=== PATIENT | female | born 1950 | race Caucasian/White ===

== ENCOUNTER → 2018-10-01 | Outpatient (CLI) | payer MEDICARE, OTHER ==
[2018-10-01 15:57] VITALS: BP 158/75; PULSE 79; RESP 18; TEMP 98.3; BMI 17.9
--- NOTE | 2018-10-01 17:00 | P.GSHP ---
History of Present Illness H&P Date: 10/01/18 Chief Complaint: abnormal mammogram of the right breast The patient is a 68-year-old white female who noted a lump in her right breast approximately 1 month ago. She underwent a bilateral mammogram on . This revealed an irregular somewhat spiculated intermediate density 15 mm mass in the region of the palpable area. She did not have anything of concern documented in the left breast. She underwent an ultrasound which revealed an irregular microlobulated 10 x 11 mm right breast mass in the 11:00 axis posteriorly. This corresponded to the size and location of the mammographic finding. The recommendation is ultrasound-guided core biopsy. The patient fell when walking her dog about 1 month ago. She states after this tube breast did not turn black and blue. The patient denies any nipple discharge or skin changes. Family history: sister: breast father: esophogeal cancer Hormonal History: menarche: 13 , first at 19, breast fed: none menopause: 49 BCP: 10 years hormones: none Past surgical history: 1. Appendectomy 2. Fusion in her back 3. Cardiac bypass 5 4. Tonsils Medical history: 1. kidney disease 2. daibetic 3. HTN 4. high cholesterol Impression history: Smoke: One pack per day/50 years alcohol: none drugs: none - Constitutional Constitutional: Denies chills, Denies fever - EENT Eyes: denies blurred vision, denies pain Ears: bilateral: decreased hearing, deny: tinnitus Ears, nose, mouth and throat: Denies headache, Denies sore throat - Breasts Breasts: bilateral: as per HPI - Cardiovascular Comment: Cardiac bypass 5, high cholesterol Cardiovascular: Reports high blood pressure - Respiratory Comment: smoker, chronic bronchitis - Gastrointestinal Gastrointestinal: Reports constipation - Genitourinary (Female) Comment: UTI - Menstruation Menstruation: Reports postmenopausal - Musculoskeletal Comment: arthritis - Integumentary Integumentary: Denies pruritus, Denies rash - Neurological Neurological: Reports weakness - Psychiatric Psychiatric: Reports anxiety - Endocrine Endocrine: Reports weight change - Hematologic/Lymphatic Comment: aspirin - Allergic/Immunologic Allergic/Immunologic: Reports seasonal allergies Past Medical History Past Medical History: Coronary Artery Disease (CAD), COPD, Diabetes Mellitus, Fibromyalgia, GERD/Reflux, Hearing Disorder / Deafness, Hyperlipidemia, Hyperte nsion Additional Past Medical History / Comment(s): bilat hearing aid History of Any Multi-Drug Resistant Organisms: None Reported Past Surgical History: Appendectomy, Back Surgery, Coronary Bypass/CABG, Tonsillectomy Past Anesthesia/Blood Transfusion Reactions: No Reported Reaction Past Psychological History: No Psychological Hx Reported Smoking Status: Current every day smoker Past Alcohol Use History: None Reported Past Drug Use History: None Reported - Past Family History Father Additional Family Medical History / Comment(s): hX.Mom-tia and dad and mom- cardiac, and sister - cardiac Medications and Allergies Home Medications Medication Instructions Recorded Confirmed Type Aspirin [Adult Low Dose Aspirin EC] 81 mg PO DAILY 03/13/15 10/01/18 History Fluticasone Nasal [place] [Flonase 1 spray EA NOSTRIL DAILY PRN 03/13/15 10/01/18 History Nasal [place]] HYDROcodone/APAP 7.5-325MG [[place] 1 each PO Q4H PRN 03/13/15 10/01/18 History 7.5-325] Insulin Glargine [Lantus] 8 unit SQ DAILY 03/13/15 10/01/18 History Omeprazole [PriLOSEC] 20 mg PO AC-BRKFST 03/13/15 10/01/18 History Simvastatin [Zocor] 20 mg PO HS 03/13/15 10/01/18 History Carvedilol [Coreg] 6.25 mg PO DAILY 09/29/18 10/01/18 History Cinacalcet [Sensipar] 30 mg PO DAILY 09/29/18 10/01/18 History Linaclotide [Linzess] 145 mcg PO DAILY 09/29/18 10/01/18 History Multivitamin/Iron/Folic Acid 1 each PO DAILY 09/29/18 10/01/18 History [Centrum Adults Tablet] amLODIPine [Norvasc] 5 mg PO DAILY 09/29/18 10/01/18 History Allergies Allergy/AdvReac Type Severity Reaction Status Date / Time codeine Allergy Unknown Verified 10/01/18 15:57 Surgical - Exam Vital Signs Temp Pulse Resp BP Pulse Ox 98.3 F 79 18 158/75 97 10/01/18 15:53 10/01/18 15:53 10/01/18 15:53 10/01/18 15:53 10/01/18 15:53 - General well developed, no distress - Eyes normal ocular movement - ENT normal pinna, no hearing loss - Neck no masses, trachea midline - Respiratory bilateral ronchi normal respiratory effort, clear to auscultation - Cardiovascular Rhythm: regular Heart Sounds: normal: S1, S2 - Abdomen Abdomen: soft, non tender, no guarding, no rigid, no rebound - Integumentary no abnormal pigmentation - Neurologic no disoriented, no combative - Musculoskeletal a vascular shunt in her left upper arm normal gait, normal posture - Psychiatric oriented to time, oriented to person, oriented to place, speech is normal, memory intact Breast examination: Right breast: Multi-positional exam fibrocystic changes, dominant mass in the 9 o'clock position, approximately 1-1/2 cm in size Right axilla: Shoddy adenopathy Left breast: Multi-positional exam fibrocystic changes, no nominate masses or nodules of concern left axilla: shoddy adenopathy Results Mammogram and ultrasound report reviewed Assessment and Plan Assessment: Impression: 1. Abnormal mammogram right breast 2. Abnormal ultrasound right breast 2. Palpable mass right breast 4. COPD 5. Hypertension 6. Prior cardiac bypass, coronary artery disease 7. Anxiety 8. Fibromyalgia 9. Diabetes 10. Decreased hearing The patient has a clearly palpable lesion in her right breast. I discussed with her doing a core biopsy of palpable lesion in the risks and benefits of this. She understands and wishes to proceed. We will forego the ultrasound-guided core at this time depending on results of our for biopsy of palpable lesion. Plan: 1. Ultrasound-guided core biopsy of palpable lesion right breast 2. Medical management of medical conditions CC: Padma Steve, [facility]
== END | disposition home or self-care (01) ==
LOC: WWCWWP 15:27
PROVIDERS: ATTEND Surgery
DX: Z53.9 Procedure and treatment not carried out, unspecified reason (principal)

== ENCOUNTER → 2018-10-09 | Outpatient (CLI) | payer MEDICARE, OTHER ==
[2018-10-09 12:53] VITALS: BP 175/78; PULSE 82; RESP 18; TEMP 97.9; BMI 17.9
--- NOTE | 2018-10-09 13:26 | P.PCN ---
Date of Procedure: 10/09/18 Preoperative Diagnosis: Mass right breast Postoperative Diagnosis: same Procedure(s) Performed: core biopsy right breast Anesthesia: local Surgeon: Karishma Crandall Pathology: other Condition: stable Disposition: same day Indications for Procedure: Palpable nodule right breast at the 9 o'clock position Operative Findings: Dense breast tissue Description of Procedure: The patient was brought to the procedure room and the area of concern in the [facility] breast was prepped in a sterile fashion. One percent lidocaine was used to anesthetize the area of concern. An 18 gauge core biopsy needle was introduced to the area of the lesion. 3 samples were obtained. The patient tolerated the procedure in stable condition. She will follow next week for results. I discussed with her that should this be nondiagnostic. Most likely recommend ultrasound-guided core biopsy. Cc: Padma Steve [facility]
== END ==
LOC: WWCWWP 11:36
PROVIDERS: ATTEND Surgery
DX: N64.89 Other specified disorders of breast (principal)
CPT/HCPCS: 88305; 88341; 88342

== ENCOUNTER → 2018-10-15 | Outpatient (CLI) | payer MEDICARE, OTHER ==
[2018-10-15 10:36] VITALS: BP 147/73; PULSE 79; RESP 18; TEMP 97.9; BMI 17.9
--- NOTE | 2018-10-15 11:08 | P.PN ---
Subjective Progress Note Date: 10/15/18 Principal diagnosis: Right breast grade 3 invasive ductal breast cancer The patient is a 68-year-old white female status post core biopsy of a palpable mass in the right breast. Pathology revealed invasive ductal breast cancer. The patient has no complaints related to the biopsy. The tumor is grade 3. We are awaiting receptor status and HER-2/dia status. I discussed the risks and benefits of surgical treatment including lumpectomy plus radiation therapy and sentinel node biopsy possible axillary node dissection, mastectomy plus or minus reconstruction. The patient at this time wishes to have a lumpectomy. Objective - Vital Signs Vital signs: Vital Signs Temp 97.9 F 10/15/18 10:32 Pulse 79 10/15/18 10:32 Resp 18 10/15/18 10:32 BP 147/73 10/15/18 10:32 Pulse Ox 98 10/15/18 10:32 Intake & Output 10/14/18 10/15/18 10/15/18 18:59 06:59 18:59 Weight 53.524 kg - Constitutional General appearance: Present: thin - EENT Eyes: Present: EOMI ENT: Present: hearing grossly normal - Neck Neck: Present: normal ROM - Respiratory Details: Bilateral rhonchi - Cardiovascular Rhythm: regular Heart sounds: normal: S1, S2 - Integumentary Integumentary: Present: normal turgor - Musculoskeletal Musculoskeletal: Present: gait normal - Psychiatric Psychiatric: Present: A&O x's 3, appropriate affect, intact judgment & insight - Additional findings Additional findings: Right breast: Mild ecchymosis at biopsy site, probable nodule approximately one to one and half centimeters in size Assessment and Plan Assessment: Impression: 1. Newly diagnosed right breast infiltrating ductal carcinoma grade 3. Plan: 1. Appointment with radiation oncology 2. Await ER/MT and HER-2/dia studies 3. Patient wishes lumpectomy with sentinel node biopsy possible axillary node dissection CC: Giuliano Gonzales
== END | disposition home or self-care (01) ==
LOC: WWCWWP 10:23
PROVIDERS: ATTEND Surgery
DX: Z53.9 Procedure and treatment not carried out, unspecified reason (principal)

== ENCOUNTER → 2018-11-19 | Outpatient (CLI) | payer MEDICARE, OTHER ==
[2018-11-19 16:20] VITALS: BP 167/67; PULSE 66; RESP 18; TEMP 97.8; BMI 18.2
--- NOTE | 2018-11-19 16:58 | P.GSHP ---
History of Present Illness H&P Date: 11/19/18 Chief Complaint: Right breast cancer The patient is a 68-year-old white female who noted a lump in her right breast approximately 2 months ago. She underwent a bilateral mammogram on . This revealed an irregular somewhat spiculated and terminated density 15 mm mass in the region of the palpable abnormality. She did not have anything of concern documented in the left breast. She underwent an ultrasound which revealed an irregular microlobulated 10 x 11 mm right breast mass 11 o'clock position. This corresponded to the location of the mammographic abnormality. The patient underwent a core biopsy of the area which revealed an invasive ductal carcinoma, grade 3. This was ER/[place] negative and HER-2/dia positive. The patient had her case presented at tumor board and the option of neoadjuvant chemotherapy was addressed. The patient however has refused neoadjuvant and wishes to proceed with surgical intervention. Family history: Sr.: Breast cancer Father: Esophageal cancer History: Menarche: 12 fistula 19, press-fit: Negative Menopause: 49 Postoperative control pills: 10 years Hormones: Negative Past surgical history: 1. Appendectomy 2. Fusion in her back 2. Cardiac bypass 5 4. Tonsillectomy Medical history: 1. Kidney disease requiring dialysis in the past 2. Diabetic 3. Hypertension 4. High cholesterol Social history: Smoke: 1. Per day for 50 years Alcohol: Negative Drugs: Negative - Constitutional Constitutional: Denies chills, Denies fever - EENT Eyes: denies blurred vision, denies pain Ears: bilateral: decreased hearing, deny: tinnitus - Breasts Breasts: bilateral: as per HPI - Cardiovascular Comment: Cardiac bypass 5, high cholesterol Cardiovascular: Reports high blood pressure - Respiratory Comment: Smoker, chronic bronchitis - Gastrointestinal Gastrointestinal: Reports constipation - Genitourinary (Female) Comment: History of kidney failure requiring dialysis in the past - Menstruation Menstruation: Reports postmenopausal - Musculoskeletal Comment: Arthritis - Integumentary Integumentary: Denies pruritus, Denies rash - Neurological Neurological: Reports weakness - Psychiatric Psychiatric: Reports anxiety - Endocrine Endocrine: Reports weight change - Hematologic/Lymphatic Comment: Aspirin - Allergic/Immunologic Allergic/Immunologic: Reports seasonal allergies Past Medical History Past Medical History: Coronary Artery Disease (CAD), COPD, Diabetes Mellitus, Fibromyalgia, GERD/Reflux, Hearing Disorder / Deafness, Hyperlipidemia, Hypertension Additional Past Medical History / Comment(s): bilat hearing aid History of Any Multi-Drug Resistant Organisms: None Reported Past Surgical History: Appendectomy, Back Surgery, Coronary Bypass/CABG, Tonsillectomy Past Anesthesia/Blood Transfusion Reactions: No Reported Reaction Past Psychological History: No Psychological Hx Reported Smoking Status: Current every day smoker Past Alcohol Use History: None Reported Past Drug Use History: None Reported - Past Family History Father Additional Family Medical History / Comment(s): hX.Mom-tia and dad and mom- cardiac, and sister - cardiac Medications and Allergies Home Medications Medication Instructions Recorded Confirmed Type Aspirin [Adult Low Dose Aspirin EC] 81 mg PO DAILY 03/13/15 11/19/18 History Fluticasone Nasal [place] [Flonase 1 spray EA NOSTRIL DAILY PRN 03/13/15 11/19/18 History Nasal [place]] HYDROcodone/APAP 7.5-325MG [[place] 1 each PO Q4H PRN 03/13/15 11/19/18 History 7.5-325] Insulin Glargine [Lantus] 8 unit SQ DAILY 03/13/15 11/19/18 History Omeprazole [PriLOSEC] 20 mg PO AC-BRKFST 03/13/15 11/19/18 History Simvastatin [Zocor] 20 mg PO HS 03/13/15 11/19/18 History Carvedilol [Coreg] 6.25 mg PO DAILY 09/29/18 11/19/18 History Cinacalcet [Sensipar] 30 mg PO DAILY 09/29/18 11/19/18 History Linaclotide [Linzess] 145 mcg PO DAILY 09/29/18 11/19/18 History Multivitamin/Iron/Folic Acid 1 each PO DAILY 09/29/18 11/19/18 History [Centrum Adults Tablet] amLODIPine [Norvasc] 5 mg PO DAILY 09/29/18 11/19/18 History Allergies Allergy/AdvReac Type Severity Reaction Status Date / Time codeine Allergy Unknown Verified 11/19/18 16:20 Surgical - Exam Vital Signs Temp Pulse Resp BP Pulse Ox 97.8 F 66 18 167/67 97 11/19/18 16:16 11/19/18 16:16 11/19/18 16:16 11/19/18 16:16 11/19/18 16:16 BMI 18.2 - General cachectic - Eyes normal ocular movement - ENT no hearing loss, no congestion - Neck trachea midline - Respiratory normal respiratory effort, clear to auscultation - Cardiovascular Systolic ejection murmur Heart Sounds: normal: S1, S2 - Abdomen Abdomen: soft - Integumentary Vascular shunt in her left upper arm - Neurologic no disoriented, no combative - Musculoskeletal normal gait, normal posture - Psychiatric oriented to time, oriented to person, oriented to place, speech is normal, memory intact Right breast examination: Multiple positional exam fibrocystic changes, dominant mass in the 9 o'clock position approximately one to one and half centimeters in size Right axilla: No adenopathy of concern Results Mammogram and ultrasound reports reviewed Case reviewed at tumor board Assessment and Plan Assessment: Impression: 1. Stage IA right breast cancer 2. Systolic ejection murmur 2. Diabetes 4. History of renal failure 5. Status post back surgery 6. Hypertension 7. Deafness 8. Coronary artery disease 9. Nicotine dependence Plan: 1. Lumpectomy sentinel node biopsy 2. Patient seen by radiation oncology post operative radiation therapy 3. Patient does not wish to have neoadjuvant chemotherapy she was given this option as a possible recommendation from tumor Board and chooses to forego it at this time 4. Medical clearance, cardiac clearance, nephrology clearance ( at [facility]) Patient and family understand the risks and benefits and wished to proceed with surgical lumpectomy and sentinel node biopsy possible axillary node dissection. They understand that if the margins to be positive or the sentinel nodes were to be found positive that they may require further surgical intervention. CC: Padma Steve
--- NOTE | 2018-12-10 09:52 | P.PN ---
Progress Note - Text Progress Note Date: 12/10/18 The patient has a history of chronic renal failure. Her head golf professional is in [place]. I spoke to Dr. Lucero, her head golf professional who states the patient is at high risk for any surgical intervention secondary to her renal disease. He has given clearance but would like the patient to spend the night postoperative and be followed by our local hospitalist. The patient is aware of this. And her procedure has been scheduled pending clearance from cardiology. She additionally has been seen by cardiology and had an ECHO performed the results of which are not yet available. We are continuing to await clearance from her primary care doctor. Upon clearance the patient will undergo a right breast needle localization with lumpectomy and sentinel node injection sentinel node biopsy possible axillary node dissection. CC: Padma Steve
== END | disposition home or self-care (01) ==
LOC: WWCWWP 16:05
PROVIDERS: ATTEND Surgery
DX: Z53.9 Procedure and treatment not carried out, unspecified reason (principal)

== ENCOUNTER → 2018-12-28 | Outpatient (CLI) | payer MEDICARE ==
[2018-12-28 13:31] LABS: HGB 7.8 gm/dL (11.4-16.0); Hypochromasia Slight; MCH 31.7 pg (25.0-35.0); MCHC 31.1 g/dL (31.0-37.0); MCV 101.8 fL (80.0-100.0); Macrocytosis Slight; Mean Platelet Volume 7.2; Platelet Count 263 k/uL (150-450); RBC 2.46 m/uL (3.80-5.40); RDW 14.2 % (11.5-15.5)
[2018-12-28 18:45] LABS: Anion Gap 9.1 mmol/L (4.00-12.00); Carbon Dioxide 19.9 mmol/L (21.6-31.8); Magnesium 1.4 mg/dL (1.5-2.4); Potassium 3.9 mmol/L (3.5-5.5)
== END | disposition home or self-care (01) ==
LOC: LABWHC1 12:37
PROVIDERS: ATTEND Surgery
DX: N18.9 Chronic kidney disease, unspecified (principal)
CPT/HCPCS: 36415; 80051; 83735; 85027

== ENCOUNTER → 2018-12-28 | Outpatient (CLI) | payer MEDICARE ==
[2018-12-28 12:08] VITALS: BP 161/72; PULSE 75; RESP 18; TEMP 97.5; BMI 19.1
--- NOTE | 2018-12-28 12:29 | P.PN ---
Subjective Progress Note Date: 12/28/18 The patient is a 68-year-old white female who noted a lump in her right breast several months ago. She underwent a bilateral mammogram on . This revealed an irregular somewhat spiculated and terminated density 15 mm mass in the region of the palpable abnormality. She did not have anything of concern documented in the left breast. She underwent an ultrasound which revealed an irregular microlobulated 10 x 11 mm right breast mass 11 o'clock position. This corresponded to the location of the mammographic abnormality. The patient underwent a core biopsy of the area which revealed an invasive ductal carcinoma, grade 3. This was ER/[place] negative and HER-2/dia positive. The patient had her case presented at tumor board and the option of neoadjuvant chemotherapy was addressed. The patient however has refused neoadjuvant and wishes to proceed with surgical intervention. She has acomplex medical history including renal disease. She was seen by her car stower in [place] and cleared for surgery, but with the recommendation of close follow up here by our hospitalist. Family history: Sr.: Breast cancer Father: Esophageal cancer History: Menarche: 12 fistula 19, press-fit: Negative Menopause: 49 Postoperative control pills: 10 years Hormones: Negative Past surgical history: 1. Appendectomy 2. Fusion in her back 2. Cardiac bypass 5 4. Tonsillectomy Medical history: 1. Kidney disease requiring dialysis in the past 2. Diabetic 3. Hypertension 4. High cholesterol Social history: Smoke: 1. Per day for 50 years Alcohol: Negative Drugs: Negative - Constitutional Constitutional: Denies chills, Denies fever - EENT Eyes: denies blurred vision, denies pain Ears: bilateral: decreased hearing, deny: tinnitus - Breasts Breasts: bilateral: as per HPI - Cardiovascular Comment: Cardiac bypass 5, high cholesterol Cardiovascular: Reports high blood pressure - Respiratory Comment: Smoker, chronic bronchitis - Gastrointestinal Gastrointestinal: Reports constipation - Genitourinary (Female) Comment: History of kidney failure requiring dialysis in the past - Menstruation Menstruation: Reports postmenopausal - Musculoskeletal Comment: Arthritis - Integumentary Integumentary: Denies pruritus, Denies rash - Neurological Neurological: Reports weakness - Psychiatric Psychiatric: Reports anxiety - Endocrine Endocrine: Reports weight change - Hematologic/Lymphatic Comment: Aspirin - Allergic/Immunologic Allergic/Immunologic: Reports seasonal allergies Past Medical History Past Medical History: Coronary Artery Disease (CAD), COPD, Diabetes Mellitus, Fibromyalgia, GERD/Reflux, Hearing Disorder / Deafness, Hyperlipidemia, Hypertension Additional Past Medical History / Comment(s): bilat hearing aid History of Any Multi-Drug Resistant Organisms: None Reported Past Surgical History: Appendectomy, Back Surgery, Coronary Bypass/CABG, Tonsillectomy Past Anesthesia/Blood Transfusion Reactions: No Reported Reaction Past Psychological History: No Psychological Hx Reported Smoking Status: Current every day smoker Past Alcohol Use History: None Reported Past Drug Use History: None Reported - Past Family History Father Additional Family Medical History / Comment(s): hX.Mother: TIA Objective - Vital Signs Vital signs: Vital Signs Temp 97.5 F L 12/28/18 11:58 Pulse 75 12/28/18 11:58 Resp 18 12/28/18 11:58 BP 161/72 12/28/18 11:58 Pulse Ox Intake & Output 12/27/18 12/28/18 12/28/18 18:59 06:59 18:59 Weight 57.153 kg - Exam BMI 19.2 - Constitutional General appearance: Present: thin - EENT Eyes: Present: EOMI ENT: Present: hearing grossly normal - Neck Neck: Present: normal ROM - Respiratory Respiratory: bilateral: diminished (at bases) - Cardiovascular Rhythm: regular Heart sounds: normal: S1, S2 Abnormal Heart Sounds: Present: systolic murmur - Gastrointestinal General gastrointestinal: Present: soft - Integumentary Integumentary: Present: normal turgor - Musculoskeletal Musculoskeletal: Present: gait normal - Psychiatric Psychiatric: Present: A&O x's 3, appropriate affect, intact judgment & insight - Additional findings Additional findings: Examination: Right breast: 11 o'clock position probable approximately 1.5 cm firm mass biopsy proven malignancy Right axilla: Few shotty lymph nodes Left breast: Multi-positional exam no dominant masses or nodules of concern, fibrocystic changes Left axilla: Negative Assessment and Plan Assessment: Impression: 1. Kidney disease requiring dialysis in the past 2. Diabetic 3. Hypertension 4. High cholesterol 5. biopsy proven right breast cancer 6. COPD Plan: 1. Medical clearance from cardiology, pulmonary, and nephrology, and brought and repair to release 2. Right breast lumpectomy sentinel node biopsy 3. Medical management of medical conditions 4. Electrolytes, magnesium, and CBC CC: Giuliano Gonzales nurse practitioner
== END | disposition home or self-care (01) ==
LOC: WWCWWP 11:53
PROVIDERS: ATTEND Surgery
DX: Z53.9 Procedure and treatment not carried out, unspecified reason (principal)

== ENCOUNTER 2019-01-05 11:16 | Inpatient (IN) | payer MEDICARE ==
[2019-01-05] MEDS ORDERED: ONDANSETRON 4 MG/2 ML VIAL IVP PRN (15:58)
[2019-01-05] MEDS ORDERED: MELATONIN 3 MG TABLET PO PRN (15:58)
[2019-01-05] MEDS ORDERED: ACETAMINOPHEN TAB 325 MG TAB PO PRN (15:58)
[2019-01-05] MEDS ORDERED: CALCIUM CARBONATE 500 MG CHEWABLE PO PRN (15:58)
[2019-01-05] MEDS ORDERED: NALOXONE 0.4 MG/ML 1 ML VIAL IV PRN (15:58)
--- NOTE | 2019-01-05 16:20 | P.HPIM ---
History of Present Illness H&P Date: 01/05/19 Chief Complaint: Cough shortness of breath Presenting complaint: Short of breath cough History of presenting complaint: This is a pleasant 68-year-old patient who came in to have right breast surgery by Dr. Rachele duncan. Patient found the right breast mass about 2 months ago. Saw her family doctor had a mammogram done. Subsequently was referred to Dr. Rachele David. Patient was scheduled for surgery this morning. Patient for last to 3 days has been increasing short of breath. Wheezing cough. Bringing up phlegm. Not feeling well tired rundown. Denied any obvious fever and chills. Please appetite though. Chronic stable medical conditions include coronary artery disease, diabetes, fibromyalgia, GERD, hyperlipidemia, hypertension and decreased hearing and wears hearing aids. Patient had a coronary bypass in 2007 and does follow with Dr. Borges from cardiology. Patient was seen 2 weeks ago and cleared for the surgery. Review of systems: GEN.: Tired EYES: None HEENT: None NECK: None RESPIRATORY: As above CARDIOVASCULAR: None GASTROINTESTINAL: None GENITOURINARY: None MUSCULOSKELETAL: Some pain in the joints LYMPHATICS: None HEMATOLOGICAL: None PSYCHIATRY: None NEUROLOGICAL: None Social history: Smokes anywhere from half to pack a day for over 50 years. Alcohol rarely. . Family history: Esophageal cancer Physical examination: VITAL SIGNS: 98.2, 72, 18, 108/68, 94% room air GENERAL: Laying in bed, tired appearing. EYES: Pupils equal. Conjunctiva normal. HEENT: External appearance of nose and ears normal, oral cavity grossly normal. NECK: JVD not raised; masses not palpable. HEART: First and second heart sounds are normal; no edema. LUNGS: Respiratory rate increased, diminished breath sounds on expiration some expiratory crackles, wheezing. ABDOMEN: Soft, nontender, liver spleen not palpable, no masses palpable. PSYCH: Alert and oriented x3; mood and affect normal. NEUROLOGICAL: Cranial nerves grossly intact; no facial asymmetry, power and sensation grossly intact. LYMPHATICS: No lymph nodes palpable in the axilla and neck Investigations: Lab work ordered and pending Checks x-ray pending Assessment: -Acute COPD exacerbation in a current smoker -Acute tracheobronchitis versus pneumonia, awaiting chest x-ray -Coronary artery disease with a prior history of bypass -Diabetes mellitus type 2 -Chronic fibromyalgia -GERD -Hyperlipidemia -Essential hypertension -Bilateral hard of hearing with hearing aids -Right breast cancer being followed by Dr. Rachele David Plan: Patient be started on nebulized bronchodilators every 4 hours, IV Solu-Medrol, nebulized Pulmicort,. Accu-Cheks will be followed with slight scale insulin. Home medications resumed. Lovenox for DVT prophylaxis. Care was discussed with the patient. Expect the patient to be here for at least 2 nights and the hospital. Smoke cessation counseling: This was done with the patient. Nicotine patch is being given. More than 3 minutes was spent on this. Past Medical History Past Medical History: Coronary Artery Disease (CAD), COPD, Diabetes Mellitus, Fibromyalgia, GERD/Reflux, Hearing Disorder / Deafness, Hyperlipidemia, Hypertension Additional Past Medical History / Comment(s): bilat hearing aid History of Any Multi-Drug Resistant Organisms: None Reported Past Surgical History: Appendectomy, Back Surgery, Coronary Bypass/CABG, Tonsillectomy Past Anesthesia/Blood Transfusion Reactions: No Reported Reaction Smoking Status: Current every day smoker - Past Family History Father Additional Family Medical History / Comment(s): esophageal cancer Sister(s) Additional Family Medical History / Comment(s): breast cancer Medications and Allergies Home Medications Medication Instructions Recorded Confirmed Type Aspirin [Adult Low Dose Aspirin EC] 81 mg PO DAILY 03/13/15 01/05/19 History Fluticasone Nasal [place] [Flonase 1 spray EA NOSTRIL DAILY PRN 03/13/15 01/05/19 History Nasal [place]] Insulin Glargine [Lantus] 8 unit SQ HS 03/13/15 01/05/19 History Omeprazole [PriLOSEC] 20 mg PO AC-BRKFST 03/13/15 01/05/19 History Simvastatin [Zocor] 20 mg PO HS 03/13/15 01/05/19 History Carvedilol [Coreg] 6.25 mg PO DAILY 09/29/18 01/05/19 History Linaclotide [Linzess] 145 mcg PO DAILY 09/29/18 01/05/19 History Multivitamin/Iron/Folic Acid 1 tab PO DAILY 09/29/18 01/05/19 History [Centrum Adults Tablet] amLODIPine [Norvasc] 5 mg PO DAILY 09/29/18 01/05/19 History HYDROcodone/APAP 10-325MG [Evans 1 tab PO TID PRN 01/04/19 01/05/19 History 10-325] Furosemide [Lasix] 80 mg PO DAILY 01/05/19 01/05/19 History Allergies Allergy/AdvReac Type Severity Reaction Status Date / Time codeine Allergy Unknown Verified 01/05/19 13:38 Physical Exam Vitals: Vital Signs Temp Pulse Resp BP Pulse Ox 01/05/19 14:07 72 01/05/19 14:05 98.2 F 72 18 108/68 94 L Intake and Output 01/05/19 01/05/19 01/05/19 06:59 14:59 22:59 Other: # Voids 1 Weight 53.977 kg
--- NOTE | 2019-01-05 16:31 | XR ---
EXAMINATION TYPE: XR chest 2V DATE OF EXAM: 01/05/2019 COMPARISON: NONE HISTORY: Productive cough with sputum, shortness of breath TECHNIQUE: Frontal and lateral views of the chest are obtained. FINDINGS: Post-CABG changes with mediastinal clips and sternal wires is present. Reticular interstiti al changes throughout the lungs bilaterally are present. There is no suspicious focal air space opaci ty, pleural effusion, or pneumothorax seen. The cardiac silhouette size is upper limits of normal. The osseous structures are intact. IMPRESSION: Reticular interstitial changes bilaterally favor product of diffuse chronic interstitial fibrosis. No suspicious focal acute infiltrate. Correlation with old outside chest x-ray would be be neficial.
[2019-01-05] MEDS: HYDROcodone/APAP 10-325MG 1 EACH TAB PO PRN (16:50)
[2019-01-05] MEDS: NICOTINE 21MG/24HR PATCH TRANSDERM SCH (16:51)
[2019-01-05] MEDS: ENOXAPARIN 40 MG/0.4 ML SYRINGE SQ SCH (16:52)
[2019-01-05] MEDS: methylPREDNISolone SOD SUCCI 40 MG/ML 1 ML VIAL IV SCH (16:53)
[2019-01-05 17:24] LABS: Basophils % (A) 0 %; Eosinophils % (A) 0 %; HCT 27.1 % (34.0-46.0); HGB 8.6 gm/dL (11.4-16.0); Hypochromasia Slight; Lymphocytes # (A) 0.9 k/uL (1.0-4.8); Lymphocytes % (A) 5 %; MCHC 31.6 g/dL (31.0-37.0); MCV 101.2 fL (80.0-100.0); Macrocytosis Slight; Mean Platelet Volume 7.2; Monocytes # (A) 0.4 k/uL (0-1.0); Monocytes % (A) 2 %; Neutrophils # (A) 15.8 k/uL (1.3-7.7); Neutrophils % (A) 92 %; Platelet Count 324 k/uL (150-450); RBC 2.68 m/uL (3.80-5.40); RDW 14.8 % (11.5-15.5); WBC 17.2 k/uL (3.8-10.6)
[2019-01-05] MEDS ORDERED: INSULIN ASPART (NovoLOG) 100 UNIT/ML VIAL SQ SCH (17:30)
[2019-01-05 17:33] LABS: Albumin 3.2 g/dL (3.5-5.0); Calcium 7.7 mg/dL (8.4-10.2); Potassium 3.7 mmol/L (3.5-5.1); Total Bilirubin 0.3 mg/dL (0.2-1.3); Total Protein 5.7 g/dL (6.3-8.2)
[2019-01-05 17:45] LABS: Glucose,Whole Blood 191 mg/dL (75-99)
[2019-01-05] MEDS: CARVEDILOL 3.125 MG TAB PO SCH (17:55)
[2019-01-05 18:58] VITALS: BMI 18.1
[2019-01-05] MEDS: IPRATROPIUM-ALBUTEROL 3 ML NEB INHALATION SCH (20:17)
[2019-01-05] MEDS: BUDESONIDE 1 MG/2 ML NEBU INHALATION SCH (20:17)
[2019-01-05 20:40] LABS: Glucose,Whole Blood 194 mg/dL (75-99)
[2019-01-05] MEDS ORDERED: INSULIN DETEMIR (LEVEMIR) 100 UNIT/ML SYR SQ SCH (21:00)
[2019-01-05] MEDS: INSULIN ASPART (NovoLOG) 100 UNIT/ML VIAL SQ SCH (21:07)
[2019-01-05] MEDS: ATORVASTATIN 10 MG TAB PO SCH (21:08)
[2019-01-06] MEDS: IPRATROPIUM-ALBUTEROL 3 ML NEB INHALATION SCH ×8 (00:15→23:54)
[2019-01-06] MEDS: methylPREDNISolone SOD SUCCI 40 MG/ML 1 ML VIAL IV SCH ×3 (00:25→17:03)
[2019-01-06] MEDS: HYDROcodone/APAP 10-325MG 1 EACH TAB PO PRN ×3 (00:42→17:42)
[2019-01-06] MEDS ORDERED: IPRATROPIUM-ALBUTEROL 3 ML NEB ONE (04:00)
[2019-01-06 06:52] LABS: Glucose,Whole Blood 128 mg/dL (75-99)
[2019-01-06] MEDS: INSULIN ASPART (NovoLOG) 100 UNIT/ML VIAL SQ SCH ×3 (06:53→18:27)
[2019-01-06] MEDS: PANTOPRAZOLE 40 MG TABLET PO SCH (07:43)
[2019-01-06] MEDS: CARVEDILOL 3.125 MG TAB PO SCH ×2 (07:43→18:17)
[2019-01-06] MEDS ORDERED: NON-FORMULARY DRUG (Linaclotide [Linzess] 145 MCG) PO SCH (09:00)
[2019-01-06] MEDS: MULTIVITAMINS, THERA 1 EACH TAB PO SCH (09:31)
[2019-01-06] MEDS: FUROSEMIDE 80 MG TAB PO SCH (09:31)
[2019-01-06] MEDS: amLODIPine 5 MG TAB PO SCH (09:32)
[2019-01-06] MEDS: ASPIRIN 81 MG PO SCH (09:34)
[2019-01-06] MEDS: ENOXAPARIN 40 MG/0.4 ML SYRINGE SQ SCH (09:34)
[2019-01-06] MEDS: NICOTINE 21MG/24HR PATCH TRANSDERM SCH (09:34)
[2019-01-06] MEDS: BUDESONIDE 1 MG/2 ML NEBU INHALATION SCH ×3 (09:53→23:53)
[2019-01-06 11:54] LABS: Glucose,Whole Blood 327 mg/dL (75-99)
[2019-01-06 13:06] LABS: Hemoglobin A1C 6.3 % (4.0-6.0)
[2019-01-06] MEDS: LORATADINE 10 MG TAB PO SCH (16:13)
[2019-01-06 17:44] LABS: Glucose,Whole Blood 519 mg/dL (75-99)
[2019-01-06 17:44] LABS: Glucose,Whole Blood 533 mg/dL (75-99)
[2019-01-06 18:40] LABS: Glucose,Whole Blood 481 mg/dL (75-99)
[2019-01-06] MEDS ORDERED: INSULIN REGULAR 100 UNIT in SODIUM CHLORIDE 0.9% 100 ML IV SCH (19:45)
[2019-01-06 21:30] LABS: Glucose,Whole Blood 472 mg/dL (75-99)
[2019-01-06] MEDS: ATORVASTATIN 10 MG TAB PO SCH (21:49)
[2019-01-06 22:23] LABS: Glucose,Whole Blood 432 mg/dL (75-99)
[2019-01-06 23:04] LABS: Glucose,Whole Blood 350 mg/dL (75-99)
[2019-01-06 23:17] LABS: Glucose,Whole Blood 265 mg/dL (75-99)
[2019-01-07 00:06] LABS: Glucose,Whole Blood 221 mg/dL (75-99)
--- NOTE | 2019-01-07 00:18 | P.PN ---
Progress Note - Text Progress Note Date: 01/06/19 Chief Complaint: Cough shortness of breath Interval history: This is a pleasant 68-year-old patient who came in to have right breast surgery by Dr. Rachele duncan. Patient found the right breast mass about 2 months ago. Saw her family doctor had a mammogram done. Subsequently was referred to Dr. Rachele David. Patient was scheduled for surgery this morning. Patient for last to 3 days has been increasing short of breath. Wheezing cough. Bringing up phlegm. Not feeling well tired rundown. Denied any obvious fever and chills. Please appetite though. Chronic stable medical conditions include coronary artery disease, diabetes, fibromyalgia, GERD, hyperlipidemia, hypertension and decreased hearing and wears hearing aids. Patient had a coronary bypass in 2007 and does follow with Dr. Borges from cardiology. Patient was seen 2 weeks ago and cleared for the surgery. Patient admitted for COPD exacerbation and acute tracheobronchitis Today-saw this patient earlier today. Was feeling better. Breathing was improving. Late in the afternoon nurse called me that patient eaten some sweets that she was at gone up to 500s. I ordered the insulin drip in telemetry for the patient to be moved to telemetry floor. X-ray did not show any pneumonia. Review of systems: Was done for constitutional, cardiovascular, GI, pulmonary. relevant finding as above Active Medications Acetaminophen (Tylenol Tab) 650 mg PO Q6HR PRN PRN Reason: Mild Pain or Fever > 100.5 Hydrocodone Bitart/Acetaminophen (Roberts 10) 1 each PO TID PRN PRN Reason: Pain Last Admin: 01/06/19 17:42 Dose: 1 each Documented by: Albuterol/Ipratropium (Duoneb 0.5 Mg-3 Mg/3 Ml Soln) 3 ml INHALATION RT-Q4H [facility] Last Admin: 01/06/19 23:54 Dose: Not Given Documented by: Amlodipine Besylate (Norvasc) 5 mg PO DAILY [facility] Last Admin: 01/06/19 09:32 Dose: 5 mg Documented by: Aspirin (Aspirin) 81 mg PO DAILY [facility] Last Admin: 01/06/19 09:34 Dose: Not Given Documented by: Atorvastatin Calcium (Lipitor) 10 mg PO HS [facility] Last Admin: 01/06/19 21:49 Dose: 10 mg Documented by: Budesonide (Pulmicort) 1 mg INHALATION RT-BID [facility] Last Admin: 01/06/19 23:53 Dose: Not Given Documented by: Calcium Carbonate/Glycine (Tums) 1,000 mg PO Q4HR PRN PRN Reason: Dyspepsia Carvedilol (Coreg) 3.125 mg PO BID-W/MEALS [facility] Last Admin: 01/06/19 18:17 Dose: 3.125 mg Documented by: Enoxaparin Sodium (Lovenox) 30 mg SQ DAILY [facility] Furosemide (Lasix) 80 mg PO DAILY [facility] Last Admin: 01/06/19 09:31 Dose: 80 mg Documented by: Ceftriaxone Sodium 1 gm/ (Sodium Chloride) 50 mls @ 100 mls/hr IVPB Q24HR [facility] Last Admin: 01/06/19 09:25 Dose: 100 mls/hr Documented by: Insulin Human Regular 100 unit (/ Sodium Chloride) 101 mls @ 0 mls/hr IV .Q0M [facility]; Protocol Last Titration: 01/06/19 23:27 Dose: 11 mls/hr, 11 mls/hr Documented by: Insulin Aspart (Novolog) 7 unit 0.13 unit/kg (7 unit) SQ AC-TID [facility] Loratadine (Claritin) 5 mg PO Q12HR [facility] Last Admin: 01/06/19 16:13 Dose: 5 mg Documented by: Melatonin (Melatonin) 3 mg PO HS PRN PRN Reason: Insomnia Methylprednisolone Sodium Succinate (Solu-Medrol) 40 mg IV Q8HR [facility] Last Admin: 01/06/19 17:03 Dose: 40 mg Documented by: Multivitamins (Theragran) 1 each PO DAILY [facility] Last Admin: 01/06/19 09:31 Dose: 1 each Documented by: Naloxone HCl (Narcan) 0.2 mg IV Q2M PRN PRN Reason: Opioid Reversal Nicotine (Habitrol 21mg/24hr Patch) 1 patch TRANSDERM DAILY [facility] Last Admin: 01/06/19 09:34 Dose: 1 patch Documented by: Non-Formulary Medication (Linaclotide [Linzess]) 145 mcg PO DAILY [facility] Ondansetron HCl (Zofran) 4 mg IVP Q8HR PRN PRN Reason: Nausea And Vomiting Pantoprazole Sodium (Protonix) 40 mg PO AC-BRKFST [facility] Last Admin: 01/06/19 07:43 Dose: 40 mg Documented by: Physical examination: VITAL SIGNS: 98.2, 69, 20, 137/87, 99% room air GENERAL: Laying in bed, appears better EYES: Pupils equal. Conjunctiva normal. HEENT: External appearance of nose and ears normal, oral cavity grossly normal. NECK: JVD not raised; masses not palpable. HEART: First and second heart sounds are normal; no edema. LUNGS: Respiratory rate increased, diminished breath sounds on expiration improved wheezing. ABDOMEN: Soft, nontender, liver spleen not palpable, no masses palpable. PSYCH: Alert and oriented x3; mood and affect normal. Investigations: Accu-Cheks and up to 533 Checks x-ray film personally reviewed by me suggestive of fibrotic changes Assessment: -Acute COPD exacerbation in a current smoker, improving -Acute tracheobronchitis . No pneumonia -We will check for pulmonary fibrosis basilar checks x-ray -Coronary artery disease with a prior history of bypass -Diabetes mellitus type 2 uncontrolled with hyperglycemia secondary steroids and taking desserts -Chronic fibromyalgia -GERD -Hyperlipidemia -Essential hypertension -Bilateral hard of hearing with hearing aids -Right breast cancer being followed by Dr. Rachele David Plan: Patient be moved to telemetry for with insulin drip. Switched the patient oral prednisone. Also order a high-resolution computed tomography scan of the chest to rule out pulmonary fibrosis
[2019-01-07] MEDS: methylPREDNISolone SOD SUCCI 40 MG/ML 1 ML VIAL IV SCH (00:31)
[2019-01-07] MEDS: LORATADINE 10 MG TAB PO SCH ×4 (00:32→21:17)
[2019-01-07 00:39] LABS: Glucose,Whole Blood 157 mg/dL (75-99)
[2019-01-07 01:37] LABS: Glucose,Whole Blood 88 mg/dL (75-99)
[2019-01-07 02:26] LABS: Glucose,Whole Blood 114 mg/dL (75-99)
[2019-01-07 03:41] LABS: Glucose,Whole Blood 143 mg/dL (75-99)
[2019-01-07] MEDS: IPRATROPIUM-ALBUTEROL 3 ML NEB INHALATION SCH ×6 (04:05→22:45)
[2019-01-07 04:50] LABS: Glucose,Whole Blood 150 mg/dL (75-99)
[2019-01-07] MEDS: HYDROcodone/APAP 10-325MG 1 EACH TAB PO PRN ×2 (06:27→15:19)
[2019-01-07 06:42] LABS: Glucose,Whole Blood 132 mg/dL (75-99)
[2019-01-07 07:22] LABS: Glucose,Whole Blood 153 mg/dL (75-99)
[2019-01-07] MEDS: BUDESONIDE 1 MG/2 ML NEBU INHALATION SCH ×2 (08:09→19:16)
[2019-01-07] MEDS: CARVEDILOL 3.125 MG TAB PO SCH ×2 (08:13→17:42)
[2019-01-07] MEDS: amLODIPine 5 MG TAB PO SCH (08:13)
[2019-01-07] MEDS: PANTOPRAZOLE 40 MG TABLET PO SCH (08:13)
[2019-01-07] MEDS: ASPIRIN 81 MG PO SCH ×2 (08:13→08:25)
[2019-01-07] MEDS: predniSONE 20 MG TAB PO SCH (08:13)
[2019-01-07] MEDS: NICOTINE 21MG/24HR PATCH TRANSDERM SCH (08:13)
[2019-01-07] MEDS: MULTIVITAMINS, THERA 1 EACH TAB PO SCH ×2 (08:13→08:26)
[2019-01-07] MEDS: ENOXAPARIN 30 MG/0.3 ML SYRINGE SQ SCH (08:14)
[2019-01-07] MEDS: FUROSEMIDE 80 MG TAB PO SCH (08:14)
[2019-01-07] MEDS: NON-FORMULARY DRUG (Linaclotide [Linzess] 145 MCG) PO SCH (08:14)
[2019-01-07] MEDS: CEFDINIR 300 MG CAP PO SCH (08:16)
[2019-01-07 08:46] LABS: Calcium 6.8 mg/dL (8.4-10.2); Potassium 3.8 mmol/L (3.5-5.1)
--- NOTE | 2019-01-07 09:00 | CT ---
EXAMINATION TYPE: CT chest wo con DATE OF EXAM: 01/07/2019 COMPARISON: Chest x-ray from 2 days ago. HISTORY: Shortness of breath CT DLP: 314 mGycm. Automated Exposure Control for Dose Reduction was Utilized. TECHNIQUE: CT scan of the thorax is performed without IV contrast. High-resolution protocol with 1 m m sequences obtained in 10 mm intervals in supine and prone technique FINDINGS: LUNGS: Background moderate diffuse emphysematous changes present. There are suspected moderate biapic al pleural/parenchymal scarring. Some mild areas of reticulation and fibrosis in the bilateral lower lungs. Additional mild to moderate linear scarring and/or atelectasis in both bases. Subcentimeter no dule or nodular consolidation right middle lobe axial image 22 series 6. Exam is not tailored to eval uation for nodules. No bronchiectasis. No pleural effusion or pneumothorax. MEDIASTINUM: Lack of IV contrast is noted to limit evaluation for mediastinal and especially hilar ad enopathy. There are no definitive greater than 1 cm hilar or mediastinal lymph nodes. No pericardia l effusion is seen. Post-CABG changes with mediastinal clips and sternal wires is present. Prominent right and left pulmonary artery suggests underlying pulmonary artery hypertension. OTHER: Suspicious right lateral breast mass on axial image 11 measuring 1.3 cm corresponds to outside ultrasound September 21, 2018. Neoplasm suspected. Correlate clinically. IMPRESSION: 1. Moderate to borderline advanced emphysematous changes with [id number] scattered parenchymal fibrosis. Mild peripheral fibrosis in the lung bases not as prominent as chronic changes related to C OPD. No acute pulmonary process is evident. 2. Possible subcentimeter right middle lobe nodule. Patient is likely candidate for low-dose lung scr eening CT or given abnormal CT nonemergent contrast-enhanced chest CT. 3. Suspicious right breast lesion, nonemergent sampling advised via ultrasound guidance if this has n ot been performed.
[2019-01-07 09:07] LABS: Basophils % (A) 0 %; Eosinophils # (A) 0.1 k/uL (0-0.7); Eosinophils % (A) 0 %; HCT 24.6 % (34.0-46.0); Lymphocytes # (A) 0.8 k/uL (1.0-4.8); Lymphocytes % (A) 6 %; MCH 32.6 pg (25.0-35.0); MCHC 32.4 g/dL (31.0-37.0); MCV 100.6 fL (80.0-100.0); Macrocytosis Slight; Mean Platelet Volume 7.5; Monocytes # (A) 0.3 k/uL (0-1.0); Monocytes % (A) 2 %; Neutrophils # (A) 12.3 k/uL (1.3-7.7); Neutrophils % (A) 91 %; Platelet Count 285 k/uL (150-450); RBC 2.44 m/uL (3.80-5.40); RDW 14.2 % (11.5-15.5); WBC 13.6 k/uL (3.8-10.6)
[2019-01-07] MEDS: INSULIN ASPART (NovoLOG) 100 UNIT/ML VIAL SQ SCH ×4 (09:29→21:21)
[2019-01-07 09:39] LABS: Glucose,Whole Blood 201 mg/dL (75-99)
[2019-01-07 11:39] LABS: Glucose,Whole Blood 118 mg/dL (75-99)
[2019-01-07 12:24] LABS: Glucose,Whole Blood 76 mg/dL (75-99)
[2019-01-07 13:24] LABS: Glucose,Whole Blood 132 mg/dL (75-99)
--- NOTE | 2019-01-07 14:15 | CDI ---
Documentation Clarification Form Date: 01/07/2019 2:07:17 PM From: Nguyen Victoria RN Admit Date: 01/05/2019 1:30:00 PM Patient Name: Latesha Colin Visit Number: [id number] ATTENTION: The Clinical Documentation Specialists (CDI) and [facility] Coding Staff appreciate your assistance in clarifying documentation. Please respond to the clarification below the line at the bottom and electronically sign. The CDI & [facility] Coding staff will review the response and follow-up if needed. Please note: Queries are made part of the Legal Health Record. If you have any questions, please contact the author of this message via ITS. Dr. Derian Doyle A low BMI has been noted, please provide clinical significance. History/Risk Factors: A COPD Exacerbation, DM2 uncontrolled, GERD, Right Breast CA Clinical Indicators: Patients weight is 53.9 kg Patients height is 68 in Calculated BMI is 18.1 kh/m2 Per Dietary consult: not enough intake to meet metabolism needs in a current cancer patient Treatments: Nutritional Education: provided by Dietary Dietary Consult: Completed 01/06/19 Supplements: [place] Instant Breakfast TID In order to capture the severity of condition associated with patient BMI of 18.1, a clinical diagnosis needs to be documented by the physician. Please clarify: Cachexia Underweight Protein Calorie Malnutrition Mild Moderate Severe Other Unable to determine (Last Revision: August 2017) Mild protein calorie medication from decreased oral intake MTDD
[2019-01-07 14:28] LABS: Glucose,Whole Blood 204 mg/dL (75-99)
[2019-01-07] MEDS ORDERED: Magnesium Replacement Protocol 1 EACH MISC MISCELLANE PRN (15:39)
[2019-01-07 16:06] LABS: Glucose,Whole Blood 204 mg/dL (75-99)
--- NOTE | 2019-01-07 16:20 | P.CRDCN ---
History of Present Illness History of present illness: This is a pleasant 68-year-old female past medical history significant for coronary artery disease status post bypass grafting in 2007, hypertension, dyslipidemia, fibromyalgia, diabetes mellitus, COPD and chronic nicotine dependence. She follows in the office with Dr. Bradley. We have been asked to see her palpitations secondary to ventricular tachycardia noted on telemetry. The patient states she was using the bathroom and was bending over to pick something up when she felt her heart racing. This episode was very brief and subsided when she stood up. This was not associated with chest pain, shortness of breath or dizziness. She is seen and examined sitting up in bed in no acute distress. She denies any further symptoms of palpitations. She is currently admitted into the hospital secondary to an exacerbation of COPD. She is also currently maintained on an insulin infusion secondary to uncontrolled hyperglycemia. Creatinines are elevated. Patient does have a fistula in place and states she has had dialysis before however has not required any as of recently. She came in initially for an elective outpatient lumpectomy secondary to breast cancer with Dr. Mason David. The procedure was not done secondary to her breathing status. Laboratory data reviewed, WBC 13.6, hemoglobin 8, platelets 285, sodium 129, potassium 3.8, creatinine 4.15 with a GFR 10, ma gnesium 1.4. Chest x-ray reveals reticular interstitial changes bilaterally fever product of diffuse chronic interstitial fibrosis with no suspicious focal acute infiltrate. CT of the chest reveals moderate to borderline advanced emphysema with metastases a moderate scattered parenchymal fibrosis, possible right middle lobe nodule and suspicious right breast lesion. Current cardiac medications include aspirin 81 mg daily, carvedilol 6.25 mg daily, Lasix 80 mg daily, simvastatin 20 mg daily and amlodipine 5 mg daily. At the time of my exam: CONSTITUTIONAL: Denies fever. Denies chills. EYES: Denies blurred vision. Denies vision changes. Denies eye pain. EARS, NOSE, MOUTH & THROAT: Denies headache. Denies sore throat. Denies ear pain. CARDIOVASCULAR: Denies chest pain. Denies shortness of breath. Denies orthopnea. Denies PND. Denies palpitations. RESPIRATORY: Denies cough. GASTROINTESTINAL: Denies abdominal pain. Denies diarrhea. Denies constipation. Denies nausea. Denies vomiting. MUSCULOSKELETAL: Denies myalgias. INTEGUMENTARY: Denies pruitis. Denies rash. NEUROLOGIC: Denies numbness. Denies tingling. Denies weakness. PSYCHIATRIC: Denies anxiety. Denies depression. ENDOCRINE: Denies fatigue. Denies weight change. Denies polydipsia. Denies polyurina. GENITOURINARY: Denies burning, hematuria or urgency with micturation. HEMATOLOGIC: Denies history of anemia. Denies bleeding. GENERAL: This is a 68-year-old female in no apparent distress at the time of my examination. HEENT: Head is atraumatic, normocephalic. Pupils are equal, round. Sclerae anicteric. Conjunctivae are clear. Mucous membranes of the mouth are moist. Neck is supple. There is no jugular venous distention. No carotid bruit is heard. LUNGS: Clear to auscultation no wheezes, rales or rhonchi. No chest wall tenderness is noted on palpation or with deep breathing. HEART: Regular rate and rhythm with systolic ejection murmur at the left sternal border, no rubs or gallops. S1 and S2 heard. ABDOMEN: Soft, nontender. Bowel sounds are heard. No organomegaly noted. EXTREMITIES: No evidence of peripheral edema and no calf tenderness noted. VASCULAR: Radial and dorsalis pedis pulses palpated, no evidence of clubbing. NEUROLOGIC: Patient is awake, alert and oriented x3. ASSESSMENT Nonsustained ventricular tachycardia Hypomagnesemia Acute exacerbation of chronic COPD Leukocytosis Chronic kidney disease, has required dialysis in the past. Follow at [facility]. History of coronary artery disease status post bypass grafting Hypertension Dyslipidemia Diabetes mellitus Chronic nicotine dependence PLAN Obtain EKG. Replace magnesium per protocol. Patient had a recent stress test and echocardiogram in the office she states this month as part of her pre-operative evaluation. We will obtain those records. Ongoing telemetry monitoring. VT likely secondary to hypomagnesemia, renal failure and COPD. Will also check troponins to rule out an acute event. Further recommendations to follow. Thank you kindly for this consultation. Nurse Practitioner note has been reviewed, I agree with a documented findings and plan of care. Patient was seen and examined. Past Medical History Past Medical History: Coronary Artery Disease (CAD), COPD, Diabetes Mellitus, Fibromyalgia, GERD/Reflux, Hearing Disorder / Deafness, Hyperlipidemia, Hypertension Additional Past Medical History / Comment(s): bilat hearing aid History of Any Multi-Drug Resistant Organisms: None Reported Past Surgical History: Appendectomy, Back Surgery, Coronary Bypass/CABG, Tonsillectomy Past Anesthesia/Blood Transfusion Reactions: No Reported Reaction Past Psychological History: No Psychological Hx Reported Smoking Status: Current every day smoker Past Alcohol Use History: None Reported Past Drug Use History: None Reported - Past Family History Father Additional Family Medical History / Comment(s): esophageal cancer Sister(s) Additional Family Medical History / Comment(s): breast cancer Medications and Allergies Home Medications Medication Instructions Recorded Confirmed Type Aspirin [Adult Low Dose Aspirin EC] 81 mg PO DAILY 03/13/15 01/05/19 History Fluticasone Nasal [place] [Flonase 1 spray EA NOSTRIL DAILY PRN 03/13/15 01/05/19 History Nasal [place]] Insulin Glargine [Lantus] 8 unit SQ HS 03/13/15 01/05/19 History Omeprazole [PriLOSEC] 20 mg PO AC-BRKFST 03/13/15 01/05/19 History Simvastatin [Zocor] 20 mg PO HS 03/13/15 01/05/19 History Carvedilol [Coreg] 6.25 mg PO DAILY 09/29/18 01/05/19 History Linaclotide [Linzess] 145 mcg PO DAILY 09/29/18 01/05/19 History Multivitamin/Iron/Folic Acid 1 tab PO DAILY 09/29/18 01/05/19 History [Centrum Adults Tablet] amLODIPine [Norvasc] 5 mg PO DAILY 09/29/18 01/05/19 History HYDROcodone/APAP 10-325MG [[place] 1 tab PO TID PRN 01/04/19 01/05/19 History 10-325] Furosemide [Lasix] 80 mg PO DAILY 01/05/19 01/05/19 History Allergies Allergy/AdvReac Type Severity Reaction Status Date / Time codeine Allergy Unknown Verified 01/05/19 13:38 Physical Exam Vitals: Vital Signs Temp Pulse Pulse Resp BP Pulse Ox 01/07/19 11:25 97.9 F 75 16 108/61 95 01/07/19 05:26 98.0 F 71 16 131/65 98 01/06/19 23:00 97.2 F L 67 16 125/55 96 01/06/19 17:05 68 01/06/19 16:48 72 18 01/06/19 16:10 97.5 F L 73 18 133/69 98 Intake and Output 01/07/19 01/07/19 01/07/19 06:59 14:59 22:59 Intake Total 28.533 7.416 0 Balance 28.533 7.416 0 Intake: Intake, IV Titration 28.533 7.416 0 Amount Insulin Regular 100 unit 28.533 7.416 0 In Sodium Chloride 0.9% 100 ml @ Titrate IV .Q0M [facility] Rx#:[id number] Other: Voiding Method Toilet # Voids 2 4 Results 01/07/19 07:48 01/07/19 07:48 CBC 01/07/19 Range/Units 07:48 WBC 13.6 H (3.8-10.6) k/uL RBC 2.44 L (3.80-5.40) m/uL Hgb 8.0 L (11.4-16.0) gm/dL Hct 24.6 L (34.0-46.0) % Plt Count 285 (150-450) k/uL Comprehensive Metabolic Panel 01/07/19 Range/Units 07:48 Sodium 129 L (137-145) mmol/L Potassium 3.8 (3.5-5.1) mmol/L Chloride 103 (98-107) mmol/L Carbon Dioxide 11 L (22-30) mmol/L BUN 61 H (7-17) mg/dL Creatinine 4.15 H (0.52-1.04) mg/dL Glucose 126 H (74-99) mg/dL Calcium 6.8 L (8.4-10.2) mg/dL Current Medications Generic Name Dose Route Start Last Admin Trade Name Freq PRN Reason Stop Dose Admin Acetaminophen 650 mg 01/05/19 15:58 Tylenol Tab PO Q6HR PRN Mild Pain or Fever > 100.5 Hydrocodone Bitart/Acetaminophen 1 each 01/05/19 16:02 01/07/19 15:19 [place] 10 PO 1 each TID PRN Administration Pain Albuterol/Ipratropium 3 ml 01/05/19 20:00 01/07/19 15:34 Duoneb 0.5 Mg-3 Mg/3 Ml Soln INHALATION Not Given RT-Q4H [facility] Amlodipine Besylate 5 mg 01/06/19 09:00 01/07/19 08:13 Norvasc PO 5 mg DAILY [facility] Administration Aspirin 81 mg 01/06/19 09:00 01/07/19 08:25 Aspirin PO Not Given DAILY [facility] Atorvastatin Calcium 10 mg 01/05/19 21:00 01/06/19 21:49 Lipitor PO 10 mg HS [facility] Administration Budesonide 1 mg 01/05/19 20:00 01/07/19 08:09 Pulmicort INHALATION Not Given RT-BID [facility] Calcium Carbonate/Glycine 1,000 mg 01/05/19 15:58 Tums PO Q4HR PRN Dyspepsia Carvedilol 3.125 mg 01/05/19 17:30 01/07/19 08:13 Coreg PO 3.125 mg BID-W/MEALS [facility] Administration Cefdinir 300 mg 01/07/19 09:00 01/07/19 08:16 Omnicef PO 300 mg DAILY [facility] Administration Enoxaparin Sodium 30 mg 01/07/19 09:00 01/07/19 08:14 Lovenox SQ 30 mg DAILY [facility] Administration Furosemide 80 mg 01/06/19 09:00 01/07/19 08:14 Lasix PO 80 mg DAILY [facility] Administration Insulin Human Regular 100 unit 101 mls @ 0 mls/hr 01/06/19 19:45 01/07/19 15:11 / Sodium Chloride IV 2 mls/hr .Q0M [facility] 2 mls/hr Titration Protocol Titrate Magnesium Sulfate/Dextrose 1 100 mls @ 100 mls/hr 01/07/19 16:00 gm/ IV Solution IVPB 01/07/19 18:59 Q1H [facility] Insulin Aspart 7 unit 01/07/19 07:30 01/07/19 13:03 Novolog 0.13 unit/kg (7 unit) Not Given SQ AC-TID [facility] Loratadine 5 mg 01/06/19 15:40 01/07/19 08:26 Claritin PO Not Given Q12HR [facility] Melatonin 3 mg 01/05/19 15:58 Melatonin PO HS PRN Insomnia Miscellaneous Information 1 each 01/07/19 15:39 Magnesium Per Protocol MISCELLANE DAILY PRN Per Protocol Protocol Multivitamins 1 each 01/06/19 09:00 01/07/19 08:26 Theragran PO Not Given DAILY [facility] Naloxone HCl 0.2 mg 01/05/19 15:58 Narcan IV Q2M PRN Opioid Reversal Nicotine 1 patch 01/05/19 16:00 01/07/19 08:13 Habitrol 21mg/24hr Patch TRANSDERM 1 patch DAILY [facility] Administration Non-Formulary Medication 145 mcg 01/07/19 09:00 01/07/19 08:14 Linaclotide [Linzess] PO 145 mcg DAILY [facility] Administration Ondansetron HCl 4 mg 01/05/19 15:58 Zofran IVP Q8HR PRN Nausea And Vomiting Pantoprazole Sodium 40 mg 01/06/19 07:30 01/07/19 08:13 Protonix PO 40 mg AC-BRKFST [facility] Administration Prednisone 40 mg 01/07/19 09:00 01/07/19 08:13 PO 40 mg DAILY [facility] Administration Intake and Output 01/07/19 01/07/19 01/07/19 06:59 14:59 22:59 Intake Total 28.533 7.416 0 Balance 28.533 7.416 0 Intake: Intake, IV Titration 28.533 7.416 0 Amount Insulin Regular 100 unit 28.533 7.416 0 In Sodium Chloride 0.9% 100 ml @ Titrate IV .Q0M [facility] Rx#:[id number] Other: Voiding Method Toilet # Voids 2 4 01/07/19 07:48 01/07/19 07:48
[2019-01-07 18:09] LABS: Glucose,Whole Blood 136 mg/dL (75-99)
[2019-01-07] MEDS: MAGNESIUM SULFATE-D5W PMX 1 GM in DEXTROSE/WATER 1 100ML.BAG IVPB SCH ×3 (18:34→21:16)
[2019-01-07 20:02] LABS: Glucose,Whole Blood 113 mg/dL (75-99)
--- NOTE | 2019-01-07 20:26 | P.PN ---
Progress Note - Text Progress Note Date: 01/07/19 Chief Complaint: Cough shortness of breath Interval history: This is a pleasant 68-year-old patient who came in to have right breast surgery by Dr. Rachele duncan. Patient found the right breast mass about 2 months ago. Saw her family doctor had a mammogram done. Subsequently was referred to Dr. Rachele David. Patient was scheduled for surgery this morning. Patient for last to 3 days has been increasing short of breath. Wheezing cough. Bringing up phlegm. Not feeling well tired rundown. Denied any obvious fever and chills. Please appetite though. Chronic stable medical conditions include coronary artery disease, diabetes, fibromyalgia, GERD, hyperlipidemia, hypertension and decreased hearing and wears hearing aids. Patient had a coronary bypass in 2007 and does follow with Dr. Borges from cardiology. Patient was seen 2 weeks ago and cleared for the surgery. Patient admitted for COPD exacerbation and acute tracheobronchitis. Sugars went into 500 and patient is put on insulin drip Today-. Doing better today. Breathing better. Had been on insulin drip. Tolerated diet. His pre-symptoms are improved Review of systems: Was done for constitutional, cardiovascular, GI, pulmonary. relevant finding as above Active Medications Acetaminophen (Tylenol Tab) 650 mg PO Q6HR PRN PRN Reason: Mild Pain or Fever > 100.5 Hydrocodone Bitart/Acetaminophen ([place] 10) 1 each PO TID PRN PRN Reason: Pain Last Admin: 01/07/19 15:19 Dose: 1 each Documented by: Albuterol/Ipratropium (Duoneb 0.5 Mg-3 Mg/3 Ml Soln) 3 ml INHALATION RT-Q4H [facility] Last Admin: 01/07/19 19:16 Dose: Not Given Documented by: Amlodipine Besylate (Norvasc) 5 mg PO DAILY [facility] Last Admin: 01/07/19 08:13 Dose: 5 mg Documented by: Aspirin (Aspirin) 81 mg PO DAILY [facility] Last Admin: 01/07/19 08:25 Dose: Not Given Documented by: Atorvastatin Calcium (Lipitor) 10 mg PO HS [facility] Last Admin: 01/06/19 21:49 Dose: 10 mg Documented by: Budesonide (Pulmicort) 1 mg INHALATION RT-BID [facility] Last Admin: 01/07/19 19:16 Dose: Not Given Documented by: Calcium Carbonate/Glycine (Tums) 1,000 mg PO Q4HR PRN PRN Reason: Dyspepsia Carvedilol (Coreg) 3.125 mg PO BID-W/MEALS [facility] Last Admin: 01/07/19 17:42 Dose: 3.125 mg Documented by: Cefdinir (Omnicef) 300 mg PO DAILY [facility] Last Admin: 01/07/19 08:16 Dose: 300 mg Documented by: Enoxaparin Sodium (Lovenox) 30 mg SQ DAILY [facility] Last Admin: 01/07/19 08:14 Dose: 30 mg Documented by: Furosemide (Lasix) 80 mg PO DAILY [facility] Last Admin: 01/07/19 08:14 Dose: 80 mg Documented by: Insulin Human Regular 100 unit (/ Sodium Chloride) 101 mls @ 0 mls/hr IV .Q0M [facility]; Protocol Last Titration: 01/07/19 20:01 Dose: 0 mls/hr, 0 mls/hr Documented by: Insulin Aspart (Novolog) 7 unit 0.13 unit/kg (7 unit) SQ AC-TID [facility] Last Admin: 01/07/19 17:42 Dose: 7 unit Documented by: Loratadine (Claritin) 5 mg PO Q12HR [facility] Last Admin: 01/07/19 08:26 Dose: Not Given Documented by: Melatonin (Melatonin) 3 mg PO HS PRN PRN Reason: Insomnia Miscellaneous Information (Magnesium Per Protocol) 1 each MISCELLANE DAILY PRN; Protocol PRN Reason: Per Protocol Multivitamins (Theragran) 1 each PO DAILY [facility] Last Admin: 01/07/19 08:26 Dose: Not Given Documented by: Naloxone HCl (Narcan) 0.2 mg IV Q2M PRN PRN Reason: Opioid Reversal Nicotine (Habitrol 21mg/24hr Patch) 1 patch TRANSDERM DAILY [facility] Last Admin: 01/07/19 08:13 Dose: 1 patch Documented by: Non-Formulary Medication (Linaclotide [Linzess]) 145 mcg PO DAILY [facility] Last Admin: 01/07/19 08:14 Dose: 145 mcg Documented by: Ondansetron HCl (Zofran) 4 mg IVP Q8HR PRN PRN Reason: Nausea And Vomiting Pantoprazole Sodium (Protonix) 40 mg PO AC-BRKFST [facility] Last Admin: 01/07/19 08:13 Dose: 40 mg Documented by: Prednisone () 40 mg PO DAILY [facility] Last Admin: 01/07/19 08:13 Dose: 40 mg Documented by: Physical examination: VITAL SIGNS: 98, 71, 16, 131/65, 98% room air GENERAL: Laying in bed, bit tired EYES: Pupils equal. Conjunctiva normal. HEENT: External appearance of nose and ears normal, oral cavity grossly normal. NECK: JVD not raised; masses not palpable. HEART: First and second heart sounds are normal; no edema. LUNGS: Respiratory rate increased, diminished breath sounds on expiration improv ed wheezing. ABDOMEN: Soft, nontender, liver spleen not palpable, no masses palpable. PSYCH: Alert and oriented x3; mood and affect normal. Investigations: Accu-Cheks 132, 204 Chest computed tomography scan-L5 senilis changes and scattered parenchymal fibrosis Checks x-ray film personally reviewed by me suggestive of fibrotic changes Assessment: -Acute COPD exacerbation in a current smoker, improving -Bilateral pulmonary fibrosis -Acute tracheobronchitis . No pneumonia -Coronary artery disease with a prior history of bypass -Diabetes mellitus type 2 uncontrolled with hyperglycemia secondary steroids and taking desserts -Chronic fibromyalgia -GERD -Hyperlipidemia -Essential hypertension -Bilateral hard of hearing with hearing aids -Right breast cancer being followed by Dr. Rachele David Plan: Should oral looking better. We'll taper off the insulin drip later today. Encouraged to be out of bed. Hopefully she will to go home tomorrow. We'll have patient follow-up with pulmonary as an outpatient.
[2019-01-07 20:33] VITALS: RESP 20
[2019-01-07 21:14] LABS: Glucose,Whole Blood 122 mg/dL (75-99)
[2019-01-07] MEDS: MAGNESIUM OXIDE 400 MG TAB PO SCH (21:17)
[2019-01-07] MEDS: ATORVASTATIN 10 MG TAB PO SCH (21:17)
[2019-01-08 02:29] LABS: Glucose,Whole Blood 228 mg/dL (75-99)
[2019-01-08] MEDS: IPRATROPIUM-ALBUTEROL 3 ML NEB INHALATION SCH ×3 (03:15→12:08)
[2019-01-08] MEDS: HYDROcodone/APAP 10-325MG 1 EACH TAB PO PRN (03:57)
[2019-01-08 05:52] VITALS: BP 116/88; PULSE 70; TEMP 99.4
[2019-01-08 07:10] LABS: Glucose,Whole Blood 179 mg/dL (75-99)
[2019-01-08] MEDS: NICOTINE 21MG/24HR PATCH TRANSDERM SCH (08:00)
[2019-01-08] MEDS: CEFDINIR 300 MG CAP PO SCH (08:00)
[2019-01-08] MEDS: LORATADINE 10 MG TAB PO SCH (08:01)
[2019-01-08] MEDS: CARVEDILOL 3.125 MG TAB PO SCH (08:01)
[2019-01-08] MEDS: ASPIRIN 81 MG PO SCH (08:01)
[2019-01-08] MEDS: MULTIVITAMINS, THERA 1 EACH TAB PO SCH (08:01)
[2019-01-08] MEDS: amLODIPine 5 MG TAB PO SCH (08:01)
[2019-01-08] MEDS: predniSONE 20 MG TAB PO SCH (08:01)
[2019-01-08] MEDS: PANTOPRAZOLE 40 MG TABLET PO SCH (08:01)
[2019-01-08] MEDS: FUROSEMIDE 80 MG TAB PO SCH (08:01)
[2019-01-08] MEDS: MAGNESIUM OXIDE 400 MG TAB PO SCH (08:02)
[2019-01-08] MEDS: ENOXAPARIN 30 MG/0.3 ML SYRINGE SQ SCH (08:02)
[2019-01-08] MEDS: NON-FORMULARY DRUG (Linaclotide [Linzess] 145 MCG) PO SCH (08:02)
[2019-01-08] MEDS: INSULIN ASPART (NovoLOG) 100 UNIT/ML VIAL SQ SCH ×4 (08:08→12:29)
[2019-01-08] MEDS: BUDESONIDE 1 MG/2 ML NEBU INHALATION SCH (09:42)
[2019-01-08 11:38] LABS: Glucose,Whole Blood 130 mg/dL (75-99)
--- NOTE | 2019-01-08 12:32 | PN ---
PROGRESS NOTE This is a 68-year-old lady with history of known coronary artery disease, who initially presented to the hospital for a breast biopsy and was admitted because she had COPD exacerbation. We were consulted yesterday because of a run of nonsustained VT. The patient had palpitations and had nonsustained VT. Since that time, she has been doing well and she has not had any further episodes of nonsustained VT and denies chest pain or difficulty in breathing. This morning she is sleeping soundly. Surgery is still pending at this time. Awaiting clearance from Pulmonary. On exam, vital signs are stable. Chest exam reveals diminished air entry with occasional rhonchi. Heart exam reveals first and second heart sounds. No gallop. Abdomen is soft. Examination of extremities did not reveal any edema. Has an ejection systolic murmur at the left upper sternal border. The patient had a stress test recently in my office. I reviewed the results. She has normal myocardial perfusion function. ASSESSMENT: 1. Nonsustained ventricular tachycardia. 2. Chronic renal insufficiency. 3. Coronary artery disease, status post CABG. 4. Chronic obstructive pulmonary disease. 5. Breast mass. PLAN: Patient will undergo biopsy when stable from respiratory standpoint. No further episodes of nonsustained VT. The patient is currently on beta blockers, which I am going to continue. No cardiac contraindications for surgery at this time. MMODL / IJN: [id number] /
--- NOTE | 2019-01-08 22:07 | P.DS ---
Providers Date of admission: 01/05/19 13:30 Expected date of discharge: 01/08/19 Attending physician: Derian Doyle Consults: 01/07/19 14:59 Consult Physician Stat Consulting Provider: Omid Bradley Consult Reason/Comments: run of [facility] Do you want consulting provider notified?: Already Contacted Primary care physician: Stated None Hospital Course: Hospital course: This is a pleasant 68-year-old patient who came in to have right breast surgery by Dr. Rachele duncan. Patient found the right breast mass about 2 months ago. Saw her family doctor had a mammogram done. Subsequently was referred to Dr. Rachele David. Patient was scheduled for surgery this morning. Patient for last to 3 days has been increasing short of breath. Wheezing cough. Bringing up phlegm. Not feeling well tired rundown. Denied any obvious fever and chills. Please appetite though. Chronic stable medical conditions include coronary artery disease, diabetes, fibromyalgia, GERD, hyperlipidemia, hypertension and decreased hearing and wears hearing aids. Patient had a coronary bypass in 2007 and does follow with Dr. Borges from cardiology. Patient was seen 2 weeks ago and cleared for the surgery. Patient admitted for COPD exacerbation and acute tracheobronchitis. Sugars went into 500 and patient is put on insulin drip. Chest x-ray was suspicious for pulmonary fibrosis. High resolution CT chest that confirmed the same including of isomeric changes. I discuss results in detail with the patient today. Again reinforced's cessation of smoking. Patient will follow with pulmonary is an outpatient. Questions were answered. Discussion and discharge planning more than 35 minutes Physical examination: VITAL SIGNS:afebrile, 70, 20, 116/88, 85% room air GENERAL: sitting up comfortable EYES: Pupils equal. Conjunctiva normal. HEENT: External appearance of nose and ears normal, oral cavity grossly normal. NECK: JVD not raised; masses not palpable. HEART: First and second heart sounds are normal; no edema. LUNGS: Respiratory rate increased, diminished breath sounds wheezing improved. ABDOMEN: Soft, nontender, liver spleen not palpable, no masses palpable. PSYCH: Alert and oriented x3; mood and affect normal. Investigations: Accu-Cheks 132, 204 Chest computed tomography scan-L5 senilis changes and scattered parenchymal fibrosis Checks x-ray film personally reviewed by me suggestive of fibrotic changes discharge diagnosis: -Acute COPD exacerbation in a current smoker, -Bilateral pulmonary fibrosis -Acute tracheobronchitis . No pneumonia -Coronary artery disease with a prior history of bypass -Diabetes mellitus type 2 uncontrolled with hyperglycemia secondary steroids and taking desserts -Chronic fibromyalgia -GERD -Hyperlipidemia -Essential hypertension -Bilateral hard of hearing with hearing aids -Right breast cancer being followed by Dr. Rachele David disposition: Home Patient Condition at Discharge: Stable Plan - Discharge Summary Discharge Rx Participant: Yes New Discharge Prescriptions: New Albuterol Sulfate [Albuterol Sulfate Hfa] 1 puff PO Q4-6H PRN #1 inhaler PRN Reason: Wheezing Loratadine-Pseudoeph 5-120 mg [Claritin-D 12 HR] 1 each PO Q12HR #6 tab Nicotine 21Mg/24Hr Patch [Habitrol] 1 patch TRANSDERM DAILY #1 patch Magnesium Oxide [Mag-Ox] 200 mg PO TID #10 tab Melatonin 3 mg PO HS PRN tablet PRN Reason: Insomnia Cefdinir [Omnicef] 300 mg PO Q12HR #6 cap Budesonide-Formot 160-4.5 Mcg [Symbicort 160-4.5 Mcg Inhaler] 1 puff INHALATION BID #1 inhaler Continue Aspirin [Adult Low Dose Aspirin EC] 81 mg PO DAILY Insulin Glargine [Lantus] 8 unit SQ HS Omeprazole [PriLOSEC] 20 mg PO AC-BRKFST Simvastatin [Zocor] 20 mg PO HS Linaclotide [Linzess] 145 mcg PO DAILY amLODIPine [Norvasc] 5 mg PO DAILY Multivitamin/Iron/Folic Acid [Centrum Adults Tablet] 1 tab PO DAILY HYDROcodone/APAP 10-325MG [[place] 10-325] 1 tab PO TID PRN PRN Reason: Pain Furosemide [Lasix] 80 mg PO DAILY Changed Carvedilol [Coreg] 3.125 mg PO BID #0 Discontinued Fluticasone Nasal [place] [Flonase Nasal [place]] 1 spray EA NOSTRIL DAILY PRN PRN Reason: Allergy Symptoms Discharge Medication List Aspirin [Adult Low Dose Aspirin EC] 81 mg PO DAILY 03/13/15 [History] Insulin Glargine [Lantus] 8 unit SQ HS 03/13/15 [History] Omeprazole [PriLOSEC] 20 mg PO AC-BRKFST 03/13/15 [History] Simvastatin [Zocor] 20 mg PO HS 03/13/15 [History] Linaclotide [Linzess] 145 mcg PO DAILY 09/29/18 [History] Multivitamin/Iron/Folic Acid [Centrum Adults Tablet] 1 tab PO DAILY 09/29/18 [History] amLODIPine [Norvasc] 5 mg PO DAILY 09/29/18 [History] HYDROcodone/APAP 10-325MG [[place] 10-325] 1 tab PO TID PRN 01/04/19 [History] Furosemide [Lasix] 80 mg PO DAILY 01/05/19 [History] Albuterol Sulfate [Albuterol Sulfate Hfa] 1 puff PO Q4-6H PRN #1 inhaler 01/08/19 [Rx] Budesonide-Formot 160-4.5 Mcg [Symbicort 160-4.5 Mcg Inhaler] 1 puff INHALATION BID #1 inhaler 01/08/19 [Rx] Carvedilol [Coreg] 3.125 mg PO BID #0 01/08/19 [Rx] Cefdinir [Omnicef] 300 mg PO Q12HR #6 cap 01/08/19 [Rx] Loratadine-Pseudoeph 5-120 mg [Claritin-D 12 HR] 1 each PO Q12HR #6 tab 01/08/19 [Rx] Magnesium Oxide [Mag-Ox] 200 mg PO TID #10 tab 01/08/19 [Rx] Melatonin 3 mg PO HS PRN tablet 01/08/19 [Rx] Nicotine 21Mg/24Hr Patch [Habitrol] 1 patch TRANSDERM DAILY #1 patch 01/08/19 [Rx] Follow up Appointment(s)/Referral(s): PCPDr. [Other] - 3 Days Aaron Ward MD [STAFF PHYSICIAN] - 01/21/19 12:30 pm Patient Instructions/Handouts: Albuterol (By breathing), Loratadine (By mouth), Nicotine (Absorbed through the skin), Cefdinir (By mouth), Magnesium Oxide (By mouth), Budesonide/Formoterol (By breathing), Leukocytosis (DC) Activity/Diet/Wound Care/Special Instructions: Inform Dr. Rachele david of patient's discharge 1. Activity as tolerated. 2. Cont heart healthy consistent carb diet. Discharge Disposition: HOME SELF-CARE
--- NOTE | 2019-01-14 07:30 | CDI ---
Documentation Clarification Form Date: 01/14/2019 From: Debbie Garland Phone: If questions call Moira Arnold @ [phone], Hours-8:30 am & 5 pm M- Gerardo Admit Date: 01/05/2019 1:30:00 PM Patient Name: Latesha Colin Visit Number: [id number] Discharge Date: 01/08/2019 2:10:00 PM ATTENTION: The Clinical Documentation Specialists (CDI) and [facility] Coding Staff appreciate your assistance in clarifying documentation. Please respond to the clarification below the line at the bottom and electronically sign. The CDI & [facility] Coding staff will review the response and follow-up if needed. Please note: Queries are made part of the Legal Health Record. If you have any questions, please contact the author of this message via ITS. Dr. Omid Bradley Patient with chronic kidney disease per your consult. History/Risk Factors: hx of dialysis Clinical Indicators: breast ca, AECOPD w acute bronchitis Current BUN: 41/61 Current CR: 3.76/4.15 Current GFR: 12/10 Patients Baseline BUN/CR/GFR: not stated Treatment: IVF In order to capture the severity of condition, please clarify if the condition signifies: CKD Stage 1 (GFR > 90) CKD Stage 2 (GFR 60-89) CKD Stage 3 (GFR 30-59) CKD Stage 4 (GFR 15-29) CKD Stage 5 (GFR <15) ESRD Other, please specify Unable to determine MTDD
== END 2019-01-08 14:10 | disposition home or self-care (01) | DRG 191 ==
LOC: 6PED 13:30 → 3NMEDONC 01-06 19:06
PROVIDERS: ADMIT Hospitalist; ATTEND Hospitalist
DX: J44.0 Chronic obstructive pulmonary disease with (acute) lower respiratory infection (principal); I47.2 Ventricular tachycardia; E44.1 Mild protein-calorie malnutrition; Z68.1 Body mass index [BMI] 19.9 or less, adult; C50.911 Malignant neoplasm of unspecified site of right female breast; J44.1 Chronic obstructive pulmonary disease with (acute) exacerbation; E11.22 Type 2 diabetes mellitus with diabetic chronic kidney disease; E11.65 Type 2 diabetes mellitus with hyperglycemia; J84.10 Pulmonary fibrosis, unspecified; E83.42 Hypomagnesemia; J20.9 Acute bronchitis, unspecified; E78.5 Hyperlipidemia, unspecified; K21.9 Gastro-esophageal reflux disease without esophagitis; M79.7 Fibromyalgia; I25.10 Atherosclerotic heart disease of native coronary artery without angina pectoris; T38.0X5A Adverse effect of glucocorticoids and synthetic analogues, initial encounter; H91.90 Unspecified hearing loss, unspecified ear; Z53.8 Procedure and treatment not carried out for other reasons; Z88.5 Allergy status to narcotic agent; F17.210 Nicotine dependence, cigarettes, uncomplicated; Z71.6 Tobacco abuse counseling; Z79.4 Long term (current) use of insulin; Z79.82 Long term (current) use of aspirin; N18.9 Chronic kidney disease, unspecified; Z79.899 Other long term (current) drug therapy; Z95.1 Presence of aortocoronary bypass graft; Z97.4 Presence of external hearing-aid; Z80.0 Family history of malignant neoplasm of digestive organs; Z80.3 Family history of malignant neoplasm of breast
CPT/HCPCS: 71046; 71250; 80048; 80053; 83036; 83735; 85025; 86850; 86900; 86901; 93005; 94640

== ENCOUNTER → 2019-01-05 | Day surgery (SDC) | payer MEDICARE, OTHER ==
[2019-01-04 08:51] VITALS: BMI 19.1
[~2019-01-05] MED LIST: ALPRAZolam 0.25 MG TAB PO ONE; DEXAMETHASONE SOD PHOSPHATE 10 MG/ML 1 ML VIAL IV ONE; HEPARIN SODIUM,PORCINE 5,000 UNIT/ML 1 ML VIAL SQ ONE; LACTATED RINGERS 1,000 ML IV SCH; LIDOCAINE 1% 20 ML VIAL (10MG/ML) FOR IV START INTRADERMA ONE; MIDAZOLAM 2 MG/2 ML VIAL IV PRN; ONDANSETRON 4 MG/2 ML VIAL IVP ONE; Pre Op ABX Message 1 EACH MISC MISCELLANE ONE; fentaNYL (PF) 50 MCG/ML 2 ML AMP IV PRN
[2019-01-05 08:40] VITALS: BP 130/62; PULSE 70; RESP 16; TEMP 97.6
[2019-01-05 08:45] LABS: Glucose,Whole Blood 180 mg/dL (75-99)
[2019-01-05 08:52] LABS: Basophils % (A) 0 %; Eosinophils % (A) 0 %; Lymphocytes # (A) 0.9 k/uL (1.0-4.8); Lymphocytes % (A) 4 %; MCH 31.9 pg (25.0-35.0); MCHC 32.2 g/dL (31.0-37.0); MCV 99.1 fL (80.0-100.0); Mean Platelet Volume 7.3; Monocytes # (A) 0.6 k/uL (0-1.0); Monocytes % (A) 3 %; Neutrophils # (A) 18.8 k/uL (1.3-7.7); Neutrophils % (A) 92 %; Platelet Count 333 k/uL (150-450); RBC 2.83 m/uL (3.80-5.40); RDW 15.1 % (11.5-15.5); WBC 20.4 k/uL (3.8-10.6)
[2019-01-05 09:04] LABS: Calcium 8.3 mg/dL (8.4-10.2); Potassium 3.5 mmol/L (3.5-5.1)
--- NOTE | 2019-01-05 09:10 | P.PN ---
Progress Note - Text Progress Note Date: 01/05/19 The patient's case was reviewed with Dr. He radiation oncology, and Dr. Christiansen from radiology. The patient does not have any radiographic or clinical adenopathy in the axilla. Secondary to her multiple medical risk factors after discussion with Dr. He is was felt that it would be reasonable to forego sentinel node biopsy. This was discussed with the patient, at this time she does not want to have a sentinel node biopsy. We will therefore proceed with a lumpectomy. The patient understands risks and benefits and wishes to proceed. A CBC has been obtained this morning. We are awaiting the results.
== END ==
LOC: OR 07:30
PROVIDERS: ATTEND Surgery
DX: C50.911 Malignant neoplasm of unspecified site of right female breast (principal); Z53.09 Procedure and treatment not carried out because of other contraindication; Z98.1 Arthrodesis status; Z95.1 Presence of aortocoronary bypass graft; E78.5 Hyperlipidemia, unspecified; E11.9 Type 2 diabetes mellitus without complications; I10 Essential (primary) hypertension; I25.10 Atherosclerotic heart disease of native coronary artery without angina pectoris; J44.9 Chronic obstructive pulmonary disease, unspecified; M79.7 Fibromyalgia; K21.9 Gastro-esophageal reflux disease without esophagitis; Z97.4 Presence of external hearing-aid; Z80.3 Family history of malignant neoplasm of breast; Z80.0 Family history of malignant neoplasm of digestive organs
CPT/HCPCS: 80048; 85025; J1644; J1100; J2405

== ENCOUNTER 2019-01-22 15:28 | Inpatient (IN) | payer MEDICARE ==
[2019-01-22] MEDS ORDERED: SODIUM CHLORIDE 0.9% 1,000 ML IV STA (15:37)
[2019-01-22] MEDS ORDERED: NITROGLYCERIN OINT 1 INCH/GM PACKET TOPICAL STA (15:37)
[2019-01-22] MEDS ORDERED: HEPARIN SODIUM,PORCINE 5,000 UNIT/ML 1 ML VIAL IV PRN (15:37)
[2019-01-22] MEDS ORDERED: ASPIRIN 81 MG PO STA (15:37)
--- NOTE | 2019-01-22 15:45 | ED ---
General Adult HPI - General Chief complaint: Chest Pain Stated complaint: STEMI Time Seen by Provider: 01/22/19 15:28 Source: patient, EMS, RN notes reviewed Mode of arrival: EMS Limitations: no limitations - History of Present Illness Initial comments: Patient is a pleasant 68-year-old female presenting to the emergency Department as a transfer from [facility]. Patient was seen by EMS this morning for fever and confusion. Patient was reportedly alert and oriented 1. At the hospital patient was found to have elevation and aVR with reciprocal changes. Patient was seen by supervisor dairy sanitation Dr. Borges with concern for STEMI and recommended transfer to our facility. He did notify cardiology here who is present and evaluating patient. Patient was also diagnosed with pneumonia. Patient also had recent pneumonia. Patient does have a recent diagnosis of breast cancer however has not had a chance to undergo therapy yet. Patient was given Zosyn. Patient was given heparin. Patient reportedly had a elevated troponin. Patient does have history of renal disease and has a history of dialysis however has been off this for 3 years. Patient states she is symptom- free at this time. Patient only states that she's thirsty. Patient denies chest discomfort. Patient denies dyspnea. Patient is very hard of hearing. - Related Data Home Medications Medication Instructions Recorded Confirmed Aspirin [Adult Low Dose Aspirin EC] 81 mg PO DAILY 03/13/15 01/05/19 Insulin Glargine [Lantus] 8 unit SQ HS 03/13/15 01/05/19 Omeprazole [PriLOSEC] 20 mg PO AC-BRKFST 03/13/15 01/05/19 Simvastatin [Zocor] 20 mg PO HS 03/13/15 01/05/19 Linaclotide [Linzess] 145 mcg PO DAILY 09/29/18 01/05/19 Multivitamin/Iron/Folic Acid 1 tab PO DAILY 09/29/18 01/05/19 [Centrum Adults Tablet] amLODIPine [Norvasc] 5 mg PO DAILY 09/29/18 01/05/19 HYDROcodone/APAP 10-325MG [[place] 1 tab PO TID PRN 01/04/19 01/05/19 10-325] Furosemide [Lasix] 80 mg PO DAILY 01/05/19 01/05/19 Previous Rx's Medication Instructions Recorded Albuterol Sulfate [Albuterol 1 puff PO Q4-6H PRN #1 inhaler 01/08/19 Sulfate Hfa] Budesonide-Formot 160-4.5 Mcg 1 puff INHALATION BID #1 inhaler 01/08/19 [Symbicort 160-4.5 Mcg Inhaler] Carvedilol [Coreg] 3.125 mg PO BID #0 01/08/19 Cefdinir [Omnicef] 300 mg PO Q12HR #6 cap 01/08/19 Loratadine-Pseudoeph 5-120 mg 1 each PO Q12HR #6 tab 01/08/19 [Claritin-D 12 HR] Magnesium Oxide [Mag-Ox] 200 mg PO TID #10 tab 01/08/19 Melatonin 3 mg PO HS PRN tablet 01/08/19 Nicotine 21Mg/24Hr Patch [Habitrol] 1 patch TRANSDERM DAILY #1 patch 01/08/19 Allergies Allergy/AdvReac Type Severity Reaction Status Date / Time codeine Allergy Unknown Verified 01/22/19 16:04 Review of Systems ROS Statement: Those systems with pertinent positive or pertinent negative responses have been documented in the HPI. ROS Other: All systems not noted in ROS Statement are negative. Constitutional: Reports: fever Eyes: Denies: eye pain ENT: Denies: ear pain Respiratory: Denies: cough, dyspnea Cardiovascular: Denies: chest pain Endocrine: Denies: fatigue Gastrointestinal: Denies: abdominal pain Genitourinary: Denies: dysuria Musculoskeletal: Denies: back pain Skin: Denies: rash Neurological: Denies: weakness Past Medical History Past Medical History: Coronary Artery Disease (CAD), Cancer, COPD, Diabetes Mellitus, Fibromyalgia, GERD/Reflux, Hearing Disorder / Deafness, Hyperlipidemia, Hypertension Additional Past Medical History / Comment(s): bilat hearing aid, Breast CA History of Any Multi-Drug Resistant Organisms: None Reported Past Surgical History: Appendectomy, Back Surgery, Coronary Bypass/CABG, Tonsillectomy Past Anesthesia/Blood Transfusion Reactions: No Reported Reaction Past Psychological History: No Psychological Hx Reported Smoking Status: Current every day smoker Past Alcohol Use History: None Reported Past Drug Use History: None Reported - Past Family History Father Additional Family Medical History / Comment(s): esophageal cancer Sister(s) Additional Family Medical History / Comment(s): breast cancer General Exam Limitations: no limitations General appearance: alert, in no apparent distress Head exam: Present: atraumatic Eye exam: Present: normal appearance, PERRL ENT exam: Present: normal oropharynx Neck exam: Present: normal inspection. Absent: meningismus Respiratory exam: Present: normal lung sounds bilaterally Cardiovascular Exam: Present: regular rate, normal rhythm Expanded Peripheral pulses: 2+: Radial (R), Radial (L), Dorsalis Pedis (R), Dorsalis Pedis (L) GI/Abdominal exam: Present: soft. Absent: tenderness Extremities exam: Present: normal inspection. Absent: pedal edema, calf tenderness Neurological exam: Present: alert Psychiatric exam: Present: normal affect, normal mood Skin exam: Present: normal color Course Vital Signs 01/22/19 15:35 Temperature 98.8 F Pulse Rate 71 Respiratory 18 Rate Blood Pressure 96/55 O2 Sat by Pulse 93 L Oximetry - Reevaluation(s) Reevaluation #1: 01/22/19 15:42 Dr. Gallagher is present upon patient arrival and is evaluating the patient as well. sterile technician is present 01/22/19 16:01 Dr. Gallagher is not convinced of myocardial infarction and requests adding d-dimer and VQ scan. He agrees with continuing heparin at this time and also recommends continuing Zosyn. Case was also discussed with Dr. Ronquillo who will come evaluate and admit patient. EKG Findings - EKG Comments: EKG Findings:: Normal sinus rhythm 73. SD 146. QRS 82. QT 404. QTC 445. Normal axis. Normal QRS. ST depression leads V3 through V5. Repolarization changes versus mild elevation in aVR. Medical Decision Making - Radiology Data Radiology results: image reviewed (Chest x-ray shows chronic changes without acute process) Disposition Clinical Impression: Fever, Renal insufficiency, Elevated troponin, Breast cancer Disposition: ADMITTED IP TO THIS [facility] Condition: Serious Is patient prescribed a controlled substance at d/c from ED?: No Referrals: Lito Evans MD [Primary Care Provider] - 1-2 days Decision Time: 16:10
--- NOTE | 2019-01-22 15:59 | XR ---
EXAMINATION TYPE: XR chest 1V portable DATE OF EXAM: 01/22/2019 COMPARISON: Chest x-ray January 05, 2019. CT chest January 07, 2019. HISTORY: Chest pain. TECHNIQUE: Single frontal view of the chest is obtained. FINDINGS: Background fairly advanced underlying emphysematous change with scattered parenchymal fibro sis. Background post-CABG changes with mediastinal clips and sternal wires. There is no focal air spa ce opacity, pleural effusion, or pneumothorax seen. The cardiac silhouette size is enlarged without chronic change in the aortic knob. The osseous structures are intact. Overlying blanket or clothing material is felt present. IMPRESSION: Cardiomegaly with fairly advanced chronic emphysematous changes without suspicious new ac [place] pulmonary process.
[2019-01-22 16:07] LABS: Basophils % (A) 0 %; Eosinophils # (A) 0.1 k/uL (0-0.7); Eosinophils % (A) 1 %; HCT 22.3 % (34.0-46.0); HGB 7.1 gm/dL (11.4-16.0); Lymphocytes # (A) 1.5 k/uL (1.0-4.8); Lymphocytes % (A) 10 %; MCH 31.1 pg (25.0-35.0); MCHC 32.1 g/dL (31.0-37.0); Mean Platelet Volume 7.2; Monocytes # (A) 0.5 k/uL (0-1.0); Monocytes % (A) 4 %; Neutrophils # (A) 11.9 k/uL (1.3-7.7); Neutrophils % (A) 85 %; Platelet Count 286 k/uL (150-450); RDW 14.9 % (11.5-15.5); WBC 14.1 k/uL (3.8-10.6)
[2019-01-22] MEDS: HEPARIN SOD,PORK IN 0.45% NACL 25,000 UNIT in 0.45% NACL 1 250ML.BAG IV SCH (16:09)
[2019-01-22 16:14] LABS: INR 1.6 (<1.2); Prothrombin Time 15.6 sec (9.0-12.0)
[2019-01-22] MEDS ORDERED: PIPERACILLIN-TAZOBACTAM 3.375 GM in SODIUM CHLORIDE 0.9% 100 ML IVPB ONE (16:15)
[2019-01-22] MEDS ORDERED: ACETAMINOPHEN TAB 325 MG TAB PO PRN (16:19)
[2019-01-22] MEDS ORDERED: NALOXONE 0.4 MG/ML 1 ML VIAL IV PRN (16:19)
[2019-01-22] MEDS ORDERED: IPRATROPIUM-ALBUTEROL 3 ML NEB INHALATION PRN (16:19)
[2019-01-22 16:25] LABS: Albumin 2.5 g/dL (3.5-5.0); Potassium 3.8 mmol/L (3.5-5.1)
[2019-01-22] MEDS ORDERED: SODIUM CHLORIDE 0.9% 1,000 ML IV SCH (16:30)
[2019-01-22 16:34] LABS: Partial Thromboplastin Time 82.2 sec (22.0-30.0)
[2019-01-22 16:35] LABS: Calcium 7.6 mg/dL (8.4-10.2); Magnesium 1.1 mg/dL (1.6-2.3); Total Bilirubin 0.5 mg/dL (0.2-1.3)
[2019-01-22] MEDS ORDERED: MAGNESIUM OXIDE 400 MG TAB PO STA (16:37)
[2019-01-22 16:42] LABS: Creatine Kinase MB 1.6 ng/mL (0.0-2.4)
[2019-01-22 16:55] LABS: Troponin I 1.39 ng/mL (0.000-0.034)
[2019-01-22 17:15] LABS: Amorphous Sediment,Urine Rare /hpf; Appearance,Urine Clear (Clear); Bilirubin,Urine Negative (Negative); Blood,Urine Trace (Negative); Color,Urine Yellow; Glucose,Urine (UA) 2+ (Negative); Ketones,Urine Negative (Negative); Leukocyte Esterase,Urine Negative (Negative); Nitrite,Urine Negative (Negative); PH, Urine 6.5 (5.0-8.0); Protein,Urine 2+ (Negative); RBC,Urine 1 /hpf (0-5); Specific Gravity,Urine 1.011 (1.001-1.035); Urobilinogen,Urine <2.0 mg/dL (<2.0)
--- NOTE | 2019-01-22 17:57 | NM ---
EXAMINATION TYPE: NM pul vent and perfuse DATE OF EXAM: 01/22/2019 COMPARISON: Same day chest x-ray. HISTORY: Right ventricular enlargement per order. Chest pain. TECHNIQUE: Utilizing inhalation of 64.8 mCi Tc 99m DTPA aerosol and intravenous injection of 5.1 mCi of Tc 99m MAA, ventilation and perfusion images are acquired post injection in multiple projections. FINDINGS: Mild to moderate matching defects in the bilateral upper lungs. There is no evidence of mismatched de fects. IMPRESSION: Low scintigraphic evidence for pulmonary embolism
[2019-01-22 18:28] LABS: Glucose,Whole Blood 140 mg/dL (75-99)
--- NOTE | 2019-01-22 18:32 | P.HPIM ---
History of Present Illness H&P Date: 01/22/19 Chief Complaint: Transferred from outside hospital [facility] Patient is a 68-year-old female with a history of type 2 diabetes hyperlipidemia essential hypertension coronary artery disease with history of 5 vessel CABG, chronic kidney disease previously on hemodialysis last dialyzed 12 months ago he was transferred here from [facility]. Apparently the patient had presented there earlier today with chief complaint of confusion and weakness difficulty breathing and nonproductive cough and subjective fevers and chills, the patient also complained of lower backache but denied any chest pain, she denied abdominal pain nausea vomiting or diarrhea. The patient was apparently diagnosed with breast cancer 2 months ago and is scheduled to undergo lumpectomy by Dr. Mason David. While at [facility] the patient was thought to have a STEMI as there was some J-point elevation in V1 and V2 and aVR been subject T segment depression in lateral leads, repeat EKG here indicated some mild ST depression in leads V2-V4 with mildly elevated troponin at 1.052, serum sodium was 131 creatinine 4.2 white count 12.34, chest x-ray showed prominent pulmonary interstitium. CT of the head showed bilateral frontal hygromas and age-related atrophy without any acute intracranial pathology. Apparently the patient was seen by Dr. Bradley with concern for STEMI and recommended transfer to our facility. Review of Systems Pertinent positives per HPI all other review of system was negative Past Medical History Past Medical History: Coronary Artery Disease (CAD), Cancer, COPD, Diabetes Mellitus, Fibromyalgia, GERD/Reflux, Hearing Disorder / Deafness, Hyperlipidemia, Hypertension Additional Past Medical History / Comment(s): bilat hearing aid, Breast CA History of Any Multi-Drug Resistant Organisms: None Reported Past Surgical History: Appendectomy, Back Surgery, Coronary Bypass/CABG, Tonsillectomy Past Anesthesia/Blood Transfusion Reactions: No Reported Reaction Past Psychological History: No Psychological Hx Reported Smoking Status: Current every day smoker Past Alcohol Use History: None Reported Past Drug Use History: None Reported - Past Family History Father Additional Family Medical History / Comment(s): esophageal cancer Sister(s) Additional Family Medical History / Comment(s): breast cancer Medications and Allergies Home Medications Medication Instructions Recorded Confirmed Type Insulin Glargine [Lantus] 80 unit SQ HS 03/13/15 01/22/19 History Omeprazole [PriLOSEC] 20 mg PO BID 03/13/15 01/22/19 History Simvastatin [Zocor] 20 mg PO HS 03/13/15 01/22/19 History Linaclotide [Linzess] 145 mcg PO DAILY 09/29/18 01/22/19 History Multivitamin/Iron/Folic Acid 1 tab PO DAILY 09/29/18 01/22/19 History [Centrum Adults Tablet] amLODIPine [Norvasc] 5 mg PO DAILY 09/29/18 01/22/19 History HYDROcodone/APAP 10-325MG [[place] 1 tab PO TID PRN 01/04/19 01/22/19 History 10-325] Furosemide [Lasix] 80 mg PO DAILY 01/05/19 01/22/19 History Magnesium Oxide [Mag-Ox] 200 mg PO TID #10 tab 01/08/19 01/22/19 Rx Melatonin 3 mg PO HS PRN tablet 01/08/19 01/22/19 Rx Albuterol Sulfate [Albuterol 1 puff INHALATION RT-Q6H PRN 01/22/19 01/22/19 History Sulfate Hfa] Budesonide-Formot 160-4.5 Mcg 1 puff INHALATION RT-BID 01/22/19 01/22/19 History [Symbicort 160-4.5 Mcg Inhaler] Carvedilol [Coreg] 6.25 mg PO BID 01/22/19 01/22/19 History Doxycycline Monohydrate [Monodox] 100 mg PO DAILY 01/22/19 01/22/19 History Fluticasone Nasal [place] [Flonase 1 spray EA NOSTRIL DAILY 01/22/19 01/22/19 History Nasal [place]] Loratadine-Pseudoeph 5-120 mg 1 tab PO Q12HR PRN 01/22/19 01/22/19 History [Claritin-D 12 HR] Allergies Allergy/AdvReac Type Severity Reaction Status Date / Time codeine Allergy Unknown Verified 01/22/19 16:35 Physical Exam Vitals: Vital Signs Temp Pulse Resp BP Pulse Ox 01/22/19 16:51 72 18 107/56 01/22/19 16:13 71 17 102/53 96 01/22/19 15:35 98.8 F 71 18 96/55 93 L Intake and Output 01/22/19 01/22/19 01/22/19 06:59 14:59 22:59 Intake Total 3.484 Balance 3.484 Intake: Intake, IV Titration 3.484 Amount Heparin Sod,Pork in 0.45% 3.484 NaCl 25,000 unit In 0.45 % NaCl 1 250ml.bag @ 12 UNITS/KG/HR 6.532 mls/hr IV .Q24H NOLVIA Rx#: [id number] Other: Weight 54.431 kg Constitutional: No acute distress, conversant, pleasant Eyes: Anicteric sclerae, moist conjunctiva, no lid-lag, PERRLA ENMT: NC/AT,Oropharynx clear, no erythema, exudates Neck:Supple, FROM, no masses, or JVD, No carotid bruits; No thyromegaly Lungs: Diminished in the bases, faint wheezes, unlabored on 2 L nasal cannula Cardiovascular: Heart regular in rate and rhythm, No murmurs, gallops, or rubs no peripheral edema Abdominal: Soft Nontender, nom distended, no guarding, no rebound or rigidity, Normoactive bowel sounds No hepatomegaly, No splenomegaly, No palpable mass No abdominal wall hernia noted Skin: Normal temperature, tone, texture, turgor, No induration No subcutaneous nodules, No rash, lesions, No ulcers Extremities:No digital cyanosis No clubbing, Pedal pulses intact and symmetrical Radial pulses intact and symmetrical Normal gait and station, No calf tenderness Psychiatric: Alert and oriented to person, place and time, Appropriate affect Intact judgement Neuro: Muscles Strength 5/5 in all 4 extremities, Sensation to light touch grossly present throughout, Cranial nerves II-XII grossly intact. No focal sensory deficits Results CBC & Chem 7: 01/23/19 04:30 01/23/19 04:30 Labs: Abnormal Lab Results - Last 24 Hours (Table) 01/22/19 01/22/19 01/22/19 Range/Units 14:40 14:40 15:50 WBC 14.1 H (3.8-10.6) k/uL RBC 2.30 L (3.80-5.40) m/uL Hgb 7.1 L (11.4-16.0) gm/dL Hct 22.3 L (34.0-46.0) % Neutrophils # 11.9 H (1.3-7.7) k/uL PT (9.0-12.0) sec INR (<1.2) APTT (22.0-30.0) sec Sodium (137-145) mmol/L Carbon Dioxide (22-30) mmol/L BUN (7-17) mg/dL Creatinine (0.52-1.04) mg/dL Calcium (8.4-10.2) mg/dL Magnesium (1.6-2.3) mg/dL AST (14-36) U/L ALT (9-52) U/L Alkaline Phosphatase (38-126) U/L Troponin I (0.000-0.034) ng/mL Total Protein (6.3-8.2) g/dL Albumin (3.5-5.0) g/dL Urine Protein 2+ H (Negative) Urine Glucose (UA) 2+ H (Negative) Urine Blood Trace H (Negative) Amorphous Sediment Rare H (None) /hpf Crossmatch See Detail 01/22/19 01/22/19 01/22/19 Range/Units 15:50 15:50 15:50 WBC (3.8-10.6) k/uL RBC (3.80-5.40) m/uL Hgb (11.4-16.0) gm/dL Hct (34.0-46.0) % Neutrophils # (1.3-7.7) k/uL PT 15.6 H (9.0-12.0) sec INR 1.6 H (<1.2) APTT 82.2 H (22.0-30.0) sec Sodium 130 L (137-145) mmol/L Carbon Dioxide 15 L (22-30) mmol/L BUN 52 H (7-17) mg/dL Creatinine 3.94 H (0.52-1.04) mg/dL Calcium 7.6 L (8.4-10.2) mg/dL Magnesium 1.1 L (1.6-2.3) mg/dL AST 103 H (14-36) U/L ALT 88 H (9-52) U/L Alkaline Phosphatase 365 H (38-126) U/L Troponin I 1.390 H* (0.000-0.034) ng/mL Total Protein 5.0 L (6.3-8.2) g/dL Albumin 2.5 L (3.5-5.0) g/dL Urine Protein (Negative) Urine Glucose (UA) (Negative) Urine Blood (Negative) Amorphous Sediment (None) /hpf Crossmatch Assessment and Plan (1) Leukocytosis Current Visit: Yes Status: Acute Code(s): D72.829 - ELEVATED WHITE BLOOD CELL COUNT, UNSPECIFIED SNOMED Code(s): 904587852 (2) Chronic renal disease, stage V Current Visit: Yes Status: Acute Code(s): N18.5 - CHRONIC KIDNEY DISEASE, STAGE 5 SNOMED Code(s): 963333128 (3) Elevated troponin Current Visit: Yes Status: Acute Code(s): R74.8 - ABNORMAL LEVELS OF OTHER SERUM ENZYMES SNOMED Code(s): 064136980 (4) Dyspnea Current Visit: Yes Status: Acute Code(s): R06.00 - DYSPNEA, UNSPECIFIED SNOMED Code(s): 121349193 (5) Normocytic anemia Current Visit: Yes Status: Acute Code(s): D64.9 - ANEMIA, UNSPECIFIED SNOMED Code(s): 629780392 (6) Hyponatremia Current Visit: Yes Status: Acute Code(s): E87.1 - HYPO-OSMOLALITY AND HYPONATREMIA SNOMED Code(s): 04403480 (7) Breast cancer Current Visit: Yes Status: Acute Code(s): C50.919 - MALIGNANT NEOPLASM OF UNSP SITE OF UNSPECIFIED FEMALE BREAST SNOMED Code(s): 445896232 (8) Coronary artery disease Current Visit: Yes Status: Acute Code(s): I25.10 - ATHSCL HEART DISEASE OF [place] CORONARY ARTERY W/O ANG PCTRS SNOMED Code(s): 63629362 (9) Hx of CABG Current Visit: Yes Status: Acute Code(s): Z95.1 - PRESENCE OF AORTOCORONARY BYPASS GRAFT SNOMED Code(s): 642297963 Plan: After being transferred here from [facility] with concern for STEMI after ST elevation is noted in leads V1 and 2 and aVR with elevated troponin. Apparently echocardiogram was done in the ER showed no significant wall motion abnormality and moderate to severe TR there was concern for PE and the patient was continued on heparin drip per protocol and VQ scan was ordered and results are pending. Chest x-ray done here indicated cardiomegaly with fairly advanced chronic emphysematous change without suspicious acute process, cardiology was consulted from the ER Recommendations are pending, Agree with continuing empiric IV antibiotics with Zosyn along with bronchodilator DuoNeb breathing treatments scheduled and DC. Patient is noted to be slightly hypomagnesemic and this will be replaced Per protocol. Her hemoglobin was noted to be 7.1, iron studies will be ordered And Hemoccult checked. We'll plan to place nephrology consult and continue to monitor the patient's clinical course CODE STATUS: Full code surrogate decision maker: Johan Anticipated discharge: 2-[address] : Home
[2019-01-22] MEDS: MAGNESIUM SULFATE-D5W PMX 1 GM in DEXTROSE/WATER 1 100ML.BAG IVPB SCH ×2 (18:44→19:55)
[2019-01-22] MEDS: PANTOPRAZOLE 40 MG/10 ML VIAL IV SCH (18:44)
[2019-01-22] MEDS: IPRATROPIUM-ALBUTEROL 3 ML NEB INHALATION SCH (19:23)
--- NOTE | 2019-01-22 20:48 | CONS ---
CONSULTATION Mrs. Colin is a 68-year-old female who was transferred from [facility]. The records from [facility] lab tests are reviewed. The patient's old medical records are also reviewed. This patient is a rather poor historian. She has some evidence of mental confusion. The patient's at present is not available to give any detailed history. According to EMS notes and the [facility] notes, patient was brought by EMS to the emergency room. Patient had some shortness of breath and fever. Patient was admitted for pneumonia about 2 weeks ago at the [facility]. EMS found her hypoxic with a fever of 103. Initial EKG done by EMS and done in [place] showed some J-point elevation in V1 and V2 as well as in aVR and there was some ST-segment depression in the lateral leads. Patient did not complain of chest discomfort. Patient has been having some nonproductive cough but denies any fever or chills. Denies any urinary frequency. This patient recently has been diagnosed to have breast cancer and patient was supposed to have surgery. Subsequently the surgery was canceled because of the symptoms of cough and shortness of breath. The patient had one episode of nonsustained ventricular tachycardia at that time. Patient was treated with the medications. The patient has a known history of coronary artery disease with a prior history of coronary artery bypass surgery in 2007 at [facility]. Patient had a SUTHERLAND graft to the LAD, saphenous vein graft to the diagonal, OM and the PDA as well as her right coronary artery. The patient was evaluated by Dr. Bradley in November with an echocardiogram which revealed overall normal left ventricular systolic function. There was some mild enlargement of the right ventricle and the right atrium. Patient was seen in the emergency room at [facility]. At present patient is comfortable. She is free of chest pain. EKG was repeated which showed resolution of the ST-segment changes in V1. Some mild ST depression in V2 to V4 is noted. At present patient's temperature is normal. STAT echocardiogram was performed which does not show any significant wall motion abnormality. There is a flattening of the interventricular septum. Right ventricle and right atrium are enlarged. There is evidence of moderate to severe tricuspid regurgitation. IVC is dilated, suggestive of elevated right atrial pressure. PAST MEDICAL HISTORY: Past medical history includes: 1. Chronic kidney disease. Her creatinine runs in the range of 4. Patient was in previous dialysis, but the dialysis stopped. Patient used is being [facility] at the [facility]. 2. Recently diagnosed to have breast cancer. 3. History of chronic obstructive pulmonary disease as well as pulmonary fibrosis. 4. History of hypertension. HOME MEDICATIONS: Patient's home medications include: 1. Amlodipine 5 mg daily. 2. . 3. Coreg 6.25 mg b.i.d. 4. Lantus insulin. 5. Linzess 145 mcg capsule once a day. 6. Nitroglycerin. PHYSICAL EXAMINATION: Physical examination at present reveals a 68-year-old female who currently is not in any acute distress. Patient is unable to give any detailed history at present. VITAL SIGNS: Patient's heart rate is 80 per minute, blood pressure 100/80 mmHg. Head/ENT examination is negative. Neck is supple. Jugular venous pressure is elevated. Both the carotid pulses are felt. There is no bruit. Chest is symmetrical. HEART: The PMI is not felt. First and second heart sounds are normal. Lung examination reveals bilateral few scattered wheezes. Abdomen is negative. Liver is palpable 2 fingerbreadths below the right costal margin. EXTREMITIES: Peripheral pulsations are not felt. There is no evidence of any leg edema. FINAL IMPRESSION: This patient was transferred from [facility] with a history of high-grade fever. Patient was hypoxemic when the EMS arrived and she had mental confusion. The patient did not complain of any chest pain. There was some elevation in lead V1 and aVR on the EKG which has now resolved. The echocardiogram does not show any wall motion abnormality to suggest acute myocardial infarction. In view of the patient's multiple medical problems with fever and chronic kidney disease with a creatinine 4.0, patient is not considered a candidate for acute coronary intervention at present. Patient will be admitted to the intensive care unit. Blood cultures will be done. A V/Q lung scan will be done. We will continue the patient on heparin. Serial troponin and EKG will be done. Patient's overall prognosis is guarded. MMODL / IJN: [id number] /
[2019-01-22 22:43] LABS: Albumin 2.6 g/dL (3.5-5.0); Calcium 7.5 mg/dL (8.4-10.2); Magnesium 1.9 mg/dL (1.6-2.3); Potassium 4.5 mmol/L (3.5-5.1); Total Bilirubin 0.9 mg/dL (0.2-1.3); Total Protein 5.1 g/dL (6.3-8.2)
[2019-01-22 23:17] LABS: HCT 28.1 % (34.0-46.0); Hypochromasia Slight; MCH 31.2 pg (25.0-35.0); MCHC 31.7 g/dL (31.0-37.0); MCV 98.4 fL (80.0-100.0); Mean Platelet Volume 7.3; Platelet Count 244 k/uL (150-450); RBC 2.85 m/uL (3.80-5.40); RDW 14.9 % (11.5-15.5); WBC 14.6 k/uL (3.8-10.6)
[2019-01-22 23:27] LABS: HGB 8.9 gm/dL (11.4-16.0)
[2019-01-23] MEDS ORDERED: diphenhydrAMINE 25 MG CAP PO STA (00:03)
[2019-01-23] MEDS: INSULIN DETEMIR (LEVEMIR) 100 UNIT/ML SYR SQ SCH ×2 (00:08→21:50)
[2019-01-23] MEDS: PIPERACILLIN-TAZOBACTAM 3.375 GM in SODIUM CHLORIDE 0.9% 100 ML IVPB SCH ×2 (00:09→07:57)
[2019-01-23 04:43] LABS: Basophils % (A) 0 %; Eosinophils % (A) 0 %; HCT 26.5 % (34.0-46.0); HGB 8.2 gm/dL (11.4-16.0); Hypochromasia Slight; Lymphocytes # (A) 0.9 k/uL (1.0-4.8); Lymphocytes % (A) 9 %; MCH 30.3 pg (25.0-35.0); MCHC 31.1 g/dL (31.0-37.0); MCV 97.4 fL (80.0-100.0); Mean Platelet Volume 7.6; Monocytes # (A) 0.3 k/uL (0-1.0); Monocytes % (A) 3 %; Neutrophils # (A) 8.3 k/uL (1.3-7.7); Neutrophils % (A) 86 %; Platelet Count 234 k/uL (150-450); RBC 2.72 m/uL (3.80-5.40); RDW 14.1 % (11.5-15.5); WBC 9.6 k/uL (3.8-10.6)
[2019-01-23 04:53] LABS: INR 1.5 (<1.2); Partial Thromboplastin Time 57.8 sec (22.0-30.0); Prothrombin Time 15.2 sec (9.0-12.0)
[2019-01-23 05:28] LABS: Albumin 2.5 g/dL (3.5-5.0); Calcium 7.7 mg/dL (8.4-10.2); Magnesium 1.9 mg/dL (1.6-2.3); Potassium 4.4 mmol/L (3.5-5.1); Total Bilirubin 0.4 mg/dL (0.2-1.3); Total Protein 4.9 g/dL (6.3-8.2)
[2019-01-23] MEDS ORDERED: VANCOMYCIN IV PER PHARMACY 1 EACH MISC MISCELLANE SCH (06:45)
[2019-01-23 06:52] LABS: Glucose,Whole Blood 174 mg/dL (75-99)
[2019-01-23] MEDS: INSULIN ASPART (NovoLOG) 100 UNIT/ML VIAL SQ SCH ×4 (06:56→21:50)
--- NOTE | 2019-01-23 07:18 | XR ---
EXAMINATION TYPE: XR chest 1V portable DATE OF EXAM: 01/23/2019 HISTORY: PNM . REFERENCE: Previous study dated 01/22/2019. FINDINGS: There is been a midline sternotomy. Heart size upper limits of normal. There are mild senescent changes throughout the lungs. There is no focal pneumonia or edema. Pleural spaces are clear. IMPRESSION: BORDERLINE CARDIOMEGALY.
[2019-01-23] MEDS: IPRATROPIUM-ALBUTEROL 3 ML NEB INHALATION SCH ×4 (07:33→20:14)
[2019-01-23] MEDS: PANTOPRAZOLE 40 MG/10 ML VIAL IV SCH (07:58)
[2019-01-23] MEDS ORDERED: VANCOMYCIN 1,250 MG in SODIUM CHLORIDE 0.9% 250 ML IVPB ONE (08:00)
[2019-01-23] MEDS: HYDROcodone/APAP 10-325MG 1 EACH TAB PO PRN ×3 (08:11→23:18)
--- NOTE | 2019-01-23 08:58 | P.NPCON ---
History of Present Illness - Reason for Consult Consult date: 01/23/19 acute renal failure - Chief Complaint Changes in mental status with sepsis - History of Present Illness This is a 68-year-old female is seen in consultation because of acute kidney injury and chronic kidney disease. Presumably she was on dialysis for 3 years and came off dialysis in March of last year 2017. 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 We have a previous creatinine of 2.6 dated 09/09/2015 in or outpatient records She initially presented to [facility] with fever and confusion. The blood culture is already growing gram-positive . She did admit to having mild cough. No shortness of breath no nausea vomiting diarrhea no abdominal pain no frequency or dysuria Recently she had a diagnosis of C of the breasts about 2 months ago. No therapy has been started Her history includes coronary artery disease coronary artery bypass graft COPD diabetes mellitus hearing deficit. History of hypertension. Past Medical History Past Medical History: Coronary Artery Disease (CAD), Cancer, COPD, Diabetes Mellitus, Fibromyalgia, GERD/Reflux, Hearing Disorder / Deafness, Hyperlipidemia, Hypertension Additional Past Medical History / Comment(s): bilat hearing aid, Breast CA History of Any Multi-Drug Resistant Organisms: None Reported Past Surgical History: Appendectomy, Back Surgery, Coronary Bypass/CABG, Tonsil lectomy Past Anesthesia/Blood Transfusion Reactions: No Reported Reaction Past Psychological History: No Psychological Hx Reported Smoking Status: Current every day smoker Past Alcohol Use History: None Reported Past Drug Use History: None Reported - Past Family History Father Additional Family Medical History / Comment(s): esophageal cancer Sister(s) Additional Family Medical History / Comment(s): breast cancer Medications and Allergies Home Medications Medication Instructions Recorded Confirmed Type Insulin Glargine [Lantus] 80 unit SQ HS 03/13/15 01/22/19 History Omeprazole [PriLOSEC] 20 mg PO BID 03/13/15 01/22/19 History Simvastatin [Zocor] 20 mg PO HS 03/13/15 01/22/19 History Linaclotide [Linzess] 145 mcg PO DAILY 09/29/18 01/22/19 History Multivitamin/Iron/Folic Acid 1 tab PO DAILY 09/29/18 01/22/19 History [Centrum Adults Tablet] amLODIPine [Norvasc] 5 mg PO DAILY 09/29/18 01/22/19 History HYDROcodone/APAP 10-325MG [[place] 1 tab PO TID PRN 01/04/19 01/22/19 History 10-325] Furosemide [Lasix] 80 mg PO DAILY 01/05/19 01/22/19 History Magnesium Oxide [Mag-Ox] 200 mg PO TID #10 tab 01/08/19 01/22/19 Rx Melatonin 3 mg PO HS PRN tablet 01/08/19 01/22/19 Rx Albuterol Sulfate [Albuterol 1 puff INHALATION RT-Q6H PRN 01/22/19 01/22/19 History Sulfate Hfa] Budesonide-Formot 160-4.5 Mcg 1 puff INHALATION RT-BID 01/22/19 01/22/19 History [Symbicort 160-4.5 Mcg Inhaler] Carvedilol [Coreg] 6.25 mg PO BID 01/22/19 01/22/19 History Doxycycline Monohydrate [Monodox] 100 mg PO DAILY 01/22/19 01/22/19 History Fluticasone Nasal [place] [Flonase 1 spray EA NOSTRIL DAILY 01/22/19 01/22/19 History Nasal [place]] Loratadine-Pseudoeph 5-120 mg 1 tab PO Q12HR PRN 01/22/19 01/22/19 History [Claritin-D 12 HR] Allergies Allergy/AdvReac Type Severity Reaction Status Date / Time codeine Allergy Unknown Verified 01/22/19 16:35 Physical Exam Vitals: Vital Signs Temp Pulse Pulse Resp BP BP Pulse Ox 01/23/19 07:59 54 L 01/23/19 07:35 52 L 01/23/19 07:00 62 19 101/62 94 L 01/23/19 06:00 48 L 11 L 95/53 93 L 01/23/19 05:00 46 L 11 L 95/52 94 L 01/23/19 04:00 96.7 F L 45 L 13 100/53 94 L 01/23/19 03:00 48 L 13 98/53 93 L 01/23/19 02:00 50 L 12 101/52 93 L 01/23/19 01:00 57 L 15 104/57 94 L 01/23/19 00:14 55 L 13 126/55 93 L 01/23/19 00:00 98.5 F 63 18 117/60 94 L 01/22/19 23:00 60 19 129/97 94 L 01/22/19 22:00 53 L 12 98/52 94 L 01/22/19 21:30 97.5 F L 57 L 0 L 93/51 93 L 01/22/19 21:20 97.5 F L 52 L 0 L 88/51 95 01/22/19 21:10 51 L 14 94/50 94 L 01/22/19 21:00 54 L 12 98/50 95 01/22/19 20:50 53 L 12 98/50 95 01/22/19 20:00 98.2 F 54 L 17 94/48 93 L 01/22/19 19:50 56 L 16 92 L 01/22/19 19:40 98.2 F 58 L 12 93/44 95 01/22/19 19:37 57 L 14 01/22/19 19:30 61 12 100 01/22/19 19:23 59 L 16 01/22/19 19:20 62 13 100/48 92 L 01/22/19 19:10 64 14 105/49 94 L 01/22/19 19:08 97.6 F 64 18 100/48 95 01/22/19 19:00 68 26 H 105/49 94 L 01/22/19 18:58 98.4 F 71 20 124/63 94 L 01/22/19 18:30 98.4 F 62 22 124/63 94 L 01/22/19 18:27 81 20 01/22/19 17:44 98.2 F 53 L 15 99/52 01/22/19 16:51 72 18 107/56 01/22/19 16:13 71 17 102/53 96 01/22/19 15:38 70 01/22/19 15:35 98.8 F 71 18 96/55 93 L Intake and Output 01/22/19 01/23/19 01/23/19 22:59 06:59 14:59 Intake Total 1039.471 700 100 Output Total 200 0 Balance 839.471 700 100 Intake: IV 420 700 100 Magnesium Sulfate-D5w Pmx 200 1 gm In Dextrose/Water 1 100ml.bag @ 100 mls/hr IVPB Q1H [facility] Rx#: [id number] Piperacillin-Tazobactam 3 100 .375 gm In Sodium Chloride 0.9% 100 ml @ 25 mls/hr IVPB Q8HR [facility] Rx# :[id number] Sodium Chloride 0.9% 1, 200 600 100 000 ml @ 100 mls/hr IV . Q10H [facility] Rx#:[id number] Sodium Chloride 0.9% 1, 20 000 ml @ 20 mls/hr IV . Q24H [facility] Rx#:[id number] Intake, IV Titration 9.471 Amount Heparin Sod,Pork in 0.45% 9.471 NaCl 25,000 unit In 0.45 % NaCl 1 250ml.bag @ 12 UNITS/KG/HR 6.532 mls/hr IV .Q24H [facility] Rx#: [id number] Oral 300 Blood Product 310 Rc Pheresis 2 As3 Unit 310 [id number] Output: Urine 200 0 Other: Voiding Method Bedside Commode Bedside Commode # Voids 1 # Bowel Movements 1 Weight 54.431 kg 60.2 kg On examination is awake alert oriented currently. She is cc back to baseline HEENT exam no JVP neck is supple no facial asymmetry Lungs are clear to auscultation good air entry bilaterally Heart sounds are remarkable for a grade 2 holosystolic murmur No rub. Abdomen soft nontender no organomegaly ascites masses Extremity exam was no edema warm to touch Neurologically awake alert oriented but hard of hearing asterixis Results - Lab Results Most recent lab results Calcium 7.7 mg/dL (8.4-10.2) L 01/23/19 04:30 Magnesium 1.9 mg/dL (1.6-2.3) 01/23/19 04:30 01/23/19 04:30 01/23/19 04:30 Assessment and Plan Assessment: Impression 1. Acute kidney injury likely from sepsis. 5. Close follow-up of intake and output, keep blood pressure in the 120 range. 2. Chronic kidney disease, previous creatinine available to me from our own medical records from the office is 2.6 on 09/09/2015. History of coming off of dialysis in March 2018 after being on dialysis for 3 years. 3. Hyponatremia secondary to acute kidney injury and volume depletion 4. Severe metabolic acidosis with a gap of 14 and a bicarb of 12 likely from chronic kidney disease and RTA. 5. Admitted with mental status changes and Gram-positive bacteremia. Source unclear. Currently fairly asymptomatic. 6.. History of CA breast recently diagnosed 2 months ago 7. History of coronary artery bypass graft. Recommendation 1. Treat sepsis with vancomycin and keep levels down below 15 and if possible discontinue it as there is high risk of her going on dialysis if vancomycin is continued. 2. Continue IV fluids normal saline at 60 an hour 3. Start sodium bicarb 650 4 times a day. 4. No urgent need for dialysis at this time. 5. Try to maintain blood pressure around 120 to 1:30 systolic 6. Monitor labs daily
[2019-01-23 11:53] LABS: Glucose,Whole Blood 115 mg/dL (75-99)
--- NOTE | 2019-01-23 12:15 | P.PN ---
Subjective Progress Note Date: 01/23/19 Patient seen and examined and follow-up, reporting her breathing is okay denies any shortness of breath. Apparently nursing receiving the news from [place] of positive blood cultures, preliminary is showing gram-positive in pairs and chains. Patient has had elevated blood sugars we'll initiate Accu-Cheks with's correctional scale insulin coverage, serum sodium 127 serum bicarb 13 creatinine 3.86 troponin 0.755, pro-calcitonin 20.14. Hemoglobin 8.2 status post 1 unit packed RBCs. Objective - Vital Signs Vital signs: Vital Signs Temp 96.7 F L 01/23/19 04:00 Pulse 53 L 01/23/19 11:38 Resp 18 01/23/19 09:00 BP 116/52 01/23/19 09:00 Pulse Ox 95 01/23/19 09:00 Intake & Output 01/22/19 01/23/19 01/23/19 18:59 06:59 18:59 Intake Total 3.484 1735.987 650 Output Total 200 Balance 3.484 1535.987 650 Weight 54.431 kg 60.2 kg Intake: IV 1120 450 Magnesium Sulfate-D5w Pmx 200 1 gm In Dextrose/Water 1 100ml.bag @ 100 mls/hr IVPB Q1H [facility] Rx#: [id number] Piperacillin-Tazobactam 3 100 100 .375 gm In Sodium Chloride 0.9% 100 ml @ 25 mls/hr IVPB Q8HR [facility] Rx# :[id number] Sodium Chloride 0.9% 1, 800 100 000 ml @ 100 mls/hr IV . Q10H [facility] Rx#:[id number] Sodium Chloride 0.9% 1, 20 000 ml @ 20 mls/hr IV . Q24H [facility] Rx#:[id number] Vancomycin 1,250 mg In 250 Sodium Chloride 0.9% 250 ml @ 125 mls/hr IVPB ONCE ONE Rx#:[id number] Intake, IV Titration 3.484 5.987 Amount Heparin Sod,Pork in 0.45% 3.484 5.987 NaCl 25,000 unit In 0.45 % NaCl 1 250ml.bag @ 12 UNITS/KG/HR 6.532 mls/hr IV .Q24H [facility] Rx#: [id number] Oral 300 200 Blood Product 0 310 Rc Pheresis 2 As3 Unit 0 310 [id number] Output: Urine 200 Other: Voiding Method Bedside Commode Bedside Commode # Voids 1 # Bowel Movements 1 - Exam Constitutional: No acute distress, conversant, pleasant Eyes: Anicteric sclerae, moist conjunctiva, no lid-lag, PERRLA ENMT: NC/AT,Oropharynx clear, no erythema, exudates Neck:Supple, FROM, no masses, or JVD, No carotid bruits; No thyromegaly Lungs: Clear to auscultation, Clear to percussion, Normal respiratory effort, no accessory muscle use Cardiovascular: Heart regular in rate and rhythm, No murmurs, gallops, or rubs no peripheral edema Abdominal: Soft Nontender, nom distended, no guarding, no rebound or rigidity, Normoactive bowel sounds No hepatomegaly, No splenomegaly, No palpable mass No abdominal wall hernia noted Skin: Normal temperature, tone, texture, turgor, No induration No subcutaneous nodules, No rash, lesions, No ulcers Extremities:No digital cyanosis No clubbing, Pedal pulses intact and symmetrical Radial pulses intact and symmetrical Normal gait and station, No calf tenderness Psychiatric: Alert and oriented to person, place and time, Appropriate affect Intact judgement Neuro: Muscles Strength 5/5 in all 4 extremities, Sensation to light touch grossly present throughout, Cranial nerves II-XII grossly intact. No focal sensory deficits - Labs CBC & Chem 7: 01/23/19 04:30 01/23/19 04:30 Labs: Abnormal Lab Results - Last 24 Hours (Table) 01/22/19 01/22/19 01/22/19 Range/Units 14:40 14:40 15:50 WBC 14.1 H (3.8-10.6) k/uL RBC 2.30 L (3.80-5.40) m/uL Hgb 7.1 L (11.4-16.0) gm/dL Hct 22.3 L (34.0-46.0) % Neutrophils # 11.9 H (1.3-7.7) k/uL Lymphocytes # (1.0-4.8) k/uL PT (9.0-12.0) sec INR (<1.2) APTT (22.0-30.0) sec Sodium (137-145) mmol/L Carbon Dioxide (22-30) mmol/L BUN (7-17) mg/dL Creatinine (0.52-1.04) mg/dL Glucose (74-99) mg/dL POC Glucose (mg/dL) (75-99) mg/dL Calcium (8.4-10.2) mg/dL Magnesium (1.6-2.3) mg/dL AST (14-36) U/L ALT (9-52) U/L Alkaline Phosphatase (38-126) U/L Troponin I (0.000-0.034) ng/mL Total Protein (6.3-8.2) g/dL Albumin (3.5-5.0) g/dL Procalcitonin (0.02-0.09) ng/mL Urine Protein 2+ H (Negative) Urine Glucose (UA) 2+ H (Negative) Urine Blood Trace H (Negative) Amorphous Sediment Rare H (None) /hpf Crossmatch See Detail 01/22/19 01/22/19 01/22/19 Range/Units 15:50 15:50 15:50 WBC (3.8-10.6) k/uL RBC (3.80-5.40) m/uL Hgb (11.4-16.0) gm/dL Hct (34.0-46.0) % Neutrophils # (1.3-7.7) k/uL Lymphocytes # (1.0-4.8) k/uL PT 15.6 H (9.0-12.0) sec INR 1.6 H (<1.2) APTT 82.2 H (22.0-30.0) sec Sodium 130 L (137-145) mmol/L Carbon Dioxide 15 L (22-30) mmol/L BUN 52 H (7-17) mg/dL Creatinine 3.94 H (0.52-1.04) mg/dL Glucose (74-99) mg/dL POC Glucose (mg/dL) (75-99) mg/dL Calcium 7.6 L (8.4-10.2) mg/dL Magnesium 1.1 L (1.6-2.3) mg/dL AST 103 H (14-36) U/L ALT 88 H (9-52) U/L Alkaline Phosphatase 365 H (38-126) U/L Troponin I 1.390 H* (0.000-0.034) ng/mL Total Protein 5.0 L (6.3-8.2) g/dL Albumin 2.5 L (3.5-5.0) g/dL Procalcitonin (0.02-0.09) ng/mL Urine Protein (Negative) Urine Glucose (UA) (Negative) Urine Blood (Negative) Amorphous Sediment (None) /hpf Crossmatch 01/22/19 01/22/19 01/22/19 Range/Units 18:26 22:12 22:12 WBC (3.8-10.6) k/uL RBC (3.80-5.40) m/uL Hgb (11.4-16.0) gm/dL Hct (34.0-46.0) % Neutrophils # (1.3-7.7) k/uL Lymphocytes # (1.0-4.8) k/uL PT (9.0-12.0) sec INR (<1.2) APTT 40.5 H (22.0-30.0) sec Sodium (137-145) mmol/L Carbon Dioxide (22-30) mmol/L BUN (7-17) mg/dL Creatinine (0.52-1.04) mg/dL Glucose (74-99) mg/dL POC Glucose (mg/dL) 140 H (75-99) mg/dL Calcium (8.4-10.2) mg/dL Magnesium (1.6-2.3) mg/dL AST (14-36) U/L ALT (9-52) U/L Alkaline Phosphatase (38-126) U/L Troponin I 1.020 H* (0.000-0.034) ng/mL Total Protein (6.3-8.2) g/dL Albumin (3.5-5.0) g/dL Procalcitonin (0.02-0.09) ng/mL Urine Protein (Negative) Urine Glucose (UA) (Negative) Urine Blood (Negative) Amorphous Sediment (None) /hpf Crossmatch 01/22/19 01/22/19 01/23/19 Range/Units 22:12 23:05 04:30 WBC 14.6 H (3.8-10.6) k/uL RBC 2.85 L 2.72 L (3.80-5.40) m/uL Hgb 8.9 L D 8.2 L (11.4-16.0) gm/dL Hct 28.1 L 26.5 L (34.0-46.0) % Neutrophils # 8.3 H (1.3-7.7) k/uL Lymphocytes # 0.9 L (1.0-4.8) k/uL PT (9.0-12.0) sec INR (<1.2) APTT (22.0-30.0) sec Sodium 128 L (137-145) mmol/L Carbon Dioxide 12 L (22-30) mmol/L BUN 52 H (7-17) mg/dL Creatinine 3.91 H (0.52-1.04) mg/dL Glucose 258 H (74-99) mg/dL POC Glucose (mg/dL) (75-99) mg/dL Calcium 7.5 L (8.4-10.2) mg/dL Magnesium (1.6-2.3) mg/dL AST 163 H (14-36) U/L ALT 133 H (9-52) U/L Alkaline Phosphatase 379 H (38-126) U/L Troponin I (0.000-0.034) ng/mL Total Protein 5.1 L (6.3-8.2) g/dL Albumin 2.6 L (3.5-5.0) g/dL Procalcitonin (0.02-0.09) ng/mL Urine Protein (Negative) Urine Glucose (UA) (Negative) Urine Blood (Negative) Amorphous Sediment (None) /hpf Crossmatch 01/23/19 01/23/19 01/23/19 Range/Units 04:30 04:30 04:30 WBC (3.8-10.6) k/uL RBC (3.80-5.40) m/uL Hgb (11.4-16.0) gm/dL Hct (34.0-46.0) % Neutrophils # (1.3-7.7) k/uL Lymphocytes # (1.0-4.8) k/uL PT 15.2 H (9.0-12.0) sec INR 1.5 H (<1.2) APTT 57.8 H (22.0-30.0) sec Sodium 127 L (137-145) mmol/L Carbon Dioxide 13 L (22-30) mmol/L BUN 54 H (7-17) mg/dL Creatinine 3.86 H (0.52-1.04) mg/dL Glucose 213 H (74-99) mg/dL POC Glucose (mg/dL) (75-99) mg/dL Calcium 7.7 L (8.4-10.2) mg/dL Magnesium (1.6-2.3) mg/dL AST 97 H (14-36) U/L ALT 116 H (9-52) U/L Alkaline Phosphatase 331 H (38-126) U/L Troponin I 0.755 H* (0.000-0.034) ng/mL Total Protein 4.9 L (6.3-8.2) g/dL Albumin 2.5 L (3.5-5.0) g/dL Procalcitonin (0.02-0.09) ng/mL Urine Protein (Negative) Urine Glucose (UA) (Negative) Urine Blood (Negative) Amorphous Sediment (None) /hpf Crossmatch 01/23/19 01/23/19 Range/Units 04:30 06:51 WBC (3.8-10.6) k/uL RBC (3.80-5.40) m/uL Hgb (11.4-16.0) gm/dL Hct (34.0-46.0) % Neutrophils # (1.3-7.7) k/uL Lymphocytes # (1.0-4.8) k/uL PT (9.0-12.0) sec INR (<1.2) APTT (22.0-30.0) sec Sodium (137-145) mmol/L Carbon Dioxide (22-30) mmol/L BUN (7-17) mg/dL Creatinine (0.52-1.04) mg/dL Glucose (74-99) mg/dL POC Glucose (mg/dL) 174 H (75-99) mg/dL Calcium (8.4-10.2) mg/dL Magnesium (1.6-2.3) mg/dL AST (14-36) U/L ALT (9-52) U/L Alkaline Phosphatase (38-126) U/L Troponin I (0.000-0.034) ng/mL Total Protein (6.3-8.2) g/dL Albumin (3.5-5.0) g/dL Procalcitonin 20.14 H (0.02-0.09) ng/mL Urine Protein (Negative) Urine Glucose (UA) (Negative) Urine Blood (Negative) Amorphous Sediment (None) /hpf Crossmatch Microbiology - Last 24 Hours (Table) 01/22/19 16:05 Blood Culture Gram Stain - Preliminary Blood 01/22/19 16:05 Blood Culture - Final Blood Assessment and Plan (1) Sepsis Narrative/Plan: * Secondary to gram-positive bacteremia * Patient continues to be afebrile, leukocytosis has resolved * We'll discontinue IV vancomycin in favor for Zyvox due to borderline kidney function and continue Zosyn * Patient hemodynamically stable Current Visit: Yes Status: Acute Code(s): A41.9 - SEPSIS, UNSPECIFIED ORGANISM SNOMED Code(s): 40652675 (2) Gram-positive bacteremia Narrative/Plan: * Antibiotic regimen as above * Follow up final cultures when available Current Visit: Yes Status: Acute Code(s): R78.81 - BACTEREMIA SNOMED Code(s): 519671866515 (3) Type 2 diabetes mellitus with hyperglycemia Narrative/Plan: * Continue with Accu-Cheks qa * Continue correctional scale insulin coverage and her A1c is pending Current Visit: Yes Status: Acute Code(s): E11.65 - TYPE 2 DIABETES MELLITUS WITH HYPERGLYCEMIA SNOMED Code(s): 019684771670403 (4) Chronic renal disease, stage V Narrative/Plan: * Possibly acute on chronic secondary to sepsis * Patient continues to have ongoing metabolic acidosis and is initiated on oral bicarb replacement * Appreciate nephrology recommendations * The patient currently on vancomycin for Gram-positive bacteremia we'll discontinue that and switch to Zyvox In the setting of the patient's borderline kidney function Current Visit: Yes Status: Chronic Code(s): N18.5 - CHRONIC KIDNEY DISEASE, STAGE 5 SNOMED Code(s): 557820276 (5) Elevated troponin Narrative/Plan: * Likely triggered by sepsis * Troponins trending down patient continues on heparin drip, * Echocardiogram showing preserved LVEF, moderate TR * cardiology following Current Visit: Yes Status: Acute Code(s): R74.8 - ABNORMAL LEVELS OF OTHER SERUM ENZYMES SNOMED Code(s): 381288163 (6) Normocytic anemia Narrative/Plan: * Hemoglobin 8.2 g today after 1 unit packed RBC transfusion * We will continue to monitor Current Visit: Yes Status: Acute Code(s): D64.9 - ANEMIA, UNSPECIFIED SNOMED Code(s): 253071265 (7) Dyspnea Narrative/Plan: * Prior concern for possible PE VQ scan was negative with low probability * Likely multifactorial due to sepsis and severe anemia * Patient improving Current Visit: Yes Status: Acute Code(s): R06.00 - DYSPNEA, UNSPECIFIED SNOMED Code(s): 332772344 (8) Hyponatremia Current Visit: Yes Status: Acute Code(s): E87.1 - HYPO-OSMOLALITY AND HYPONATREMIA SNOMED Code(s): 63025113 (9) Breast cancer Current Visit: Yes Status: Acute Code(s): C50.919 - MALIGNANT NEOPLASM OF UNSP SITE OF UNSPECIFIED FEMALE BREAST SNOMED Code(s): 541303148 (10) Coronary artery disease Current Visit: Yes Status: Acute Code(s): I25.10 - ATHSCL HEART DISEASE OF [place] CORONARY ARTERY W/O ANG PCTRS SNOMED Code(s): 33499636 (11) Hx of CABG Current Visit: Yes Status: Acute Code(s): Z95.1 - PRESENCE OF AORTOCORONARY BYPASS GRAFT SNOMED Code(s): 230822709 (12) Transaminitis Narrative/Plan: * We'll check an acute hepatitis panel and right upper quadrant ultrasound * Continue to monitor Current Visit: Yes Status: Acute Code(s): R74.0 - NONSPEC ELEV OF LEVELS OF TRANSAMNS & LACTIC ACID DEHYDRGNSE SNOMED Code(s): 600290142 Plan: * Disposition * Awaiting consultants recommendations continue current management for now * Patient medically stable for transfer to the medical floor
--- NOTE | 2019-01-23 12:17 | P.CNPUL ---
History of Present Illness Consult date: 01/23/19 Requesting physician: Josh Ronquillo Reason for consult: other (Sepsis and positive blood cultures with fever and confusion.) Chief complaint: Altered mental status. History of present illness: This is a 68-year-old female with history of multiple medical problems including coronary artery disease, previous CABG, history of breast cancer which was diagnosed in September, history of COPD, interstitial lung disease/pulmonary fibrosis, however it was not biopsy-proven this was noted and a CT of the chest noted on her last admission. History of diabetes, fibromyalgia, hearing disorder, patient lives in [place]. Patient was in the hospital 2 weeks ago, and she was diagnosed as having COPD exacerbation and pulmonary fibrosis, questionable pneumonia. Patient was noted by her to be confused, and she had a fever. She was taken by EMS to [place] [facility], and she was found to have abnorm al EKG, reviewed by the dry room operator/Dr. Borges while he was in his cardiac clinic in [place]. hence arrangements were made for the patient be transferred to [facility] for further cardiac evaluation. She was seen by cardiology and her EKG was concerning for possible acute LA, hence the patient was admitted to the intensive care unit. Patient had no symptoms of shortness of breath cough or wheezing, she had no symptoms of chest pain, no nausea no vomiting no abdominal pain. She was told by her that she was confused and she had a fever and that is why she was taken by EMS to [place] [facility]. At any rate patient was evaluated in the ER at [facility], CBC showed leukocytosis. Her sodium was a bit low at 128. Troponin was elevated at 1.020, EKG showed nonspecific ST and T wave changes, patient was admitted to the ICU, placed on heparin, and I was asked to see her on consultation. Patient was placed empirically on antibiotics, and her blood cultures came back positive from [place] [facility], and blood cultures from our ER were also positive for gram- positive cocci. In the meantime patient is receiving now Zosyn and vancomycin. Again the patient has no active pulmonary symptoms whatsoever, there is no evidence of pneumonia on the chest x-ray, but there is evidence of interstitial lung disease. Patient had no symptoms to suggest any abscess, she did have chronic back pain related to previous surgery and cervical fusion done over 5 y ears ago by neurosurgery. Patient is also known to have history of chronic kidney disease, was previously on hemodialysis, she was dialyzed last about 12 months ago. Looking at the EKG, patient had J-point elevation in V1 and V2 and nonspecific ST segment depression in lateral leads. CT of the head on admission showed bilateral frontal hygromas and age-related atrophy, no specific intracranial pathology otherwise. Review of Systems Constitutional: Fevers, chronic back pain, no weight loss. Eyes: Denies any blurred vision diplopia or lid lag. ENT: Denies sore throat. Ear ache denies any symptoms of sinusitis. Respiratory: Denies cough wheezing shortness of breath or chest pain. Cardiovascular: Denied chest pain palpitations diaphoresis Endocrine: Denies heat or cold intolerance. Denies symptoms of active diabetes. Gastrointestinal: Denies nausea vomiting abdominal pain melena or hematemesis. Genitourinary: Denies dysuria or urgency hematuria. Or frequent urination. Musculoskeletal: Denies weakness, but she does have chronic back pain related to previous surgery on her back/fusion. Skin: Denies any rashes or pruritus. Neurological: Denies any headache or vision or dizziness. Past Medical History Past Medical History: Coronary Artery Disease (CAD), Cancer, COPD, Diabetes Mellitus, Fibromyalgia, GERD/Reflux, Hearing Disorder / Deafness, Hyperlipidemia, Hypertension Additional Past Medical History / Comment(s): bilat hearing aid, Breast CA History of Any Multi-Drug Resistant Organisms: None Reported Past Surgical History: Appendectomy, Back Surgery, Coronary Bypass/CABG, Tonsill ectomy Past Anesthesia/Blood Transfusion Reactions: No Reported Reaction Past Psychological History: No Psychological Hx Reported Smoking Status: Current every day smoker Past Alcohol Use History: None Reported Past Drug Use History: None Reported - Past Family History Father Additional Family Medical History / Comment(s): esophageal cancer Sister(s) Additional Family Medical History / Comment(s): breast cancer Medications and Allergies Home Medications Medication Instructions Recorded Confirmed Type Insulin Glargine [Lantus] 80 unit SQ HS 03/13/15 01/22/19 History Omeprazole [PriLOSEC] 20 mg PO BID 03/13/15 01/22/19 History Simvastatin [Zocor] 20 mg PO HS 03/13/15 01/22/19 History Linaclotide [Linzess] 145 mcg PO DAILY 09/29/18 01/22/19 History Multivitamin/Iron/Folic Acid 1 tab PO DAILY 09/29/18 01/22/19 History [Centrum Adults Tablet] amLODIPine [Norvasc] 5 mg PO DAILY 09/29/18 01/22/19 History HYDROcodone/APAP 10-325MG [[place] 1 tab PO TID PRN 01/04/19 01/22/19 History 10-325] Furosemide [Lasix] 80 mg PO DAILY 01/05/19 01/22/19 History Magnesium Oxide [Mag-Ox] 200 mg PO TID #10 tab 01/08/19 01/22/19 Rx Melatonin 3 mg PO HS PRN tablet 01/08/19 01/22/19 Rx Albuterol Sulfate [Albuterol 1 puff INHALATION RT-Q6H PRN 01/22/19 01/22/19 History Sulfate Hfa] Budesonide-Formot 160-4.5 Mcg 1 puff INHALATION RT-BID 01/22/19 01/22/19 History [Symbicort 160-4.5 Mcg Inhaler] Carvedilol [Coreg] 6.25 mg PO BID 01/22/19 01/22/19 History Doxycycline Monohydrate [Monodox] 100 mg PO DAILY 01/22/19 01/22/19 History Fluticasone Nasal [place] [Flonase 1 spray EA NOSTRIL DAILY 01/22/19 01/22/19 History Nasal [place]] Loratadine-Pseudoeph 5-120 mg 1 tab PO Q12HR PRN 01/22/19 01/22/19 History [Claritin-D 12 HR] Allergies Allergy/AdvReac Type Severity Reaction Status Date / Time codeine Allergy Unknown Verified 01/22/19 16:35 Physical Exam Vitals: Vital Signs Temp Pulse Pulse Resp BP BP Pulse Ox 01/23/19 11:38 53 L 01/23/19 09:00 52 L 18 116/52 95 01/23/19 08:00 54 L 20 104/54 94 L 01/23/19 07:59 54 L 01/23/19 07:35 52 L 01/23/19 07:00 62 19 101/62 94 L 01/23/19 06:00 48 L 11 L 95/53 93 L 01/23/19 05:00 46 L 11 L 95/52 94 L 01/23/19 04:00 96.7 F L 45 L 13 100/53 94 L 01/23/19 03:00 48 L 13 98/53 93 L 01/23/19 02:00 50 L 12 101/52 93 L 01/23/19 01:00 57 L 15 104/57 94 L 01/23/19 00:14 55 L 13 126/55 93 L 01/23/19 00:00 98.5 F 63 18 117/60 94 L 01/22/19 23:00 60 19 129/97 94 L 01/22/19 22:00 53 L 12 98/52 94 L 01/22/19 21:30 97.5 F L 57 L 0 L 93/51 93 L 01/22/19 21:20 97.5 F L 52 L 0 L 88/51 95 01/22/19 21:10 51 L 14 94/50 94 L 01/22/19 21:00 54 L 12 98/50 95 01/22/19 20:50 53 L 12 98/50 95 01/22/19 20:00 98.2 F 54 L 17 94/48 93 L 01/22/19 19:50 56 L 16 92 L 01/22/19 19:40 98.2 F 58 L 12 93/44 95 01/22/19 19:37 57 L 14 01/22/19 19:30 61 12 100 01/22/19 19:23 59 L 16 01/22/19 19:20 62 13 100/48 92 L 01/22/19 19:10 64 14 105/49 94 L 01/22/19 19:08 97.6 F 64 18 100/48 95 01/22/19 19:00 68 26 H 105/49 94 L 01/22/19 18:58 98.4 F 71 20 124/63 94 L 01/22/19 18:30 98.4 F 62 22 124/63 94 L 01/22/19 18:27 81 20 01/22/19 17:44 98.2 F 53 L 15 99/52 01/22/19 16:51 72 18 107/56 01/22/19 16:13 71 17 102/53 96 01/22/19 15:38 70 01/22/19 15:35 98.8 F 71 18 96/55 93 L Intake and Output 01/22/19 01/23/19 01/23/19 22:59 06:59 14:59 Intake Total 1039.471 700 650 Output Total 200 0 Balance 839.471 700 650 Intake: IV 420 700 450 Magnesium Sulfate-D5w Pmx 200 1 gm In Dextrose/Water 1 100ml.bag @ 100 mls/hr IVPB Q1H [facility] Rx#: [id number] Piperacillin-Tazobactam 3 100 100 .375 gm In Sodium Chloride 0.9% 100 ml @ 25 mls/hr IVPB Q8HR [facility] Rx# :[id number] Sodium Chloride 0.9% 1, 200 600 100 000 ml @ 100 mls/hr IV . Q10H [facility] Rx#:[id number] Sodium Chloride 0.9% 1, 20 000 ml @ 20 mls/hr IV . Q24H [facility] Rx#:[id number] Vancomycin 1,250 mg In 250 Sodium Chloride 0.9% 250 ml @ 125 mls/hr IVPB ONCE ONE Rx#:[id number] Intake, IV Titration 9.471 Amount Heparin Sod,Pork in 0.45% 9.471 NaCl 25,000 unit In 0.45 % NaCl 1 250ml.bag @ 12 UNITS/KG/HR 6.532 mls/hr IV .Q24H [facility] Rx#: [id number] Oral 300 200 Blood Product 310 Rc Pheresis 2 As3 Unit 310 [id number] Output: Urine 200 0 Other: Voiding Method Bedside Commode Bedside Commode Bedside Commode # Voids 1 # Bowel Movements 1 Weight 54.431 kg 60.2 kg Physical Exam: Revealed a 68-year-old white female in no form of distress. On room air. Head: Atraumatic, normocephalic. HEENT:[Neck is supple.] [No neck masses.] [No thyromegaly.] [No JVD.] PERRLA, EOMI, no icterus. No lid lag Chest: [Diminished breath sounds at the bases no crackles or rhonchi or wheezes symmetrical chest expansion, no chest wall tenderness..] Cardiac Exam: [Normal S1 and S2, no S3 gallop, no murmur.] Abdomen: [Soft, nontender, no megaly, no rebound, no guarding, normal bowel sounds.] Extremities: [No clubbing, no edema, no cyanosis.] Neurological Exam: [No focal neurologic deficit.] Alert and oriented 3. Examination of the back showed no evidence of tenderness or any fluctuant masses over the thoracic and cervical spine. Skin: No rashes. Psychiatric: Normal mood affect and normal mental status examination. Lymphatics: No lymphadenopathy. Results - Laboratory Findings CBC and BMP: 01/23/19 04:30 01/23/19 04:30 PT/INR, D-dimer PT 15.2 sec (9.0-12.0) H 01/23/19 04:30 INR 1.5 (<1.2) H 01/23/19 04:30 Abnormal lab findings: Abnormal Labs 01/22/19 01/22/19 01/22/19 14:40 14:40 15:50 WBC 14.1 H RBC 2.30 L Hgb 7.1 L Hct 22.3 L Neutrophils # 11.9 H Lymphocytes # PT INR APTT Sodium Carbon Dioxide BUN Creatinine Glucose POC Glucose (mg/dL) Calcium Magnesium AST ALT Alkaline Phosphatase Troponin I Total Protein Albumin Procalcitonin Urine Protein 2+ H Urine Glucose (UA) 2+ H Urine Blood Trace H Amorphous Sediment Rare H Crossmatch See Detail 01/22/19 01/22/19 01/22/19 15:50 15:50 15:50 WBC RBC Hgb Hct Neutrophils # Lymphocytes # PT 15.6 H INR 1.6 H APTT 82.2 H Sodium 130 L Carbon Dioxide 15 L BUN 52 H Creatinine 3.94 H Glucose POC Glucose (mg/dL) Calcium 7.6 L Magnesium 1.1 L AST 103 H ALT 88 H Alkaline Phosphatase 365 H Troponin I 1.390 H* Total Protein 5.0 L Albumin 2.5 L Procalcitonin Urine Protein Urine Glucose (UA) Urine Blood Amorphous Sediment Crossmatch 01/22/19 01/22/19 01/22/19 18:26 22:12 22:12 WBC RBC Hgb Hct Neutrophils # Lymphocytes # PT INR APTT 40.5 H Sodium Carbon Dioxide BUN Creatinine Glucose POC Glucose (mg/dL) 140 H Calcium Magnesium AST ALT Alkaline Phosphatase Troponin I 1.020 H* Total Protein Albumin Procalcitonin Urine Protein Urine Glucose (UA) Urine Blood Amorphous Sediment Crossmatch 01/22/19 01/22/19 01/23/19 22:12 23:05 04:30 WBC 14.6 H RBC 2.85 L 2.72 L Hgb 8.9 L D 8.2 L Hct 28.1 L 26.5 L Neutrophils # 8.3 H Lymphocytes # 0.9 L PT INR APTT Sodium 128 L Carbon Dioxide 12 L BUN 52 H Creatinine 3.91 H Glucose 258 H POC Glucose (mg/dL) Calcium 7.5 L Magnesium AST 163 H ALT 133 H Alkaline Phosphatase 379 H Troponin I Total Protein 5.1 L Albumin 2.6 L Procalcitonin Urine Protein Urine Glucose (UA) Urine Blood Amorphous Sediment Crossmatch 01/23/19 01/23/19 01/23/19 04:30 04:30 04:30 WBC RBC Hgb Hct Neutrophils # Lymphocytes # PT 15.2 H INR 1.5 H APTT 57.8 H Sodium 127 L Carbon Dioxide 13 L BUN 54 H Creatinine 3.86 H Glucose 213 H POC Glucose (mg/dL) Calcium 7.7 L Magnesium AST 97 H ALT 116 H Alkaline Phosphatase 331 H Troponin I 0.755 H* Total Protein 4.9 L Albumin 2.5 L Procalcitonin Urine Protein Urine Glucose (UA) Urine Blood Amorphous Sediment Crossmatch 01/23/19 01/23/19 01/23/19 04:30 06:51 11:51 WBC RBC Hgb Hct Neutrophils # Lymphocytes # PT INR APTT Sodium Carbon Dioxide BUN Creatinine Glucose POC Glucose (mg/dL) 174 H 115 H Calcium Magnesium AST ALT Alkaline Phosphatase Troponin I Total Protein Albumin Procalcitonin 20.14 H Urine Protein Urine Glucose (UA) Urine Blood Amorphous Sediment Crossmatch - Diagnostic Findings Chest x-ray: image reviewed (Patient does have evidence of COPD and interstitial lung disease based on her present chest x-ray and previous CT of the chest done on her last admission.) Assessment and Plan Assessment: Impression: 1 acute sepsis and gram-positive bacteremia, exact source is not clear at this point, hence will continue investigations for the primary source of her bacte remia, and in the meantime patient will be given vancomycin and Zosyn. Chest x- ray showed no evidence of pneumonia, on physical examination she had no evidence to suggest any abscess or skin lesions. Patient was recently admitted to the hospital with presumptive pneumonia. 2 elevated troponin, possible non-ST elevation myocardial infarction 3 chronic kidney disease stage IV 4 COPD and interstitial lung disease presently and active. 5 hyponatremia, could very well be related to SIADH considering her pulmonary findings on the CT of the chest. 6 history of breast cancer, recently diagnosed, patient is following up with oncology and general surgery 7 coronary artery disease and previous CABG 8 moderate to severe tricuspid regurgitation Recommendation: Continue present treatment plan including antibiotics, bronchodilators, close monitoring of sodium and electrolytes, this is being a ddressed by nephrology on the case. Consulted infectious disease for her gram- positive bacteremia, again the primary source of infection is not clear at this point. In the meantime continue heparin as ordered by cardiology, continue GI and DVT prophylaxis, her antibiotics will be adjusted accordingly once we have the final report on the blood cultures. Her pulmonary findings on her most recent CT of the chest will eat to be addressed on an outpatient basis by pulmonary. Time with Patient: Greater than 30
[2019-01-23] MEDS: HEPARIN SOD,PORK IN 0.45% NACL 25,000 UNIT in 0.45% NACL 1 250ML.BAG IV SCH (12:25)
[2019-01-23] MEDS: SODIUM BICARBONATE TAB 650 MG TAB PO SCH ×4 (12:37→21:51)
[2019-01-23] MEDS: SODIUM CHLORIDE 0.9% 1,000 ML IV SCH (12:38)
[2019-01-23] MEDS ORDERED: LINEZOLID 600 MG in DEXTROSE/WATER 1 300ML.BAG IVPB SCH (13:00)
--- NOTE | 2019-01-23 15:54 | ECHOF ---
Referral Reason:stemi MEASUREMENTS -------- HEIGHT: 170.2 cm WEIGHT: 54.4 kg BP: RVIDd: 4.3 cm (< 3.3) IVSd: 1.2 cm (0.6 - 1.1) LVIDd: 2.9 cm (3.9 - 5.3) LVPWd: 1.0 cm (0.6 - 1.1) IVSs: 1.7 cm LVIDs: 2.4 cm LVPWs: 1.9 cm LA Diam: 3.6 cm (2.7 - 3.8) LAESV Index (A-L): 24.49 ml/m Ao Diam: 3.0 cm (2.0 - 3.7) AV Cusp: 2.1 cm (1.5 - 2.6) EPSS: 0.3 cm MV E Rolo: 1.15 m/s MV DecT: 279 ms MV A Rolo: 1.04 m/s MV E/A Ratio: 1.11 RAP: 15.00 mmHg RVSP: 41.22 mmHg MV EF SLOPE: 65.85 mm/s (70 - 150) MV EXCURSION: 1.41 cm (> 18.000) FINDINGS -------- Sinus rhythm. This was a technically good study. Previous cabg The left ventricular size is normal. There is borderline concentric left ventricular hypertrophy. Overall left ventricular systolic function is normal with, an EF between 60 - 65 %. There is septa l flattening in diastole and systole which is consistent with right ventricular pressure and volume o verload. The right ventricle is severely enlarged. Left atrium is normal size by volume. The right atrium is normal in size and function. Possible PFO Aortic valve is trileaflet and is mildly thickened. Trace amount of aortic regurgitation. The mitral valve leaflets are mildly thickened. Mild mitral annular calcification present. Mild m itral regurgitation is present. Severe tricuspid regurgitation present. There is mild pulmonary hypertension. The right ventricul ar systolic pressure, as measured by Doppler, is 41.22mmHg. Trace/mild (physiologic) pulmonic regurgitation. The aortic root size is normal. The inferior vena cava is dilated with no significant inspiratory collapse which is consistent estima pablo right atrial pressure of >15 mmHg. There is no pericardial effusion. CONCLUSIONS -------- 1. Sinus rhythm. 2. This was a technically good study. 3. Previous cabg 4. The left ventricular size is normal. 5. There is borderline concentric left ventricular hypertrophy. 6. Overall left ventricular systolic function is normal with, an EF between 60 - 65 %. 7. There is septal flattening in diastole and systole which is consistent with right ventricular pres sure and volume overload. 8. The right ventricle is severely enlarged. 9. Left atrium is normal size by volume. 10. The right atrium is normal in size and function. 11. Possible PFO 12. Aortic valve is trileaflet and is mildly thickened. 13. Trace amount of aortic regurgitation. 14. The mitral valve leaflets are mildly thickened. 15. Mild mitral annular calcification present. 16. Mild mitral regurgitation is present. 17. Severe tricuspid regurgitation present. 18. There is mild pulmonary hypertension. 19. The right ventricular systolic pressure, as measured by Doppler, is 41.22mmHg. 20. Trace/mild (physiologic) pulmonic regurgitation. 21. The aortic root size is normal. 22. The inferior vena cava is dilated with no significant inspiratory collapse which is consistent es timated right atrial pressure of >15 mmHg. 23. There is no pericardial effusion. ROTARY FILTER OPERATOR: BRANDON Osorio
[2019-01-23 17:02] LABS: Glucose,Whole Blood 152 mg/dL (75-99)
[2019-01-23] MEDS: IOPAMIDOL-300 CONTRAST 30 ML VIAL (ORAL USE) PO PRN ×2 (17:05→18:05)
[2019-01-23] MEDS ORDERED: DAPTOmycin 350 MG in SODIUM CHLORIDE 0.9% 50 ML IVPB SCH (18:00)
[2019-01-23 18:10] LABS: Hepatitis A Antibody IgM Non-Reactive (Non-Reactive); Hepatitis B Core IgM Non-Reactive (Non-Reactive); Hepatitis B Surface Antigen Non-Reactive (Non-Reactive); Hepatitis C IgG Antibody Non-Reactive (Non-Reactive)
--- NOTE | 2019-01-23 18:16 | PN ---
PROGRESS NOTE Latesha Colin is a 68-year-old lady who was transferred from [facility] with acute febrile illness, new onset EKG changes and elevated troponin and also renal failure. The initial plan was to do a cardiac cath but she was thought to be septic and that was held. The patient's blood cultures came back positive and she is on appropriate antibiotics this morning and looks much more alert, awake and stable. She is on simvastatin, Norvasc, Coreg, heparin which is being stopped, Lasix, Claritin, and insulin. On exam, comfortable at rest. Heart rate is 50 beats per minute. Blood pressure is 116/52, respiratory rate is 18. Chest exam reveals diminished air entry at the bases. Heart exam reveals first and second heart sounds. Systolic murmur at the apex. Exam of extremities did not reveal any edema. LAB: Show that the hemoglobin is 8.2, platelet count is 233, potassium is 4.4, BUN is 54, creatinine is 3.8. ASSESSMENT: 1. Septicemia secondary to gram-positive coccal infection. 2. Acute on chronic renal failure. 3. Coronary artery disease status post coronary artery bypass grafting. 4. Elevated troponin secondary to systemic illness and renal failure. Continue current measures. Stable for transferred to [facility]. MMODL / IJN: [id number] /
[2019-01-23 19:39] LABS: Hemoglobin A1C 7.1 % (4.0-6.0)
[2019-01-23 20:35] LABS: Glucose,Whole Blood 137 mg/dL (75-99)
[2019-01-23] MEDS ORDERED: PIPERACILLIN-TAZOBACTAM 3.375 GM in SODIUM CHLORIDE 0.9% 100 ML IVPB SCH (21:00)
--- NOTE | 2019-01-23 21:20 | CT ---
EXAMINATION TYPE: CT abdomen pelvis wo con DATE OF EXAM: 01/23/2019 COMPARISON: None HISTORY: 68-year-old female Abdominal pain CT DLP: 433 mGycm. Automated exposure control for dose reduction was used. TECHNIQUE: Contiguous axial scanning of the abdomen and pelvis without IV contrast. Coronal and sagit domenica reconstructions performed. FINDINGS: Heart upper limits of normal in size without pericardial effusion. There is a small left and trace ri ght pleural effusion. Emphysematous change in the visualized lower lungs. Motion artifacts are present. Generalized anasarca changes. Either periportal edema or intrahepatic biliary ductal dilatation. Otherwise, noncontrast appearance of the liver, gallbladder, adrenal glands, kidneys, spleen show no gross abnormal mobility. Pancreas appears markedly atrophic. Moderate atherosclerotic calcifications abdominal aorta and iliac arteries. Lack of IV contrast, patient motion, and anasarca change limits the evaluation. No dilated small bowel or free air. Moderate stool is present. Bladder distended. Uterus is visualized. Suspect moderate pelvic free fluid along with presacral michelle a. Bones: Status post L4-S1 posterior and interbody fusion. There is osteopenia. No osseous destructive process. IMPRESSION: 1. Correlate for fluid overload state given diffuse anasarca change, small left and trace right effu sions, and moderate pelvic free fluid. 2. Either periportal edema relating to fluid overload or intrahepatic ductal dilatation. Consider di ssecting bile duct caliber by ultrasound. 3. COPD. 4. Atrophic pancreas. 5. Overall limited assessment due to lack of IV contrast, patient motion, and diffuse anasarca linette carrizales
[2019-01-23 21:48] LABS: Glucose,Whole Blood 156 mg/dL (75-99)
[2019-01-24] MEDS: SODIUM CHLORIDE 0.9% 1,000 ML IV SCH (01:24)
[2019-01-24 02:20] LABS: Glucose,Whole Blood 45 mg/dL (75-99)
[2019-01-24] MEDS ORDERED: DEXTROSE 50% SYRINGE 50 ML IVP STA ×2 (02:21→11:47)
[2019-01-24 02:56] LABS: Glucose,Whole Blood 175 mg/dL (75-99)
[2019-01-24 05:01] LABS: Glucose,Whole Blood 35 mg/dL (75-99)
[2019-01-24 05:14] LABS: Glucose,Whole Blood 226 mg/dL (75-99)
[2019-01-24] MEDS ORDERED: DEXTROSE 10 % IN WATER 250 ML IV ONE ×2 (05:19→06:48)
[2019-01-24] MEDS ORDERED: VANCOMYCIN 1,250 MG in SODIUM CHLORIDE 0.9% 250 ML IVPB ONE (06:00)
[2019-01-24] MEDS: INSULIN ASPART (NovoLOG) 100 UNIT/ML VIAL SQ SCH (06:20)
[2019-01-24 06:36] LABS: Glucose,Whole Blood 42 mg/dL (75-99)
[2019-01-24 06:40] LABS: Glucose,Whole Blood 42 mg/dL (75-99)
[2019-01-24 06:55] LABS: Glucose,Whole Blood 166 mg/dL (75-99)
[2019-01-24 07:12] LABS: INR 1.3 (<1.2); Prothrombin Time 13.3 sec (9.0-12.0)
[2019-01-24 07:23] LABS: Basophils % (A) 0 %; Eosinophils % (A) 0 %; HCT 26.6 % (34.0-46.0); HGB 8.1 gm/dL (11.4-16.0); Hypochromasia Slight; Lymphocytes % (A) 11 %; MCHC 30.3 g/dL (31.0-37.0); MCV 95.8 fL (80.0-100.0); Mean Platelet Volume 7.3; Monocytes # (A) 0.4 k/uL (0-1.0); Monocytes % (A) 5 %; Neutrophils # (A) 7.2 k/uL (1.3-7.7); Neutrophils % (A) 82 %; Platelet Count 246 k/uL (150-450); RBC 2.78 m/uL (3.80-5.40); RDW 14.2 % (11.5-15.5); WBC 8.8 k/uL (3.8-10.6)
[2019-01-24] MEDS: IPRATROPIUM-ALBUTEROL 3 ML NEB INHALATION SCH ×4 (07:37→19:15)
--- NOTE | 2019-01-24 08:21 | P.CONS ---
History of Present Illness - Reason for Consult Consult date: 01/23/19 Gram-positive bacteremia Requesting physician: Ed Mott - Chief Complaint Fever and confusion 1 day - History of Present Illness Patient is 68-year-old female with a past medical history significant for end-stage kidney disease for the patient was on dialysis to the left arm AV fistula however is currently off dialysis for 3 years and doing well, recent clara gnosis of breast cancer however the patient has not: Lumpectomy that she was scheduled a few weeks ago apparently she was noticed to have elevated white count and is concerning for an infection on her last admission however no infection was found and the patient was discharged on no antibiotics as per pt daughter. Yesterday the patient was noticed to be confused and did have a fever for the patient was taken to the [facility] by the EMS, over there the patient was noticed to be in A. fib with RVR and concern for CA as the patient has been transferred to [facility] ER apparently the x-ray there was suspicious for pneumonia she was given Zosyn blood culture were drawn which were coming of the positive for enterococcus species the blood culture drawn here also showing gram-positive cocci patient was started on vancomycin and Zosyn vancomycin was subsequent switched over to Zyvox and infectious disease was consulted for further recommendation regarding antibiotic Patient is currently afebrile patient denies having any headache or URI symptoms patient denies having chest pain did have some shortness of breath denies significant cough or sputum production no nausea no vomiting no abdominal pain and no diarrhea, chest x-ray done this facility choice features of cardiomegaly but no pneumonia patient UA is negative she did have echocardiogram we did shows some thickening of the aortic wall but no definite vegetation and the patient denies having any pain swelling or redness in her left arm AV fistula site Review of Systems CONSTITUTIONAL: Positive for weakness. Fever EYES: No complaint. ENT:No complaint. RESPIRATORY: As per history of present illness. CARDIOVASCULAR: No complaint. GENITOURINARY: No complaint. GASTROINTESTINAL: No complaint. MUSCULOSKELETAL: No complaint. INTEGUMENTARY: No complaint. PSYCHOLOGICAL: No complaint. ENDOCRINE: No complaint. NEUROLOGIC: As per history of present illness Past Medical History Past Medical History: Coronary Artery Disease (CAD), Cancer, COPD, Diabetes Mellitus, Fibromyalgia, GERD/Reflux, Hearing Disorder / Deafness, Hyperlipidemi a, Hypertension Additional Past Medical History / Comment(s): bilat hearing aid, Breast CA History of Any Multi-Drug Resistant Organisms: None Reported Past Surgical History: Appendectomy, Back Surgery, Coronary Bypass/CABG, Tonsillectomy Past Anesthesia/Blood Transfusion Reactions: No Reported Reaction Past Psychological History: No Psychological Hx Reported Smoking Status: Current every day smoker Past Alcohol Use History: None Reported Past Drug Use History: None Reported - Past Family History Father Additional Family Medical History / Comment(s): esophageal cancer Sister(s) Additional Family Medical History / Comment(s): breast cancer Medications and Allergies Home Medications Medication Instructions Recorded Confirmed Type Insulin Glargine [Lantus] 8 unit SQ HS 03/13/15 01/24/19 History Omeprazole [PriLOSEC] 20 mg PO BID 03/13/15 01/22/19 History Simvastatin [Zocor] 20 mg PO HS 03/13/15 01/22/19 History Linaclotide [Linzess] 145 mcg PO DAILY 09/29/18 01/22/19 History Multivitamin/Iron/Folic Acid 1 tab PO DAILY 09/29/18 01/22/19 History [Centrum Adults Tablet] amLODIPine [Norvasc] 5 mg PO DAILY 09/29/18 01/22/19 History HYDROcodone/APAP 10-325MG [Hurricane 1 tab PO TID PRN 01/04/19 01/22/19 History 10-325] Furosemide [Lasix] 80 mg PO DAILY 01/05/19 01/22/19 History Magnesium Oxide [Mag-Ox] 200 mg PO TID #10 tab 01/08/19 01/22/19 Rx Melatonin 3 mg PO HS PRN tablet 01/08/19 01/22/19 Rx Albuterol Sulfate [Albuterol 1 puff INHALATION RT-Q6H PRN 01/22/19 01/22/19 History Sulfate Hfa] Budesonide-Formot 160-4.5 Mcg 1 puff INHALATION RT-BID 01/22/19 01/22/19 History [Symbicort 160-4.5 Mcg Inhaler] Carvedilol [Coreg] 6.25 mg PO BID 01/22/19 01/22/19 History Doxycycline Monohydrate [Monodox] 100 mg PO DAILY 01/22/19 01/22/19 History Fluticasone Nasal [place] [Flonase 1 spray EA NOSTRIL DAILY 01/22/19 01/22/19 History Nasal [place]] Loratadine-Pseudoeph 5-120 mg 1 tab PO Q12HR PRN 01/22/19 01/22/19 History [Claritin-D 12 HR] Allergies Allergy/AdvReac Type Severity Reaction Status Date / Time codeine Allergy Unknown Verified 01/22/19 16:35 Physical Exam Vitals: Vital Signs Temp Pulse Pulse Resp BP BP Pulse Ox 01/23/19 16:00 55 L 117/63 01/23/19 15:38 56 L 01/23/19 15:25 54 L 01/23/19 15:00 54 L 92/43 01/23/19 14:00 54 L 108/48 01/23/19 13:00 53 L 95/71 01/23/19 12:00 97.8 F 61 104/52 90 L 01/23/19 11:50 55 L 01/23/19 11:38 53 L 01/23/19 11:00 52 L 115/60 92 L 01/23/19 10:00 53 L 133/53 93 L 01/23/19 09:00 52 L 18 116/52 95 01/23/19 08:00 54 L 20 104/54 94 L 01/23/19 07:59 54 L 01/23/19 07:35 52 L 01/23/19 07:00 62 19 101/62 94 L 01/23/19 06:00 48 L 11 L 95/53 93 L 01/23/19 05:00 46 L 11 L 95/52 94 L 01/23/19 04:00 96.7 F L 45 L 13 100/53 94 L 01/23/19 03:00 48 L 13 98/53 93 L 01/23/19 02:00 50 L 12 101/52 93 L 01/23/19 01:00 57 L 15 104/57 94 L 01/23/19 00:14 55 L 13 126/55 93 L 01/23/19 00:00 98.5 F 63 18 117/60 94 L 01/22/19 23:00 60 19 129/97 94 L 01/22/19 22:00 53 L 12 98/52 94 L 01/22/19 21:30 97.5 F L 57 L 0 L 93/51 93 L 01/22/19 21:20 97.5 F L 52 L 0 L 88/51 95 01/22/19 21:10 51 L 14 94/50 94 L 01/22/19 21:00 54 L 12 98/50 95 01/22/19 20:50 53 L 12 98/50 95 01/22/19 20:00 98.2 F 54 L 17 94/48 93 L 01/22/19 19:50 56 L 16 92 L 01/22/19 19:40 98.2 F 58 L 12 93/44 95 01/22/19 19:37 57 L 14 01/22/19 19:30 61 12 100 01/22/19 19:23 59 L 16 01/22/19 19:20 62 13 100/48 92 L 01/22/19 19:10 64 14 105/49 94 L 01/22/19 19:08 97.6 F 64 18 100/48 95 01/22/19 19:00 68 26 H 105/49 94 L 01/22/19 18:58 98.4 F 71 20 124/63 94 L 01/22/19 18:30 98.4 F 62 22 124/63 94 L 01/22/19 18:27 81 20 01/22/19 17:44 98.2 F 53 L 15 99/52 Intake and Output 01/23/19 01/23/19 01/23/19 06:59 14:59 22:59 Intake Total 700 1150 Output Total 0 300 Balance 700 850 Intake: IV 700 950 Linezolid 600 mg In 300 Dextrose/Water 1 300ml. bag @ 150 mls/hr IVPB Q12HR@0000,1200 [facility] Rx#: [id number] Piperacillin-Tazobactam 3 100 100 .375 gm In Sodium Chloride 0.9% 100 ml @ 25 mls/hr IVPB Q8HR [facility] Rx# :[id number] Sodium Chloride 0.9% 1, 600 300 000 ml @ 100 mls/hr IV . Q10H [facility] Rx#:[id number] Vancomycin 1,250 mg In 250 Sodium Chloride 0.9% 250 ml @ 125 mls/hr IVPB ONCE ONE Rx#:[id number] Oral 200 Output: Urine 0 300 Other: Voiding Method Bedside Commode Bedside Commode # Voids 1 # Bowel Movements 1 Weight 60.2 kg GENERAL DESCRIPTION: Elderly female lying in bed, no distress. No tachypnea or accessory muscle of respiration use. HEENT: Shows Pallor , no scleral icterus. Oral mucous membrane is dry. No pharyngeal erythema or thrush NECK: Trachea central, no thyromegaly. LUNGS: Unlabored breathing. Clear to auscultation anteriorly. No wheeze or crackle. HEART: S1, S2, regular rate and rhythm. No loud murmur ABDOMEN: Soft, no tenderness , guarding or rigidity, no organomegaly EXTREMITIES: No edema of feet. SKIN: No rash, no masses palpable. Left arm AV fistula site looks clean with no redness no induration NEUROLOGICAL: The patient is awake, alert, oriented x3, mood and affect normal. Results CBC & Chem 7: 01/24/19 06:29 01/23/19 04:30 Labs: Abnormal Lab Results - Last 24 Hours (Table) 01/22/19 01/22/19 01/22/19 Range/Units 14:40 14:40 15:50 WBC (3.8-10.6) k/uL RBC (3.80-5.40) m/uL Hgb (11.4-16.0) gm/dL Hct (34.0-46.0) % Neutrophils # (1.3-7.7) k/uL Lymphocytes # (1.0-4.8) k/uL PT (9.0-12.0) sec INR (<1.2) APTT (22.0-30.0) sec Sodium (137-145) mmol/L Carbon Dioxide (22-30) mmol/L BUN (7-17) mg/dL Creatinine (0.52-1.04) mg/dL Glucose (74-99) mg/dL POC Glucose (mg/dL) (75-99) mg/dL Calcium (8.4-10.2) mg/dL Iron (50-170) ug/dL TIBC (228-460) ug/dL Iron Saturation (12.00-45.00) AST (14-36) U/L ALT (9-52) U/L Alkaline Phosphatase (38-126) U/L Troponin I 1.390 H* (0.000-0.034) ng/mL Total Protein (6.3-8.2) g/dL Albumin (3.5-5.0) g/dL Procalcitonin (0.02-0.09) ng/mL Urine Protein 2+ H (Negative) Urine Glucose (UA) 2+ H (Negative) Urine Blood Trace H (Negative) Amorphous Sediment Rare H (None) /hpf Crossmatch See Detail 01/22/19 01/22/19 01/22/19 Range/Units 18:26 22:12 22:12 WBC (3.8-10.6) k/uL RBC (3.80-5.40) m/uL Hgb (11.4-16.0) gm/dL Hct (34.0-46.0) % Neutrophils # (1.3-7.7) k/uL Lymphocytes # (1.0-4.8) k/uL PT (9.0-12.0) sec INR (<1.2) APTT 40.5 H (22.0-30.0) sec Sodium (137-145) mmol/L Carbon Dioxide (22-30) mmol/L BUN (7-17) mg/dL Creatinine (0.52-1.04) mg/dL Glucose (74-99) mg/dL POC Glucose (mg/dL) 140 H (75-99) mg/dL Calcium (8.4-10.2) mg/dL Iron (50-170) ug/dL TIBC (228-460) ug/dL Iron Saturation (12.00-45.00) AST (14-36) U/L ALT (9-52) U/L Alkaline Phosphatase (38-126) U/L Troponin I 1.020 H* (0.000-0.034) ng/mL Total Protein (6.3-8.2) g/dL Albumin (3.5-5.0) g/dL Procalcitonin (0.02-0.09) ng/mL Urine Protein (Negative) Urine Glucose (UA) (Negative) Urine Blood (Negative) Amorphous Sediment (None) /hpf Crossmatch 01/22/19 01/22/19 01/23/19 Range/Units 22:12 23:05 04:30 WBC 14.6 H (3.8-10.6) k/uL RBC 2.85 L (3.80-5.40) m/uL Hgb 8.9 L D (11.4-16.0) gm/dL Hct 28.1 L (34.0-46.0) % Neutrophils # (1.3-7.7) k/uL Lymphocytes # (1.0-4.8) k/uL PT (9.0-12.0) sec INR (<1.2) APTT (22.0-30.0) sec Sodium 128 L (137-145) mmol/L Carbon Dioxide 12 L (22-30) mmol/L BUN 52 H (7-17) mg/dL Creatinine 3.91 H (0.52-1.04) mg/dL Glucose 258 H (74-99) mg/dL POC Glucose (mg/dL) (75-99) mg/dL Calcium 7.5 L (8.4-10.2) mg/dL Iron 19 L (50-170) ug/dL TIBC 200 L (228-460) ug/dL Iron Saturation 9.50 L (12.00-45.00) AST 163 H (14-36) U/L ALT 133 H (9-52) U/L Alkaline Phosphatase 379 H (38-126) U/L Troponin I (0.000-0.034) ng/mL Total Protein 5.1 L (6.3-8.2) g/dL Albumin 2.6 L (3.5-5.0) g/dL Procalcitonin (0.02-0.09) ng/mL Urine Protein (Negative) Urine Glucose (UA) (Negative) Urine Blood (Negative) Amorphous Sediment (None) /hpf Crossmatch 01/23/19 01/23/19 01/23/19 Range/Units 04:30 04:30 04:30 WBC (3.8-10.6) k/uL RBC 2.72 L (3.80-5.40) m/uL Hgb 8.2 L (11.4-16.0) gm/dL Hct 26.5 L (34.0-46.0) % Neutrophils # 8.3 H (1.3-7.7) k/uL Lymphocytes # 0.9 L (1.0-4.8) k/uL PT 15.2 H (9.0-12.0) sec INR 1.5 H (<1.2) APTT 57.8 H (22.0-30.0) sec Sodium (137-145) mmol/L Carbon Dioxide (22-30) mmol/L BUN (7-17) mg/dL Creatinine (0.52-1.04) mg/dL Glucose (74-99) mg/dL POC Glucose (mg/dL) (75-99) mg/dL Calcium (8.4-10.2) mg/dL Iron (50-170) ug/dL TIBC (228-460) ug/dL Iron Saturation (12.00-45.00) AST (14-36) U/L ALT (9-52) U/L Alkaline Phosphatase (38-126) U/L Troponin I 0.755 H* (0.000-0.034) ng/mL Total Protein (6.3-8.2) g/dL Albumin (3.5-5.0) g/dL Procalcitonin (0.02-0.09) ng/mL Urine Protein (Negative) Urine Glucose (UA) (Negative) Urine Blood (Negative) Amorphous Sediment (None) /hpf Crossmatch 01/23/19 01/23/19 01/23/19 Range/Units 04:30 04:30 06:51 WBC (3.8-10.6) k/uL RBC (3.80-5.40) m/uL Hgb (11.4-16.0) gm/dL Hct (34.0-46.0) % Neutrophils # (1.3-7.7) k/uL Lymphocytes # (1.0-4.8) k/uL PT (9.0-12.0) sec INR (<1.2) APTT (22.0-30.0) sec Sodium 127 L (137-145) mmol/L Carbon Dioxide 13 L (22-30) mmol/L BUN 54 H (7-17) mg/dL Creatinine 3.86 H (0.52-1.04) mg/dL Glucose 213 H (74-99) mg/dL POC Glucose (mg/dL) 174 H (75-99) mg/dL Calcium 7.7 L (8.4-10.2) mg/dL Iron (50-170) ug/dL TIBC (228-460) ug/dL Iron Saturation (12.00-45.00) AST 97 H (14-36) U/L ALT 116 H (9-52) U/L Alkaline Phosphatase 331 H (38-126) U/L Troponin I (0.000-0.034) ng/mL Total Protein 4.9 L (6.3-8.2) g/dL Albumin 2.5 L (3.5-5.0) g/dL Procalcitonin 20.14 H (0.02-0.09) ng/mL Urine Protein (Negative) Urine Glucose (UA) (Negative) Urine Blood (Negative) Amorphous Sediment (None) /hpf Crossmatch 01/23/19 Range/Units 11:51 WBC (3.8-10.6) k/uL RBC (3.80-5.40) m/uL Hgb (11.4-16.0) gm/dL Hct (34.0-46.0) % Neutrophils # (1.3-7.7) k/uL Lymphocytes # (1.0-4.8) k/uL PT (9.0-12.0) sec INR (<1.2) APTT (22.0-30.0) sec Sodium (137-145) mmol/L Carbon Dioxide (22-30) mmol/L BUN (7-17) mg/dL Creatinine (0.52-1.04) mg/dL Glucose (74-99) mg/dL POC Glucose (mg/dL) 115 H (75-99) mg/dL Calcium (8.4-10.2) mg/dL Iron (50-170) ug/dL TIBC (228-460) ug/dL Iron Saturation (12.00-45.00) AST (14-36) U/L ALT (9-52) U/L Alkaline Phosphatase (38-126) U/L Troponin I (0.000-0.034) ng/mL Total Protein (6.3-8.2) g/dL Albumin (3.5-5.0) g/dL Procalcitonin (0.02-0.09) ng/mL Urine Protein (Negative) Urine Glucose (UA) (Negative) Urine Blood (Negative) Amorphous Sediment (None) /hpf Crossmatch Microbiology - Last 24 Hours (Table) 01/22/19 16:05 Blood Culture Gram Stain - Preliminary Blood 01/22/19 16:05 Blood Culture - Final Blood Assessment and Plan Assessment: 1-patient presented to hospital with sepsis in this patient who did have a fever she did have elevated white count now with evidence of enterococcus bacteremia which could be either of a cut on urinary origin, this patient currently with no urinary symptoms and had UA is negative though do not have significant abdominal pain or any tenderness however will need to rule out abdominal source which is negative patient will need a BORIS to rule out endovascular source as the 2-D echocardiogram did show some mildly thickened aortic valve but no definite vegetation 2- patient with renal insufficiency and high risk of further nephrotoxicity with vancomycin use, especially in combination with Zosyn (1) Bacteremia due to Enterococcus Current Visit: Yes Status: Acute Code(s): R78.81 - BACTEREMIA; B95.2 - ENTEROCOCCUS THE CAUSE OF DISEASES CLASSIFIED ELSEWHERE SNOMED Code(s): 695641551074 (2) Sepsis Current Visit: Yes Status: Acute Code(s): A41.9 - SEPSIS, UNSPECIFIED ORGANISM SNOMED Code(s): 91188160 Plan: 1-discontinue the Zosyn and Zyvox 2-start the patient on daptomycin 6 mg per KG every 48 hour 3-CT of abdominal pelvis with oral contrast only Family at the bedside their questions and concerns were answered we will follow on clinical condition and culture to further adjust medication if needed Thank you for this consultation will follow this patient along with you Time with Patient: Greater than 30
[2019-01-24 09:07] LABS: Erythrocyte Sedimentation Rate 22 mm/hr (0-20)
[2019-01-24] MEDS: DEXTROSE 10% IN WATER 1,000 ML with SODIUM CHLORIDE 2.5MEQ/ML VIAL 153.8 MEQ IV SCH ×2 (09:16→16:30)
[2019-01-24] MEDS: PANTOPRAZOLE 40 MG TABLET PO SCH (09:16)
[2019-01-24] MEDS: SODIUM BICARBONATE TAB 650 MG TAB PO SCH ×4 (09:16→23:06)
[2019-01-24 11:03] LABS: Glucose,Whole Blood 51 mg/dL (75-99)
--- NOTE | 2019-01-24 11:15 | P.PN ---
Subjective This is a pleasant 68-year-old female transferred from [facility] secondary to acute febrile illness, EKG changes and elevated troponin. Initially the plan was to pursue cardiac catheterization however this has been placed on hold secondary to sepsis. Blood cultures came back positive. Currently being followed by infectious disease. She is seen and examined resting comfortably in bed. She had 2 episodes of hypoglycemia this morning. The patient complains of feeling cold, tired and weak. She denies chest pain, shortness of breath, dizziness or palpitations. Blood pressure 166/69 heart rate 59 afebrile maintaining oxygen saturation on room air GENERAL: Well-appearing, well-nourished and in no acute distress. NECK: Supple without JVD or thyromegaly. LUNGS: Breath sounds clear to auscultation bilaterally. Respiration equal and unlabored. No wheezes, rales or rhonchi. HEART: Regular rate and rhythm with systolic ejection murmur, no rubs or gallops. S1 and S2 heard. EXTREMITIES: Normal range of motion, no edema. No clubbing or cyanosis. Peripheral pulses intact. ASSESSMENT Septicemia secondary to gram-positive cocci Acute on chronic renal failure History of coronary artery disease status post bypass grafting Elevated troponin secondary to sepsis and renal failure Diabetes mellitus Hypertension Dyslipidemia COPD Pulmonary hypertension with severe tricuspid regurgitation Chronic nicotine dependence PLAN Resume Coreg and amlodipine. Further recommendations to follow. Ongoing medical management of sepsis per primary care team. Nurse Practitioner note has been reviewed, I agree with a documented findings and plan of care. Patient was seen and examined. Objective - Vital Signs Vital signs: Vital Signs Temp 97.5 F L 01/24/19 09:20 Pulse 59 L 01/24/19 09:20 Resp 16 01/24/19 09:20 BP 166/69 01/24/19 09:20 Pulse Ox 96 01/24/19 09:20 Intake & Output 01/23/19 01/24/19 01/24/19 18:59 06:59 18:59 Intake Total 1150 150 240 Output Total 300 Balance 850 150 240 Intake: IV 950 150 Linezolid 600 mg In 300 Dextrose/Water 1 300ml. bag @ 150 mls/hr IVPB Q12HR@0000,1200 COUNTS INCLUDE 234 BEDS AT THE [facility] Rx#: [id number] Piperacillin-Tazobactam 3 100 .375 gm In Sodium Chloride 0.9% 100 ml @ 25 mls/hr IVPB Q8HR [facility] Rx# :[id number] Sodium Chloride 0.9% 1, 300 75 000 ml @ 100 mls/hr IV . Q10H [facility] Rx#:[id number] Sodium Chloride 0.9% 1, 75 000 ml @ 75 mls/hr IV . [id number] [facility] Rx#:[id number] Vancomycin 1,250 mg In 250 Sodium Chloride 0.9% 250 ml @ 125 mls/hr IVPB ONCE ONE Rx#:[id number] Oral 200 240 Output: Urine 300 Other: Voiding Method Bedside Commode Bedside Commode Bedside Commode # Voids 1 - Labs CBC & Chem 7: 01/24/19 06:29 01/23/19 04:30 Labs: Abnormal Lab Results - Last 24 Hours (Table) 01/23/19 01/23/19 01/23/19 Range/Units 04:30 04:30 04:30 RBC (3.80-5.40) m/uL Hgb (11.4-16.0) gm/dL Hct (34.0-46.0) % MCHC (31.0-37.0) g/dL ESR (0-20) mm/hr PT (9.0-12.0) sec INR (<1.2) POC Glucose (mg/dL) (75-99) mg/dL Hemoglobin A1c 7.1 H (4.0-6.0) % Iron 19 L (50-170) ug/dL TIBC 200 L (228-460) ug/dL Iron Saturation 9.50 L (12.00-45.00) C-Reactive Protein (<10.0) mg/L Procalcitonin 20.14 H (0.02-0.09) ng/mL 01/23/19 01/23/19 01/23/19 Range/Units 11:51 16:59 20:34 RBC (3.80-5.40) m/uL Hgb (11.4-16.0) gm/dL Hct (34.0-46.0) % MCHC (31.0-37.0) g/dL ESR (0-20) mm/hr PT (9.0-12.0) sec INR (<1.2) POC Glucose (mg/dL) 115 H 152 H 137 H (75-99) mg/dL Hemoglobin A1c (4.0-6.0) % Iron (50-170) ug/dL TIBC (228-460) ug/dL Iron Saturation (12.00-45.00) C-Reactive Protein (<10.0) mg/L Procalcitonin (0.02-0.09) ng/mL 01/23/19 01/24/19 01/24/19 Range/Units 21:46 02:17 02:45 RBC (3.80-5.40) m/uL Hgb (11.4-16.0) gm/dL Hct (34.0-46.0) % MCHC (31.0-37.0) g/dL ESR (0-20) mm/hr PT (9.0-12.0) sec INR (<1.2) POC Glucose (mg/dL) 156 H 45 L 175 H (75-99) mg/dL Hemoglobin A1c (4.0-6.0) % Iron (50-170) ug/dL TIBC (228-460) ug/dL Iron Saturation (12.00-45.00) C-Reactive Protein (<10.0) mg/L Procalcitonin (0.02-0.09) ng/mL 01/24/19 01/24/19 01/24/19 Range/Units 04:51 05:12 06:29 RBC 2.78 L (3.80-5.40) m/uL Hgb 8.1 L (11.4-16.0) gm/dL Hct 26.6 L (34.0-46.0) % MCHC 30.3 L (31.0-37.0) g/dL ESR 22 H (0-20) mm/hr PT (9.0-12.0) sec INR (<1.2) POC Glucose (mg/dL) 35 L 226 H (75-99) mg/dL Hemoglobin A1c (4.0-6.0) % Iron (50-170) ug/dL TIBC (228-460) ug/dL Iron Saturation (12.00-45.00) C-Reactive Protein (<10.0) mg/L Procalcitonin (0.02-0.09) ng/mL 01/24/19 01/24/19 01/24/19 Range/Units 06:29 06:29 06:35 RBC (3.80-5.40) m/uL Hgb (11.4-16.0) gm/dL Hct (34.0-46.0) % MCHC (31.0-37.0) g/dL ESR (0-20) mm/hr PT 13.3 H (9.0-12.0) sec INR 1.3 H (<1.2) POC Glucose (mg/dL) 42 L (75-99) mg/dL Hemoglobin A1c (4.0-6.0) % Iron (50-170) ug/dL TIBC (228-460) ug/dL Iron Saturation (12.00-45.00) C-Reactive Protein 64.7 H (<10.0) mg/L Procalcitonin (0.02-0.09) ng/mL 01/24/19 01/24/19 01/24/19 Range/Units 06:38 06:54 10:48 RBC (3.80-5.40) m/uL Hgb (11.4-16.0) gm/dL Hct (34.0-46.0) % MCHC (31.0-37.0) g/dL ESR (0-20) mm/hr PT (9.0-12.0) sec INR (<1.2) POC Glucose (mg/dL) 42 L 166 H 51 L (75-99) mg/dL Hemoglobin A1c (4.0-6.0) % Iron (50-170) ug/dL TIBC (228-460) ug/dL Iron Saturation (12.00-45.00) C-Reactive Protein (<10.0) mg/L Procalcitonin (0.02-0.09) ng/mL Microbiology - Last 24 Hours (Table) 01/23/19 18:02 Blood Culture Gram Stain - Preliminary Blood 01/23/19 18:02 Blood Culture - Final Blood 01/22/19 16:05 Blood Culture Gram Stain - Preliminary Blood Blood Culture - Preliminary Group D Enterococcus
--- NOTE | 2019-01-24 11:26 | P.PN ---
Subjective Progress Note Date: 01/24/19 Patient seen and examined and follow-up, reporting her breathing is okay denies any shortness of breath. Does mention severe fatigue. . Apparently nursing receiving the news from [place] of positive blood cultures, preliminary is showing group D enterococcus. Patient has had hypoglycemic episodes secondary to receiving 50 units of insulin when she takes only 8 units of long-acting at night. we'll initiate hypoglycemic protocol Accu-Cheks with's correctional scale insulin coverage, today's BMP still pending. Hemoglobin 8.1 status post 1 unit packed RBCs. Objective - Vital Signs Vital signs: Vital Signs Temp 97.5 F L 01/24/19 09:20 Pulse 59 L 01/24/19 09:20 Resp 16 01/24/19 09:20 BP 166/69 01/24/19 09:20 Pulse Ox 96 01/24/19 09:20 Intake & Output 01/23/19 01/24/19 01/24/19 18:59 06:59 18:59 Intake Total 1150 150 240 Output Total 300 Balance 850 150 240 Intake: IV 950 150 Linezolid 600 mg In 300 Dextrose/Water 1 300ml. bag @ 150 mls/hr IVPB Q12HR@0000,1200 [facility] Rx#: [id number] Piperacillin-Tazobactam 3 100 .375 gm In Sodium Chloride 0.9% 100 ml @ 25 mls/hr IVPB Q8HR [facility] Rx# :[id number] Sodium Chloride 0.9% 1, 300 75 000 ml @ 100 mls/hr IV . Q10H [facility] Rx#:[id number] Sodium Chloride 0.9% 1, 75 000 ml @ 75 mls/hr IV . [id number] [facility] Rx#:[id number] Vancomycin 1,250 mg In 250 Sodium Chloride 0.9% 250 ml @ 125 mls/hr IVPB ONCE ONE Rx#:[id number] Oral 200 240 Output: Urine 300 Other: Voiding Method Bedside Commode Bedside Commode Bedside Commode # Voids 1 - Exam Constitutional: No acute distress, conversant, pleasant Eyes: Anicteric sclerae, moist conjunctiva, no lid-lag, PERRLA ENMT: NC/AT,Oropharynx clear, no erythema, exudates Neck:Supple, FROM, no masses, or JVD, No carotid bruits; No thyromegaly Lungs: Clear to auscultation, Clear to percussion, Normal respiratory effort, no accessory muscle use Cardiovascular: Heart regular in rate and rhythm, No murmurs, gallops, or rubs no peripheral edema Abdominal: Soft Nontender, nom distended, no guarding, no rebound or rigidity, Normoactive bowel sounds No hepatomegaly, No splenomegaly, No palpable mass No abdominal wall hernia noted Skin: Normal temperature, tone, texture, turgor, No induration No subcutaneous nodules, No rash, lesions, No ulcers Extremities:No digital cyanosis No clubbing, Pedal pulses intact and symmetrical Radial pulses intact and symmetrical Normal gait and station, No calf tenderness Psychiatric: Alert and oriented to person, place and time, Appropriate affect Intact judgement Neuro: Muscles Strength 5/5 in all 4 extremities, Sensation to light touch grossly present throughout, Cranial nerves II-XII grossly intact. No focal sensory deficits - Labs CBC & Chem 7: 01/24/19 06:29 01/23/19 04:30 Labs: Abnormal Lab Results - Last 24 Hours (Table) 01/23/19 01/23/19 01/23/19 Range/Units 04:30 04:30 04:30 RBC (3.80-5.40) m/uL Hgb (11.4-16.0) gm/dL Hct (34.0-46.0) % MCHC (31.0-37.0) g/dL ESR (0-20) mm/hr PT (9.0-12.0) sec INR (<1.2) POC Glucose (mg/dL) (75-99) mg/dL Hemoglobin A1c 7.1 H (4.0-6.0) % Iron 19 L (50-170) ug/dL TIBC 200 L (228-460) ug/dL Iron Saturation 9.50 L (12.00-45.00) C-Reactive Protein (<10.0) mg/L Procalcitonin 20.14 H (0.02-0.09) ng/mL 01/23/19 01/23/19 01/23/19 Range/Units 11:51 16:59 20:34 RBC (3.80-5.40) m/uL Hgb (11.4-16.0) gm/dL Hct (34.0-46.0) % MCHC (31.0-37.0) g/dL ESR (0-20) mm/hr PT (9.0-12.0) sec INR (<1.2) POC Glucose (mg/dL) 115 H 152 H 137 H (75-99) mg/dL Hemoglobin A1c (4.0-6.0) % Iron (50-170) ug/dL TIBC (228-460) ug/dL Iron Saturation (12.00-45.00) C-Reactive Protein (<10.0) mg/L Procalcitonin (0.02-0.09) ng/mL 01/23/19 01/24/19 01/24/19 Range/Units 21:46 02:17 02:45 RBC (3.80-5.40) m/uL Hgb (11.4-16.0) gm/dL Hct (34.0-46.0) % MCHC (31.0-37.0) g/dL ESR (0-20) mm/hr PT (9.0-12.0) sec INR (<1.2) POC Glucose (mg/dL) 156 H 45 L 175 H (75-99) mg/dL Hemoglobin A1c (4.0-6.0) % Iron (50-170) ug/dL TIBC (228-460) ug/dL Iron Saturation (12.00-45.00) C-Reactive Protein (<10.0) mg/L Procalcitonin (0.02-0.09) ng/mL 01/24/19 01/24/19 01/24/19 Range/Units 04:51 05:12 06:29 RBC 2.78 L (3.80-5.40) m/uL Hgb 8.1 L (11.4-16.0) gm/dL Hct 26.6 L (34.0-46.0) % MCHC 30.3 L (31.0-37.0) g/dL ESR 22 H (0-20) mm/hr PT (9.0-12.0) sec INR (<1.2) POC Glucose (mg/dL) 35 L 226 H (75-99) mg/dL Hemoglobin A1c (4.0-6.0) % Iron (50-170) ug/dL TIBC (228-460) ug/dL Iron Saturation (12.00-45.00) C-Reactive Protein (<10.0) mg/L Procalcitonin (0.02-0.09) ng/mL 01/24/19 01/24/19 01/24/19 Range/Units 06:29 06:29 06:35 RBC (3.80-5.40) m/uL Hgb (11.4-16.0) gm/dL Hct (34.0-46.0) % MCHC (31.0-37.0) g/dL ESR (0-20) mm/hr PT 13.3 H (9.0-12.0) sec INR 1.3 H (<1.2) POC Glucose (mg/dL) 42 L (75-99) mg/dL Hemoglobin A1c (4.0-6.0) % Iron (50-170) ug/dL TIBC (228-460) ug/dL Iron Saturation (12.00-45.00) C-Reactive Protein 64.7 H (<10.0) mg/L Procalcitonin (0.02-0.09) ng/mL 01/24/19 01/24/19 01/24/19 Range/Units 06:38 06:54 10:48 RBC (3.80-5.40) m/uL Hgb (11.4-16.0) gm/dL Hct (34.0-46.0) % MCHC (31.0-37.0) g/dL ESR (0-20) mm/hr PT (9.0-12.0) sec INR (<1.2) POC Glucose (mg/dL) 42 L 166 H 51 L (75-99) mg/dL Hemoglobin A1c (4.0-6.0) % Iron (50-170) ug/dL TIBC (228-460) ug/dL Iron Saturation (12.00-45.00) C-Reactive Protein (<10.0) mg/L Procalcitonin (0.02-0.09) ng/mL Microbiology - Last 24 Hours (Table) 01/23/19 18:02 Blood Culture Gram Stain - Preliminary Blood 01/23/19 18:02 Blood Culture - Final Blood 01/22/19 16:05 Blood Culture Gram Stain - Preliminary Blood Blood Culture - Preliminary Group D Enterococcus Assessment and Plan (1) Sepsis Narrative/Plan: * Secondary to gram-positive bacteremia * Patient continues to be afebrile, leukocytosis has resolved * Appreciate ID recommendations regarding switching to daptomycin and discontinuing Zyvox and Zosyn * Patient hemodynamically stable Current Visit: Yes Status: Acute Code(s): A41.9 - SEPSIS, UNSPECIFIED ORGANISM SNOMED Code(s): 31711746 (2) Bacteremia due to Enterococcus Narrative/Plan: Antibiotic regimen as above * Group D enterococcus bacteremia Current Visit: Yes Status: Acute Code(s): R78.81 - BACTEREMIA; B95.2 - ENTEROCOCCUS THE CAUSE OF DISEASES CLASSIFIED ELSEWHERE SNOMED Code(s): 986936595040 (3) Hypoglycemia Narrative/Plan: * Patient hypoglycemic with blood sugar down to 42 * Initiated on D10 overnight but we'll have to increase rate to 150 cc/hr in the setting of severe chronic kidney disease * We'll increase monitoring of blood sugars to every hour * continue to monitor Current Visit: Yes Status: Acute Code(s): E16.2 - HYPOGLYCEMIA, UNSPECIFIED SNOMED Code(s): 738281109 (4) Type 2 diabetes mellitus with hyperglycemia Narrative/Plan: * Continue with Accu-Cheks qahs * Continue correctional scale insulin coverage and her A1c is pending Current Visit: Yes Status: Acute Code(s): E11.65 - TYPE 2 DIABETES MELLITUS WITH HYPERGLYCEMIA SNOMED Code(s): 145778342526315 (5) Hyponatremia Current Visit: Yes Status: Acute Code(s): E87.1 - HYPO-OSMOLALITY AND HYPONATREMIA SNOMED Code(s): 54455124 (6) Chronic renal disease, stage V Narrative/Plan: * Possibly acute on chronic secondary to sepsis * Patient continues to have ongoing metabolic acidosis and is initiated on oral bicarb replacement * Appreciate nephrology recommendations * The patient currently on vancomycin for Gram-positive bacteremia we'll discontinue that and switch to Zyvox In the setting of the patient's bord juan kidney function Current Visit: Yes Status: Chronic Code(s): N18.5 - CHRONIC KIDNEY DISEASE, STAGE 5 SNOMED Code(s): 700092542 (7) Elevated troponin Narrative/Plan: * Likely triggered by sepsis * Troponins trending down patient continues on heparin drip, * Echocardiogram showing preserved LVEF, moderate TR * cardiology following Current Visit: Yes Status: Acute Code(s): R74.8 - ABNORMAL LEVELS OF OTHER SERUM ENZYMES SNOMED Code(s): 205462629 (8) Normocytic anemia Narrative/Plan: * Hemoglobin 8.1 g today and stable after 1 unit packed RBC transfusion * We will continue to monitor Current Visit: Yes Status: Acute Code(s): D64.9 - ANEMIA, UNSPECIFIED SNOMED Code(s): 347035749 (9) Dyspnea Narrative/Plan: * Prior concern for possible PE VQ scan was negative with low probability * Likely multifactorial due to sepsis and severe anemia * Patient improving Current Visit: Yes Status: Acute Code(s): R06.00 - DYSPNEA, UNSPECIFIED SNOMED Code(s): 326500259 (10) Breast cancer Current Visit: Yes Status: Acute Code(s): C50.919 - MALIGNANT NEOPLASM OF UNSP SITE OF UNSPECIFIED FEMALE BREAST SNOMED Code(s): 026727415 (11) Coronary artery disease Current Visit: Yes Status: Acute Code(s): I25.10 - ATHSCL HEART DISEASE OF [place] CORONARY ARTERY W/O ANG PCTRS SNOMED Code(s): 20264121 (12) Hx of CABG Current Visit: Yes Status: Acute Code(s): Z95.1 - PRESENCE OF AORTOCORONARY BYPASS GRAFT SNOMED Code(s): 175216235 (13) Transaminitis Narrative/Plan: * We'll check an acute hepatitis panel and right upper quadrant ultrasound * Continue to monitor Current Visit: Yes Status: Acute Code(s): R74.0 - NONSPEC ELEV OF LEVELS OF TRANSAMNS & LACTIC ACID DEHYDRGNSE SNOMED Code(s): 153767674 Plan: * Disposition * Awaiting consultants recommendations continue current management for now * Continue monitor for episodes of hypoglycemia
[2019-01-24 11:39] LABS: Glucose,Whole Blood 66 mg/dL (75-99)
[2019-01-24 11:39] LABS: Glucose,Whole Blood 67 mg/dL (75-99)
[2019-01-24] MEDS ORDERED: DEXTROSE 50% SYRINGE 50 ML IVP PRN (11:47)
--- NOTE | 2019-01-24 11:48 | P.PN ---
Subjective Progress Note Date: 01/24/19 Principal diagnosis: This is 68-year-old female with acute kidney injury and chronic kidney disease. She was on dialysis for 3 years came off dialysis approximately March 2018. 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 She initially presented to [facility] with fever and confusion. She has positive blood cultures growing enterococcus. The source of this is unclear if computed tomography scan of the abdomen was rather unremarkable. Her creatinine has improved slightly. Urine output is not documented well but she states she is making large amounts of urine She is known with history of carcinoma of the breast recently diagnosed. No therapy has been started she is also known with coronary artery disease bypass graft COPD diabetes. Last night supposedly she was given large doses of insulin therefore is running somewhat hypoglycemic, blood sugars low as his 35. She is started on D5W at 150 an hour because of this. She is awake alert she says she has a good appetite no nausea vomiting. Complains of shortness of breath and mild cough Objective - Vital Signs Vital signs: Vital Signs Temp 97.5 F L 01/24/19 09:20 Pulse 59 L 01/24/19 09:20 Resp 16 01/24/19 09:20 BP 166/69 01/24/19 09:20 Pulse Ox 96 01/24/19 09:20 Intake & Output 01/23/19 01/24/19 01/24/19 18:59 06:59 18:59 Intake Total 1150 150 240 Output Total 300 Balance 850 150 240 Intake: IV 950 150 Linezolid 600 mg In 300 Dextrose/Water 1 300ml. bag @ 150 mls/hr IVPB Q12HR@0000,1200 [facility] Rx#: [id number] Piperacillin-Tazobactam 3 100 .375 gm In Sodium Chloride 0.9% 100 ml @ 25 mls/hr IVPB Q8HR [facility] Rx# :[id number] Sodium Chloride 0.9% 1, 300 75 000 ml @ 100 mls/hr IV . Q10H [facility] Rx#:[id number] Sodium Chloride 0.9% 1, 75 000 ml @ 75 mls/hr IV . [id number] [facility] Rx#:[id number] Vancomycin 1,250 mg In 250 Sodium Chloride 0.9% 250 ml @ 125 mls/hr IVPB ONCE ONE Rx#:[id number] Oral 200 240 Output: Urine 300 Other: Voiding Method Bedside Commode Bedside Commode Bedside Commode # Voids 1 1 # Bowel Movements 1 On examination she is awake alert oriented comfortable HEENT exam no JVP neck is supple no facial asymmetry Heart sounds are unremarkable for any murmur rub gallop Lungs are significant for bilateral occasional wheezes. Good air entry bilaterally Abdomen soft nontender no organomegaly status masses Extremity exam reveals a left upper arm graft which is free of any infection and cellulitis tenderness or erythema No edema noted Neurologically awake alert oriented comfortable - Labs CBC & Chem 7: 01/24/19 06:29 01/23/19 04:30 Labs: Abnormal Lab Results - Last 24 Hours (Table) 01/23/19 01/23/19 01/23/19 Range/Units 04:30 04:30 11:51 RBC (3.80-5.40) m/uL Hgb (11.4-16.0) gm/dL Hct (34.0-46.0) % MCHC (31.0-37.0) g/dL ESR (0-20) mm/hr PT (9.0-12.0) sec INR (<1.2) POC Glucose (mg/dL) 115 H (75-99) mg/dL Hemoglobin A1c 7.1 H (4.0-6.0) % Iron 19 L (50-170) ug/dL TIBC 200 L (228-460) ug/dL Iron Saturation 9.50 L (12.00-45.00) C-Reactive Protein (<10.0) mg/L 01/23/19 01/23/19 01/23/19 Range/Units 16:59 20:34 21:46 RBC (3.80-5.40) m/uL Hgb (11.4-16.0) gm/dL Hct (34.0-46.0) % MCHC (31.0-37.0) g/dL ESR (0-20) mm/hr PT (9.0-12.0) sec INR (<1.2) POC Glucose (mg/dL) 152 H 137 H 156 H (75-99) mg/dL Hemoglobin A1c (4.0-6.0) % Iron (50-170) ug/dL TIBC (228-460) ug/dL Iron Saturation (12.00-45.00) C-Reactive Protein (<10.0) mg/L 01/24/19 01/24/19 01/24/19 Range/Units 02:17 02:45 04:51 RBC (3.80-5.40) m/uL Hgb (11.4-16.0) gm/dL Hct (34.0-46.0) % MCHC (31.0-37.0) g/dL ESR (0-20) mm/hr PT (9.0-12.0) sec INR (<1.2) POC Glucose (mg/dL) 45 L 175 H 35 L (75-99) mg/dL Hemoglobin A1c (4.0-6.0) % Iron (50-170) ug/dL TIBC (228-460) ug/dL Iron Saturation (12.00-45.00) C-Reactive Protein (<10.0) mg/L 01/24/19 01/24/19 01/24/19 Range/Units 05:12 06:29 06:29 RBC 2.78 L (3.80-5.40) m/uL Hgb 8.1 L (11.4-16.0) gm/dL Hct 26.6 L (34.0-46.0) % MCHC 30.3 L (31.0-37.0) g/dL ESR 22 H (0-20) mm/hr PT 13.3 H (9.0-12.0) sec INR 1.3 H (<1.2) POC Glucose (mg/dL) 226 H (75-99) mg/dL Hemoglobin A1c (4.0-6.0) % Iron (50-170) ug/dL TIBC (228-460) ug/dL Iron Saturation (12.00-45.00) C-Reactive Protein (<10.0) mg/L 01/24/19 01/24/19 01/24/19 Range/Units 06:29 06:35 06:38 RBC (3.80-5.40) m/uL Hgb (11.4-16.0) gm/dL Hct (34.0-46.0) % MCHC (31.0-37.0) g/dL ESR (0-20) mm/hr PT (9.0-12.0) sec INR (<1.2) POC Glucose (mg/dL) 42 L 42 L (75-99) mg/dL Hemoglobin A1c (4.0-6.0) % Iron (50-170) ug/dL TIBC (228-460) ug/dL Iron Saturation (12.00-45.00) C-Reactive Protein 64.7 H (<10.0) mg/L 01/24/19 01/24/19 01/24/19 Range/Units 06:54 10:48 11:10 RBC (3.80-5.40) m/uL Hgb (11.4-16.0) gm/dL Hct (34.0-46.0) % MCHC (31.0-37.0) g/dL ESR (0-20) mm/hr PT (9.0-12.0) sec INR (<1.2) POC Glucose (mg/dL) 166 H 51 L 67 L (75-99) mg/dL Hemoglobin A1c (4.0-6.0) % Iron (50-170) ug/dL TIBC (228-460) ug/dL Iron Saturation (12.00-45.00) C-Reactive Protein (<10.0) mg/L 01/24/19 Range/Units 11:24 RBC (3.80-5.40) m/uL Hgb (11.4-16.0) gm/dL Hct (34.0-46.0) % MCHC (31.0-37.0) g/dL ESR (0-20) mm/hr PT (9.0-12.0) sec INR (<1.2) POC Glucose (mg/dL) 66 L (75-99) mg/dL Hemoglobin A1c (4.0-6.0) % Iron (50-170) ug/dL TIBC (228-460) ug/dL Iron Saturation (12.00-45.00) C-Reactive Protein (<10.0) mg/L Microbiology - Last 24 Hours (Table) 01/23/19 18:02 Blood Culture Gram Stain - Preliminary Blood 01/23/19 18:02 Blood Culture - Final Blood 01/22/19 16:05 Blood Culture Gram Stain - Preliminary Blood Blood Culture - Preliminary Group D Enterococcus Assessment and Plan Assessment: Impression 1. Acute kidney injury likely from sepsis. 2. Enterococcal bacteremia 1 positive blood culture.Dialysis access graft In the left upper arm is clear but needs to be considered as possible source 2. Chronic kidney disease, stage V, previous creatinine available to me from our own medical records from the office is 2.6 on 09/09/2015. History of coming off of dialysis in March 2018 after being on dialysis for 3 years. Etiology likely nephrosclerosis 3. Hyponatremia secondary to acute kidney injury and volume depletion 4. Severe metabolic acidosis with a gap of 14 and a bicarb of 12 likely from chronic kidney disease and RTA. 5. Admitted with mental status changes and Gram-positive bacteremia. Source unclear. Currently fairly asymptomatic. 6.. History of CA breast recently diagnosed 2 months ago 7. History of coronary artery bypass graft. Recommendation 1. Continue D5W for treatment of the hypoglycemia induced by insulin. 2. Watch labs need to be done today and on daily basis. 3. No need for urgent dialysis 4. Watch bicarb. 5. Patient is feeling and this is being addressed
[2019-01-24] MEDS ORDERED: DEXTROSE 10 % IN WATER 250 ML IV PRN (11:55)
[2019-01-24 11:59] LABS: Glucose,Whole Blood 71 mg/dL (75-99)
--- NOTE | 2019-01-24 12:00 | P.PN ---
Subjective Progress Note Date: 01/24/19 Principal diagnosis: Altered mental status, sepsis, positive blood cultures This is a 68-year-old female with history of multiple medical problems including coronary artery disease, previous CABG, history of breast cancer which was diagnosed in September, history of COPD, interstitial lung disease/pulmonary fibrosis, however it was not biopsy-proven this was noted and a CT of the chest noted on her last admission. History of diabetes, fibromyalgia, hearing disorder, patient lives in [place]. Patient was in the hospital 2 weeks ago, and she was diagnosed as having COPD exacerbation and pulmonary fibrosis, questionable pneumonia. Patient was noted by her to be confused, and she had a fever. She was taken by EMS to [place] [facility], and she was found to have abnor mal EKG, reviewed by the shift superintendent caustic cresylate/Dr. Borges while he was in his cardiac clinic in [place]. hence arrangements were made for the patient be transferred to [facility] for further cardiac evaluation. She was seen by cardiology and her EKG was concerning for possible acute NC, hence the patient was admitted to the intensive care unit. Patient had no symptoms of shortness of breath cough or wheezing, she had no symptoms of chest pain, no nausea no vomiting no abdominal pain. She was told by her that she was confused and she had a fever and that is why she was taken by EMS to [place] [facility]. At any rate patient was evaluated in the ER at [facility], CBC showed leukocytosis. Her sodium was a bit low at 128. Troponin was elevated at 1.020, EKG showed nonspecific ST and T wave changes, patient was admitted to the ICU, placed on heparin, and I was asked to see her on consultation. Patient was placed empirically on antibiotics, and her blood cultures came back positive from [place] [facility], and blood cultures from our ER were also positive for gram-positive cocci. In the meantime patient is receiving now Zosyn and vancomycin. Again the patient has no active pulmonary symptoms whatsoever, there is no evidence of pneumonia on the chest x-ray, but there is evidence of interstitial lung disease. Patient had no symptoms to suggest any abscess, she did have chronic back pain related to previous surgery and cervical fusion done over 5 years ago by neurosurgery. Patient is also known to have history of chronic kidney disease, was previously on hemodialysis, she was dialyzed last about 12 months ago. Looking at the EKG, patient had J- point elevation in V1 and V2 and nonspecific ST segment depression in lateral leads. CT of the head on admission showed bilateral frontal hygromas and age- related atrophy, no specific intracranial pathology otherwise. On 01/24/2019 patient seen in follow-up on selective care unit, she is resting in bed, in no acute distress, denies any dyspnea, denies any cough or congestion, lung sounds do reveal some end expiratory wheezes, and coarse crackles over posterior bases. Patient states she has had the chills, but no fevers, her blood cultures were positive for group D enterococcus, final culture is pending, and antibiotic coverage is with daptomycin. ID service is following, this morning patient experienced hypoglycemic episodes with the blood sugar in the 30s apparently she was given 50 units of Lantus last night, and she has had decreased oral intake over last couple days. She was given an amp of D50, she was placed on 10% dextrose, her sugars did improve, and her last 3 blood sugars were 51, 67 and 66. She did eat breakfast this morning, she is awake and alert, no confusion. No specific complaints. We'll continue monitoring her on selective care unit, check sugars every half an hour. We'll continue with the 50% dextrose IV push for blood sugars less than 70. Objective - Vital Signs Vital signs: Vital Signs Temp 97.5 F L 01/24/19 09:20 Pulse 59 L 01/24/19 09:20 Resp 16 01/24/19 09:20 BP 166/69 01/24/19 09:20 Pulse Ox 96 01/24/19 09:20 Intake & Output 01/23/19 01/24/19 01/24/19 18:59 06:59 18:59 Intake Total 1150 150 240 Output Total 300 Balance 850 150 240 Intake: IV 950 150 Linezolid 600 mg In 300 Dextrose/Water 1 300ml. bag @ 150 mls/hr IVPB Q12HR@0000,1200 [facility] Rx#: [id number] Piperacillin-Tazobactam 3 100 .375 gm In Sodium Chloride 0.9% 100 ml @ 25 mls/hr IVPB Q8HR [facility] Rx# :[id number] Sodium Chloride 0.9% 1, 300 75 000 ml @ 100 mls/hr IV . Q10H STA Rx#:[id number] Sodium Chloride 0.9% 1, 75 000 ml @ 75 mls/hr IV . [id number] [facility] Rx#:[id number] Vancomycin 1,250 mg In 250 Sodium Chloride 0.9% 250 ml @ 125 mls/hr IVPB ONCE ONE Rx#:[id number] Oral 200 240 Output: Urine 300 Other: Voiding Method Bedside Commode Bedside Commode Bedside Commode # Voids 1 1 # Bowel Movements 1 - Exam GENERAL EXAM: Alert, pleasant, 68-year-old white female, slightly hard of hearing, but very pleasant, and cooperative comfortable in no apparent distress. HEAD: Normocephalic/atraumatic. EYES: Normal reaction of pupils, equal size. Conjunctiva pink, sclera white. NOSE: Clear with pink turbinates. THROAT: No erythema or exudates. NECK: No masses, no JVD, no thyroid enlargement, no adenopathy. CHEST: No chest wall deformity. Symmetrical expansion. LUNGS: Equal air entry with a few end expiratory wheezes, and bibasilar rales, rhonchi or dullness. CVS: Regular rate and rhythm, normal S1 and S2, no gallops, no murmurs, no rubs ABDOMEN: Soft, nontender. No hepatosplenomegaly, normal bowel sounds, no guarding or rigidity. EXTREMITIES: No clubbing, no edema, no cyanosis, 2+ pulses and upper and lower extremities. MUSCULOSKELETAL: Muscle strength and tone normal. SPINE: No scoliosis or deformity SKIN: No rashes CENTRAL NERVOUS SYSTEM: Alert and oriented -3. No focal deficits, tone is normal in all 4 extremities. PSYCHIATRIC: Alert and oriented -3. Appropriate affect. Intact judgment and insight. - Labs CBC & Chem 7: 01/24/19 06:29 01/23/19 04:30 Labs: Abnormal Lab Results - Last 24 Hours (Table) 01/23/19 01/23/19 01/23/19 Range/Units 04:30 04:30 11:51 RBC (3.80-5.40) m/uL Hgb (11.4-16.0) gm/dL Hct (34.0-46.0) % MCHC (31.0-37.0) g/dL ESR (0-20) mm/hr PT (9.0-12.0) sec INR (<1.2) POC Glucose (mg/dL) 115 H (75-99) mg/dL Hemoglobin A1c 7.1 H (4.0-6.0) % Iron 19 L (50-170) ug/dL TIBC 200 L (228-460) ug/dL Iron Saturation 9.50 L (12.00-45.00) C-Reactive Protein (<10.0) mg/L 01/23/19 01/23/19 01/23/19 Range/Units 16:59 20:34 21:46 RBC (3.80-5.40) m/uL Hgb (11.4-16.0) gm/dL Hct (34.0-46.0) % MCHC (31.0-37.0) g/dL ESR (0-20) mm/hr PT (9.0-12.0) sec INR (<1.2) POC Glucose (mg/dL) 152 H 137 H 156 H (75-99) mg/dL Hemoglobin A1c (4.0-6.0) % Iron (50-170) ug/dL TIBC (228-460) ug/dL Iron Saturation (12.00-45.00) C-Reactive Protein (<10.0) mg/L 01/24/19 01/24/19 01/24/19 Range/Units 02:17 02:45 04:51 RBC (3.80-5.40) m/uL Hgb (11.4-16.0) gm/dL Hct (34.0-46.0) % MCHC (31.0-37.0) g/dL ESR (0-20) mm/hr PT (9.0-12.0) sec INR (<1.2) POC Glucose (mg/dL) 45 L 175 H 35 L (75-99) mg/dL Hemoglobin A1c (4.0-6.0) % Iron (50-170) ug/dL TIBC (228-460) ug/dL Iron Saturation (12.00-45.00) C-Reactive Protein (<10.0) mg/L 01/24/19 01/24/19 01/24/19 Range/Units 05:12 06:29 06:29 RBC 2.78 L (3.80-5.40) m/uL Hgb 8.1 L (11.4-16.0) gm/dL Hct 26.6 L (34.0-46.0) % MCHC 30.3 L (31.0-37.0) g/dL ESR 22 H (0-20) mm/hr PT 13.3 H (9.0-12.0) sec INR 1.3 H (<1.2) POC Glucose (mg/dL) 226 H (75-99) mg/dL Hemoglobin A1c (4.0-6.0) % Iron (50-170) ug/dL TIBC (228-460) ug/dL Iron Saturation (12.00-45.00) C-Reactive Protein (<10.0) mg/L 01/24/19 01/24/19 01/24/19 Range/Units 06:29 06:35 06:38 RBC (3.80-5.40) m/uL Hgb (11.4-16.0) gm/dL Hct (34.0-46.0) % MCHC (31.0-37.0) g/dL ESR (0-20) mm/hr PT (9.0-12.0) sec INR (<1.2) POC Glucose (mg/dL) 42 L 42 L (75-99) mg/dL Hemoglobin A1c (4.0-6.0) % Iron (50-170) ug/dL TIBC (228-460) ug/dL Iron Saturation (12.00-45.00) C-Reactive Protein 64.7 H (<10.0) mg/L 01/24/19 01/24/19 01/24/19 Range/Units 06:54 10:48 11:10 RBC (3.80-5.40) m/uL Hgb (11.4-16.0) gm/dL Hct (34.0-46.0) % MCHC (31.0-37.0) g/dL ESR (0-20) mm/hr PT (9.0-12.0) sec INR (<1.2) POC Glucose (mg/dL) 166 H 51 L 67 L (75-99) mg/dL Hemoglobin A1c (4.0-6.0) % Iron (50-170) ug/dL TIBC (228-460) ug/dL Iron Saturation (12.00-45.00) C-Reactive Protein (<10.0) mg/L 01/24/19 Range/Units 11:24 RBC (3.80-5.40) m/uL Hgb (11.4-16.0) gm/dL Hct (34.0-46.0) % MCHC (31.0-37.0) g/dL ESR (0-20) mm/hr PT (9.0-12.0) sec INR (<1.2) POC Glucose (mg/dL) 66 L (75-99) mg/dL Hemoglobin A1c (4.0-6.0) % Iron (50-170) ug/dL TIBC (228-460) ug/dL Iron Saturation (12.00-45.00) C-Reactive Protein (<10.0) mg/L Microbiology - Last 24 Hours (Table) 01/23/19 18:02 Blood Culture Gram Stain - Preliminary Blood 01/23/19 18:02 Blood Culture - Final Blood 01/22/19 16:05 Blood Culture Gram Stain - Preliminary Blood Blood Culture - Preliminary Group D Enterococcus Assessment and Plan Plan: Assessment: 1 acute sepsis and gram-positive bacteremia, exact source is not clear at this point, hence will continue investigations for the primary source of her bacteremia, and in the meantime patient will be given vancomycin and Zosyn. Chest x-ray showed no evidence of pneumonia, on physical examination she had no evidence to suggest any abscess or skin lesions. Patient was recently admitted to the hospital with presumptive pneumonia. 2 elevated troponin, possible non-ST elevation myocardial infarction 3 chronic kidney disease stage IV 4 COPD and interstitial lung disease presently and active. 5 hyponatremia, could very well be related to SIADH considering her pulmonary findings on the CT of the chest. 6 history of breast cancer, recently diagnosed, patient is following up with oncology and general surgery 7 coronary artery disease and previous CABG 8 moderate to severe tricuspid regurgitation 9 acute exacerbation of COPD 10 hypoglycemia Plan: Continue monitoring the patient on selective care unit, continue with D10 infusion at 150, will add steroids Solu-Medrol 40 mg every 8 hours, for wheezing on physical exam, continue nebulized bronchodilators. May give 50% dextrose IV push every 1 hour for CBG less than 70, otherwise continue monitoring blood sugars every half an hour until stable. Antibiotics per ID service recommendations. We'll continue to closely follow I performed a history & physical examination of the patient and discussed their management with my nurse practitioner, Mechelle Dotson. I reviewed the nurse practitioner's note and agree with the documented findings and plan of care. Lung sounds are positive for diffuse wheezes throughout the lung lema. The findings and the impression was discussed with the patient. I attest to the documentation by the nurse practitioner. Time with Patient: Less than 30
[2019-01-24] MEDS: amLODIPine 5 MG TAB PO SCH (12:05)
[2019-01-24 12:28] LABS: Glucose,Whole Blood 159 mg/dL (75-99)
[2019-01-24] MEDS: methylPREDNISolone SOD SUCCI 40 MG/ML 1 ML VIAL IV SCH ×2 (12:39→20:41)
[2019-01-24] MEDS: HYDROcodone/APAP 10-325MG 1 EACH TAB PO PRN (12:39)
[2019-01-24 12:41] LABS: Calcium 7.7 mg/dL (8.4-10.2); Potassium 3.9 mmol/L (3.5-5.1)
[2019-01-24 12:56] LABS: Glucose,Whole Blood 161 mg/dL (75-99)
[2019-01-24 13:40] LABS: Glucose,Whole Blood 155 mg/dL (75-99)
[2019-01-24 14:20] LABS: Glucose,Whole Blood 178 mg/dL (75-99)
[2019-01-24 14:58] LABS: Glucose,Whole Blood 166 mg/dL (75-99)
[2019-01-24 15:15] LABS: Glucose,Whole Blood 135 mg/dL (75-99)
[2019-01-24 15:58] LABS: Glucose,Whole Blood 156 mg/dL (75-99)
[2019-01-24 16:16] LABS: Glucose,Whole Blood 152 mg/dL (75-99)
[2019-01-24] MEDS: CARVEDILOL 6.25 MG TAB PO SCH (16:30)
[2019-01-24 16:47] LABS: Glucose,Whole Blood 154 mg/dL (75-99)
[2019-01-24 17:14] LABS: Glucose,Whole Blood 206 mg/dL (75-99)
[2019-01-24 17:45] LABS: Glucose,Whole Blood 154 mg/dL (75-99)
[2019-01-24 18:18] LABS: Glucose,Whole Blood 219 mg/dL (75-99)
[2019-01-24 18:43] LABS: Glucose,Whole Blood 327 mg/dL (75-99)
[2019-01-24 19:44] LABS: Glucose,Whole Blood 281 mg/dL (75-99)
[2019-01-24 20:07] LABS: Appearance,Urine Clear (Clear); Bilirubin,Urine Negative (Negative); Blood,Urine Small (Negative); Color,Urine Light Yellow; Glucose,Urine (UA) 3+ (Negative); Ketones,Urine Negative (Negative); Leukocyte Esterase,Urine Negative (Negative); Nitrite,Urine Negative (Negative); Protein,Urine 2+ (Negative); RBC,Urine 1 /hpf (0-5); Squamous Epithelial Cell,Urine <1 /hpf (0-4); Urobilinogen,Urine <2.0 mg/dL (<2.0)
[2019-01-24 20:09] LABS: Glucose,Whole Blood 291 mg/dL (75-99)
[2019-01-24 20:46] LABS: Glucose,Whole Blood 276 mg/dL (75-99)
[2019-01-24] MEDS ORDERED: INSULIN DETEMIR (LEVEMIR) 100 UNIT/ML SYR SQ SCH (21:00)
[2019-01-24 21:06] LABS: Glucose,Whole Blood 279 mg/dL (75-99)
--- NOTE | 2019-01-24 23:34 | PN ---
PROGRESS NOTE DATE OF SERVICE: 01/24/2019. REASON FOR FOLLOWUP: Enterococcus bacteremia. INTERVAL HISTORY: The patient is currently afebrile. Patient has been breathing comfortably. The patient denies having any chest pain. No cough. No nausea, no vomiting. No abdominal pain. No diarrhea. PHYSICAL EXAMINATION: Blood pressure 150/65 with a pulse of 70, temp 97.3. She is 95% on room air. General description is an elderly female lying in bed in no distress. Respiratory system: Unlabored breathing. Clear to auscultation anteriorly. Heart S1, S2. Regular rate and rhythm. ABDOMEN: Soft, no tenderness. EXTREMITIES: No edema of the feet. LABS: Hemoglobin 8.1, white count 8.8. BUN is 154, creatinine 3.73. CRP 64.7. Blood cultures positive for Enterococcus group D. DIAGNOSTIC IMPRESSION AND PLAN: Patient with Enterococcus bacteremia in this patient UA is negative. CT abdominal and pelvis with no evidence of any colitis. Echo was negative as well. In view of the persistent bacteremia, the patient will need a BORIS to make sure no evidence of any endovascular source. Continue with daptomycin. Continue supportive care. MMODL / IJN: [id number] /
[2019-01-25 02:01] LABS: Glucose,Whole Blood 329 mg/dL (75-99)
[2019-01-25] MEDS: methylPREDNISolone SOD SUCCI 40 MG/ML 1 ML VIAL IV SCH ×2 (03:55→13:10)
[2019-01-25] MEDS: HYDROcodone/APAP 10-325MG 1 EACH TAB PO PRN ×3 (03:55→23:28)
[2019-01-25 06:04] LABS: Glucose,Whole Blood 284 mg/dL (75-99)
[2019-01-25 06:23] LABS: Basophils % (A) 0 %; Eosinophils % (A) 0 %; HCT 27.2 % (34.0-46.0); HGB 8.5 gm/dL (11.4-16.0); Hypochromasia Moderate; Lymphocytes % (A) 10 %; MCH 30.8 pg (25.0-35.0); MCHC 31.2 g/dL (31.0-37.0); MCV 98.6 fL (80.0-100.0); Mean Platelet Volume 7.3; Monocytes # (A) 0.4 k/uL (0-1.0); Monocytes % (A) 3 %; Neutrophils # (A) 8.8 k/uL (1.3-7.7); Neutrophils % (A) 85 %; Platelet Count 294 k/uL (150-450); RBC 2.76 m/uL (3.80-5.40); WBC 10.3 k/uL (3.8-10.6)
[2019-01-25 06:31] LABS: Calcium 7.7 mg/dL (8.4-10.2); Potassium 4.7 mmol/L (3.5-5.1)
[2019-01-25 06:33] LABS: INR 1.2 (<1.2); Prothrombin Time 12.3 sec (9.0-12.0)
[2019-01-25] MEDS: CARVEDILOL 6.25 MG TAB PO SCH ×2 (06:44→18:00)
[2019-01-25] MEDS: IPRATROPIUM-ALBUTEROL 3 ML NEB INHALATION SCH ×4 (09:26→20:00)
[2019-01-25] MEDS: PANTOPRAZOLE 40 MG TABLET PO SCH (09:35)
[2019-01-25] MEDS: SODIUM BICARBONATE TAB 650 MG TAB PO SCH ×2 (09:35→20:37)
[2019-01-25 12:05] LABS: Glucose,Whole Blood 240 mg/dL (75-99)
--- NOTE | 2019-01-25 12:45 | P.PN ---
Subjective Patient is seen in follow-up for acute kidney injury on chronic kidney disease. Patient has chronic kidney disease stage IV/5 secondary to diabetic kidney disease. She is currently off IV fluids. She has been voiding. No vomiting or diarrhea. No chest pain or shortness of breath. Vital signs are stable. General: The patient appeared well nourished and normally developed. HEENT: Head exam is unremarkable. Neck is without jugular venous distension. LUNGS: Lungs are clear to auscultation and percussion. Breath sounds decreased. HEART: Rate and Rhythm are regular. First and second heart sounds normal. No murmurs, rubs or gallops. ABDOMEN: Abdominal exam reveals normal bowel sounds. Non-tender and non- distended. No evidence of peritonitis. EXTREMITITES: Trace edema. Objective - Vital Signs Vital signs: Vital Signs Temp 97.6 F 01/25/19 12:00 Pulse 68 01/25/19 12:00 Resp 16 01/25/19 12:00 BP 130/70 01/25/19 12:00 Pulse Ox 90 L 01/25/19 12:00 Intake & Output 01/24/19 01/25/19 01/25/19 18:59 06:59 18:59 Intake Total 720 0 Balance 720 0 Intake: Oral 720 0 Other: Voiding Method Bedside Commode Bedside Commode # Voids 1 3 # Bowel Movements 1 - Labs CBC & Chem 7: 01/25/19 06:04 01/25/19 06:04 Labs: Abnormal Lab Results - Last 24 Hours (Table) 01/24/19 01/24/19 01/24/19 Range/Units 06:29 12:46 13:28 RBC (3.80-5.40) m/uL Hgb (11.4-16.0) gm/dL Hct (34.0-46.0) % Neutrophils # (1.3-7.7) k/uL PT (9.0-12.0) sec INR (<1.2) Sodium 130 L (137-145) mmol/L Carbon Dioxide 13 L (22-30) mmol/L BUN 54 H (7-17) mg/dL Creatinine 3.73 H (0.52-1.04) mg/dL Glucose 36 L* (74-99) mg/dL POC Glucose (mg/dL) 161 H 155 H (75-99) mg/dL Calcium 7.7 L (8.4-10.2) mg/dL Urine Protein (Negative) Urine Glucose (UA) (Negative) Urine Blood (Negative) 01/24/19 01/24/19 01/24/19 Range/Units 14:07 14:40 15:03 RBC (3.80-5.40) m/uL Hgb (11.4-16.0) gm/dL Hct (34.0-46.0) % Neutrophils # (1.3-7.7) k/uL PT (9.0-12.0) sec INR (<1.2) Sodium (137-145) mmol/L Carbon Dioxide (22-30) mmol/L BUN (7-17) mg/dL Creatinine (0.52-1.04) mg/dL Glucose (74-99) mg/dL POC Glucose (mg/dL) 178 H 166 H 135 H (75-99) mg/dL Calcium (8.4-10.2) mg/dL Urine Protein (Negative) Urine Glucose (UA) (Negative) Urine Blood (Negative) 01/24/19 01/24/19 01/24/19 Range/Units 15:36 16:04 16:38 RBC (3.80-5.40) m/uL Hgb (11.4-16.0) gm/dL Hct (34.0-46.0) % Neutrophils # (1.3-7.7) k/uL PT (9.0-12.0) sec INR (<1.2) Sodium (137-145) mmol/L Carbon Dioxide (22-30) mmol/L BUN (7-17) mg/dL Creatinine (0.52-1.04) mg/dL Glucose (74-99) mg/dL POC Glucose (mg/dL) 156 H 152 H 154 H (75-99) mg/dL Calcium (8.4-10.2) mg/dL Urine Protein (Negative) Urine Glucose (UA) (Negative) Urine Blood (Negative) 01/24/19 01/24/19 01/24/19 Range/Units 17:02 17:34 18:06 RBC (3.80-5.40) m/uL Hgb (11.4-16.0) gm/dL Hct (34.0-46.0) % Neutrophils # (1.3-7.7) k/uL PT (9.0-12.0) sec INR (<1.2) Sodium (137-145) mmol/L Carbon Dioxide (22-30) mmol/L BUN (7-17) mg/dL Creatinine (0.52-1.04) mg/dL Glucose (74-99) mg/dL POC Glucose (mg/dL) 206 H 154 H 219 H (75-99) mg/dL Calcium (8.4-10.2) mg/dL Urine Protein (Negative) Urine Glucose (UA) (Negative) Urine Blood (Negative) 01/24/19 01/24/19 01/24/19 Range/Units 18:31 19:42 19:47 RBC (3.80-5.40) m/uL Hgb (11.4-16.0) gm/dL Hct (34.0-46.0) % Neutrophils # (1.3-7.7) k/uL PT (9.0-12.0) sec INR (<1.2) Sodium (137-145) mmol/L Carbon Dioxide (22-30) mmol/L BUN (7-17) mg/dL Creatinine (0.52-1.04) mg/dL Glucose (74-99) mg/dL POC Glucose (mg/dL) 327 H 281 H (75-99) mg/dL Calcium (8.4-10.2) mg/dL Urine Protein 2+ H (Negative) Urine Glucose (UA) 3+ H (Negative) Urine Blood Small H (Negative) 01/24/19 01/24/19 01/24/19 Range/Units 20:08 20:45 21:05 RBC (3.80-5.40) m/uL Hgb (11.4-16.0) gm/dL Hct (34.0-46.0) % Neutrophils # (1.3-7.7) k/uL PT (9.0-12.0) sec INR (<1.2) Sodium (137-145) mmol/L Carbon Dioxide (22-30) mmol/L BUN (7-17) mg/dL Creatinine (0.52-1.04) mg/dL Glucose (74-99) mg/dL POC Glucose (mg/dL) 291 H 276 H 279 H (75-99) mg/dL Calcium (8.4-10.2) mg/dL Urine Protein (Negative) Urine Glucose (UA) (Negative) Urine Blood (Negative) 01/25/19 01/25/19 01/25/19 Range/Units 01:58 06:03 06:04 RBC 2.76 L (3.80-5.40) m/uL Hgb 8.5 L (11.4-16.0) gm/dL Hct 27.2 L (34.0-46.0) % Neutrophils # 8.8 H (1.3-7.7) k/uL PT (9.0-12.0) sec INR (<1.2) Sodium (137-145) mmol/L Carbon Dioxide (22-30) mmol/L BUN (7-17) mg/dL Creatinine (0.52-1.04) mg/dL Glucose (74-99) mg/dL POC Glucose (mg/dL) 329 H 284 H (75-99) mg/dL Calcium (8.4-10.2) mg/dL Urine Protein (Negative) Urine Glucose (UA) (Negative) Urine Blood (Negative) 01/25/19 01/25/19 01/25/19 Range/Units 06:04 06:04 11:59 RBC (3.80-5.40) m/uL Hgb (11.4-16.0) gm/dL Hct (34.0-46.0) % Neutrophils # (1.3-7.7) k/uL PT 12.3 H (9.0-12.0) sec INR 1.2 H (<1.2) Sodium 129 L (137-145) mmol/L Carbon Dioxide 11 L (22-30) mmol/L BUN 51 H (7-17) mg/dL Creatinine 3.44 H (0.52-1.04) mg/dL Glucose 255 H (74-99) mg/dL POC Glucose (mg/dL) 240 H (75-99) mg/dL Calcium 7.7 L (8.4-10.2) mg/dL Urine Protein (Negative) Urine Glucose (UA) (Negative) Urine Blood (Negative) Microbiology - Last 24 Hours (Table) 01/24/19 06:29 Blood Culture Gram Stain - Preliminary Blood Blood Culture - Preliminary Group D Enterococcus 01/24/19 06:29 Blood Culture - Final Blood 01/22/19 16:05 Blood Culture Gram Stain - Final Blood Blood Culture - Final Enterococcus faecalis 01/23/19 18:02 Blood Culture Gram Stain - Preliminary Blood Blood Culture - Preliminary Group D Enterococcus 01/23/19 18:02 Blood Culture - Final Blood Assessment and Plan Plan: Assessment: 1. Acute kidney injury secondary to ATN secondary to sepsis. Renal function improving. Creatinine 3.44 today. Patient's creatinine in August 2015 was 2.6. Patient was hemodialysis dependent in the past but came off dialysis in March 2018. She does have a left upper extremity AV graft. 2. Enterococcus bacteremia maintained on IV antibiotics. 3. Severe metabolic acidosis secondary to chronic kidney disease. 4. Hyponatremia secondary to chronic kidney disease. 5. Hypertension with chronic kidney disease. Controlled. 6. Chronic kidney disease stage IV/5 secondary to most likely diabetic kidney disease. Creatinine in August 2015 was 2.6; however recently it's been in the range of 3.5-4. Plan: Start isotonic sodium bicarbonate drip to be run at 50 mL an hour. Maintain oral sodium bicarbonate. Avoid nephrotoxins. Repeat electrolytes in the morning. No urgent need for renal replacement therapy at this time.
[2019-01-25] MEDS: amLODIPine 5 MG TAB PO SCH (12:58)
[2019-01-25] MEDS: AMPICILLIN-SULBACTAM 3 GM in SODIUM CHLORIDE 0.9% 100 ML IVPB SCH ×2 (13:40→23:28)
--- NOTE | 2019-01-25 14:04 | P.PN ---
Subjective Progress Note Date: 01/25/19 Principal diagnosis: confusion and weakness Patient is a 68-year-old female with a past medical history of type 2 diabetes mellitus, hypertension, dyslipidemia, coronary artery disease with history of 5 vessel CABG, and chronic kidney disease disease stage IV previously on hemodialysis through a left upper extremity AV graft was transferred here from [facility] due to confusion and weakness. The ER there she was found to have possible J-point elevation in V1 and V2 associated with a mildly elevated troponin. She was transferred here for cardiac evaluation. Initial troponin was elevated at 1.052, sodium was 131, white blood cell count 12.34, creatinine 4.2, chest x-ray showed prominent pulmonary interstitium. CT of the head showed bilateral frontal hygromas with age-related atrophy. On arrival here and there was concern for possible pulmonary embolism and the patient was started on a heparin drip and a VQ scan was ordered, which ultimately came back negative. Due to her leukocytosis she was started on empiric antibiotics with IV Zosyn along with DuoNeb. Nephrology was consulted. Her vancomycin was discontinued and she was started on Zyvox due to her worsening renal function. Cardiology felt her elevated troponin was secondary to sepsis. She was also found to have elevated liver enzymes and acute hepatitis panel was negative. She was also seen by critical care. She was seen by ID and subsequently started on daptomycin. Blood cultures came back positive for enterococcus. TTE EEG showed a thickened aortic valve but no signs of vegetation. She underwent CT abdomen and pelvis which was essentially normal. CT abdomen and pelvis demonstrated fluid overload state with periportal edema as well as COPD and an atrophic pancreas. Her blood cultures remained positive infectious disease requested a BORIS. She did develop some hypoglycemia requiring a D10 drip. She had received Levemir but had decreased oral intake. Patient seen and examined at bedside. She complains of a cough and is having difficulty producing sputum but feels as though she needs to cough stuff up. She denies any nausea, vomiting, constipation, or diarrhea. She denies any recent changes in her skin. She is not having any dysuria or urinary frequency. Objective - Vital Signs Vital signs: Vital Signs Temp 97.6 F 01/25/19 12:00 Pulse 68 01/25/19 12:00 Resp 16 01/25/19 12:00 BP 130/70 01/25/19 12:00 Pulse Ox 90 L 01/25/19 12:00 Intake & Output 01/24/19 01/25/19 01/25/19 18:59 06:59 18:59 Intake Total 720 0 Balance 720 0 Intake: Oral 720 0 Other: Voiding Method Bedside Commode Bedside Commode # Voids 1 3 # Bowel Movements 1 - Exam General: Ill appearing, no acute distress, appears at stated age Derm: Multiple areas of ecchymoses, warm, dry Head: atraumatic, normocephalic, symmetric Eyes: EOMI, no lid lag, anicteric sclera Mouth: no lip lesion, mucus membranes moist Cardiovascular: S1S2 reg, no murmur, positive posterior tibial pulse bilateral, Lungs: Decreased breath sounds bilateral, no rhonchi, no rales , no accessory muscle use Abdominal: soft, nontender to palpation, no guarding, no appreciable organomegaly Ext: no gross muscle atrophy, Trace extremity edema, no contractures Neuro: CN II-XI grossly intact, no focal neuro deficits Psych: Alert, oriented, appropriate affect - Labs CBC & Chem 7: 01/25/19 06:04 01/25/19 06:04 Labs: Abnormal Lab Results - Last 24 Hours (Table) 01/24/19 01/24/19 01/24/19 Range/Units 13:28 14:07 14:40 RBC (3.80-5.40) m/uL Hgb (11.4-16.0) gm/dL Hct (34.0-46.0) % Neutrophils # (1.3-7.7) k/uL PT (9.0-12.0) sec INR (<1.2) Sodium (137-145) mmol/L Carbon Dioxide (22-30) mmol/L BUN (7-17) mg/dL Creatinine (0.52-1.04) mg/dL Glucose (74-99) mg/dL POC Glucose (mg/dL) 155 H 178 H 166 H (75-99) mg/dL Calcium (8.4-10.2) mg/dL Urine Protein (Negative) Urine Glucose (UA) (Negative) Urine Blood (Negative) 01/24/19 01/24/19 01/24/19 Range/Units 15:03 15:36 16:04 RBC (3.80-5.40) m/uL Hgb (11.4-16.0) gm/dL Hct (34.0-46.0) % Neutrophils # (1.3-7.7) k/uL PT (9.0-12.0) sec INR (<1.2) Sodium (137-145) mmol/L Carbon Dioxide (22-30) mmol/L BUN (7-17) mg/dL Creatinine (0.52-1.04) mg/dL Glucose (74-99) mg/dL POC Glucose (mg/dL) 135 H 156 H 152 H (75-99) mg/dL Calcium (8.4-10.2) mg/dL Urine Protein (Negative) Urine Glucose (UA) (Negative) Urine Blood (Negative) 01/24/19 01/24/19 01/24/19 Range/Units 16:38 17:02 17:34 RBC (3.80-5.40) m/uL Hgb (11.4-16.0) gm/dL Hct (34.0-46.0) % Neutrophils # (1.3-7.7) k/uL PT (9.0-12.0) sec INR (<1.2) Sodium (137-145) mmol/L Carbon Dioxide (22-30) mmol/L BUN (7-17) mg/dL Creatinine (0.52-1.04) mg/dL Glucose (74-99) mg/dL POC Glucose (mg/dL) 154 H 206 H 154 H (75-99) mg/dL Calcium (8.4-10.2) mg/dL Urine Protein (Negative) Urine Glucose (UA) (Negative) Urine Blood (Negative) 01/24/19 01/24/19 01/24/19 Range/Units 18:06 18:31 19:42 RBC (3.80-5.40) m/uL Hgb (11.4-16.0) gm/dL Hct (34.0-46.0) % Neutrophils # (1.3-7.7) k/uL PT (9.0-12.0) sec INR (<1.2) Sodium (137-145) mmol/L Carbon Dioxide (22-30) mmol/L BUN (7-17) mg/dL Creatinine (0.52-1.04) mg/dL Glucose (74-99) mg/dL POC Glucose (mg/dL) 219 H 327 H 281 H (75-99) mg/dL Calcium (8.4-10.2) mg/dL Urine Protein (Negative) Urine Glucose (UA) (Negative) Urine Blood (Negative) 01/24/19 01/24/19 01/24/19 Range/Units 19:47 20:08 20:45 RBC (3.80-5.40) m/uL Hgb (11.4-16.0) gm/dL Hct (34.0-46.0) % Neutrophils # (1.3-7.7) k/uL PT (9.0-12.0) sec INR (<1.2) Sodium (137-145) mmol/L Carbon Dioxide (22-30) mmol/L BUN (7-17) mg/dL Creatinine (0.52-1.04) mg/dL Glucose (74-99) mg/dL POC Glucose (mg/dL) 291 H 276 H (75-99) mg/dL Calcium (8.4-10.2) mg/dL Urine Protein 2+ H (Negative) Urine Glucose (UA) 3+ H (Negative) Urine Blood Small H (Negative) 01/24/19 01/25/19 01/25/19 Range/Units 21:05 01:58 06:03 RBC (3.80-5.40) m/uL Hgb (11.4-16.0) gm/dL Hct (34.0-46.0) % Neutrophils # (1.3-7.7) k/uL PT (9.0-12.0) sec INR (<1.2) Sodium (137-145) mmol/L Carbon Dioxide (22-30) mmol/L BUN (7-17) mg/dL Creatinine (0.52-1.04) mg/dL Glucose (74-99) mg/dL POC Glucose (mg/dL) 279 H 329 H 284 H (75-99) mg/dL Calcium (8.4-10.2) mg/dL Urine Protein (Negative) Urine Glucose (UA) (Negative) Urine Blood (Negative) 01/25/19 01/25/19 01/25/19 Range/Units 06:04 06:04 06:04 RBC 2.76 L (3.80-5.40) m/uL Hgb 8.5 L (11.4-16.0) gm/dL Hct 27.2 L (34.0-46.0) % Neutrophils # 8.8 H (1.3-7.7) k/uL PT 12.3 H (9.0-12.0) sec INR 1.2 H (<1.2) Sodium 129 L (137-145) mmol/L Carbon Dioxide 11 L (22-30) mmol/L BUN 51 H (7-17) mg/dL Creatinine 3.44 H (0.52-1.04) mg/dL Glucose 255 H (74-99) mg/dL POC Glucose (mg/dL) (75-99) mg/dL Calcium 7.7 L (8.4-10.2) mg/dL Urine Protein (Negative) Urine Glucose (UA) (Negative) Urine Blood (Negative) 01/25/19 Range/Units 11:59 RBC (3.80-5.40) m/uL Hgb (11.4-16.0) gm/dL Hct (34.0-46.0) % Neutrophils # (1.3-7.7) k/uL PT (9.0-12.0) sec INR (<1.2) Sodium (137-145) mmol/L Carbon Dioxide (22-30) mmol/L BUN (7-17) mg/dL Creatinine (0.52-1.04) mg/dL Glucose (74-99) mg/dL POC Glucose (mg/dL) 240 H (75-99) mg/dL Calcium (8.4-10.2) mg/dL Urine Protein (Negative) Urine Glucose (UA) (Negative) Urine Blood (Negative) Microbiology - Last 24 Hours (Table) 01/24/19 06:29 Blood Culture Gram Stain - Preliminary Blood Blood Culture - Preliminary Group D Enterococcus 01/24/19 06:29 Blood Culture - Final Blood 01/22/19 16:05 Blood Culture Gram Stain - Final Blood Blood Culture - Final Enterococcus faecalis 01/23/19 18:02 Blood Culture Gram Stain - Preliminary Blood Blood Culture - Preliminary Group D Enterococcus 01/23/19 18:02 Blood Culture - Final Blood Assessment and Plan Assessment: Enterococcus bacteremia secondary to sepsis -Continue with daptomycin -Infectious disease recommendations appreciated: BORIS -No source of bacteremia noted -Repeat blood cultures today, blood cultures from 01/24 are reporting back positive Diabetes mellitus type 2 with both hyper and hypoglycemia - Levemir on hold - SSI - Off D10 - A1C 7.7 Acute kidney injury on Chronic kidney disease stage V, hyponatremia, and severe metabolic acidosis -Nephrology recommendations appreciated -Limit nephrotoxic agents as able -Follow BMP Elevated troponin secondary to type II non-STEMI - Cardiology recommendations appreciated - Maxwell to be due to sepsis and ALANA not ACS Normocytic anemia - stable - suspect related to CKD - follow CBC Recent diagnosis of breast cancer -Need outpatient follow-up with Dr. Mason David for lumpectomy Transaminitis - improving - Hep Profile negative - check Gallbladder US Chronic conditions: Coronary artery disease DVT prophylaxis: Heparin Discussed with: Patient, nursing, Dr. Gray Anticipated discharge: 3-[address]: home with home health and infusions A total of 45 minutes was spent on the care of this complex patient more than 50% of the time was spent in counseling and care coordination.
--- NOTE | 2019-01-25 14:33 | US ---
EXAMINATION TYPE: US abdomen limited DATE OF EXAM: 01/25/2019 COMPARISON: CT 2 days ago. CLINICAL HISTORY: transaminitis . Abnormal labs EXAM MEASUREMENTS: Liver Length: 17.4 cm Gallbladder Wall: 0.3 cm CBD: 0.7 cm Right Kidney: 7.9 x 3.7 x 3.7 cm Pancreas: Appeared wnl, tail obscured by overlying bowel gas Liver: wnl Gallbladder: Wall thickness upper limits of normal Evidence for sonographic Orta's sign: No CBD: wnl Right Kidney: Appeared small in size Pancreas is not well-seen due to fat replaced atrophy on images today. Visualized liver shows no worr isome mass or ductal dilatation. Common bile duct measures within normal limits for patient's age. Ti ny amount of ascites near liver margin is seen. Gallbladder is identified without intraluminal mobile shadowing gallstones. Small to tiny right pleural effusion is redemonstrated. Right kidney shows cor tical thinning without gross hydronephrosis. IMPRESSION: No suspicious intrahepatic mass or intrahepatic ductal dilatation identified.
[2019-01-25] MEDS: DEXTROSE 5% IN WATER 1,000 ML with SODIUM BICARB (1 MEQ/ML) 150 ML IV SCH (14:37)
--- NOTE | 2019-01-25 14:58 | P.PN ---
Subjective Progress Note Date: 01/25/19 Principal diagnosis: Altered mental status, sepsis, positive blood cultures This is a 68-year-old female with history of multiple medical problems including coronary artery disease, previous CABG, history of breast cancer which was diagnosed in September, history of COPD, interstitial lung disease/pulmonary fibrosis, however it was not biopsy-proven this was noted and a CT of the chest noted on her last admission. History of diabetes, fibromyalgia, hearing disorder, patient lives in [place]. Patient was in the hospital 2 weeks ago, and she was diagnosed as having COPD exacerbation and pulmonary fibrosis, questionable pneumonia. Patient was noted by her to be confused, and she had a fever. She was taken by EMS to [place] ER, and she was found to have abnor mal EKG, reviewed by the kennel helper/Dr. Borges while he was in his cardiac clinic in [place]. hence arrangements were made for the patient be transferred to [facility] for further cardiac evaluation. She was seen by cardiology and her EKG was concerning for possible acute OH, hence the patient was admitted to the intensive care unit. Patient had no symptoms of shortness of breath cough or wheezing, she had no symptoms of chest pain, no nausea no vomiting no abdominal pain. She was told by her that she was confused and she had a fever and that is why she was taken by EMS to [place] ER. At any rate patient was evaluated in the ER at [facility], CBC showed leukocytosis. Her sodium was a bit low at 128. Troponin was elevated at 1.020, EKG showed nonspecific ST and T wave changes, patient was admitted to the ICU, placed on heparin, and I was asked to see her on consultation. Patient was placed empirically on antibiotics, and her blood cultures came back positive from [place] ER, and blood cultures from our ER were also positive for gram-positive cocci. In the meantime patient is receiving now Zosyn and vancomycin. Again the patient has no active pulmonary symptoms whatsoever, there is no evidence of pneumonia on the chest x-ray, but there is evidence of interstitial lung disease. Patient had no symptoms to suggest any abscess, she did have chronic back pain related to previous surgery and cervical fusion done over 5 years ago by neurosurgery. Patient is also known to have history of chronic kidney disease, was previously on hemodialysis, she was dialyzed last about 12 months ago. Looking at the EKG, patient had J- point elevation in V1 and V2 and nonspecific ST segment depression in lateral leads. CT of the head on admission showed bilateral frontal hygromas and age- related atrophy, no specific intracranial pathology otherwise. On 01/24/2019 patient seen in follow-up on selective care unit, she is resting in bed, in no acute distress, denies any dyspnea, denies any cough or congestion, lung sounds do reveal some end expiratory wheezes, and coarse crackles over posterior bases. Patient states she has had the chills, but no fevers, her blood cultures were positive for group D enterococcus, final culture is pending, and antibiotic coverage is with daptomycin. ID service is following, this morning patient experienced hypoglycemic episodes with the blood sugar in the 30s apparently she was given 50 units of Lantus last night, and she has had decreased oral intake over last couple days. She was given an amp of D50, she was placed on 10% dextrose, her sugars did improve, and her last 3 blood sugars were 51, 67 and 66. She did eat breakfast this morning, she is awake and alert, no confusion. No specific complaints. We'll continue monitoring her on selective care unit, check sugars every half an hour. We'll continue with the 50% dextrose IV push for blood sugars less than 70. On 01/25/2019 patient seen in follow-up on selective care unit. Her hypoglycemia has resolved, and 10% dextrose has been discontinued, blood sugars are stable. Yesterday we started the patient on IV steroids related to some wheezing, today's exam reveals clear breath sounds bilaterally, no rhonchi, no wheezing. No cough or congestion, 3 sets of blood cultures on 01/22, on 01/23, and on 01/24 came back positive with group D enterococcus and patient was initially treated with daptomycin, but currently is on Unasyn. The service is following, she's been afebrile, chest x-ray has not shown any definite evidence of pulmonary infiltrates. No abdominal pain, however abdominal CT showed periportal edema related to fluid overload or intrahepatic ductal dilation dictation, and abdominal ultrasound is pending at this time. No urinary complaints. Hepatitis panel was negative. Urinalysis without any signs of infection. Patient is without specific complaints today. Echocardiogram was negative for any evidence of vegetation, we'll probably need a BORIS for enterococcus bacteremia. Objective - Vital Signs Vital signs: Vital Signs Temp 97.6 F 01/25/19 12:00 Pulse 68 01/25/19 12:00 Resp 16 01/25/19 12:00 BP 130/70 01/25/19 12:00 Pulse Ox 90 L 01/25/19 12:00 Intake & Output 01/24/19 01/25/19 01/25/19 18:59 06:59 18:59 Intake Total 720 0 Balance 720 0 Intake: Oral 720 0 Other: Voiding Method Bedside Commode Bedside Commode # Voids 1 3 # Bowel Movements 1 - Exam GENERAL EXAM: Alert, pleasant, 68-year-old white female, slightly hard of hearing, but very pleasant, and cooperative comfortable in no apparent distress. HEAD: Normocephalic/atraumatic. EYES: Normal reaction of pupils, equal size. Conjunctiva pink, sclera white. NOSE: Clear with pink turbinates. THROAT: No erythema or exudates. NECK: No masses, no JVD, no thyroid enlargement, no adenopathy. CHEST: No chest wall deformity. Symmetrical expansion. LUNGS: Equal air entry with no wheezing, rhonchi, or rales CVS: Regular rate and rhythm, normal S1 and S2, no gallops, no murmurs, no rubs ABDOMEN: Soft, nontender. No hepatosplenomegaly, normal bowel sounds, no g uarding or rigidity. EXTREMITIES: No clubbing, no edema, no cyanosis, 2+ pulses and upper and lower extremities. MUSCULOSKELETAL: Muscle strength and tone normal. SPINE: No scoliosis or deformity SKIN: No rashes CENTRAL NERVOUS SYSTEM: Alert and oriented -3. No focal deficits, tone is normal in all 4 extremities. PSYCHIATRIC: Alert and oriented -3. Appropriate affect. Intact judgment and insight. - Labs CBC & Chem 7: 01/25/19 06:04 01/25/19 06:04 Labs: Abnormal Lab Results - Last 24 Hours (Table) 01/24/19 01/24/19 01/24/19 Range/Units 14:40 15:03 15:36 RBC (3.80-5.40) m/uL Hgb (11.4-16.0) gm/dL Hct (34.0-46.0) % Neutrophils # (1.3-7.7) k/uL PT (9.0-12.0) sec INR (<1.2) Sodium (137-145) mmol/L Carbon Dioxide (22-30) mmol/L BUN (7-17) mg/dL Creatinine (0.52-1.04) mg/dL Glucose (74-99) mg/dL POC Glucose (mg/dL) 166 H 135 H 156 H (75-99) mg/dL Calcium (8.4-10.2) mg/dL Urine Protein (Negative) Urine Glucose (UA) (Negative) Urine Blood (Negative) 01/24/19 01/24/19 01/24/19 Range/Units 16:04 16:38 17:02 RBC (3.80-5.40) m/uL Hgb (11.4-16.0) gm/dL Hct (34.0-46.0) % Neutrophils # (1.3-7.7) k/uL PT (9.0-12.0) sec INR (<1.2) Sodium (137-145) mmol/L Carbon Dioxide (22-30) mmol/L BUN (7-17) mg/dL Creatinine (0.52-1.04) mg/dL Glucose (74-99) mg/dL POC Glucose (mg/dL) 152 H 154 H 206 H (75-99) mg/dL Calcium (8.4-10.2) mg/dL Urine Protein (Negative) Urine Glucose (UA) (Negative) Urine Blood (Negative) 01/24/19 01/24/19 01/24/19 Range/Units 17:34 18:06 18:31 RBC (3.80-5.40) m/uL Hgb (11.4-16.0) gm/dL Hct (34.0-46.0) % Neutrophils # (1.3-7.7) k/uL PT (9.0-12.0) sec INR (<1.2) Sodium (137-145) mmol/L Carbon Dioxide (22-30) mmol/L BUN (7-17) mg/dL Creatinine (0.52-1.04) mg/dL Glucose (74-99) mg/dL POC Glucose (mg/dL) 154 H 219 H 327 H (75-99) mg/dL Calcium (8.4-10.2) mg/dL Urine Protein (Negative) Urine Glucose (UA) (Negative) Urine Blood (Negative) 01/24/19 01/24/19 01/24/19 Range/Units 19:42 19:47 20:08 RBC (3.80-5.40) m/uL Hgb (11.4-16.0) gm/dL Hct (34.0-46.0) % Neutrophils # (1.3-7.7) k/uL PT (9.0-12.0) sec INR (<1.2) Sodium (137-145) mmol/L Carbon Dioxide (22-30) mmol/L BUN (7-17) mg/dL Creatinine (0.52-1.04) mg/dL Glucose (74-99) mg/dL POC Glucose (mg/dL) 281 H 291 H (75-99) mg/dL Calcium (8.4-10.2) mg/dL Urine Protein 2+ H (Negative) Urine Glucose (UA) 3+ H (Negative) Urine Blood Small H (Negative) 01/24/19 01/24/19 01/25/19 Range/Units 20:45 21:05 01:58 RBC (3.80-5.40) m/uL Hgb (11.4-16.0) gm/dL Hct (34.0-46.0) % Neutrophils # (1.3-7.7) k/uL PT (9.0-12.0) sec INR (<1.2) Sodium (137-145) mmol/L Carbon Dioxide (22-30) mmol/L BUN (7-17) mg/dL Creatinine (0.52-1.04) mg/dL Glucose (74-99) mg/dL POC Glucose (mg/dL) 276 H 279 H 329 H (75-99) mg/dL Calcium (8.4-10.2) mg/dL Urine Protein (Negative) Urine Glucose (UA) (Negative) Urine Blood (Negative) 01/25/19 01/25/19 01/25/19 Range/Units 06:03 06:04 06:04 RBC 2.76 L (3.80-5.40) m/uL Hgb 8.5 L (11.4-16.0) gm/dL Hct 27.2 L (34.0-46.0) % Neutrophils # 8.8 H (1.3-7.7) k/uL PT 12.3 H (9.0-12.0) sec INR 1.2 H (<1.2) Sodium (137-145) mmol/L Carbon Dioxide (22-30) mmol/L BUN (7-17) mg/dL Creatinine (0.52-1.04) mg/dL Glucose (74-99) mg/dL POC Glucose (mg/dL) 284 H (75-99) mg/dL Calcium (8.4-10.2) mg/dL Urine Protein (Negative) Urine Glucose (UA) (Negative) Urine Blood (Negative) 01/25/19 01/25/19 Range/Units 06:04 11:59 RBC (3.80-5.40) m/uL Hgb (11.4-16.0) gm/dL Hct (34.0-46.0) % Neutrophils # (1.3-7.7) k/uL PT (9.0-12.0) sec INR (<1.2) Sodium 129 L (137-145) mmol/L Carbon Dioxide 11 L (22-30) mmol/L BUN 51 H (7-17) mg/dL Creatinine 3.44 H (0.52-1.04) mg/dL Glucose 255 H (74-99) mg/dL POC Glucose (mg/dL) 240 H (75-99) mg/dL Calcium 7.7 L (8.4-10.2) mg/dL Urine Protein (Negative) Urine Glucose (UA) (Negative) Urine Blood (Negative) Microbiology - Last 24 Hours (Table) 01/24/19 06:29 Blood Culture Gram Stain - Preliminary Blood Blood Culture - Preliminary Group D Enterococcus 01/24/19 06:29 Blood Culture - Final Blood 01/22/19 16:05 Blood Culture Gram Stain - Final Blood Blood Culture - Final Enterococcus faecalis 01/23/19 18:02 Blood Culture Gram Stain - Preliminary Blood Blood Culture - Preliminary Group D Enterococcus Assessment and Plan Plan: Assessment: 1 acute sepsis and enterococcus bacteremia, exact source is not clear at this point, hence will continue investigations for the primary source of her bacteremia, and in the meantime patient will be given vancomycin and Zosyn. Chest x-ray showed no evidence of pneumonia, on physical examination she had no evidence to suggest any abscess or skin lesions. Patient was recently admitted to the hospital with presumptive pneumonia. 2 elevated troponin, possible non-ST elevation myocardial infarction 3 chronic kidney disease stage IV 4 COPD and interstitial lung disease presently and active. 5 hyponatremia, could very well be related to SIADH considering her pulmonary findings on the CT of the chest. 6 history of breast cancer, recently diagnosed, patient is following up with oncology and general surgery 7 coronary artery disease and previous CABG 8 moderate to severe tricuspid regurgitation 9 acute exacerbation of COPD, proving 10 hypoglycemia, improved with steroids, and dextrose infusion Plan: Continue current plan of treatment, and events per ID service recommendation, will addition IV steroids to oral prednisone, less bronchospastic on today's exam, no complaints of dyspnea. Patient will likely need a transesophageal echocardiogram to rule out endocarditis. Ultrasound of the abdomen was obtained to rule out gallbladder as a potential source of sepsis and the ultrasound showed no evidence of gallbladder dilatation. I performed a history & physical examination of the patient and discussed their management with my nurse practitioner, Mechelle Dotson. I reviewed the nurse practitioner's note and agree with the documented findings and plan of care. Lung sounds are positive for diffuse wheezes throughout the lung lema. The findings and the impression was discussed with the patient. I attest to the documentation by the nurse practitioner. Time with Patient: Less than 30
[2019-01-25] MEDS: LORATADINE 10 MG TAB PO SCH (16:41)
[2019-01-25] MEDS: HEPARIN SODIUM,PORCINE 5,000 UNIT/ML 1 ML VIAL SQ SCH (16:42)
[2019-01-25 17:17] LABS: Glucose,Whole Blood 345 mg/dL (75-99)
[2019-01-25] MEDS ORDERED: INSULIN ASPART (NovoLOG) 100 UNIT/ML VIAL SQ SCH (17:30)
--- NOTE | 2019-01-25 18:26 | PN ---
PROGRESS NOTE DATE OF SERVICE: 01/25/2019. REASON FOR FOLLOWUP: Enterococcus bacteremia with a question of intravascular source. INTERVAL HISTORY: The patient is currently afebrile. Patient has been breathing comfortably. Denies having any chest pain. She did have some cough but not bringing up any sputum. No nausea, no vomiting. No abdominal pain. No diarrhea. PHYSICAL EXAMINATION: Blood pressure 130/70 with a pulse of 68. Temperature 97.6. She is 90% on room air. General description is an elderly female lying in bed in no distress. Respiratory system: Unlabored breathing. Clear to auscultation anteriorly. Heart S1, S2. Regular rate and rhythm. Abdomen soft, no tenderness. LABS: Hemoglobin 8.5, white count 10.3, BUN of 51, creatinine 3.44. Blood cultures from January 24 are positive as well. DIAGNOSTIC IMPRESSION AND PLAN: Patient with enterococcus faecalis bacteremia, penicillin sensitive with concern for possible intravascular source so far. Abdominal CT is negative. UA is negative. 2D echocardiogram was negative. The patient will need a BORIS, which has been discussed with the admitting team. Antibiotic was switched over to Unasyn as a penicillin sensitive pathogen and repeat blood cultures today as well as tomorrow. Continue supportive care. MMODL / IJN: [id number] /
[2019-01-25] MEDS: guaiFENesin 600 MG TABLET.ER PO SCH (20:37)
[2019-01-25 21:33] LABS: Glucose,Whole Blood 355 mg/dL (75-99)
[2019-01-25 23:18] LABS: Glucose,Whole Blood 398 mg/dL (75-99)
[2019-01-25] MEDS: INSULIN ASPART (NovoLOG) 100 UNIT/ML VIAL SQ SCH (23:28)
[2019-01-25] MEDS: INSULIN DETEMIR (LEVEMIR) 100 UNIT/ML SYR SQ SCH (23:28)
[2019-01-26] MEDS: HEPARIN SODIUM,PORCINE 5,000 UNIT/ML 1 ML VIAL SQ SCH ×4 (01:20→23:36)
[2019-01-26 02:24] LABS: Glucose,Whole Blood 304 mg/dL (75-99)
[2019-01-26 06:27] LABS: HGB 9.1 gm/dL (11.4-16.0); Hypochromasia Moderate; MCH 30.3 pg (25.0-35.0); MCHC 31.3 g/dL (31.0-37.0); MCV 96.7 fL (80.0-100.0); Platelet Count 306 k/uL (150-450); RDW 14.4 % (11.5-15.5); WBC 12.2 k/uL (3.8-10.6)
[2019-01-26 06:39] LABS: Albumin 3.3 g/dL (3.5-5.0); Calcium 8.2 mg/dL (8.4-10.2); Magnesium 1.5 mg/dL (1.6-2.3); Potassium 4.3 mmol/L (3.5-5.1); Total Bilirubin 0.4 mg/dL (0.2-1.3); Total Protein 6.1 g/dL (6.3-8.2)
[2019-01-26 07:04] LABS: Glucose,Whole Blood 128 mg/dL (75-99)
[2019-01-26] MEDS: INSULIN ASPART (NovoLOG) 100 UNIT/ML VIAL SQ SCH ×4 (07:05→20:42)
[2019-01-26] MEDS: CARVEDILOL 6.25 MG TAB PO SCH ×2 (07:07→17:37)
[2019-01-26] MEDS: HYDROcodone/APAP 10-325MG 1 EACH TAB PO PRN ×3 (07:35→23:33)
[2019-01-26] MEDS: IPRATROPIUM-ALBUTEROL 3 ML NEB INHALATION SCH ×4 (08:18→19:08)
[2019-01-26] MEDS: DEXTROSE 5% IN WATER 1,000 ML with SODIUM BICARB (1 MEQ/ML) 150 ML IV SCH (10:42)
[2019-01-26] MEDS ORDERED: fentaNYL (PF) 50 MCG/ML 2 ML AMP ONE (11:17)
[2019-01-26] MEDS ORDERED: SODIUM CHLORIDE 0.9% 500 ML 500 ML IV ONE (11:35)
[2019-01-26] MEDS: BENZOCAINE SPRAY 1 CAN MUCOUS MEM ONE ×3 (11:40→11:54)
[2019-01-26] MEDS: MIDAZOLAM (PF) 2 MG/2 ML VIAL IVP ONE ×2 (11:42→11:50)
[2019-01-26] MEDS ORDERED: fentaNYL (PF) 50 MCG/ML 2 ML AMP IVP ONE (11:42)
[2019-01-26] MEDS ORDERED: MIDAZOLAM (PF) 2 MG/2 ML VIAL IVP ONE (11:54)
--- NOTE | 2019-01-26 12:30 | ECHOT ---
TRANSESOPHAGEAL ECHOCARDIOGRAM INDICATION: Bacteremia, rule out infective endocarditis. PROCEDURE NOTE: After obtaining informed consent, transesophageal echocardiogram was performed in left lateral position using an Omni plane probe. Patient received 3 mg of Versed and 25 mcg of fentanyl and tolerated the procedure well without any obvious immediate complication. FINDIN. I do not see any vegetation on the aortic valve, mitral valve, tricuspid valve. 2. Mitral valve appears anatomically normal. There is mild mitral regurgitation noted. 3. Tricuspid valve shows moderate to severe tricuspid regurgitation valve. 4. Aortic valve is a 3-leaflet valve shows sclerotic changes without any evidence of stenosis. There is trace aortic regurgitation. 5. Left ventricle has normal size and systolic function. 6. Interventricular septum shows paradoxical septal motion with a dilated right ventricle. 7. Right atrium is also dilated. 8. Interatrial septum: There is no evidence of ozxc-[id number]-[id number] shunt by color-flow Doppler. There is evidence of asech-lu-jtyz shunt with agitated saline contrast study. CONCLUSION: 1. We have not noticed any vegetations. 2. Normal LV function. 3. Enlarged right ventricle. 4. Evidence of jtvqg-bv-kpym shunt across the interatrial septum. MMODL / IJN: [id number] /
[2019-01-26 13:12] LABS: Glucose,Whole Blood 78 mg/dL (75-99)
[2019-01-26] MEDS: guaiFENesin 600 MG TABLET.ER PO SCH ×2 (13:15→20:20)
[2019-01-26] MEDS: LORATADINE 10 MG TAB PO SCH (13:15)
[2019-01-26] MEDS: PANTOPRAZOLE 40 MG TABLET PO SCH (13:15)
[2019-01-26] MEDS: amLODIPine 5 MG TAB PO SCH (13:15)
[2019-01-26] MEDS: predniSONE 10 MG TAB PO SCH (13:15)
[2019-01-26] MEDS: SODIUM BICARBONATE TAB 650 MG TAB PO SCH ×2 (13:16→20:19)
[2019-01-26] MEDS ORDERED: FUROSEMIDE 10 MG/ML 4 ML VIAL IV STA (13:21)
[2019-01-26] MEDS: AMPICILLIN-SULBACTAM 3 GM in SODIUM CHLORIDE 0.9% 100 ML IVPB SCH ×2 (14:03→23:36)
--- NOTE | 2019-01-26 14:07 | P.PN ---
Subjective Patient is seen in follow-up for acute kidney injury on chronic kidney disease. Patient has chronic kidney disease stage IV/V secondary to diabetic kidney disease. She has been voiding. No vomiting or diarrhea. No chest pain or shortness of breath. Went for BORIS this morning. Vital signs are stable. General: The patient appeared well nourished and normally developed. HEENT: Head exam is unremarkable. Neck is without jugular venous distension. LUNGS: Breath sounds decreased. Rhonchi at bases. HEART: Rate and Rhythm are regular. First and second heart sounds normal. No murmurs, rubs or gallops. ABDOMEN: Abdominal exam reveals normal bowel sounds. Non-tender and non- distended. No evidence of peritonitis. EXTREMITITES: 1+ edema. Objective - Vital Signs Vital signs: Vital Signs Temp 97.6 F 01/26/19 11:32 Pulse 65 01/26/19 11:32 Resp 20 01/26/19 11:32 BP 157/67 01/26/19 11:32 Pulse Ox 98 01/26/19 11:32 Intake & Output 01/25/19 01/26/19 01/26/19 18:59 06:59 18:59 Intake Total 780 200 Balance 780 200 Weight 65 kg Intake: IV 200 Intake, IV Titration 300 Amount Dextrose 5% in Water 1, 300 000 ml @ 50 mls/hr IV . Q23H NOLVIA with Sodium Bicarb (1 Meq/ml) 150 ml Rx#:[id number] Oral 480 0 Other: Voiding Method Toilet Toilet Toilet # Voids 2 1 1 # Bowel Movements 1 - Labs CBC & Chem 7: 01/26/19 06:03 01/26/19 06:03 Labs: Abnormal Lab Results - Last 24 Hours (Table) 01/25/19 01/25/19 01/25/19 Range/Units 16:53 21:32 23:17 WBC (3.8-10.6) k/uL RBC (3.80-5.40) m/uL Hgb (11.4-16.0) gm/dL Hct (34.0-46.0) % Sodium (137-145) mmol/L Carbon Dioxide (22-30) mmol/L BUN (7-17) mg/dL Creatinine (0.52-1.04) mg/dL Glucose (74-99) mg/dL POC Glucose (mg/dL) 345 H 355 H 398 H (75-99) mg/dL Calcium (8.4-10.2) mg/dL Magnesium (1.6-2.3) mg/dL ALT (9-52) U/L Alkaline Phosphatase (38-126) U/L Total Protein (6.3-8.2) g/dL Albumin (3.5-5.0) g/dL 01/26/19 01/26/19 01/26/19 Range/Units 02:23 06:03 06:03 WBC 12.2 H (3.8-10.6) k/uL RBC 3.00 L (3.80-5.40) m/uL Hgb 9.1 L (11.4-16.0) gm/dL Hct 29.0 L (34.0-46.0) % Sodium 133 L (137-145) mmol/L Carbon Dioxide 15 L (22-30) mmol/L BUN 53 H (7-17) mg/dL Creatinine 3.47 H (0.52-1.04) mg/dL Glucose 125 H (74-99) mg/dL POC Glucose (mg/dL) 304 H (75-99) mg/dL Calcium 8.2 L (8.4-10.2) mg/dL Magnesium 1.5 L (1.6-2.3) mg/dL ALT 93 H (9-52) U/L Alkaline Phosphatase 368 H (38-126) U/L Total Protein 6.1 L (6.3-8.2) g/dL Albumin 3.3 L (3.5-5.0) g/dL 01/26/19 Range/Units 06:44 WBC (3.8-10.6) k/uL RBC (3.80-5.40) m/uL Hgb (11.4-16.0) gm/dL Hct (34.0-46.0) % Sodium (137-145) mmol/L Carbon Dioxide (22-30) mmol/L BUN (7-17) mg/dL Creatinine (0.52-1.04) mg/dL Glucose (74-99) mg/dL POC Glucose (mg/dL) 128 H (75-99) mg/dL Calcium (8.4-10.2) mg/dL Magnesium (1.6-2.3) mg/dL ALT (9-52) U/L Alkaline Phosphatase (38-126) U/L Total Protein (6.3-8.2) g/dL Albumin (3.5-5.0) g/dL Microbiology - Last 24 Hours (Table) 01/25/19 11:36 Blood Culture Gram Stain - Preliminary Blood Blood Culture - Preliminary Group D Enterococcus 01/25/19 11:26 Blood Culture Gram Stain - Preliminary Blood Blood Culture - Preliminary Group D Enterococcus 01/25/19 11:36 Blood Culture - Final Blood 01/25/19 11:26 Blood Culture - Final Blood 01/23/19 18:02 Blood Culture Gram Stain - Final Blood Blood Culture - Final Enterococcus faecalis 01/24/19 06:29 Blood Culture Gram Stain - Preliminary Blood Blood Culture - Preliminary Group D Enterococcus Assessment and Plan Plan: Assessment: 1. Acute kidney injury secondary to ATN secondary to sepsis. Renal function stable. Creatinine 3.47 today. Patient's creatinine in August 2015 was 2.6. Patient was hemodialysis dependent in the past but came off dialysis in March 2018. She does have a left upper extremity AV graft. 2. Enterococcus bacteremia maintained on IV antibiotics. BORIS revealed no vegetation. 3. Severe metabolic acidosis secondary to chronic kidney disease. Improving. 4. Hyponatremia secondary to chronic kidney disease. Improving. 5. Hypertension with chronic kidney disease. Stable. 6. Chronic kidney disease stage IV/5 secondary to most likely diabetic kidney disease. Creatinine in August 2015 was 2.6; however recently it's been in the range of 3.5-4. 7. Fluid overload. 8. Moderate to severe tricuspid regurgitation. Plan: Hep-Lock IV fluids. Lasix 40 mg IV once today. Maintain oral sodium bicarbonate. Avoid nephrotoxins. Repeat electrolytes in the morning. No urgent need for renal replacement therapy at this time.
--- NOTE | 2019-01-26 14:08 | P.PN ---
Subjective Progress Note Date: 01/26/19 Principal diagnosis: Altered mental status, sepsis, positive blood cultures This is a 68-year-old female with history of multiple medical problems including coronary artery disease, previous CABG, history of breast cancer which was diagnosed in September, history of COPD, interstitial lung disease/pulmonary fibrosis, however it was not biopsy-proven this was noted and a CT of the chest noted on her last admission. History of diabetes, fibromyalgia, hearing disorder, patient lives in [place]. Patient was in the hospital 2 weeks ago, and she was diagnosed as having COPD exacerbation and pulmonary fibrosis, questionable pneumonia. Patient was noted by her to be confused, and she had a fever. She was taken by EMS to [place] [facility], and she was found to have abnor mal EKG, reviewed by the college service officer/Dr. Borges while he was in his cardiac clinic in [place]. hence arrangements were made for the patient be transferred to [facility] for further cardiac evaluation. She was seen by cardiology and her EKG was concerning for possible acute AK, hence the patient was admitted to the intensive care unit. Patient had no symptoms of shortness of breath cough or wheezing, she had no symptoms of chest pain, no nausea no vomiting no abdominal pain. She was told by her that she was confused and she had a fever and that is why she was taken by EMS to [place] ER. At any rate patient was evaluated in the ER at [facility], CBC showed leukocytosis. Her sodium was a bit low at 128. Troponin was elevated at 1.020, EKG showed nonspecific ST and T wave changes, patient was admitted to the ICU, placed on heparin, and I was asked to see her on consultation. Patient was placed empirically on antibiotics, and her blood cultures came back positive from [place] [facility], and blood cultures from our ER were also positive for gram-positive cocci. In the meantime patient is receiving now Zosyn and vancomycin. Again the patient has no active pulmonary symptoms whatsoever, there is no evidence of pneumonia on the chest x-ray, but there is evidence of interstitial lung disease. Patient had no symptoms to suggest any abscess, she did have chronic back pain related to previous surgery and cervical fusion done over 5 years ago by neurosurgery. Patient is also known to have history of chronic kidney disease, was previously on hemodialysis, she was dialyzed last about 12 months ago. Looking at the EKG, patient had J- point elevation in V1 and V2 and nonspecific ST segment depression in lateral leads. CT of the head on admission showed bilateral frontal hygromas and age- related atrophy, no specific intracranial pathology otherwise. On 01/24/2019 patient seen in follow-up on selective care unit, she is resting in bed, in no acute distress, denies any dyspnea, denies any cough or congestion, lung sounds do reveal some end expiratory wheezes, and coarse crackles over posterior bases. Patient states she has had the chills, but no fevers, her blood cultures were positive for group D enterococcus, final culture is pending, and antibiotic coverage is with daptomycin. ID service is following, this morning patient experienced hypoglycemic episodes with the blood sugar in the 30s apparently she was given 50 units of Lantus last night, and she has had decreased oral intake over last couple days. She was given an amp of D50, she was placed on 10% dextrose, her sugars did improve, and her last 3 blood sugars were 51, 67 and 66. She did eat breakfast this morning, she is awake and alert, no confusion. No specific complaints. We'll continue monitoring her on selective care unit, check sugars every half an hour. We'll continue with the 50% dextrose IV push for blood sugars less than 70. On 01/25/2019 patient seen in follow-up on selective care unit. Her hypoglycemia has resolved, and 10% dextrose has been discontinued, blood sugars are stable. Yesterday we started the patient on IV steroids related to some wheezing, today's exam reveals clear breath sounds bilaterally, no rhonchi, no wheezing. No cough or congestion, 3 sets of blood cultures on 01/22, on 01/23, and on 01/24 came back positive with group D enterococcus and patient was initially treated with daptomycin, but currently is on Unasyn. The service is following, she's been afebrile, chest x-ray has not shown any definite evidence of pulmonary infiltrates. No abdominal pain, however abdominal CT showed periportal edema related to fluid overload or intrahepatic ductal dilation dictation, and abdominal ultrasound is pending at this time. No urinary complaints. Hepatitis panel was negative. Urinalysis without any signs of infection. Patient is without specific complaints today. Echocardiogram was negative for any evidence of vegetation, we'll probably need a BORIS for enterococcus bacteremia. On 01/26/2019 patient seen in follow-up on selective care unit, she had just returned from her transesophageal echocardiogram, she is awake and alert, in no acute distress, denies any specific complaints, occasional congested cough, no significant sputum production, on today's exam patient sounds a bit more rhonchorous, and congested, patient's IV steroids have been transitioned to oral prednisone, patient is on nebulized bronchodilators, antibiotic coverage is with Unasyn for evidence of group D enterococcus/Enterococcus faecalis. Today's labs have been reviewed, showing white blood cell count of 12.2, hemoglobin at 9.1, sodium of 133, potassium is 4.3, chloride is 101, CO2 is 15, B1 is 53 and creatinine is 3.47. No fever, no chills. Objective - Vital Signs Vital signs: Vital Signs Temp 97.6 F 01/26/19 11:32 Pulse 65 01/26/19 11:32 Resp 20 01/26/19 11:32 BP 157/67 01/26/19 11:32 Pulse Ox 98 01/26/19 11:32 Intake & Output 01/25/19 01/26/19 01/26/19 18:59 06:59 18:59 Intake Total 780 440 Balance 780 440 Weight 65 kg Intake: IV 200 Intake, IV Titration 300 Amount Dextrose 5% in Water 1, 300 000 ml @ 50 mls/hr IV . Q23H NOLVIA with Sodium Bicarb (1 Meq/ml) 150 ml Rx#:[id number] Oral 480 240 Other: Voiding Method Toilet Toilet Toilet # Voids 2 1 1 # Bowel Movements 1 - Exam GENERAL EXAM: Alert, pleasant, 68-year-old white female, slightly hard of hearing, but very pleasant, and cooperative comfortable in no apparent distress. HEAD: Normocephalic/atraumatic. EYES: Normal reaction of pupils, equal size. Conjunctiva pink, sclera white. NOSE: Clear with pink turbinates. THROAT: No erythema or exudates. NECK: No masses, no JVD, no thyroid enlargement, no adenopathy. CHEST: No chest wall deformity. Symmetrical expansion. LUNGS: Equal air entry with some scattered rhonchi CVS: Regular rate and rhythm, normal S1 and S2, no gallops, no murmurs, no rubs ABDOMEN: Soft, nontender. No hepatosplenomegaly, normal bowel sounds, no guarding or rigidity. EXTREMITIES: No clubbing, no edema, no cyanosis, 2+ pulses and upper and lower extremities. MUSCULOSKELETAL: Muscle strength and tone normal. SPINE: No scoliosis or deformity SKIN: No rashes CENTRAL NERVOUS SYSTEM: Alert and oriented -3. No focal deficits, tone is normal in all 4 extremities. PSYCHIATRIC: Alert and oriented -3. Appropriate affect. Intact judgment and insight. - Labs CBC & Chem 7: 01/26/19 06:03 01/26/19 06:03 Labs: Abnormal Lab Results - Last 24 Hours (Table) 01/25/19 01/25/19 01/25/19 Range/Units 16:53 21:32 23:17 WBC (3.8-10.6) k/uL RBC (3.80-5.40) m/uL Hgb (11.4-16.0) gm/dL Hct (34.0-46.0) % Sodium (137-145) mmol/L Carbon Dioxide (22-30) mmol/L BUN (7-17) mg/dL Creatinine (0.52-1.04) mg/dL Glucose (74-99) mg/dL POC Glucose (mg/dL) 345 H 355 H 398 H (75-99) mg/dL Calcium (8.4-10.2) mg/dL Magnesium (1.6-2.3) mg/dL ALT (9-52) U/L Alkaline Phosphatase (38-126) U/L Total Protein (6.3-8.2) g/dL Albumin (3.5-5.0) g/dL 01/26/19 01/26/19 01/26/19 Range/Units 02:23 06:03 06:03 WBC 12.2 H (3.8-10.6) k/uL RBC 3.00 L (3.80-5.40) m/uL Hgb 9.1 L (11.4-16.0) gm/dL Hct 29.0 L (34.0-46.0) % Sodium 133 L (137-145) mmol/L Carbon Dioxide 15 L (22-30) mmol/L BUN 53 H (7-17) mg/dL Creatinine 3.47 H (0.52-1.04) mg/dL Glucose 125 H (74-99) mg/dL POC Glucose (mg/dL) 304 H (75-99) mg/dL Calcium 8.2 L (8.4-10.2) mg/dL Magnesium 1.5 L (1.6-2.3) mg/dL ALT 93 H (9-52) U/L Alkaline Phosphatase 368 H (38-126) U/L Total Protein 6.1 L (6.3-8.2) g/dL Albumin 3.3 L (3.5-5.0) g/dL 01/26/19 Range/Units 06:44 WBC (3.8-10.6) k/uL RBC (3.80-5.40) m/uL Hgb (11.4-16.0) gm/dL Hct (34.0-46.0) % Sodium (137-145) mmol/L Carbon Dioxide (22-30) mmol/L BUN (7-17) mg/dL Creatinine (0.52-1.04) mg/dL Glucose (74-99) mg/dL POC Glucose (mg/dL) 128 H (75-99) mg/dL Calcium (8.4-10.2) mg/dL Magnesium (1.6-2.3) mg/dL ALT (9-52) U/L Alkaline Phosphatase (38-126) U/L Total Protein (6.3-8.2) g/dL Albumin (3.5-5.0) g/dL Microbiology - Last 24 Hours (Table) 01/25/19 11:36 Blood Culture Gram Stain - Preliminary Blood Blood Culture - Preliminary Group D Enterococcus 01/25/19 11:26 Blood Culture Gram Stain - Preliminary Blood Blood Culture - Preliminary Group D Enterococcus 01/25/19 11:36 Blood Culture - Final Blood 01/25/19 11:26 Blood Culture - Final Blood 01/23/19 18:02 Blood Culture Gram Stain - Final Blood Blood Culture - Final Enterococcus faecalis 01/24/19 06:29 Blood Culture Gram Stain - Preliminary Blood Blood Culture - Preliminary Group D Enterococcus Assessment and Plan Plan: Assessment: 1 acute sepsis and enterococcus bacteremia, exact source is not clear at this point, hence will continue investigations for the primary source of her bacteremia, and in the meantime patient will be given vancomycin and Zosyn. Chest x-ray showed no evidence of pneumonia, on physical examination she had no evidence to suggest any abscess or skin lesions. Patient was recently admitted to the hospital with presumptive pneumonia. 2 elevated troponin, possible non-ST elevation myocardial infarction 3 chronic kidney disease stage IV 4 COPD and interstitial lung disease presently and active. 5 hyponatremia, could very well be related to SIADH considering her pulmonary findings on the CT of the chest. 6 history of breast cancer, recently diagnosed, patient is following up with oncology and general surgery 7 coronary artery disease and previous CABG 8 moderate to severe tricuspid regurgitation 9 acute exacerbation of COPD, proving 10 hypoglycemia, improved with steroids, and dextrose infusion Plan: Antibiotics per ID service recommendations, patient is afebrile, patient had a transesophageal echocardiogram today to rule out endocarditis, which did not show any evidence of vegetation. But it did show evidence of [id number] shunt across the anterior atrial septum, cardiology is following. From pulmonary perspective patient is stable, continue the oral steroids, nebulized bronchodilators and Mucinex. She is covered with antibiotics. We will sign off and follow an as-needed basis. I performed a history & physical examination of the patient and discussed their management with my nurse practitioner, Mechelle Dotson. I reviewed the nurse practitioner's note and agree with the documented findings and plan of care. Lung sounds are positive for diffuse wheezes throughout the lung lema. The findings and the impression was discussed with the patient. I attest to the documentation by the nurse practitioner. Time with Patient: Less than 30
[2019-01-26 17:12] LABS: Glucose,Whole Blood 170 mg/dL (75-99)
[2019-01-26 20:01] LABS: Glucose,Whole Blood 310 mg/dL (75-99)
--- NOTE | 2019-01-26 20:18 | PN ---
PROGRESS NOTE DATE OF SERVICE: 01/26/2019. REASON FOR FOLLOWUP: Enterococcus faecalis bacteremia. INTERVAL HISTORY: The patient is currently afebrile. She has been breathing comfortably. Did have occasional cough. No nausea, no vomiting. No abdominal pain. No diarrhea. PHYSICAL EXAMINATION: Blood pressure 144/67 with a pulse of 82, temperature 97.9. She is 93% on 2 L nasal cannula. General description is an elderly female lying in bed in no distress. Respiratory system: Unlabored breathing, clear to auscultation anteriorly. Heart S1, S2. Regular rate and rhythm. Abdomen soft, no tenderness. Extremities: No edema of the feet. LABS: Hemoglobin 9.1, white count 12.8 with a BUN of 53, creatinine 3.47. Blood cultures on 01/25 has been positive as well. DIAGNOSTIC IMPRESSION AND PLAN: Patient with Enterococcus faecalis bacteremia, persistent, likely indicative of a deep source. The patient's BORIS was negative. CT abdominal and pelvis was negative. Urine is negative. Did have a left arm AV fistula currently being not used, but no evidence of any inflammation at that site. We will obtain a WBC scan to pinpoint possible source of this infection. Continue with Unasyn. Blood culture repeated tomorrow. Continue supportive care. MMODL / IJN: [id number] /
--- NOTE | 2019-01-26 20:29 | P.PN ---
Subjective Progress Note Date: 01/26/19 (delayed charting seen at 0930) Principal diagnosis: confusion and weakness Patient is a 68-year-old female with a past medical history of type 2 diabetes mellitus, hypertension, dyslipidemia, coronary artery disease with history of 5 vessel CABG, and chronic kidney disease disease stage IV previously on hemodialysis through a left upper extremity AV graft was transferred here from [facility] due to confusion and weakness. The ER there she was found to have possible J-point elevation in V1 and V2 associated with a mildly elevated troponin. She was transferred here for cardiac evaluation. Initial troponin was elevated at 1.052, sodium was 131, white blood cell count 12.34, creatinine 4.2, chest x-ray showed prominent pulmonary interstitium. CT of the head showed bilateral frontal hygromas with age-related atrophy. On arrival here and there was concern for possible pulmonary embolism and the patient was started on a heparin drip and a VQ scan was ordered, which ultimately came back negative. Due to her leukocytosis she was started on empiric antibiotics with IV Zosyn along with DuoNeb. Nephrology was consulted. Her vancomycin was discontinued and she was started on Zyvox due to her worsening renal function. Cardiology felt her elevated troponin was secondary to sepsis. She was also found to have elevated liver enzymes and acute hepatitis panel was negative. She was also seen by critical care. She was seen by ID and subsequently started on daptomycin. Blood cultures came back positive for enterococcus. TTE EEG showed a thickened aortic valve but no signs of vegetation. She underwent CT abdomen and pelvis which was essentially normal. CT abdomen and pelvis demonstrated fluid overload state with periportal edema as well as COPD and an atrophic pancreas. Her blood cultures remained positive infectious disease requested a BORIS. She did develop some hypoglycemia requiring a D10 drip. She had received Levemir but had decreased oral intake. levemir restarted. Patient seen and examined at bedside. Anxious about her diagnosis of bacteremia and receiving a BORIS. Denies any chest pain, shortness breath, nausea, vomiting, or diarrhea. No skin changes. Discussed with patient plan for home with IV antibiotics but that she needs to have cleared her blood of bacteria prior to midline and discharge. Objective - Vital Signs Vital signs: Vital Signs Temp 97.9 F 01/26/19 15:57 Pulse 82 01/26/19 16:03 Resp 19 01/26/19 16:03 BP 144/67 01/26/19 15:57 Pulse Ox 93 L 01/26/19 15:57 Intake & Output 01/26/19 01/26/19 01/27/19 06:59 18:59 06:59 Intake Total 920 Balance 920 Weight 65 kg Intake: IV 200 Oral 720 Other: Voiding Method Toilet Toilet # Voids 1 1 # Bowel Movements 1 - Exam General: Ill appearing, no acute distress, appears at stated age Derm: Multiple areas of ecchymoses, warm, dry Head: atraumatic, normocephalic, symmetric Eyes: EOMI, no lid lag, anicteric sclera Mouth: no lip lesion, mucus membranes moist Cardiovascular: S1S2 reg, no murmur, positive posterior tibial pulse bilateral, Lungs: Decreased breath sounds bilateral, no rhonchi, no rales , no accessory muscle use Abdominal: soft, nontender to palpation, no guarding, no appreciable organomegaly Ext: no gross muscle atrophy, Trace extremity edema, no contractures Neuro: CN II-XI grossly intact, no focal neuro deficits Psych: Alert, oriented, appropriate affect - Labs CBC & Chem 7: 01/26/19 06:03 01/26/19 06:03 Labs: Abnormal Lab Results - Last 24 Hours (Table) 01/25/19 01/25/19 01/26/19 Range/Units 21:32 23:17 02:23 WBC (3.8-10.6) k/uL RBC (3.80-5.40) m/uL Hgb (11.4-16.0) gm/dL Hct (34.0-46.0) % Sodium (137-145) mmol/L Carbon Dioxide (22-30) mmol/L BUN (7-17) mg/dL Creatinine (0.52-1.04) mg/dL Glucose (74-99) mg/dL POC Glucose (mg/dL) 355 H 398 H 304 H (75-99) mg/dL Calcium (8.4-10.2) mg/dL Magnesium (1.6-2.3) mg/dL ALT (9-52) U/L Alkaline Phosphatase (38-126) U/L Total Protein (6.3-8.2) g/dL Albumin (3.5-5.0) g/dL 01/26/19 01/26/19 01/26/19 Range/Units 06:03 06:03 06:44 WBC 12.2 H (3.8-10.6) k/uL RBC 3.00 L (3.80-5.40) m/uL Hgb 9.1 L (11.4-16.0) gm/dL Hct 29.0 L (34.0-46.0) % Sodium 133 L (137-145) mmol/L Carbon Dioxide 15 L (22-30) mmol/L BUN 53 H (7-17) mg/dL Creatinine 3.47 H (0.52-1.04) mg/dL Glucose 125 H (74-99) mg/dL POC Glucose (mg/dL) 128 H (75-99) mg/dL Calcium 8.2 L (8.4-10.2) mg/dL Magnesium 1.5 L (1.6-2.3) mg/dL ALT 93 H (9-52) U/L Alkaline Phosphatase 368 H (38-126) U/L Total Protein 6.1 L (6.3-8.2) g/dL Albumin 3.3 L (3.5-5.0) g/dL 01/26/19 01/26/19 Range/Units 16:57 19:59 WBC (3.8-10.6) k/uL RBC (3.80-5.40) m/uL Hgb (11.4-16.0) gm/dL Hct (34.0-46.0) % Sodium (137-145) mmol/L Carbon Dioxide (22-30) mmol/L BUN (7-17) mg/dL Creatinine (0.52-1.04) mg/dL Glucose (74-99) mg/dL POC Glucose (mg/dL) 170 H 310 H (75-99) mg/dL Calcium (8.4-10.2) mg/dL Magnesium (1.6-2.3) mg/dL ALT (9-52) U/L Alkaline Phosphatase (38-126) U/L Total Protein (6.3-8.2) g/dL Albumin (3.5-5.0) g/dL Microbiology - Last 24 Hours (Table) 01/24/19 06:29 Blood Culture Gram Stain - Final Blood Blood Culture - Final Enterococcus faecalis 01/25/19 11:36 Blood Culture Gram Stain - Preliminary Blood Blood Culture - Preliminary Group D Enterococcus 01/25/19 11:26 Blood Culture Gram Stain - Preliminary Blood Blood Culture - Preliminary Group D Enterococcus 01/25/19 11:36 Blood Culture - Final Blood 01/25/19 11:26 Blood Culture - Final Blood 01/23/19 18:02 Blood Culture Gram Stain - Final Blood Blood Culture - Final Enterococcus faecalis Assessment and Plan Assessment: Enterococcus bacteremia secondary to sepsis -Continue with daptomycin -Infectious disease recommendations appreciated: BORIS today, if negative ? need for MRI/CT of spine due to hx of prior surgeries -No source of bacteremia noted -Repeat blood cultures today, blood cultures from 01/24 and 01/25 are reporting back positive Diabetes mellitus type 2 with both hyper and hypoglycemia - Levemir - SSI - A1C 7.7 Acute kidney injury on Chronic kidney disease stage V, hyponatremia, and severe metabolic acidosis -Nephrology recommendations appreciated -Limit nephrotoxic agents as able -Follow BMP - D/W nephrology and okay for midline at discharge. Elevated troponin secondary to type II non-STEMI - Cardiology recommendations appreciated - [place] to be due to sepsis and ALANA not ACS Normocytic anemia - stable - suspect related to CKD - follow CBC Recent diagnosis of breast cancer -Need outpatient follow-up with Dr. Mason David for lumpectomy Transaminitis - improving - Hep Profile negative - Gallbladder US negative Chronic conditions: Coronary artery disease DVT prophylaxis: Heparin Discussed with: Patient, nursing, Dr. Gray, Dr. Metcalf Anticipated discharge: 3-[address]: home with home health and infusions A total of 25 minutes was spent on the care of this complex patient more than 50% of the time was spent in counseling and care coordination.
[2019-01-26] MEDS: INSULIN DETEMIR (LEVEMIR) 100 UNIT/ML SYR SQ SCH (20:43)
[2019-01-27 02:08] LABS: Glucose,Whole Blood 204 mg/dL (75-99)
[2019-01-27 06:06] LABS: Glucose,Whole Blood 139 mg/dL (75-99)
[2019-01-27] MEDS: HYDROcodone/APAP 10-325MG 1 EACH TAB PO PRN ×4 (06:40→23:48)
[2019-01-27] MEDS: CARVEDILOL 6.25 MG TAB PO SCH ×2 (06:42→17:43)
[2019-01-27] MEDS: INSULIN ASPART (NovoLOG) 100 UNIT/ML VIAL SQ SCH ×4 (06:43→21:13)
[2019-01-27] MEDS: IPRATROPIUM-ALBUTEROL 3 ML NEB INHALATION SCH ×4 (08:09→20:23)
[2019-01-27] MEDS: LORATADINE 10 MG TAB PO SCH (09:41)
[2019-01-27] MEDS: SODIUM BICARBONATE TAB 650 MG TAB PO SCH ×2 (09:41→21:13)
[2019-01-27] MEDS: amLODIPine 5 MG TAB PO SCH (09:42)
[2019-01-27] MEDS: guaiFENesin 600 MG TABLET.ER PO SCH ×2 (09:42→21:13)
[2019-01-27] MEDS: PANTOPRAZOLE 40 MG TABLET PO SCH (09:42)
[2019-01-27] MEDS: HEPARIN SODIUM,PORCINE 5,000 UNIT/ML 1 ML VIAL SQ SCH ×3 (09:42→23:43)
[2019-01-27] MEDS: predniSONE 10 MG TAB PO SCH (09:42)
[2019-01-27 11:57] LABS: Glucose,Whole Blood 165 mg/dL (75-99)
--- NOTE | 2019-01-27 12:30 | P.PN ---
Subjective Progress Note Date: 01/27/19 Patient is a 68-year-old female with a past medical history of type 2 diabetes mellitus, hypertension, dyslipidemia, coronary artery disease with history of 5 vessel CABG, and chronic kidney disease disease stage IV previously on hemodialysis through a left upper extremity AV graft was transferred here from [facility] due to confusion and weakness. The ER there she was found to have possible J-point elevation in V1 and V2 associated with a mildly elevated troponin. She was transferred here for cardiac evaluation. Initial troponin was elevated at 1.052, sodium was 131, white blood cell count 12.34, creatinine 4.2, chest x-ray showed prominent pulmonary interstitium. CT of the head showed bilateral frontal hygromas with age-related atrophy. On arrival here and there was concern for possible pulmonary embolism and the patient was started on a heparin drip and a VQ scan was ordered, which ultimately came back negative. Due to her leukocytosis she was started on empiric antibiotics with IV Zosyn along with DuoNeb. Nephrology was consulted. Her vancomycin was discontinued and she was started on Zyvox due to her worsening renal function. Cardiology felt her elevated troponin was secondary to sepsis. She was also found to have elevated liver enzymes and acute hepatitis panel was negative. She was also seen by critical care. She was seen by ID and subsequently started on daptomycin. Blood cultures came back positive for enterococcus. TTE EEG showed a thickened aortic valve but no signs of vegetation. She underwent CT abdomen and pelvis which was essentially normal. CT abdomen and pelvis demonstrated fluid overload state with periportal edema as well as COPD and an atrophic pancreas. Her blood cultures remained positive infectious disease requested a BORIS. She did develop some hypoglycemia requiring a D10 drip. She had received Levemir but had decreased oral intake. levemir restarted. 01/27/2019: Patient feels okay today, no nausea no vomiting no chest pain, remains afebrile. She is eating lunch. Objective - Vital Signs Vital signs: Vital Signs Temp 97.4 F L 01/27/19 08:10 Pulse 65 01/27/19 08:10 Resp 16 01/27/19 08:10 BP 149/67 01/27/19 08:10 Pulse Ox 91 L 01/27/19 08:10 Intake & Output 01/26/19 01/27/19 01/27/19 18:59 06:59 18:59 Intake Total 920 440 580 Balance 920 440 580 Weight 64.8 kg Intake: IV 200 Oral 720 440 580 Other: Voiding Method Toilet Toilet Toilet # Voids 1 1 # Bowel Movements 1 - Exam General: Awake alert oriented 3, not in distress. Derm: Multiple areas of ecchymoses, warm, dry Head: atraumatic, normocephalic Eyes: EOMI Mouth: no lip lesion Cardiovascular: S1S2 reg, no murmur Lungs: Decreased breath sounds bilateral, no rhonchi, no rales Abdominal: soft, nontender to palpation, no guarding Ext: no gross muscle atrophy, Trace extremity bilateral edema, no contractures Neuro: CN II-XI grossly intact, no focal neuro deficits Psych: Alert, oriented, appropriate affect - Labs CBC & Chem 7: 01/26/19 06:03 01/26/19 06:03 Labs: Abnormal Lab Results - Last 24 Hours (Table) 01/26/19 01/26/19 01/27/19 Range/Units 16:57 19:59 01:57 POC Glucose (mg/dL) 170 H 310 H 204 H (75-99) mg/dL 01/27/19 01/27/19 Range/Units 06:05 11:46 POC Glucose (mg/dL) 139 H 165 H (75-99) mg/dL Microbiology - Last 24 Hours (Table) 01/26/19 06:03 Blood Culture Gram Stain - Preliminary Blood Blood Culture - Preliminary Group D Enterococcus 01/25/19 11:36 Blood Culture Gram Stain - Final Blood Blood Culture - Final Enterococcus faecalis 01/25/19 11:26 Blood Culture Gram Stain - Final Blood Blood Culture - Final Enterococcus faecalis 01/24/19 06:29 Blood Culture Gram Stain - Final Blood Blood Culture - Final Enterococcus faecalis 01/23/19 18:02 Blood Culture Gram Stain - Final Blood Blood Culture - Final Enterococcus faecalis 01/26/19 06:03 Blood Culture - Final Blood Assessment and Plan Plan: A/P Enterococcus bacteremia secondary to sepsis -Continue with Unasyn -Infectious disease recommendations appreciated: BORIS no vegetations, , might need MRI/CT of spine due to hx of prior surgeries -No source of bacteremia noted - blood cultures from 01/24 , 01/25 and 01/26 are positive Diabetes mellitus type 2 with both hyper and hypoglycemia - Levemir - SSI - A1C 7.7 Acute kidney injury on Chronic kidney disease stage V, hyponatremia, and severe metabolic acidosis -Nephrology recommendations appreciated -Limit nephrotoxic agents as able -Follow BMP - Serum creatinine plateaued at 3.4 Elevated troponin secondary to type II non-STEMI - Cardiology recommendations appreciated -Secondary to sepsis and ALANA not ACS Normocytic anemia - stable - suspect related to CKD - follow CBC Recent diagnosis of breast cancer -Need outpatient follow-up with Dr. Mason David for lumpectomy Transaminitis, likely secondary to decreased perfusion - improving, monitor. - Hep Profile negative - Gallbladder US negative Chronic conditions: Coronary artery disease DVT prophylaxis: Heparin Discussed with: Patient Anticipated discharge: 3-[address]: home with home health and infusions
[2019-01-27] MEDS: AMPICILLIN-SULBACTAM 3 GM in SODIUM CHLORIDE 0.9% 100 ML IVPB SCH (12:42)
--- NOTE | 2019-01-27 14:08 | P.PN ---
Subjective Patient is seen in follow-up for acute kidney injury on chronic kidney disease. Patient has chronic kidney disease stage IV/V secondary to diabetic kidney disease. She has been voiding. No vomiting or diarrhea. No chest pain or shortness of breath. No active complaints. Vital signs are stable. General: The patient appeared well nourished and normally developed. HEENT: Head exam is unremarkable. Neck is without jugular venous distension. LUNGS: Breath sounds decreased. Rhonchi at bases. HEART: Rate and Rhythm are regular. First and second heart sounds normal. No murmurs, rubs or gallops. ABDOMEN: Abdominal exam reveals normal bowel sounds. Non-tender and non- distended. No evidence of peritonitis. EXTREMITITES: 1+ edema. Objective - Vital Signs Vital signs: Vital Signs Temp 97.4 F L 01/27/19 08:10 Pulse 65 01/27/19 11:40 Resp 18 01/27/19 11:40 BP 150/67 01/27/19 11:40 Pulse Ox 91 L 01/27/19 11:45 Intake & Output 01/26/19 01/27/19 01/27/19 18:59 06:59 18:59 Intake Total 920 440 580 Balance 920 440 580 Weight 64.8 kg Intake: IV 200 Oral 720 440 580 Other: Voiding Method Toilet Toilet Toilet # Voids 1 1 # Bowel Movements 1 - Labs CBC & Chem 7: 01/26/19 06:03 01/26/19 06:03 Labs: Abnormal Lab Results - Last 24 Hours (Table) 01/26/19 01/26/19 01/27/19 Range/Units 16:57 19:59 01:57 POC Glucose (mg/dL) 170 H 310 H 204 H (75-99) mg/dL 01/27/19 01/27/19 Range/Units 06:05 11:46 POC Glucose (mg/dL) 139 H 165 H (75-99) mg/dL Microbiology - Last 24 Hours (Table) 01/26/19 06:03 Blood Culture Gram Stain - Preliminary Blood Blood Culture - Preliminary Group D Enterococcus 01/25/19 11:36 Blood Culture Gram Stain - Final Blood Blood Culture - Final Enterococcus faecalis 01/25/19 11:26 Blood Culture Gram Stain - Final Blood Blood Culture - Final Enterococcus faecalis 01/24/19 06:29 Blood Culture Gram Stain - Final Blood Blood Culture - Final Enterococcus faecalis 01/23/19 18:02 Blood Culture Gram Stain - Final Blood Blood Culture - Final Enterococcus faecalis 01/26/19 06:03 Blood Culture - Final Blood Assessment and Plan Plan: Assessment: 1. Acute kidney injury secondary to ATN secondary to sepsis. Renal function stable. Creatinine 3.47 as of yesterday. Patient's creatinine in August 2015 was 2.6. Patient was hemodialysis dependent in the past but came off dialysis in March 2018. She does have a left upper extremity AV graft. 2. Enterococcus bacteremia maintained on IV antibiotics. BORIS revealed no vegetation. 3. Severe metabolic acidosis secondary to chronic kidney disease. Improving. 4. Hyponatremia secondary to chronic kidney disease. Improving. 5. Hypertension with chronic kidney disease. Stable. 6. Chronic kidney disease stage IV/5 secondary to most likely diabetic kidney disease. Creatinine in August 2015 was 2.6; however recently it's been in the range of 3.5-4. 7. Fluid overload. 8. Moderate to severe tricuspid regurgitation. Plan: Start Lasix 40 mg orally once daily. Maintain oral sodium bicarbonate. Avoid nephrotoxins. Repeat electrolytes in the morning. No urgent need for renal replacement therapy at this time.
[2019-01-27 14:16] VITALS: BMI 21.7
[2019-01-27 17:21] LABS: Glucose,Whole Blood 289 mg/dL (75-99)
[2019-01-27] MEDS: FUROSEMIDE 40 MG TAB PO SCH (17:43)
[2019-01-27] MEDS: AMPICILLIN 2,000 MG in SODIUM CHLORIDE 0.9% 100 ML IVPB SCH ×2 (18:29→23:43)
--- NOTE | 2019-01-27 19:52 | PN ---
PROGRESS NOTE DATE OF SERVICE: 01/27/2019. REASON FOR FOLLOWUP: Enterococcus faecalis bacteremia. INTERVAL HISTORY: The patient is currently afebrile. The patient is breathing comfortably. Occasional cough. No chest pain. No nausea, no vomiting. No abdominal pain or diarrhea. PHYSICAL EXAMINATION: Blood pressure 161/77 with a pulse of 68, temperature of 98. She is 96% on 2 L nasal cannula. General description is an elderly female lying in bed in no distress. RESPIRATORY SYSTEM: Unlabored breathing. Clear to auscultation anteriorly. HEART: S1, S2. Regular rate and rhythm. ABDOMEN: Soft. No tenderness. LABS: No new labs have been obtained today. DIAGNOSTIC IMPRESSION AND PLAN: Patient with Enterococcus faecalis bacteremia in this patient who did have persistent bacteremia but no clinical focus. BORIS was negative. CT of abdomen and pelvis was negative as well. Blood culture will be repeated in the a.m. We will adjust antibiotic therapy to ampicillin and Rocephin combination, thinking it is mostly an endovascular source, as we cannot use gentamicin because of high risk of nephrotoxicity. We will monitor the clinical course closely. Continue with supportive care. MMODL / IJN: [id number] /
[2019-01-27 21:00] LABS: Glucose,Whole Blood 358 mg/dL (75-99)
[2019-01-27] MEDS: INSULIN DETEMIR (LEVEMIR) 100 UNIT/ML SYR SQ SCH (21:13)
[2019-01-28 03:18] LABS: Glucose,Whole Blood 273 mg/dL (75-99)
[2019-01-28] MEDS: AMPICILLIN 2,000 MG in SODIUM CHLORIDE 0.9% 100 ML IVPB SCH ×4 (06:25→23:04)
[2019-01-28] MEDS: CARVEDILOL 6.25 MG TAB PO SCH ×2 (06:32→17:39)
[2019-01-28] MEDS: INSULIN ASPART (NovoLOG) 100 UNIT/ML VIAL SQ SCH ×4 (06:33→20:55)
[2019-01-28 06:45] LABS: Glucose,Whole Blood 175 mg/dL (75-99)
[2019-01-28 07:19] LABS: Basophils % (A) 0 %; Eosinophils # (A) 0.1 k/uL (0-0.7); Eosinophils % (A) 1 %; HCT 26.3 % (34.0-46.0); HGB 8.5 gm/dL (11.4-16.0); Hypochromasia Slight; Lymphocytes # (A) 2.2 k/uL (1.0-4.8); Lymphocytes % (A) 19 %; MCH 30.9 pg (25.0-35.0); MCHC 32.6 g/dL (31.0-37.0); MCV 94.9 fL (80.0-100.0); Monocytes # (A) 0.7 k/uL (0-1.0); Monocytes % (A) 6 %; Neutrophils # (A) 8.3 k/uL (1.3-7.7); Neutrophils % (A) 72 %; Platelet Count 319 k/uL (150-450); RBC 2.77 m/uL (3.80-5.40); RDW 14.7 % (11.5-15.5); WBC 11.4 k/uL (3.8-10.6)
[2019-01-28 07:43] LABS: Albumin 2.6 g/dL (3.5-5.0); Calcium 7.2 mg/dL (8.4-10.2); Potassium 4.6 mmol/L (3.5-5.1); Total Bilirubin 0.6 mg/dL (0.2-1.3); Total Protein 5.1 g/dL (6.3-8.2)
[2019-01-28] MEDS: PANTOPRAZOLE 40 MG TABLET PO SCH (08:53)
[2019-01-28] MEDS: SODIUM BICARBONATE TAB 650 MG TAB PO SCH ×2 (08:53→20:54)
[2019-01-28] MEDS: guaiFENesin 600 MG TABLET.ER PO SCH ×2 (08:53→20:54)
[2019-01-28] MEDS: FUROSEMIDE 40 MG TAB PO SCH (08:53)
[2019-01-28] MEDS: LORATADINE 10 MG TAB PO SCH (08:53)
[2019-01-28] MEDS: HEPARIN SODIUM,PORCINE 5,000 UNIT/ML 1 ML VIAL SQ SCH ×3 (08:53→23:16)
[2019-01-28] MEDS: predniSONE 10 MG TAB PO SCH (08:53)
[2019-01-28] MEDS: amLODIPine 5 MG TAB PO SCH (08:53)
[2019-01-28] MEDS: HYDROcodone/APAP 10-325MG 1 EACH TAB PO PRN ×3 (08:55→21:59)
[2019-01-28] MEDS: IPRATROPIUM-ALBUTEROL 3 ML NEB INHALATION SCH ×4 (09:02→19:26)
--- NOTE | 2019-01-28 12:19 | NM ---
EXAMINATION TYPE: NM WBC whole body DATE OF EXAM: 01/28/2019 COMPARISON: Correlation CT chest 01/07/2019 HISTORY: 68-year-old female with elevated troponins and fever, unknown source of infection. TECHNIQUE: Following administration of 23.4 mCi Tc99m Ceretec. Images obtained 4 hour(s) and 24 clemente r(s) post injection. FINDINGS: There is a focal area of increased uptake anteriorly in the mid to lower chest. Based on the oblique views, this seems to localize to the sternum or adjacent to the sternum. Physiologic marrow, spleen, and liver uptake is demonstrated. Some foci of activity at the right elb ow relating to injection site. IMPRESSION: Focal increased activity localizing to the anterior mid to lower chest at or adjacent to the sternum. This suggests some infection or inflammation at this site.
[2019-01-28 12:37] LABS: Glucose,Whole Blood 127 mg/dL (75-99)
--- NOTE | 2019-01-28 16:59 | CT ---
EXAMINATION TYPE: CT chest wo con DATE OF EXAM: 01/28/2019 COMPARISON: None HISTORY: sternal infection CT DLP: 326.4 mGycm. Automated Exposure Control for Dose Reduction was Utilized. TECHNIQUE: CT scan of the thorax is performed without IV contrast. FINDINGS: Multiple axial sections were obtained from the thoracic inlet to the diaphragm with no contrast. There is moderate diffuse pulmonary emphysema. There are bilateral pleural effusions and larger on th e right side. The thoracic aorta is atheromatous. There is no mediastinal adenopathy. There are no hi lar masses. There is dense coronary artery calcification. Heart size is fairly normal. There is no pe ricardial effusion. There is some linear infiltrate and atelectasis at the posterior lung bases. Ther e are sternal wires. Sternal segments have normal alignment. I see no focal bone destruction. There i s osteopenia. There is 15% wedging of T11. There is T8 and T9 anterior wedging up to 25%. IMPRESSION: Emphysema. Atherosclerotic vascular disease. Pleural effusions with basilar pulmonary mil d infiltrates and atelectasis. No evidence of osteomyelitis of the sternum. Subcutaneous edema around the chest could relate to anas arca.
[2019-01-28 17:19] LABS: Glucose,Whole Blood 345 mg/dL (75-99)
--- NOTE | 2019-01-28 18:56 | PN ---
PROGRESS NOTE Patient is seen for followup for acute kidney injury. She is currently sitting up in bed. Patient denies any significant complaints. She states she has been voiding. On examination this morning, blood pressure was 126/61, heart rate of 68 per minute. Patient is afebrile. EXAMINATION OF THE HEART: S1 and S2. EXAMINATION OF LUNGS: Bilateral breath sounds are heard. ABDOMEN: Soft, non-tender. Examination of lower extremities shows edema 1+ bilaterally, upper and lower extremities. [employer] exam is grossly intact. Labs show hemoglobin 8.5, sodium 131, potassium 4.6, BUN 54, serum creatinine 3.3, albumin 2.6. ASSESSMENT: 1. Chronic kidney disease, stage IV to V, most likely secondary to diabetic kidney disease. Serum creatinine seems to be around 3.5 mg/dL for baseline. 2. Acute kidney injury secondary to acute tubular necrosis. Previous creatinine was 2.6 in August of 2015. Patient has been on hemodialysis previously and then she was able to come off. 3. Enterococcus bacteremia, maintained on IV antibiotics. 4. Metabolic acidosis, currently improved. 5. Fluid overload. PLAN: Continue with the Lasix. Repeat labs in a.m. Continues oral sodium bicarb. Patient is encouraged to increase oral protein intake as well. No indication to start hemodialysis currently. MMODL / IJN: [id number] /
--- NOTE | 2019-01-28 20:02 | P.PN ---
Subjective Progress Note Date: 01/28/19 (delayed charting patient seen at 0945) Principal diagnosis: confusion and weakness Patient is a 68-year-old female with a past medical history of type 2 diabetes mellitus, hypertension, dyslipidemia, coronary artery disease with history of 5 vessel CABG, and chronic kidney disease disease stage IV previously on hemodialysis through a left upper extremity AV graft was transferred here from [facility] due to confusion and weakness. The ER there she was found to have possible J-point elevation in V1 and V2 associated with a mildly elevated troponin. She was transferred here for cardiac evaluation. Initial troponin was elevated at 1.052, sodium was 131, white blood cell count 12.34, creatinine 4.2, chest x-ray showed prominent pulmonary interstitium. CT of the head showed bilateral frontal hygromas with age-related atrophy. On arrival here and there was concern for possible pulmonary embolism and the patient was started on a heparin drip and a VQ scan was ordered, which ultimately came back negative. Due to her leukocytosis she was started on empiric antibiotics with IV Zosyn along with DuoNeb. Nephrology was consulted. Her vancomycin was discontinued and she was started on Zyvox due to her worsening renal function. Cardiology felt her elevated troponin was secondary to sepsis. She was also found to have elevated liver enzymes and acute hepatitis panel was negative. She was also seen by critical care. She was seen by ID and subsequently started on daptomycin. Blood cultures came back positive for enterococcus. TTE EEG showed a thickened aortic valve but no signs of vegetation. She underwent CT abdomen and pelvis which was essentially normal. CT abdomen and pelvis demonstrated fluid overload state with periportal edema as well as COPD and an atrophic pancreas. Her blood cultures remained positive infectious disease requested a BORIS. She did develop some hypoglycemia requiring a D10 drip. She had received Levemir but had decreased oral intake. levemir restarted at lower dose once sugars began to elevate.Latesha remained persistently bacteremic. Underwent nuclear medicine bone scan that showed infection/inflammation near the sternum. Chest CT did not demonstrate any sternal osteomyelitis but did show some emphysema and b/l pleural effusions. Patient seen and examined at bedside. Feeling anxious about being here in the hospital getting frustrated with her continued hospital stay, no chest pain, no shortness of breath, no nausea, no vomiting, having loose stools but not overt diarrhea. Objective - Vital Signs Vital signs: Vital Signs Temp 97.3 F L 01/28/19 16:00 Pulse 75 01/28/19 16:00 Resp 18 01/28/19 16:00 BP 167/70 01/28/19 16:00 Pulse Ox 95 01/28/19 16:00 Intake & Output 01/27/19 01/28/19 01/28/19 18:59 06:59 18:59 Intake Total 940 720 Balance 940 720 Weight 64.8 kg 66.9 kg Intake: Oral 940 720 Other: Voiding Method Toilet Toilet Toilet # Voids 3 1 2 - Exam General: Ill appearing, no acute distress, appears at stated age Derm: Multiple areas of ecchymoses, warm, dry Head: atraumatic, normocephalic, symmetric Eyes: EOMI, no lid lag, anicteric sclera Mouth: no lip lesion, mucus membranes moist Cardiovascular: S1S2 reg, no murmur, positive posterior tibial pulse bilateral, Lungs: Decreased breath sounds bilateral, no rhonchi, no rales , no accessory muscle use Abdominal: soft, nontender to palpation, no guarding, no appreciable organomegaly Ext: no gross muscle atrophy, Trace extremity edema, no contractures Neuro: CN II-XI grossly intact, no focal neuro deficits Psych: Alert, oriented, appropriate affect - Labs CBC & Chem 7: 01/28/19 06:19 01/28/19 06:19 Labs: Abnormal Lab Results - Last 24 Hours (Table) 01/27/19 01/28/19 01/28/19 Range/Units 20:49 02:58 06:19 WBC 11.4 H (3.8-10.6) k/uL RBC 2.77 L (3.80-5.40) m/uL Hgb 8.5 L (11.4-16.0) gm/dL Hct 26.3 L (34.0-46.0) % Neutrophils # 8.3 H (1.3-7.7) k/uL Sodium (137-145) mmol/L Carbon Dioxide (22-30) mmol/L BUN (7-17) mg/dL Creatinine (0.52-1.04) mg/dL Glucose (74-99) mg/dL POC Glucose (mg/dL) 358 H 273 H (75-99) mg/dL Calcium (8.4-10.2) mg/dL ALT (9-52) U/L Alkaline Phosphatase (38-126) U/L Total Protein (6.3-8.2) g/dL Albumin (3.5-5.0) g/dL 01/28/19 01/28/19 01/28/19 Range/Units 06:19 06:25 12:26 WBC (3.8-10.6) k/uL RBC (3.80-5.40) m/uL Hgb (11.4-16.0) gm/dL Hct (34.0-46.0) % Neutrophils # (1.3-7.7) k/uL Sodium 131 L (137-145) mmol/L Carbon Dioxide 18 L (22-30) mmol/L BUN 54 H (7-17) mg/dL Creatinine 3.33 H (0.52-1.04) mg/dL Glucose 145 H (74-99) mg/dL POC Glucose (mg/dL) 175 H 127 H (75-99) mg/dL Calcium 7.2 L (8.4-10.2) mg/dL ALT 75 H (9-52) U/L Alkaline Phosphatase 303 H (38-126) U/L Total Protein 5.1 L (6.3-8.2) g/dL Albumin 2.6 L (3.5-5.0) g/dL 01/28/19 Range/Units 16:58 WBC (3.8-10.6) k/uL RBC (3.80-5.40) m/uL Hgb (11.4-16.0) gm/dL Hct (34.0-46.0) % Neutrophils # (1.3-7.7) k/uL Sodium (137-145) mmol/L Carbon Dioxide (22-30) mmol/L BUN (7-17) mg/dL Creatinine (0.52-1.04) mg/dL Glucose (74-99) mg/dL POC Glucose (mg/dL) 345 H (75-99) mg/dL Calcium (8.4-10.2) mg/dL ALT (9-52) U/L Alkaline Phosphatase (38-126) U/L Total Protein (6.3-8.2) g/dL Albumin (3.5-5.0) g/dL Microbiology - Last 24 Hours (Table) 01/26/19 06:03 Blood Culture Gram Stain - Final Blood Blood Culture - Final Enterococcus faecalis 01/27/19 05:49 Blood Culture Gram Stain - Preliminary Blood Blood Culture - Preliminary Group D Enterococcus 01/27/19 05:49 Blood Culture - Final Blood Assessment and Plan Assessment: Enterococcus bacteremia with sepsis -Continue with daptomycin -Infectious disease recommendations appreciated - consult vascular to asses AV graft -No source of bacteremia noted, bone scan with _ findingins near sternum, CT without definitive changes near sternum consistent with infection -Repeat blood cultures today, blood cultures still reporting back positive Diabetes mellitus type 2 with both hyper and hypoglycemia - Levemir - SSI - A1C 7.7 Acute kidney injury on Chronic kidney disease stage V, hyponatremia, and severe metabolic acidosis -Nephrology recommendations appreciated -Limit nephrotoxic agents as able -Follow BMP - D/W nephrology and okay for midline at discharge. Elevated troponin secondary to type II non-STEMI - Cardiology recommendations appreciated - [place] to be due to sepsis and ALANA not ACS Normocytic anemia - stable - suspect related to CKD - follow CBC Recent diagnosis of breast cancer -Need outpatient follow-up with Dr. Mason David for lumpectomy Transaminitis - improving - Hep Profile negative - Gallbladder US negative Chronic conditions: Coronary artery disease DVT prophylaxis: Heparin Discussed with: Patient, nursing, Dr. Taylor Anticipated discharge: 3-[address]: home with home health and infusions A total of 25 minutes was spent on the care of this complex patient more than 50% of the time was spent in counseling and care coordination.
[2019-01-28 20:24] LABS: Glucose,Whole Blood 371 mg/dL (75-99)
[2019-01-28] MEDS: LACTOBACILLUS ACIDOPH & BULGAR 1 EACH PACKET PO SCH (20:55)
[2019-01-28] MEDS ORDERED: INSULIN DETEMIR (LEVEMIR) 100 UNIT/ML SYR SQ SCH (21:00)
--- NOTE | 2019-01-28 23:44 | PN ---
PROGRESS NOTE DATE OF SERVICE: 01/28/2019. REASON FOR FOLLOWUP: Enterococcus faecalis bacteremia. INTERVAL HISTORY: The patient is currently afebrile. Patient has been breathing comfortably. The patient denies having any chest pain. Occasional cough. No nausea, vomiting. No abdominal pain. No diarrhea. Still has some chronic back pain, but no worsening recently. PHYSICAL EXAMINATION: Blood pressure 144/75 with a pulse of 66, temperature 98.2. She is 94% on room air. General description is an elderly female lying in bed in no distress. Respiratory system: Unlabored breathing. Clear to auscultation anteriorly. Heart S1, S2. Regular rate and rhythm. Abdomen soft. No tenderness. Extremities: No edema of the feet. LABS: Hemoglobin 8.5, white count 11.4, BUN of 54, creatinine 3.3. The blood cultures from yesterday are positive as well. DIAGNOSTIC IMPRESSION AND PLAN: Patient with Enterococcus faecalis bacteremia with concern for possible deep source in this patient. So far extensive workup has been negative. A CT abdominal and pelvis was negative. The UA was negative. The WBC scan did not show any promising source of infection as well. It is likely there are no signs of inflammation. could have been an MRI of the lumbosacral spine with contrast. However, Nephrology recommending against it because of her renal insufficiency. A CT abdominal and pelvis will be reviewed with radiologist to look at the for any suspicious change, which if there are any, MRI will be pursued for now. Blood cultures will be repeated. The patient will continue with ampicillin and Rocephin. Monitor clinical course closely. MMODL / IJN: [id number] /
[2019-01-29 02:02] LABS: Glucose,Whole Blood 162 mg/dL (75-99)
[2019-01-29] MEDS: INSULIN ASPART (NovoLOG) 100 UNIT/ML VIAL SQ SCH ×6 (06:08→20:36)
[2019-01-29 06:20] LABS: Basophils # (A) 0.1 k/uL (0-0.2); Basophils % (A) 1 %; Eosinophils # (A) 0.1 k/uL (0-0.7); Eosinophils % (A) 1 %; HCT 28.1 % (34.0-46.0); Lymphocytes # (A) 3.6 k/uL (1.0-4.8); Lymphocytes % (A) 28 %; MCH 30.5 pg (25.0-35.0); MCHC 32.1 g/dL (31.0-37.0); MCV 95.2 fL (80.0-100.0); Mean Platelet Volume 7.2; Monocytes # (A) 0.7 k/uL (0-1.0); Monocytes % (A) 5 %; Neutrophils # (A) 8.3 k/uL (1.3-7.7); Neutrophils % (A) 64 %; Platelet Count 376 k/uL (150-450); RBC 2.95 m/uL (3.80-5.40)
[2019-01-29 06:20] LABS: Glucose,Whole Blood 55 mg/dL (75-99)
[2019-01-29 06:24] LABS: Glucose,Whole Blood 77 mg/dL (75-99)
[2019-01-29] MEDS: AMPICILLIN 2,000 MG in SODIUM CHLORIDE 0.9% 100 ML IVPB SCH ×4 (06:28→23:07)
[2019-01-29] MEDS: CARVEDILOL 6.25 MG TAB PO SCH ×2 (06:28→18:19)
[2019-01-29] MEDS: IPRATROPIUM-ALBUTEROL 3 ML NEB INHALATION SCH ×4 (06:34→19:39)
[2019-01-29 06:39] LABS: Albumin 2.8 g/dL (3.5-5.0); Calcium 7.5 mg/dL (8.4-10.2); Potassium 4.5 mmol/L (3.5-5.1); Total Bilirubin 0.7 mg/dL (0.2-1.3); Total Protein 5.5 g/dL (6.3-8.2)
[2019-01-29] MEDS: amLODIPine 5 MG TAB PO SCH (09:29)
[2019-01-29] MEDS: PANTOPRAZOLE 40 MG TABLET PO SCH (09:29)
[2019-01-29] MEDS: HYDROcodone/APAP 10-325MG 1 EACH TAB PO PRN ×2 (09:29→18:19)
[2019-01-29] MEDS: predniSONE 10 MG TAB PO SCH (09:29)
[2019-01-29] MEDS: FUROSEMIDE 40 MG TAB PO SCH (09:29)
[2019-01-29] MEDS: guaiFENesin 600 MG TABLET.ER PO SCH ×2 (09:29→20:37)
[2019-01-29] MEDS: LORATADINE 10 MG TAB PO SCH (09:29)
[2019-01-29] MEDS: LACTOBACILLUS ACIDOPH & BULGAR 1 EACH PACKET PO SCH ×3 (09:30→20:37)
[2019-01-29] MEDS: SODIUM BICARBONATE TAB 650 MG TAB PO SCH ×2 (09:30→20:37)
[2019-01-29] MEDS: HEPARIN SODIUM,PORCINE 5,000 UNIT/ML 1 ML VIAL SQ SCH ×3 (09:30→23:07)
[2019-01-29] MEDS ORDERED: FUROSEMIDE 10 MG/ML 4 ML VIAL IV STA (10:42)
[2019-01-29 11:50] LABS: Glucose,Whole Blood 150 mg/dL (75-99)
--- NOTE | 2019-01-29 17:12 | P.PN ---
Subjective Progress Note Date: 01/29/19 (Delayed charting seen at 1015) Principal diagnosis: confusion and weakness Patient is a 68-year-old female with a past medical history of type 2 diabetes mellitus, hypertension, dyslipidemia, coronary artery disease with history of 5 vessel CABG, and chronic kidney disease disease stage IV previously on hemodialysis through a left upper extremity AV graft was transferred here from [facility] due to confusion and weakness. The ER there she was found to have possible J-point elevation in V1 and V2 associated with a mildly elevated troponin. She was transferred here for cardiac evaluation. Initial troponin was elevated at 1.052, sodium was 131, white blood cell count 12.34, creatinine 4.2, chest x-ray showed prominent pulmonary interstitium. CT of the head showed bilateral frontal hygromas with age-related atrophy. On arrival here and there was concern for possible pulmonary embolism and the patient was started on a heparin drip and a VQ scan was ordered, which ultimately came back negative. Due to her leukocytosis she was started on empiric antibiotics with IV Zosyn along with DuoNeb. Nephrology was consulted. Her vancomycin was discontinued and she was started on Zyvox due to her worsening renal function. Cardiology felt her elevated troponin was secondary to sepsis. She was also found to have elevated liver enzymes and acute hepatitis panel was negative. She was also seen by critical care. She was seen by ID and subsequently started on daptomycin. Blood cultures came back positive for enterococcus. TTE EEG showed a thickened aortic valve but no signs of vegetation. She underwent CT abdomen and pelvis which was essentially normal. CT abdomen and pelvis demonstrated fluid overload state with periportal edema as well as COPD and an atrophic pancreas. Her blood cultures remained positive infectious disease requested a BORIS. She did develop some hypoglycemia requiring a D10 drip. She had received Levemir but had decreased oral intake. levemir restarted at lower dose once sugars began to elevate.Latesha remained persistently bacteremic. Underwent nuclear medicine bone scan that showed infection/inflammation near the sternum. Chest CT did not demonstrate any sternal osteomyelitis but did show some emphysema and b/l pleural effusions. Patient seen and examined at bedside. No chest pain, sob, nuasea, or vomiting. Stool is becoming more formed. Frustrated with lac of improvement in bacteremia. AV graft placed by Dr. Verito Wong out of [place] Objective - Vital Signs Vital signs: Vital Signs Temp 97.6 F 01/29/19 08:30 Pulse 65 01/29/19 11:05 Resp 16 01/29/19 11:05 BP 168/69 01/29/19 11:05 Pulse Ox 94 L 01/29/19 11:05 Intake & Output 01/28/19 01/29/19 01/29/19 18:59 06:59 18:59 Intake Total 720 100 770 Balance 720 100 770 Weight 68.1 kg Intake: Intake, IV Titration 50 Amount cefTRIAXone 2 gm In 50 Sodium Chloride 0.9% 50 ml @ 100 mls/hr IVPB Q12HR [facility] Rx#:[id number] Oral 720 100 720 Other: Voiding Method Toilet Toilet Toilet # Voids 2 1 - Exam General: Ill appearing, no acute distress, appears at stated age Derm: Multiple areas of ecchymoses, warm, dry Head: atraumatic, normocephalic, symmetric Eyes: EOMI, no lid lag, anicteric sclera Mouth: no lip lesion, mucus membranes moist Cardiovascular: S1S2 reg, no murmur, positive posterior tibial pulse bilateral, Lungs: Ronchi that clear with cough bilateral , no accessory muscle use Abdominal: soft, nontender to palpation, no guarding, no appreciable organomegaly Ext: no gross muscle atrophy, Trace extremity edema, no contractures Neuro: CN II-XI grossly intact, no focal neuro deficits Psych: Alert, oriented, appropriate affect - Labs CBC & Chem 7: 01/29/19 05:53 01/29/19 05:53 Labs: Abnormal Lab Results - Last 24 Hours (Table) 01/28/19 01/28/19 01/29/19 Range/Units 16:58 20:20 01:59 WBC (3.8-10.6) k/uL RBC (3.80-5.40) m/uL Hgb (11.4-16.0) gm/dL Hct (34.0-46.0) % Neutrophils # (1.3-7.7) k/uL Sodium (137-145) mmol/L Carbon Dioxide (22-30) mmol/L BUN (7-17) mg/dL Creatinine (0.52-1.04) mg/dL Glucose (74-99) mg/dL POC Glucose (mg/dL) 345 H 371 H 162 H (75-99) mg/dL Calcium (8.4-10.2) mg/dL ALT (9-52) U/L Alkaline Phosphatase (38-126) U/L Total Protein (6.3-8.2) g/dL Albumin (3.5-5.0) g/dL 01/29/19 01/29/19 01/29/19 Range/Units 05:53 05:53 06:05 WBC 13.0 H (3.8-10.6) k/uL RBC 2.95 L (3.80-5.40) m/uL Hgb 9.0 L (11.4-16.0) gm/dL Hct 28.1 L (34.0-46.0) % Neutrophils # 8.3 H (1.3-7.7) k/uL Sodium 132 L (137-145) mmol/L Carbon Dioxide 18 L (22-30) mmol/L BUN 58 H (7-17) mg/dL Creatinine 3.27 H (0.52-1.04) mg/dL Glucose 45 L* (74-99) mg/dL POC Glucose (mg/dL) 55 L (75-99) mg/dL Calcium 7.5 L (8.4-10.2) mg/dL ALT 71 H (9-52) U/L Alkaline Phosphatase 258 H (38-126) U/L Total Protein 5.5 L (6.3-8.2) g/dL Albumin 2.8 L (3.5-5.0) g/dL 01/29/19 Range/Units 11:44 WBC (3.8-10.6) k/uL RBC (3.80-5.40) m/uL Hgb (11.4-16.0) gm/dL Hct (34.0-46.0) % Neutrophils # (1.3-7.7) k/uL Sodium (137-145) mmol/L Carbon Dioxide (22-30) mmol/L BUN (7-17) mg/dL Creatinine (0.52-1.04) mg/dL Glucose (74-99) mg/dL POC Glucose (mg/dL) 150 H (75-99) mg/dL Calcium (8.4-10.2) mg/dL ALT (9-52) U/L Alkaline Phosphatase (38-126) U/L Total Protein (6.3-8.2) g/dL Albumin (3.5-5.0) g/dL Microbiology - Last 24 Hours (Table) 01/27/19 05:49 Blood Culture Gram Stain - Final Blood Blood Culture - Final Enterococcus faecalis 01/28/19 15:38 Blood Culture Gram Stain - Preliminary Blood 01/28/19 15:38 Blood Culture - Final Blood 01/26/19 06:03 Blood Culture Gram Stain - Final Blood Blood Culture - Final Enterococcus faecalis Assessment and Plan Assessment: Enterococcus bacteremia with sepsis -Continue on ampicillin and rocephin, -Infectious disease recommendations appreciated. D/W ID and radiology. Not initially report on WBC scan but there is so asymmetric uptake in the LUE. -D/W Vascular surgery Graft not grossly infected, could be seeded placed by Verito Wong out of [place] -No source of bacteremia noted, WBC scan noted increased uptake near sternum, CT without definitive changes near sternum consistent with infection -Repeat blood cultures today, blood cultures still remain positive Diabetes mellitus type 2 with both hyper and hypoglycemia - Levemir decreased, fixed dose 2 units at lunch and dinner - SSI - A1C 7.7 Acute kidney injury on Chronic kidney disease stage V, hyponatremia, and severe metabolic acidosis -Nephrology recommendations appreciated -Limit nephrotoxic agents as able, on lasix -Follow BMP - D/W nephrology and okay for midline at discharge. Elevated troponin secondary to type II non-STEMI - Cardiology recommendations appreciated - [place] to be due to sepsis and ALANA not ACS Normocytic anemia - stable - suspect related to CKD - follow CBC Recent diagnosis of breast cancer -Need outpatient follow-up with Dr. Mason David for lumpectomy Transaminitis - improving - Hep Profile negative - Gallbladder US negative Chronic conditions: Coronary artery disease DVT prophylaxis: Heparin Discussed with: Patient, nursing, Dr. Frank, Dr. Gray, Dr. Chapin Anticipated discharge: 3-[address]: home with home health and infusions A total of 45 minutes was spent on the care of this complex patient more than 50% of the time was spent in counseling and care coordination.
[2019-01-29 17:30] LABS: Glucose,Whole Blood 297 mg/dL (75-99)
--- NOTE | 2019-01-29 19:33 | PN ---
PROGRESS NOTE DATE OF SERVICE: 01/29/2019 REASON FOR FOLLOWUP: Enterococcus faecalis bacteremia. INTERVAL HISTORY: The patient is currently afebrile. The patient has been breathing comfortably. The patient denies having any chest pain or cough. No nausea, no vomiting. No abdominal pain. No pain to the left arm AV fistula site and no worsening back pain. PHYSICAL EXAMINATION: Blood pressure is 158/69 with a pulse of 55, temperature 97.6. She is 94% on room air. General description is an elderly female up in the chair in no distress. RESPIRATORY SYSTEM: Unlabored breathing with decreased breath sounds at the base. No wheeze. HEART: S1, S2. Regular rate and rhythm. ABDOMEN: Soft. No tenderness. EXTREMITIES: No edema of the feet. Left arm AV fistula site looks clean with no swelling, no redness, no tenderness. LABS: Hemoglobin is 9, white count 13, BUN of 58, creatinine 3.27. DIAGNOSTIC IMPRESSION AND PLAN: Patient with Enterococcus faecalis bacteremia, persistent, likely indicating a deep source. The patient did have an extensive workup, including a BORIS that was negative for vegetation. The patient's CT scan of abdomen and pelvis was reviewed with Dr. Chapin. No evidence of any inflammation to account for this bacteremia. The bone windows were reviewed. The patient did have extensive hardware in her L4, L5, S1 spine from the fusion, but there was no significant edema around it to be suspicious for an abscess. The patient did have a WBC scan which lighted up at the sternum and subsequently the patient did have a CT of the chest without contrast; there was no evidence of any diskitis, though the patient did have hardware from her previous bypass surgery. At this point, the patient to continue with ampicillin and Rocephin. A tagged WBC scan has been discussed with the admitting physician, which is different from what we have already ordered and may be of value. Total time spent reviewing her images with the radiologist and overall care today was 35 minutes. MMODL / IJN: [id number] /
[2019-01-29 20:29] LABS: Glucose,Whole Blood 374 mg/dL (75-99)
--- NOTE | 2019-01-29 20:57 | PN ---
PROGRESS NOTE Patient is seen for followup for acute kidney injury on top of chronic kidney disease. Currently patient is lying in bed. She denies any significant complaints. She continues to have edema, upper and lower extremities. She is not short of breath. Blood pressure is 168/69, heart rate 65 per minute. She is afebrile. EXAMINATION OF THE HEART: S1 and S2. EXAMINATION OF LUNGS: Bilateral breath sounds are heard. ABDOMEN: Soft, non-tender. Examination of lower extremities shows edema 1+ bilaterally, upper and lower extremities. Labs show sodium 132, potassium 4.5, chloride 101, CO2 18, BUN 58, serum creatinine 3.27. ASSESSMENT: 1. Acute kidney injury, acute tubular necrosis secondary to underlying sepsis, nonoliguric. Renal function fairly stable. 2. History of dialysis-dependent renal failure in March 2018 with a left upper extremity AV graft. 3. Chronic kidney disease, stage IV to V, most likely diabetic kidney disease. Creatinine was 2.6 in August of 2015, currently staying more at 3.5 to 4 mg/dL. 4. Enterococcus bacteremia, maintained on IV antibiotics. Bacteremia is persistent. BORIS showed no evidence of vegetation. 5. Volume overload. I will add IV Lasix. PLAN: Change Lasix to IV. Repeat labs in a.m. Continue antibiotics. Continue with the sodium bicarb for now. MMODL / IJN: [id number] /
[2019-01-29] MEDS ORDERED: INSULIN DETEMIR (LEVEMIR) 100 UNIT/ML SYR SQ SCH (21:00)
[2019-01-29 21:15] LABS: Glucose,Whole Blood 350 mg/dL (75-99)
--- NOTE | 2019-01-29 22:27 | CONS ---
CONSULTATION This is a 68-year-old female patient who has a history of chronic renal failure. Patient was on dialysis. She stopped doing dialysis since May. Patient was going for dialysis at [facility]. This patient had a fistula placed in the left forearm in [place] which did not work. Then she went to [facility], where she was seen by Dr. Guerra and she had an upper arm [place]-Dar[place] graft placed. Recently patient is not on dialysis. Patient has a blood culture positive for Enterococcus faecalis bacteremia. Patient has had an extensive workup of the body and found to have a CT scan of the abdomen and pelvis that was negative. Urinalysis was negative. I was consulted for evaluation of the fistula, possibly the source of bacteremia. The patient has not used her graft for a long time. On examination, the patient has a [place]-Dar[place] graft, upper arm. There is no sign of infection, inflammation or any tenderness noted. Her brachial and radial pulses are present. Patient is under the care of Infectious Disease. PHYSICAL EXAMINATION: Patient was seen in her room, lying comfortably in bed. NECK: Supple. Trachea central. CHEST: Clear to auscultation. ABDOMEN: Soft. Patient has a fistula in her left upper arm which has no sign of infection. No tenderness noted. No redness noted. PLAN: I will wait for another blood culture and I will discuss with Infectious Disease and follow up with you. MMODL / IJN: [id number] /
[2019-01-30 02:29] LABS: Glucose,Whole Blood 151 mg/dL (75-99)
[2019-01-30 06:10] LABS: Glucose,Whole Blood 80 mg/dL (75-99)
[2019-01-30] MEDS: HYDROcodone/APAP 10-325MG 1 EACH TAB PO PRN ×3 (06:15→18:12)
[2019-01-30] MEDS: AMPICILLIN 2,000 MG in SODIUM CHLORIDE 0.9% 100 ML IVPB SCH ×4 (06:15→23:15)
[2019-01-30] MEDS: CARVEDILOL 6.25 MG TAB PO SCH ×2 (06:15→18:13)
[2019-01-30] MEDS: INSULIN ASPART (NovoLOG) 100 UNIT/ML VIAL SQ SCH ×6 (06:29→20:21)
[2019-01-30 06:39] LABS: Basophils # (A) 0.1 k/uL (0-0.2); Basophils % (A) 1 %; Eosinophils # (A) 0.2 k/uL (0-0.7); Eosinophils % (A) 1 %; HCT 26.3 % (34.0-46.0); HGB 8.6 gm/dL (11.4-16.0); Lymphocytes # (A) 4.1 k/uL (1.0-4.8); Lymphocytes % (A) 27 %; MCH 31.3 pg (25.0-35.0); MCHC 32.7 g/dL (31.0-37.0); MCV 95.9 fL (80.0-100.0); Mean Platelet Volume 7.2; Monocytes # (A) 0.7 k/uL (0-1.0); Monocytes % (A) 4 %; Neutrophils # (A) 9.8 k/uL (1.3-7.7); Neutrophils % (A) 65 %; Platelet Count 393 k/uL (150-450); RBC 2.74 m/uL (3.80-5.40); RDW 15.1 % (11.5-15.5)
[2019-01-30 06:56] LABS: Albumin 2.9 g/dL (3.5-5.0); Calcium 7.4 mg/dL (8.4-10.2); Potassium 4.7 mmol/L (3.5-5.1); Total Bilirubin 0.7 mg/dL (0.2-1.3); Total Protein 5.6 g/dL (6.3-8.2)
[2019-01-30] MEDS: IPRATROPIUM-ALBUTEROL 3 ML NEB INHALATION SCH ×4 (07:53→19:37)
[2019-01-30] MEDS: SODIUM BICARBONATE TAB 650 MG TAB PO SCH ×2 (09:16→20:20)
[2019-01-30] MEDS: amLODIPine 5 MG TAB PO SCH (09:16)
[2019-01-30] MEDS: PANTOPRAZOLE 40 MG TABLET PO SCH (09:16)
[2019-01-30] MEDS: LORATADINE 10 MG TAB PO SCH (09:16)
[2019-01-30] MEDS: guaiFENesin 600 MG TABLET.ER PO SCH ×2 (09:16→20:20)
[2019-01-30] MEDS: HEPARIN SODIUM,PORCINE 5,000 UNIT/ML 1 ML VIAL SQ SCH ×3 (09:17→23:15)
--- NOTE | 2019-01-30 09:22 | PN ---
PROGRESS NOTE 68-year-old female patient has history of chronic renal failure. The patient had a left upper arm [place]-Darryn graft placed at [facility] in the past. The patient was having dialysis and she has not been on dialysis since May. Patient has a positive blood culture with Enterococcus and the patient had extensive workup including CT scan, which was negative and the patient had a WBC scan, noted increased uptake near the sternum and CT without contrast different changes near the sternum consistent with infection. Left upper arm, forearm graft is patent. There is no sign of redness, tenderness, or any sign of infection noted. Discussed with the hospitalist Infectious Disease. Follow with you. MMODL / IJN: [id number] /
--- NOTE | 2019-01-30 09:48 | P.PN ---
Subjective Progress Note Date: 01/30/19 Principal diagnosis: This is 68-year-old female with acute kidney injury and chronic kidney disease. She has had recurrent and o'clock and bacteremia and an extensive workup has not been able to localize the source of infection. In the past she was on dialysis for 3 years came off dialysis approximately March 2018. The graft looks normal on the left upper arm but she has had other hardware. A BORIS was negative. Denies any fever chills feels fairly well no nausea vomiting diarrhea abdominal pain she does have mild cough. No shortness of breath. History of present illness; She initially presented to [facility] with fever and confusion. S She is known with history of carcinoma of the breast recently diagnosed. No therapy has been started she is also known with coronary artery disease bypass graft COPD diabetes. Objective - Vital Signs Vital signs: Vital Signs Temp 98.5 F 01/30/19 03:20 Pulse 72 01/30/19 03:20 Resp 18 01/30/19 03:20 BP 165/74 01/30/19 03:20 Pulse Ox 96 01/30/19 03:20 Intake & Output 01/29/19 01/30/19 01/30/19 18:59 06:59 18:59 Intake Total 1130 360 Balance 1130 360 Intake: Intake, IV Titration 50 Amount cefTRIAXone 2 gm In 50 Sodium Chloride 0.9% 50 ml @ 100 mls/hr IVPB Q12HR [facility] Rx#:[id number] Oral 1080 360 Other: Voiding Method Toilet Toilet On examination is awake alert oriented comfortable HEENT exam no JVP neck is supple no facial asymmetry Lungs are clear to auscultation with good air entry bilaterally Heart sounds are unremarkable for any murmur rub gallop Abdomen soft nontender no organomegaly ascites masses Extremity exam reveals trace edema Neurologically awake alert oriented The graft in the left upper arm is clean without any tenderness - Labs CBC & Chem 7: 01/30/19 06:11 01/30/19 06:11 Labs: Abnormal Lab Results - Last 24 Hours (Table) 01/29/19 01/29/19 01/29/19 Range/Units 11:44 17:20 20:27 WBC (3.8-10.6) k/uL RBC (3.80-5.40) m/uL Hgb (11.4-16.0) gm/dL Hct (34.0-46.0) % Neutrophils # (1.3-7.7) k/uL Sodium (137-145) mmol/L Carbon Dioxide (22-30) mmol/L BUN (7-17) mg/dL Creatinine (0.52-1.04) mg/dL POC Glucose (mg/dL) 150 H 297 H 374 H (75-99) mg/dL Calcium (8.4-10.2) mg/dL ALT (9-52) U/L Alkaline Phosphatase (38-126) U/L Total Protein (6.3-8.2) g/dL Albumin (3.5-5.0) g/dL 01/29/19 01/30/19 01/30/19 Range/Units 20:55 02:16 06:11 WBC 15.0 H (3.8-10.6) k/uL RBC 2.74 L (3.80-5.40) m/uL Hgb 8.6 L (11.4-16.0) gm/dL Hct 26.3 L (34.0-46.0) % Neutrophils # 9.8 H (1.3-7.7) k/uL Sodium (137-145) mmol/L Carbon Dioxide (22-30) mmol/L BUN (7-17) mg/dL Creatinine (0.52-1.04) mg/dL POC Glucose (mg/dL) 350 H 151 H (75-99) mg/dL Calcium (8.4-10.2) mg/dL ALT (9-52) U/L Alkaline Phosphatase (38-126) U/L Total Protein (6.3-8.2) g/dL Albumin (3.5-5.0) g/dL 01/30/19 Range/Units 06:11 WBC (3.8-10.6) k/uL RBC (3.80-5.40) m/uL Hgb (11.4-16.0) gm/dL Hct (34.0-46.0) % Neutrophils # (1.3-7.7) k/uL Sodium 130 L (137-145) mmol/L Carbon Dioxide 19 L (22-30) mmol/L BUN 63 H (7-17) mg/dL Creatinine 3.11 H (0.52-1.04) mg/dL POC Glucose (mg/dL) (75-99) mg/dL Calcium 7.4 L (8.4-10.2) mg/dL ALT 64 H (9-52) U/L Alkaline Phosphatase 268 H (38-126) U/L Total Protein 5.6 L (6.3-8.2) g/dL Albumin 2.9 L (3.5-5.0) g/dL Microbiology - Last 24 Hours (Table) 01/29/19 05:53 Blood Culture Gram Stain - Preliminary Blood Blood Culture - Preliminary Group D Enterococcus 01/29/19 05:53 Blood Culture - Final Blood 01/28/19 15:38 Blood Culture Gram Stain - Preliminary Blood Blood Culture - Preliminary Group D Enterococcus 01/27/19 05:49 Blood Culture Gram Stain - Final Blood Blood Culture - Final Enterococcus faecalis 01/28/19 15:38 Blood Culture - Final Blood Assessment and Plan Assessment: Impression 1. Acute kidney injury likely from sepsis. Slowly improving creatinine, from a peak of 4.15 on 01/05/2019 to 3.1 this morning 2. Persistent Enterococcal bacteremia. Extensive workup shows a nuclear medicine white cell scan showing some activity in the sternal area. Computed tomography scan is unremarkable.Dialysis access graft In the left upper arm is clear but needs to be considered as possible source 3. Chronic kidney disease, stage V, previous creatinine available to me from our own medical records from the office is 2.6 on 09/09/2015. History of coming off of dialysis in March 2018 after being on dialysis for 3 years. Etiology likely nephrosclerosis 4. Hyponatremia secondary to acute kidney injury. Additionally excessive free water 5. Non-gap Metabolic acidosis secondary to acute kidney injury and chronic kidney disease. Bicarb is 19, on sodium bicarb. 6. History of CA breast recently diagnosed 2 months ago 7. History of coronary artery bypass graft. 8. Anemia of chronic kidney disease, 9. iron deficiency and saturation is 9.5% dated 01/23/2019 Recommendation 1. Continue monitoring renal function every other day. 2. Watch bicarb 3. Start oral iron sulfate 324 mg twice a day. Avoid any IV iron because of the persistent bacteremia
[2019-01-30 12:16] LABS: Glucose,Whole Blood 139 mg/dL (75-99)
[2019-01-30] MEDS: LACTOBACILLUS ACIDOPH & BULGAR 1 EACH PACKET PO SCH ×3 (12:22→20:20)
[2019-01-30] MEDS: FUROSEMIDE 40 MG TAB PO SCH (12:22)
[2019-01-30] MEDS ORDERED: ALPRAZolam 0.5 MG TAB PO PRN (13:59)
--- NOTE | 2019-01-30 15:02 | P.PN ---
Subjective Progress Note Date: 01/30/19 (delayed charting) Principal diagnosis: confusion and weakness Patient is a 68-year-old female with a past medical history of type 2 diabetes mellitus, hypertension, dyslipidemia, coronary artery disease with history of 5 vessel CABG, and chronic kidney disease disease stage IV previously on hemodialysis through a left upper extremity AV graft was transferred here [facility] due to confusion and weakness. The ER there she was found to have possible J-point elevation in V1 and V2 associated with a mildly elevated troponin. She was transferred here for cardiac evaluation. Initial troponin was elevated at 1.052, sodium was 131, white blood cell count 12.34, creatinine 4.2, chest x-ray showed prominent pulmonary interstitium. CT of the head showed bilateral frontal hygromas with age-related atrophy. On arrival here and there was concern for possible pulmonary embolism and the patient was started on a heparin drip and a VQ scan was ordered, which ultimately came back negative. Due to her leukocytosis she was started on empiric antibiotics with IV Zosyn along with DuoNeb. Nephrology was consulted. Her vancomycin was discontinued and she was started on Zyvox due to her worsening renal function. Cardiology felt her elevated troponin was secondary to sepsis. She was also found to have elevated liver enzymes and acute hepatitis panel was negative. She was also seen by critical care. She was seen by ID and subsequently started on daptomycin. Blood cultures came back positive for enterococcus. TTE EEG showed a thickened aortic valve but no signs of vegetation. She underwent CT abdomen and pelvis which was essentially normal. CT abdomen and pelvis demonstrated fluid overload state with periportal edema as well as COPD and an atrophic pancreas. Her blood cultures remained positive infectious disease requested a BORIS. She did develop some hypoglycemia requiring a D10 drip. She had received Levemir but had decreased oral intake. levemir restarted at lower dose once sugars began to elevate. Latesha remained persistently bacteremic. Underwent nuclear medicine bone scan that showed infection/inflammation near the sternum. Chest CT did not demonstrate any sternal osteomyelitis but did show some emphysema and b/l pleural effusions. She remained persistently bacteremic after cultures obtained on 01/29. Patient seen and examined at bedside. Feeling very anxious and frustrated today. No chest pain, no shortness breath, no nausea, no vomiting, still having loose stools. Objective - Vital Signs Vital signs: Vital Signs Temp 98.0 F 01/30/19 09:15 Pulse 73 01/30/19 09:15 Resp 18 01/30/19 09:15 BP 147/65 01/30/19 09:15 Pulse Ox 95 01/30/19 09:15 Intake & Output 01/29/19 01/30/19 01/30/19 18:59 06:59 18:59 Intake Total 1130 600 Balance 1130 600 Intake: Intake, IV Titration 50 Amount cefTRIAXone 2 gm In 50 Sodium Chloride 0.9% 50 ml @ 100 mls/hr IVPB Q12HR [facility] Rx#:[id number] Oral 1080 600 Other: Voiding Method Toilet Toilet Toilet # Voids 1 - Exam General: Ill appearing, no acute distress, appears at stated age Derm: Multiple areas of ecchymoses, warm, dry Head: atraumatic, normocephalic, symmetric Eyes: EOMI, no lid lag, anicteric sclera Mouth: no lip lesion, mucus membranes moist Cardiovascular: S1S2 reg, no murmur, positive posterior tibial pulse bilateral, Lungs: Ronchi that clear with cough bilateral , no accessory muscle use Abdominal: soft, nontender to palpation, no guarding, no appreciable organomegaly Ext: no gross muscle atrophy, Trace extremity edema, no contractures Neuro: CN II-XI grossly intact, no focal neuro deficits Psych: Alert, oriented, appropriate affect - Labs CBC & Chem 7: 01/30/19 06:11 01/30/19 06:11 Labs: Abnormal Lab Results - Last 24 Hours (Table) 01/29/19 01/29/19 01/29/19 Range/Units 17:20 20:27 20:55 WBC (3.8-10.6) k/uL RBC (3.80-5.40) m/uL Hgb (11.4-16.0) gm/dL Hct (34.0-46.0) % Neutrophils # (1.3-7.7) k/uL Sodium (137-145) mmol/L Carbon Dioxide (22-30) mmol/L BUN (7-17) mg/dL Creatinine (0.52-1.04) mg/dL POC Glucose (mg/dL) 297 H 374 H 350 H (75-99) mg/dL Calcium (8.4-10.2) mg/dL ALT (9-52) U/L Alkaline Phosphatase (38-126) U/L Total Protein (6.3-8.2) g/dL Albumin (3.5-5.0) g/dL 01/30/19 01/30/19 01/30/19 Range/Units 02:16 06:11 06:11 WBC 15.0 H (3.8-10.6) k/uL RBC 2.74 L (3.80-5.40) m/uL Hgb 8.6 L (11.4-16.0) gm/dL Hct 26.3 L (34.0-46.0) % Neutrophils # 9.8 H (1.3-7.7) k/uL Sodium 130 L (137-145) mmol/L Carbon Dioxide 19 L (22-30) mmol/L BUN 63 H (7-17) mg/dL Creatinine 3.11 H (0.52-1.04) mg/dL POC Glucose (mg/dL) 151 H (75-99) mg/dL Calcium 7.4 L (8.4-10.2) mg/dL ALT 64 H (9-52) U/L Alkaline Phosphatase 268 H (38-126) U/L Total Protein 5.6 L (6.3-8.2) g/dL Albumin 2.9 L (3.5-5.0) g/dL 01/30/19 Range/Units 12:14 WBC (3.8-10.6) k/uL RBC (3.80-5.40) m/uL Hgb (11.4-16.0) gm/dL Hct (34.0-46.0) % Neutrophils # (1.3-7.7) k/uL Sodium (137-145) mmol/L Carbon Dioxide (22-30) mmol/L BUN (7-17) mg/dL Creatinine (0.52-1.04) mg/dL POC Glucose (mg/dL) 139 H (75-99) mg/dL Calcium (8.4-10.2) mg/dL ALT (9-52) U/L Alkaline Phosphatase (38-126) U/L Total Protein (6.3-8.2) g/dL Albumin (3.5-5.0) g/dL Microbiology - Last 24 Hours (Table) 01/29/19 05:53 Blood Culture Gram Stain - Preliminary Blood Blood Culture - Preliminary Group D Enterococcus 01/27/19 05:49 Blood Culture Gram Stain - Final Blood Blood Culture - Final Enterococcus faecalis 01/29/19 05:53 Blood Culture - Final Blood 01/28/19 15:38 Blood Culture Gram Stain - Preliminary Blood Blood Culture - Preliminary Group D Enterococcus 01/28/19 15:38 Blood Culture - Final Blood Assessment and Plan Assessment: Enterococcus bacteremia with sepsis -Continue on ampicillin and rocephin, -Not initially report on WBC scan but there is so asymmetric uptake in the LUE. D/W nephrology 01/30 and recommends removal of graft as bacteremia likely not clear on left graft removed. Discussed with her prior vascular surgeon Dr. Verito Wong. She does not want to transfer the patient to her service in order to perform the surgery. She suggests having a surgeon here and evaluate the patient. Discussed with Dr. Frank -Infectious disease recommendations -Repeat blood cultures today, blood cultures still remain positive Diabetes mellitus type 2 with both hyper and hypoglycemia - Levemir decreased, fixed dose 2 units at lunch and dinner - SSI - A1C 7.7 Acute kidney injury on Chronic kidney disease stage V, hyponatremia, and severe metabolic acidosis -Nephrology recommendations appreciated -Limit nephrotoxic agents as able, on lasix -Follow BMP - D/W nephrology and okay for midline at discharge. Elevated troponin secondary to type II non-STEMI - Cardiology recommendations appreciated - [place] to be due to sepsis and ALANA not ACS Normocytic anemia - stable - suspect related to CKD - follow CBC Recent diagnosis of breast cancer -Need outpatient follow-up with Dr. Mason David for lumpectomy Transaminitis - improving - Hep Profile negative - Gallbladder US negative Chronic conditions: Coronary artery disease DVT prophylaxis: Heparin Discussed with: Patient, nursing, Dr. Frank, Dr. brooks Anticipated discharge: 4-[address]: home with home health and infusions A total of 45 minutes was spent on the care of this complex patient more than 50% of the time was spent in counseling and care coordination.
[2019-01-30 17:00] LABS: Glucose,Whole Blood 101 mg/dL (75-99)
[2019-01-30] MEDS: FERROUS SULFATE 325 MG TAB PO SCH (18:13)
[2019-01-30 20:02] LABS: Glucose,Whole Blood 185 mg/dL (75-99)
[2019-01-30] MEDS ORDERED: INSULIN DETEMIR (LEVEMIR) 100 UNIT/ML SYR SQ SCH (21:00)
[2019-01-31 00:04] LABS: Glucose,Whole Blood 66 mg/dL (75-99)
[2019-01-31 00:10] LABS: Glucose,Whole Blood 112 mg/dL (75-99)
--- NOTE | 2019-01-31 00:10 | P.PN ---
Progress Note - Text Progress Note Date: 01/31/19 Patient had an episode of bright red blood per rectum with a bowel movement. She felt dizzy and weak and according to the nursing staff her blood pressure dropped to the 80s systolic. When I came up to see her blood pressure has already normalized to 120s over 80s. No tachycardia. Patient is feeling okay, no chest pain or shortness of breath, no dizziness. She is lying in bed comfortably. Plan Check stat CBC, CMP, INR DC subcu heparin Transfuse if hemoglobin below 8
[2019-01-31 00:23] LABS: INR 1.2 (<1.2)
[2019-01-31 00:24] LABS: Partial Thromboplastin Time 37.6 sec (22.0-30.0); Prothrombin Time 12.6 sec (9.0-12.0)
[2019-01-31 00:25] LABS: Anisocytosis Slight; Basophils # (A) 0.1 k/uL (0-0.2); Basophils % (A) 1 %; Eosinophils # (A) 0.2 k/uL (0-0.7); Eosinophils % (A) 2 %; Hypochromasia Slight; Lymphocytes # (A) 3.2 k/uL (1.0-4.8); Lymphocytes % (A) 24 %; MCH 29.3 pg (25.0-35.0); MCHC 30.3 g/dL (31.0-37.0); MCV 96.5 fL (80.0-100.0); Mean Platelet Volume 7.9; Monocytes # (A) 0.4 k/uL (0-1.0); Monocytes % (A) 3 %; Neutrophils # (A) 9.2 k/uL (1.3-7.7); Neutrophils % (A) 69 %; Platelet Count 286 k/uL (150-450); RBC 1.63 m/uL (3.80-5.40); RDW 16.1 % (11.5-15.5); WBC 13.4 k/uL (3.8-10.6)
[2019-01-31 00:35] LABS: Calcium 6.5 mg/dL (8.4-10.2); Magnesium 1.2 mg/dL (1.6-2.3); Potassium 4.4 mmol/L (3.5-5.1)
[2019-01-31 00:38] LABS: HCT 15.8 % (34.0-46.0); HGB 4.8 gm/dL (11.4-16.0)
[2019-01-31] MEDS ORDERED: FUROSEMIDE 10 MG/ML 4 ML VIAL IV PRN (01:16)
[2019-01-31 01:34] LABS: Glucose,Whole Blood 94 mg/dL (75-99)
[2019-01-31] MEDS: PANTOPRAZOLE 40 MG/10 ML VIAL IVP SCH ×2 (01:37→10:17)
[2019-01-31 02:15] LABS: Glucose,Whole Blood 80 mg/dL (75-99)
[2019-01-31] MEDS ORDERED: NALOXONE 0.4 MG/ML 1 ML VIAL IV PRN (06:16)
--- NOTE | 2019-01-31 06:36 | XR ---
EXAMINATION TYPE: XR chest 1V DATE OF EXAM: 01/31/2019 HISTORY: SOB. REFERENCE: Previous study dated 01/23/2019. FINDINGS: There has been a midline sternotomy. Heart size upper limits of normal. There has been inte rval development of some left basilar airspace disease. A small left effusion. IMPRESSION: 1. INTERVAL DEVELOPMENT OF LEFT BASILAR AIRSPACE DISEASE. 2. SMALL LEFT EFFUSION.
[2019-01-31] MEDS: AMPICILLIN 2,000 MG in SODIUM CHLORIDE 0.9% 100 ML IVPB SCH (07:20)
[2019-01-31 07:31] LABS: Glucose,Whole Blood 95 mg/dL (75-99)
[2019-01-31] MEDS: IPRATROPIUM-ALBUTEROL 3 ML NEB INHALATION SCH ×2 (07:59→11:46)
--- NOTE | 2019-01-31 08:14 | PN ---
PROGRESS NOTE DATE OF SERVICE: January 31, 2019 This is a 68-year-old female who was actually admitted back on January 22. We saw her last on January 26. She was stable and we signed off her case. Apparently yesterday, she developed a GI bleed. She had maroon stools and maroon clots. She had a hemoglobin of 4.8 and her blood pressure was quite low at about 82 mmHg. An A team was called. Initially, she seemed relatively stable, but subsequently, deteriorated further and we moved her back to the ICU. The patient is comfortable right now. She is receiving 2 units of PRBCs. She is on nasal O2 at 2 L. She is getting IV of 0.9 at 10 mL an hour. I did speak to Chato last night a couple times. The plan was to give her fluids initially if she was hypotensive. She was never hypotensive here in the ICU. She did not require any pressors either. I will repeat her hemoglobin after 2 units of blood. She denies having a previous episode of gastrointestinal bleed. Other than that, she is doing relatively well other than for some back pain. Her previous assessments included acute sepsis secondary to enterococcus bacteremia, non ST-segment elevation myocardial infarction, stage 4 chronic kidney disease, COPD and interstitial lung disease, hyponatremia, breast cancer, CAD with previous bypass grafting, moderate to severe tricuspid regurgitation, and hypoglycemia. PHYSICAL EXAMINATION: VITAL SIGNS: Current vital signs are reviewed. Temperature 98.8, heart rate 74, respiratory rate 17, blood pressure 132/72, mean 92 and saturations on room air are 98%. GENERAL: Appears in no acute distress. Looks pretty comfortable. A little pale. HEENT examination is grossly unremarkable. Mucous membranes are moist. NECK: Supple. Full range of motion. No adenopathy, thyromegaly or neck vein distention. CARDIOVASCULAR examination reveals regular rhythm and rate. Heart rate 74. S1, S2 normal. There is no murmur. Heart sounds are distant. LUNGS: Reveal relatively clear breath sounds. Very mild diffuse rhonchi. No crackles or wheezes. ABDOMEN: Soft. Bowel sounds are heard. No tenderness on palpation. EXTREMITIES are intact. No cyanosis, clubbing, or edema. SKIN: Without rash. Skin is pale. NEUROLOGIC: Examination is nonfocal. LABS: Reviewed. White count 13.4. Hemoglobin 4.8, hematocrit 15.8, platelet count 286,000. PT 12.6, INR 1.2, PTT is 37.6. Sodium 131, potassium 4.4, chloride 101, CO2 19, anion gap 11, BUN and creatinine were 70 and 3.22 respectively. Troponin was 0.094. Repeat hemoglobin is currently pending. Chest x-ray shows relatively small left-sided pleural effusion and possibly some basilar atelectasis. Medications are reviewed. ASSESSMENT: 1. Acute gastrointestinal bleed with a hemoglobin of 4.8, currently receiving 2 units of PRBCs. 2. Hypotension, which responded to blood transfusions. 3. Acute sepsis secondary to enterococcus bacteremia, source unclear. 4. Non ST-segment elevation myocardial infarction. 5. Stage 4 chronic kidney disease. 6. History of chronic obstructive pulmonary disease. 7. History of interstitial lung disease. 8. Hyponatremia, improved. 9. History of breast cancer. 10.Coronary artery disease with previous bypass grafting. 11.Moderate to severe tricuspid regurgitation. 12.Hypoglycemia, resolved. PLAN: Currently, the patient continues to have blood cultures positive for group D Enterococcus. More recently, she developed the GI bleed. She is receiving 2 units of PRBCs. Repeat hemoglobin is pending. She remains on ampicillin and Rocephin as per Infectious Diseases. We will continue to monitor her carefully here. She never required significant fluid resuscitation or pressors. A repeat hemoglobin pending. Prognosis is guarded. MMODL / IJN: [id number] /
[2019-01-31 08:57] LABS: Anisocytosis Slight; Basophils # (A) 0.2 k/uL (0-0.2); Basophils % (A) 1 %; Eosinophils # (A) 0.1 k/uL (0-0.7); Eosinophils % (A) 0 %; HCT 22.1 % (34.0-46.0); Lymphocytes # (A) 3.9 k/uL (1.0-4.8); Lymphocytes % (A) 18 %; MCH 30.5 pg (25.0-35.0); MCHC 34.2 g/dL (31.0-37.0); MCV 89.1 fL (80.0-100.0); Mean Platelet Volume 7.3; Monocytes # (A) 0.7 k/uL (0-1.0); Monocytes % (A) 3 %; Neutrophils # (A) 16.6 k/uL (1.3-7.7); Neutrophils % (A) 76 %; Platelet Count 213 k/uL (150-450); Poikilocytosis Slight; RBC 2.48 m/uL (3.80-5.40); RDW 16.9 % (11.5-15.5); WBC 21.8 k/uL (3.8-10.6)
[2019-01-31 09:03] LABS: HGB 7.6 gm/dL (11.4-16.0)
[2019-01-31] MEDS: INSULIN ASPART (NovoLOG) 100 UNIT/ML VIAL SQ SCH ×2 (09:36→12:44)
[2019-01-31] MEDS: FERROUS SULFATE 325 MG TAB PO SCH (09:40)
[2019-01-31] MEDS: FUROSEMIDE 40 MG TAB PO SCH (09:42)
[2019-01-31] MEDS: LACTOBACILLUS ACIDOPH & BULGAR 1 EACH PACKET PO SCH (09:42)
[2019-01-31] MEDS: CARVEDILOL 6.25 MG TAB PO SCH (09:42)
[2019-01-31] MEDS: guaiFENesin 600 MG TABLET.ER PO SCH (09:42)
[2019-01-31] MEDS: SODIUM BICARBONATE TAB 650 MG TAB PO SCH (09:43)
[2019-01-31] MEDS: LORATADINE 10 MG TAB PO SCH (09:43)
[2019-01-31] MEDS: amLODIPine 5 MG TAB PO SCH (09:43)
[2019-01-31] MEDS ORDERED: FUROSEMIDE 10 MG/ML 4 ML VIAL IV STA (09:49)
--- NOTE | 2019-01-31 09:58 | P.PN ---
Subjective Progress Note Date: 01/31/19 Principal diagnosis: confusion and weakness Patient is a 68-year-old female with a past medical history of type 2 diabetes mellitus, hypertension, dyslipidemia, coronary artery disease with history of 5 vessel CABG, and chronic kidney disease disease stage IV previously on hemodialysis through a left upper extremity AV graft was transferred here from [facility] due to confusion and weakness. The ER there she was found to have possible J-point elevation in V1 and V2 associated with a mildly elevated troponin. She was transferred here for cardiac evaluation. Initial troponin was elevated at 1.052, sodium was 131, white blood cell count 12.34, creatinine 4.2, chest x-ray showed prominent pulmonary interstitium. CT of the head showed bilateral frontal hygromas with age-related atrophy. On arrival here and there was concern for possible pulmonary embolism and the patient was started on a heparin drip and a VQ scan was ordered, which ultimately came back negative. Due to her leukocytosis she was started on empiric antibiotics with IV Zosyn along with Vanco. Nephrology was consulted. Her vancomycin was discontinued and she was started on Zyvox due to her worsening renal function. Cardiology felt her elevated troponin was secondary to sepsis. She was also found to have elevated liver enzymes and acute hepatitis panel was negative. She was also seen by critical care. She was seen by ID and subsequently started on daptomycin. Blood cultures came back positive for enterococcus. TTE EEG showed a thickened aortic valve but no signs of vegetation. She underwent CT abdomen and pelvis which was essentially normal. CT abdomen and pelvis demonstrated fluid overload state with periportal edema as well as COPD and an atrophic pancreas. Her blood cultures remained positive infectious disease requested a BORIS. She did develop some hypoglycemia requiring a D10 drip. She had received Levemir but had decreased oral intake. levemir restarted at lower dose once sugars began to elevate. Latesha remained persistently bacteremic. Underwent nuclear medicine bone scan that showed infection/inflammation near the sternum. Chest CT did not demonstrate any sternal osteomyelitis but did show some emphysema and b/l pleural effusions. She remained persistently bacteremic after cultures obtained on 01/29. On 01/30 she developed bright red blood per rectum overnight dropped her hemoglobin to 4.8 and became hypotensive. She was subsequently transferred to the ICU. GI was consulted. Plan was for removal of her AV graft due to persistent bacteremia and possible seeding of graft. Nursing will contact vascular with change in status of the pa tient. Patient seen and examined at bedside. Feeling very tired today. She does report a history of gastric ulcers in the past requiring treatment. She denies any current chest pain or shortness of breath. She denies any abdominal pain. She said she woke suddenly in the middle the night and felt as though she had to go to the bathroom. Upon standing she felt very lightheaded and dizzy and then had a bloody bowel movement. Since then she has had at least 2 additional including one this morning. Currently denies any chest pain or shortness of breath. Objective - Vital Signs Vital signs: Vital Signs Temp 97.6 F 01/31/19 08:55 Pulse 74 01/31/19 09:00 Resp 15 01/31/19 09:00 BP 113/60 01/31/19 09:00 Pulse Ox 99 01/31/19 09:00 Intake & Output 01/30/19 01/31/19 01/31/19 18:59 06:59 18:59 Intake Total 960 1040 330 Output Total 745 75 Balance 960 295 255 Weight 68.1 kg Intake: IV 110 20 0.9 10 20 Ampicillin 2,000 mg In 100 Sodium Chloride 0.9% 100 ml @ 200 mls/hr IVPB Q6HR [facility] Rx#:[id number] Oral 960 Blood Product 930 310 Rc As-1 Unit 310 [id number] Rc Irr As3 Unit 0 310 [id number] Output: Urine 745 75 Other: Voiding Method Toilet Toilet # Voids 1 # Bowel Movements 1 - Exam General: Ill appearing, no acute distress, appears at stated age Derm: + pallor, Multiple areas of ecchymoses, warm, dry Head: atraumatic, normocephalic, symmetric Eyes: EOMI, no lid lag, anicteric sclera Mouth: no lip lesion, mucus membranes moist Cardiovascular: S1S2 reg, no murmur, positive posterior tibial pulse bilateral, Lungs: Ronchi that clear with cough bilateral , no accessory muscle use Abdominal: soft, nontender to palpation, no guarding, no appreciable organomegaly Ext: no gross muscle atrophy, 2+ extremity edema, no contractures Neuro: CN II-XI grossly intact, no focal neuro deficits Psych: Alert, oriented, appropriate affect - Labs CBC & Chem 7: 01/31/19 08:55 01/30/19 23:55 Labs: Abnormal Lab Results - Last 24 Hours (Table) 01/22/19 01/30/19 01/30/19 Range/Units 14:40 12:14 16:54 WBC (3.8-10.6) k/uL RBC (3.80-5.40) m/uL Hgb (11.4-16.0) gm/dL Hct (34.0-46.0) % MCHC (31.0-37.0) g/dL RDW (11.5-15.5) % Neutrophils # (1.3-7.7) k/uL PT (9.0-12.0) sec INR (<1.2) APTT (22.0-30.0) sec Sodium (137-145) mmol/L Carbon Dioxide (22-30) mmol/L BUN (7-17) mg/dL Creatinine (0.52-1.04) mg/dL Glucose (74-99) mg/dL POC Glucose (mg/dL) 139 H 101 H (75-99) mg/dL Calcium (8.4-10.2) mg/dL Magnesium (1.6-2.3) mg/dL Troponin I (0.000-0.034) ng/mL Crossmatch See Detail 01/30/19 01/30/19 01/30/19 Range/Units 20:01 23:55 23:55 WBC 13.4 H (3.8-10.6) k/uL RBC 1.63 L (3.80-5.40) m/uL Hgb 4.8 L* D (11.4-16.0) gm/dL Hct 15.8 L* (34.0-46.0) % MCHC 30.3 L (31.0-37.0) g/dL RDW 16.1 H (11.5-15.5) % Neutrophils # 9.2 H (1.3-7.7) k/uL PT 12.6 H (9.0-12.0) sec INR 1.2 H (<1.2) APTT 37.6 H (22.0-30.0) sec Sodium (137-145) mmol/L Carbon Dioxide (22-30) mmol/L BUN (7-17) mg/dL Creatinine (0.52-1.04) mg/dL Glucose (74-99) mg/dL POC Glucose (mg/dL) 185 H (75-99) mg/dL Calcium (8.4-10.2) mg/dL Magnesium (1.6-2.3) mg/dL Troponin I (0.000-0.034) ng/mL Crossmatch 01/30/19 01/31/19 01/31/19 Range/Units 23:55 00:02 00:03 WBC (3.8-10.6) k/uL RBC (3.80-5.40) m/uL Hgb (11.4-16.0) gm/dL Hct (34.0-46.0) % MCHC (31.0-37.0) g/dL RDW (11.5-15.5) % Neutrophils # (1.3-7.7) k/uL PT (9.0-12.0) sec INR (<1.2) APTT (22.0-30.0) sec Sodium 131 L (137-145) mmol/L Carbon Dioxide 19 L (22-30) mmol/L BUN 70 H (7-17) mg/dL Creatinine 3.22 H (0.52-1.04) mg/dL Glucose 58 L (74-99) mg/dL POC Glucose (mg/dL) 66 L (75-99) mg/dL Calcium 6.5 L (8.4-10.2) mg/dL Magnesium 1.2 L (1.6-2.3) mg/dL Troponin I 0.094 H* (0.000-0.034) ng/mL Crossmatch 01/31/19 01/31/19 01/31/19 Range/Units 00:05 00:09 08:55 WBC 21.8 H (3.8-10.6) k/uL RBC 2.48 L (3.80-5.40) m/uL Hgb 7.6 L D (11.4-16.0) gm/dL Hct 22.1 L (34.0-46.0) % MCHC (31.0-37.0) g/dL RDW 16.9 H (11.5-15.5) % Neutrophils # 16.6 H (1.3-7.7) k/uL PT (9.0-12.0) sec INR (<1.2) APTT (22.0-30.0) sec Sodium (137-145) mmol/L Carbon Dioxide (22-30) mmol/L BUN (7-17) mg/dL Creatinine (0.52-1.04) mg/dL Glucose (74-99) mg/dL POC Glucose (mg/dL) 112 H (75-99) mg/dL Calcium (8.4-10.2) mg/dL Magnesium (1.6-2.3) mg/dL Troponin I (0.000-0.034) ng/mL Crossmatch See Detail Microbiology - Last 24 Hours (Table) 01/28/19 15:38 Blood Culture Gram Stain - Final Blood Blood Culture - Final Enterococcus faecalis 01/29/19 05:53 Blood Culture Gram Stain - Preliminary Blood Blood Culture - Preliminary Group D Enterococcus 01/27/19 05:49 Blood Culture Gram Stain - Final Blood Blood Culture - Final Enterococcus faecalis Assessment and Plan Assessment: GI bleed, likely lower with acute blood loss anemia - s/p 2 units of pRBC, lasix X 1 now - Follow CBC - NPO except ice chips - IV PPI - D/w Dr. Shanks plan is for EGD and colonoscopy on 02/01 - hold oral medications Enterococcus bacteremia with sepsis -Continue on ampicillin and rocephin, -Not initially report on WBC scan but there is so asymmetric uptake in the LUE. D/W nephrology 01/30 and recommends removal of graft as bacteremia likely not clear on left graft removed. Discussed with her prior vascular surgeon Dr. Verito Wong. She does not want to transfer the patient to her service in order to perform the surgery. She suggests having a surgeon here and evaluate the patien t. Discussed with Dr. Frank plan was for possible Sx on 02/01 or 02/02. -Infectious disease recommendations -Repeat blood cultures today, blood cultures still remain positive Diabetes mellitus type 2 with both hyper and hypoglycemia - Hold levemir and fixed dose insulin while NPO - SSI - A1C 7.7 Acute kidney injury on Chronic kidney disease stage V, hyponatremia, and severe metabolic acidosis -Nephrology recommendations appreciated -Limit nephrotoxic agents as able, daily lasix on hold while NPO -Follow BMP - D/W nephrology and okay for midline at discharge. Elevated troponin secondary to type II non-STEMI - Cardiology recommendations appreciated - Cushing to be due to sepsis and ALANA not ACS Normocytic anemia - stable - suspect related to CKD - follow CBC Recent diagnosis of breast cancer -Need outpatient follow-up with Dr. Mason David for lumpectomy Transaminitis - improving - Hep Profile negative - Gallbladder US negative Chronic conditions: Coronary artery disease DVT prophylaxis: Heparin Discussed with: Patient, nursing, Dr. Shanks Anticipated discharge: 4-[address]: home with home health and infusions A total of 45 minutes was spent on the care of this complex patient more than 50% of the time was spent in counseling and care coordination.
[2019-01-31 10:59] LABS: Albumin 2.3 g/dL (3.5-5.0); Total Bilirubin 0.9 mg/dL (0.2-1.3); Total Protein 4.6 g/dL (6.3-8.2)
[2019-01-31 11:43] LABS: Appearance,Urine Clear (Clear); Bacteria,Urine Rare /hpf; Bilirubin,Urine Negative (Negative); Blood,Urine Trace (Negative); Color,Urine Light Yellow; Glucose,Urine (UA) 1+ (Negative); Ketones,Urine 1+ (Negative); Leukocyte Esterase,Urine Large (Negative); Nitrite,Urine Negative (Negative); PH, Urine 6.5 (5.0-8.0); Protein,Urine 2+ (Negative); RBC,Urine 3 /hpf (0-5); Specific Gravity,Urine 1.018 (1.001-1.035); Urobilinogen,Urine <2.0 mg/dL (<2.0)
[2019-01-31 11:44] LABS: Calcium 6.5 mg/dL (8.4-10.2); Magnesium 1.1 mg/dL (1.6-2.3)
--- NOTE | 2019-01-31 12:17 | P.PN ---
Subjective Progress Note Date: 01/31/19 Principal diagnosis: This is 68-year-old female with acute kidney injury and chronic kidney disease. She has had bacteremia and an extensive workup has not been able to localize the source of infection. In the past she was on dialysis for 3 years came off dialysis approximately March 2018. The graft looks normal on the left upper arm but she has had other hardware. A BORIS was negative. Other workup has included a CT of the chest , no osteomyelitis noted in the sternum although a nuclear medicine WBC scan was slightly positive in that area. A CT of the abdomen was unremarkable, pancreas is atrophic Yesterday on 01/30/2019, she started to have bleeding with dark stools,her hemoglobin went down to 4.she was transferred to ICU and transfused 2 units of packed cells hemoglobin 7.6 this morning. Since complaining of feeling unwell. No fever chills no cough shortness of breath nausea vomiting. She looks somewhat pale. No abdominal pain. No heartburn Denies any fever chills feels fairly well no nausea vomiting diarrhea abdominal pain she does have mild cough. No shortness of breath. History of present illness; She initially presented to [facility] with fever and confusion. She is known with history of carcinoma of the breast recently diagnosed. No therapy has been started she is also known with coronary artery disease bypass graft COPD diabetes. Objective - Vital Signs Vital signs: Vital Signs Temp 99.0 F 01/31/19 12:00 Pulse 77 01/31/19 12:00 Resp 19 01/31/19 12:00 BP 97/46 01/31/19 12:00 Pulse Ox 99 01/31/19 12:00 Intake & Output 01/30/19 01/31/19 01/31/19 18:59 06:59 18:59 Intake Total 960 1040 350 Output Total 745 130 Balance 960 295 220 Weight 68.1 kg Intake: IV 110 40 0.9 10 40 Ampicillin 2,000 mg In 100 Sodium Chloride 0.9% 100 ml @ 200 mls/hr IVPB Q6HR [facility] Rx#:[id number] Oral 960 Blood Product 930 310 Rc As-1 Unit 310 [id number] Rc Irr As3 Unit 0 310 [id number] Output: Urine 745 130 Other: Voiding Method Toilet Toilet Indwelling Catheter # Voids 1 # Bowel Movements 1 exam since he looks somewhat pale. HEENT exam no JVP neck is supple no facial asymmetry Lungs are clear to auscultation fair air entry bilaterally. Heart sounds are unremarkable for any murmur rub gallop Abdomen soft nontender no organomegaly status masses Extremity exam reveals minimal edema Neurologically awake alert oriented but somewhat anxious. Moves all her extremities. Has generalized weakness - Labs CBC & Chem 7: 01/31/19 08:55 01/31/19 09:32 Labs: Abnormal Lab Results - Last 24 Hours (Table) 01/22/19 01/30/19 01/30/19 Range/Units 14:40 12:14 16:54 WBC (3.8-10.6) k/uL RBC (3.80-5.40) m/uL Hgb (11.4-16.0) gm/dL Hct (34.0-46.0) % MCHC (31.0-37.0) g/dL RDW (11.5-15.5) % Neutrophils # (1.3-7.7) k/uL PT (9.0-12.0) sec INR (<1.2) APTT (22.0-30.0) sec Sodium (137-145) mmol/L Carbon Dioxide (22-30) mmol/L BUN (7-17) mg/dL Creatinine (0.52-1.04) mg/dL Glucose (74-99) mg/dL POC Glucose (mg/dL) 139 H 101 H (75-99) mg/dL Calcium (8.4-10.2) mg/dL Magnesium (1.6-2.3) mg/dL ALT (9-52) U/L Alkaline Phosphatase (38-126) U/L Troponin I (0.000-0.034) ng/mL Total Protein (6.3-8.2) g/dL Albumin (3.5-5.0) g/dL Urine Protein (Negative) Urine Glucose (UA) (Negative) Urine Ketones (Negative) Urine Blood (Negative) Ur Leukocyte Esterase (Negative) Urine WBC (0-5) /hpf Urine Bacteria (None) /hpf Crossmatch See Detail 01/30/19 01/30/19 01/30/19 Range/Units 20:01 23:55 23:55 WBC 13.4 H (3.8-10.6) k/uL RBC 1.63 L (3.80-5.40) m/uL Hgb 4.8 L* D (11.4-16.0) gm/dL Hct 15.8 L* (34.0-46.0) % MCHC 30.3 L (31.0-37.0) g/dL RDW 16.1 H (11.5-15.5) % Neutrophils # 9.2 H (1.3-7.7) k/uL PT 12.6 H (9.0-12.0) sec INR 1.2 H (<1.2) APTT 37.6 H (22.0-30.0) sec Sodium (137-145) mmol/L Carbon Dioxide (22-30) mmol/L BUN (7-17) mg/dL Creatinine (0.52-1.04) mg/dL Glucose (74-99) mg/dL POC Glucose (mg/dL) 185 H (75-99) mg/dL Calcium (8.4-10.2) mg/dL Magnesium (1.6-2.3) mg/dL ALT (9-52) U/L Alkaline Phosphatase (38-126) U/L Troponin I (0.000-0.034) ng/mL Total Protein (6.3-8.2) g/dL Albumin (3.5-5.0) g/dL Urine Protein (Negative) Urine Glucose (UA) (Negative) Urine Ketones (Negative) Urine Blood (Negative) Ur Leukocyte Esterase (Negative) Urine WBC (0-5) /hpf Urine Bacteria (None) /hpf Crossmatch 01/30/19 01/31/19 01/31/19 Range/Units 23:55 00:02 00:03 WBC (3.8-10.6) k/uL RBC (3.80-5.40) m/uL Hgb (11.4-16.0) gm/dL Hct (34.0-46.0) % MCHC (31.0-37.0) g/dL RDW (11.5-15.5) % Neutrophils # (1.3-7.7) k/uL PT (9.0-12.0) sec INR (<1.2) APTT (22.0-30.0) sec Sodium 131 L (137-145) mmol/L Carbon Dioxide 19 L (22-30) mmol/L BUN 70 H (7-17) mg/dL Creatinine 3.22 H (0.52-1.04) mg/dL Glucose 58 L (74-99) mg/dL POC Glucose (mg/dL) 66 L (75-99) mg/dL Calcium 6.5 L (8.4-10.2) mg/dL Magnesium 1.2 L (1.6-2.3) mg/dL ALT (9-52) U/L Alkaline Phosphatase (38-126) U/L Troponin I 0.094 H* (0.000-0.034) ng/mL Total Protein (6.3-8.2) g/dL Albumin (3.5-5.0) g/dL Urine Protein (Negative) Urine Glucose (UA) (Negative) Urine Ketones (Negative) Urine Blood (Negative) Ur Leukocyte Esterase (Negative) Urine WBC (0-5) /hpf Urine Bacteria (None) /hpf Crossmatch 01/31/19 01/31/19 01/31/19 Range/Units 00:05 00:09 08:55 WBC 21.8 H (3.8-10.6) k/uL RBC 2.48 L (3.80-5.40) m/uL Hgb 7.6 L D (11.4-16.0) gm/dL Hct 22.1 L (34.0-46.0) % MCHC (31.0-37.0) g/dL RDW 16.9 H (11.5-15.5) % Neutrophils # 16.6 H (1.3-7.7) k/uL PT (9.0-12.0) sec INR (<1.2) APTT (22.0-30.0) sec Sodium (137-145) mmol/L Carbon Dioxide (22-30) mmol/L BUN (7-17) mg/dL Creatinine (0.52-1.04) mg/dL Glucose (74-99) mg/dL POC Glucose (mg/dL) 112 H (75-99) mg/dL Calcium (8.4-10.2) mg/dL Magnesium (1.6-2.3) mg/dL ALT (9-52) U/L Alkaline Phosphatase (38-126) U/L Troponin I (0.000-0.034) ng/mL Total Protein (6.3-8.2) g/dL Albumin (3.5-5.0) g/dL Urine Protein (Negative) Urine Glucose (UA) (Negative) Urine Ketones (Negative) Urine Blood (Negative) Ur Leukocyte Esterase (Negative) Urine WBC (0-5) /hpf Urine Bacteria (None) /hpf Crossmatch See Detail 01/31/19 01/31/19 Range/Units 09:32 11:30 WBC (3.8-10.6) k/uL RBC (3.80-5.40) m/uL Hgb (11.4-16.0) gm/dL Hct (34.0-46.0) % MCHC (31.0-37.0) g/dL RDW (11.5-15.5) % Neutrophils # (1.3-7.7) k/uL PT (9.0-12.0) sec INR (<1.2) APTT (22.0-30.0) sec Sodium 134 L (137-145) mmol/L Carbon Dioxide 18 L (22-30) mmol/L BUN 76 H (7-17) mg/dL Creatinine 3.24 H (0.52-1.04) mg/dL Glucose (74-99) mg/dL POC Glucose (mg/dL) (75-99) mg/dL Calcium 6.5 L (8.4-10.2) mg/dL Magnesium 1.1 L (1.6-2.3) mg/dL ALT 60 H (9-52) U/L Alkaline Phosphatase 142 H (38-126) U/L Troponin I (0.000-0.034) ng/mL Total Protein 4.6 L (6.3-8.2) g/dL Albumin 2.3 L (3.5-5.0) g/dL Urine Protein 2+ H (Negative) Urine Glucose (UA) 1+ H (Negative) Urine Ketones 1+ H (Negative) Urine Blood Trace H (Negative) Ur Leukocyte Esterase Large H (Negative) Urine WBC 31 H (0-5) /hpf Urine Bacteria Rare H (None) /hpf Crossmatch Microbiology - Last 24 Hours (Table) 01/29/19 05:53 Blood Culture Gram Stain - Final Blood Blood Culture - Final Enterococcus faecalis 01/28/19 15:38 Blood Culture Gram Stain - Final Blood Blood Culture - Final Enterococcus faecalis 01/27/19 05:49 Blood Culture Gram Stain - Final Blood Blood Culture - Final Enterococcus faecalis Assessment and Plan Assessment: Impression 1. Acute kidney injury likely from sepsis. Slowly improving creatinine, from a peak of 4.15 on 01/05/2019 to 3.2 this morning 2. Persistent Enterococcal bacteremia. Extensive workup shows a nuclear medicine white cell scan showing some activity in the sternal area. Computed tomography scan is unremarkable.Dialysis access graft In the left upper arm is clear but needs to be considered as possible source 3. Chronic kidney disease, stage V, previous creatinine available to me from our own medical records from the office is 2.6 on 09/09/2015. History of coming off of dialysis in March 2018 after being on dialysis for 3 years. Etiology likely nephrosclerosis 4. acute upperGI bleed with hemoglobin down to 4.8, transfused, hemoglobin came up to 7.6 this morning 5. Non-gap Metabolic acidosis secondary to acute kidney injury and chronic kidney disease. Bicarb is 18, on sodium bicarb. 6. History of CA breast recently diagnosed 2 months ago 7. History of coronary artery bypass graft. 8. Anemia of chronic kidney disease, 9. iron deficiency and saturation is 9.5% dated 01/23/2019 10.Hyponatremia secondary to acute kidney injury. Additionally excessive free water Recommendation 1. as patient's vascular surgeon at [facility] is not available for removing the graft, she will be transferred to [facility] where vascular surgeon Dr. Boo has accepted to reassess the graft and see if that needs to be taken out 2. Continue to transfuse as needed. 3. She'll need EGD to determine the cause of the bleeding. Likely it is from stress related gastritis because of the persistent bacteremia. 4. Continue monitoring renal function every other day. 5. Watch bicarb 6. Avoid IV iron because of the persistent bacteremia
[2019-01-31 12:27] VITALS: TEMP 97.6
[2019-01-31 12:59] LABS: Glucose,Whole Blood 153 mg/dL (75-99)
[2019-01-31 13:14] VITALS: BP 99/44; PULSE 73; RESP 17
--- NOTE | 2019-01-31 13:30 | P.DS ---
Providers Date of admission: 01/22/19 16:19 Expected date of discharge: 01/31/19 Attending physician: Josh Ronquillo MD Consults: 01/22/19 16:19 Consult Physician Stat Consulting Provider: Ed Mott Consult Reason/Comments: critical care Do you want consulting provider notified?: Already Contacted Consult Physician Urgent Consulting Provider: Judith Mohan Consult Reason/Comments: Cardiac care Do you want consulting provider notified?: Already Contacted Consult Physician Urgent Consulting Provider: Monica Reilly Consult Reason/Comments: renal insufficency Do you want consulting provider notified?: Yes 01/23/19 13:00 Consult Physician Routine Consulting Provider: Yesica Gray Consult Reason/Comments: gram + cocci (covering for Dr. 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 The ER there she was found to have possible J-point elevation in V1 and V2 associated with a mildly elevated troponin. She was transferred here for cardiac evaluation. Initial troponin was elevated at 1.052, sodium was 131, white blood cell count 12.34, creatinine 4.2, chest x-ray showed prominent pulmonary interstitium. CT of the head showed bilateral frontal hygromas with age-related atrophy. On arrival here and there was concern for possible pulmonary embolism and the patient was started on a heparin drip and a VQ scan was ordered, which ultimately came back negative. Due to her leukocytosis she was started on empiric antibiotics with IV Zosyn along with Vanco. Nephrology was consulted. Her vancomycin was discontinued and she was started on Zyvox due to her worsening renal function. Cardiology felt her elevated troponin was secondary to sepsis. She was also found to have elevated liver enzymes and acute hepatitis panel was negative. She was also seen by critical care. She was seen by ID and subsequently started on daptomycin. Blood cultures came back positive for enterococcus. Transthorasci echo showed a thickened aortic valve but no signs of vegetation. She underwent CT abdomen and pelvis which was essentially normal other than fluid overload state with periportal edema as well as COPD and an atrophic pancreas. Her blood cultures remained positive infectious disease requested a BORIS which did not show any signs of vegetation. Latesha remained persistently bacteremic. She underwent nuclear medicine tagged white blood cell scan that showed infection/inflammation near the sternum. Chest CT did not demonstrate any sternal osteomyelitis but did show some emphysema and b/l pleural effusions. Though not originally read on tagged WBC scan when reviewed with radiologist there was assymetric uptake in the upper extremities and might be increased uptake in the left AV graft, of note the patient was on IV steroids up until the day before this exam. She remained bactermic on all blood cultures through 01/29 despite IV abx. Case was discussed with nephrology and ID who both felt that the graft might be seeded. D/W Vascular surgery both teams at our facility and Dr. Wong who had initially placed her graft. Vascular surgery here felt that it was a complex and difficult surgery to be preformed at our center. Dr. Zhang spoke with Dr. Ng at [facility] who was willing to accept the case and she will be transferred to [place] under the care of Dr. Zhang. On 01/30 she developed bright red blood per rectum overnight dropped her hemoglobin to 4.8 and became hypotensive. She was subsequently transferred to the ICU. GI was consulted. She received 2 units of packed red blood cells. She had 2 additional bloody bowel movements. She was started on IV PPI. Her blood pressure stabilized. She was made nothing by mouth. During her hospital stay she suffered from both hyper and hypoglycemia. She appears to be very brittle with her diabetes. She did required a D10 gtt overnight at one point during her hopsital stay. She seems to be best on 2 levemir 7 units, SLiding scale and Novolog 2 units with lunch and dinner. For physical exam see progress note same date A total of 45 minutes of time were spent preparing this complex discharge summary . Pertinent Studies: as outlined above Patient Condition at Discharge: Serious Plan - Discharge Summary New Discharge Prescriptions: No Action Insulin Glargine [Lantus] 8 unit SQ HS Omeprazole [PriLOSEC] 20 mg PO BID Simvastatin [Zocor] 20 mg PO HS Linaclotide [Linzess] 145 mcg PO DAILY amLODIPine [Norvasc] 5 mg PO DAILY Multivitamin/Iron/Folic Acid [Centrum Adults Tablet] 1 tab PO DAILY HYDROcodone/APAP 10-325MG [Wales 10-325] 1 tab PO TID PRN PRN Reason: Pain Furosemide [Lasix] 80 mg PO DAILY Magnesium Oxide [Mag-Ox] 200 mg PO TID #10 tab Melatonin 3 mg PO HS PRN tablet PRN Reason: Insomnia Loratadine-Pseudoeph 5-120 mg [Claritin-D 12 HR] 1 tab PO Q12HR PRN PRN Reason: Allergy Symptoms Budesonide-Formot 160-4.5 Mcg [Symbicort 160-4.5 Mcg Inhaler] 1 puff INHALATION RT-BID Albuterol Sulfate [Albuterol Sulfate Hfa] 1 puff INHALATION RT-Q6H PRN PRN Reason: Wheezing Fluticasone Nasal [place] [Flonase Nasal [place]] 1 spray EA NOSTRIL DAILY Doxycycline Monohydrate [Monodox] 100 mg PO DAILY Carvedilol [Coreg] 6.25 mg PO BID Discharge Medication List Insulin Glargine [Lantus] 8 unit SQ HS 03/13/15 [History] Omeprazole [PriLOSEC] 20 mg PO BID 03/13/15 [History] Simvastatin [Zocor] 20 mg PO HS 03/13/15 [History] Linaclotide [Linzess] 145 mcg PO DAILY 09/29/18 [History] Multivitamin/Iron/Folic Acid [Centrum Adults Tablet] 1 tab PO DAILY 09/29/18 [History] amLODIPine [Norvasc] 5 mg PO DAILY 09/29/18 [History] HYDROcodone/APAP 10-325MG [[place] 10-325] 1 tab PO TID PRN 01/04/19 [History] Furosemide [Lasix] 80 mg PO DAILY 01/05/19 [History] Magnesium Oxide [Mag-Ox] 200 mg PO TID #10 tab 01/08/19 [Rx] Melatonin 3 mg PO HS PRN tablet 01/08/19 [Rx] Albuterol Sulfate [Albuterol Sulfate Hfa] 1 puff INHALATION RT-Q6H PRN 01/22/19 [History] Budesonide-Formot 160-4.5 Mcg [Symbicort 160-4.5 Mcg Inhaler] 1 puff INHALATION RT-BID 01/22/19 [History] Carvedilol [Coreg] 6.25 mg PO BID 01/22/19 [History] Doxycycline Monohydrate [Monodox] 100 mg PO DAILY 01/22/19 [History] Fluticasone Nasal [place] [Flonase Nasal [place]] 1 spray EA NOSTRIL DAILY 01/22/19 [History] Loratadine-Pseudoeph 5-120 mg [Claritin-D 12 HR] 1 tab PO Q12HR PRN 01/22/19 [History] Follow up Appointment(s)/Referral(s): Lito Evans MD [Primary Care Provider] - 1-2 days
--- NOTE | 2019-01-31 15:24 | P.PN ---
Subjective Progress Note Date: 01/31/19 Principal diagnosis: Blood per rectum Consult placed for rectal bleeding, however decision made to transfer patient due to bacteremia with suspicion for AV fistula as source Objective - Vital Signs Vital signs: Vital Signs Temp 97.6 F 01/31/19 12:00 Pulse 73 01/31/19 13:00 Resp 17 01/31/19 13:00 BP 99/44 01/31/19 13:00 Pulse Ox 100 01/31/19 13:00 Intake & Output 01/30/19 01/31/19 01/31/19 18:59 06:59 18:59 Intake Total 960 1040 470 Output Total 745 250 Balance 960 295 220 Weight 68.1 kg Intake: IV 110 60 0.9 10 60 Ampicillin 2,000 mg In 100 Sodium Chloride 0.9% 100 ml @ 200 mls/hr IVPB Q6HR [facility] Rx#:[id number] Intake, IV Titration 100 Amount Ampicillin 2,000 mg In 100 Sodium Chloride 0.9% 100 ml @ 200 mls/hr IVPB Q6HR [facility] Rx#:[id number] Oral 960 Blood Product 930 310 Rc As-1 Unit 0 [id number] Rc As-1 Unit 310 [id number] Rc Irr As3 Unit 0 310 [id number] Output: Urine 745 250 Other: Voiding Method Toilet Toilet Indwelling Catheter # Voids 1 # Bowel Movements 1 - Labs CBC & Chem 7: 01/31/19 08:55 01/31/19 09:32 Labs: Abnormal Lab Results - Last 24 Hours (Table) 01/22/19 01/30/19 01/30/19 Range/Units 14:40 16:54 20:01 WBC (3.8-10.6) k/uL RBC (3.80-5.40) m/uL Hgb (11.4-16.0) gm/dL Hct (34.0-46.0) % MCHC (31.0-37.0) g/dL RDW (11.5-15.5) % Neutrophils # (1.3-7.7) k/uL PT (9.0-12.0) sec INR (<1.2) APTT (22.0-30.0) sec Sodium (137-145) mmol/L Carbon Dioxide (22-30) mmol/L BUN (7-17) mg/dL Creatinine (0.52-1.04) mg/dL Glucose (74-99) mg/dL POC Glucose (mg/dL) 101 H 185 H (75-99) mg/dL Calcium (8.4-10.2) mg/dL Magnesium (1.6-2.3) mg/dL ALT (9-52) U/L Alkaline Phosphatase (38-126) U/L Troponin I (0.000-0.034) ng/mL Total Protein (6.3-8.2) g/dL Albumin (3.5-5.0) g/dL Urine Protein (Negative) Urine Glucose (UA) (Negative) Urine Ketones (Negative) Urine Blood (Negative) Ur Leukocyte Esterase (Negative) Urine WBC (0-5) /hpf Urine Bacteria (None) /hpf Crossmatch See Detail 01/30/19 01/30/19 01/30/19 Range/Units 23:55 23:55 23:55 WBC 13.4 H (3.8-10.6) k/uL RBC 1.63 L (3.80-5.40) m/uL Hgb 4.8 L* D (11.4-16.0) gm/dL Hct 15.8 L* (34.0-46.0) % MCHC 30.3 L (31.0-37.0) g/dL RDW 16.1 H (11.5-15.5) % Neutrophils # 9.2 H (1.3-7.7) k/uL PT 12.6 H (9.0-12.0) sec INR 1.2 H (<1.2) APTT 37.6 H (22.0-30.0) sec Sodium 131 L (137-145) mmol/L Carbon Dioxide 19 L (22-30) mmol/L BUN 70 H (7-17) mg/dL Creatinine 3.22 H (0.52-1.04) mg/dL Glucose 58 L (74-99) mg/dL POC Glucose (mg/dL) (75-99) mg/dL Calcium 6.5 L (8.4-10.2) mg/dL Magnesium 1.2 L (1.6-2.3) mg/dL ALT (9-52) U/L Alkaline Phosphatase (38-126) U/L Troponin I (0.000-0.034) ng/mL Total Protein (6.3-8.2) g/dL Albumin (3.5-5.0) g/dL Urine Protein (Negative) Urine Glucose (UA) (Negative) Urine Ketones (Negative) Urine Blood (Negative) Ur Leukocyte Esterase (Negative) Urine WBC (0-5) /hpf Urine Bacteria (None) /hpf Crossmatch 01/31/19 01/31/19 01/31/19 Range/Units 00:02 00:03 00:05 WBC (3.8-10.6) k/uL RBC (3.80-5.40) m/uL Hgb (11.4-16.0) gm/dL Hct (34.0-46.0) % MCHC (31.0-37.0) g/dL RDW (11.5-15.5) % Neutrophils # (1.3-7.7) k/uL PT (9.0-12.0) sec INR (<1.2) APTT (22.0-30.0) sec Sodium (137-145) mmol/L Carbon Dioxide (22-30) mmol/L BUN (7-17) mg/dL Creatinine (0.52-1.04) mg/dL Glucose (74-99) mg/dL POC Glucose (mg/dL) 66 L (75-99) mg/dL Calcium (8.4-10.2) mg/dL Magnesium (1.6-2.3) mg/dL ALT (9-52) U/L Alkaline Phosphatase (38-126) U/L Troponin I 0.094 H* (0.000-0.034) ng/mL Total Protein (6.3-8.2) g/dL Albumin (3.5-5.0) g/dL Urine Protein (Negative) Urine Glucose (UA) (Negative) Urine Ketones (Negative) Urine Blood (Negative) Ur Leukocyte Esterase (Negative) Urine WBC (0-5) /hpf Urine Bacteria (None) /hpf Crossmatch See Detail 01/31/19 01/31/19 01/31/19 Range/Units 00:09 08:55 09:32 WBC 21.8 H (3.8-10.6) k/uL RBC 2.48 L (3.80-5.40) m/uL Hgb 7.6 L D (11.4-16.0) gm/dL Hct 22.1 L (34.0-46.0) % MCHC (31.0-37.0) g/dL RDW 16.9 H (11.5-15.5) % Neutrophils # 16.6 H (1.3-7.7) k/uL PT (9.0-12.0) sec INR (<1.2) APTT (22.0-30.0) sec Sodium 134 L (137-145) mmol/L Carbon Dioxide 18 L (22-30) mmol/L BUN 76 H (7-17) mg/dL Creatinine 3.24 H (0.52-1.04) mg/dL Glucose (74-99) mg/dL POC Glucose (mg/dL) 112 H (75-99) mg/dL Calcium 6.5 L (8.4-10.2) mg/dL Magnesium 1.1 L (1.6-2.3) mg/dL ALT 60 H (9-52) U/L Alkaline Phosphatase 142 H (38-126) U/L Troponin I (0.000-0.034) ng/mL Total Protein 4.6 L (6.3-8.2) g/dL Albumin 2.3 L (3.5-5.0) g/dL Urine Protein (Negative) Urine Glucose (UA) (Negative) Urine Ketones (Negative) Urine Blood (Negative) Ur Leukocyte Esterase (Negative) Urine WBC (0-5) /hpf Urine Bacteria (None) /hpf Crossmatch 01/31/19 01/31/19 Range/Units 11:30 12:33 WBC (3.8-10.6) k/uL RBC (3.80-5.40) m/uL Hgb (11.4-16.0) gm/dL Hct (34.0-46.0) % MCHC (31.0-37.0) g/dL RDW (11.5-15.5) % Neutrophils # (1.3-7.7) k/uL PT (9.0-12.0) sec INR (<1.2) APTT (22.0-30.0) sec Sodium (137-145) mmol/L Carbon Dioxide (22-30) mmol/L BUN (7-17) mg/dL Creatinine (0.52-1.04) mg/dL Glucose (74-99) mg/dL POC Glucose (mg/dL) 153 H (75-99) mg/dL Calcium (8.4-10.2) mg/dL Magnesium (1.6-2.3) mg/dL ALT (9-52) U/L Alkaline Phosphatase (38-126) U/L Troponin I (0.000-0.034) ng/mL Total Protein (6.3-8.2) g/dL Albumin (3.5-5.0) g/dL Urine Protein 2+ H (Negative) Urine Glucose (UA) 1+ H (Negative) Urine Ketones 1+ H (Negative) Urine Blood Trace H (Negative) Ur Leukocyte Esterase Large H (Negative) Urine WBC 31 H (0-5) /hpf Urine Bacteria Rare H (None) /hpf Crossmatch Microbiology - Last 24 Hours (Table) 01/29/19 05:53 Blood Culture Gram Stain - Final Blood Blood Culture - Final Enterococcus faecalis 01/28/19 15:38 Blood Culture Gram Stain - Final Blood Blood Culture - Final Enterococcus faecalis 01/27/19 05:49 Blood Culture Gram Stain - Final Blood Blood Culture - Final Enterococcus faecalis
== END 2019-01-31 14:35 | disposition short-term general hospital (02) | DRG 280 ==
LOC: EC 15:28 → 2SICU 16:19 → 3SCARD 01-24 04:41 → 2SICU 01-31 02:00
PROVIDERS: ADMIT Family Medicine; ATTEND Family Medicine
PROC: 30233N1 Transfusion of Nonautologous Red Blood Cells into Peripheral Vein, Percutaneous Approach (ICD-10-PCS; principal; 2019-01-31)
DX: T82.7XXA Infection and inflammatory reaction due to other cardiac and vascular devices, implants and grafts, initial encounter (principal); A41.81 Sepsis due to Enterococcus; I21.A1 Myocardial infarction type 2; N17.0 Acute kidney failure with tubular necrosis; N18.6 End stage renal disease; D62 Acute posthemorrhagic anemia; E22.2 Syndrome of inappropriate secretion of antidiuretic hormone; E87.2 Acidosis; I12.0 Hypertensive chronic kidney disease with stage 5 chronic kidney disease or end stage renal disease; J44.0 Chronic obstructive pulmonary disease with (acute) lower respiratory infection; J44.1 Chronic obstructive pulmonary disease with (acute) exacerbation; J90 Pleural effusion, not elsewhere classified; K92.2 Gastrointestinal hemorrhage, unspecified; C50.919 Malignant neoplasm of unspecified site of unspecified female breast; D63.1 Anemia in chronic kidney disease; E11.22 Type 2 diabetes mellitus with diabetic chronic kidney disease; E11.649 Type 2 diabetes mellitus with hypoglycemia without coma; E11.65 Type 2 diabetes mellitus with hyperglycemia; E11.69 Type 2 diabetes mellitus with other specified complication; E78.5 Hyperlipidemia, unspecified; E86.9 Volume depletion, unspecified; E83.42 Hypomagnesemia; E87.70 Fluid overload, unspecified; F17.200 Nicotine dependence, unspecified, uncomplicated; H91.90 Unspecified hearing loss, unspecified ear; I07.1 Rheumatic tricuspid insufficiency; I25.10 Atherosclerotic heart disease of native coronary artery without angina pectoris; I48.91 Unspecified atrial fibrillation; I27.20 Pulmonary hypertension, unspecified; J84.10 Pulmonary fibrosis, unspecified; K21.9 Gastro-esophageal reflux disease without esophagitis; M46.40 Discitis, unspecified, site unspecified; M79.7 Fibromyalgia; Z53.9 Procedure and treatment not carried out, unspecified reason; Z79.4 Long term (current) use of insulin; Z79.51 Long term (current) use of inhaled steroids; Z79.82 Long term (current) use of aspirin; Z79.899 Other long term (current) drug therapy; Z80.0 Family history of malignant neoplasm of digestive organs; Z80.3 Family history of malignant neoplasm of breast; Z85.3 Personal history of malignant neoplasm of breast; Z87.01 Personal history of pneumonia (recurrent); Z87.11 Personal history of peptic ulcer disease; Z95.1 Presence of aortocoronary bypass graft; Z97.4 Presence of external hearing-aid; Z99.2 Dependence on renal dialysis; Z90.49 Acquired absence of other specified parts of digestive tract; Z90.89 Acquired absence of other organs; Z88.5 Allergy status to narcotic agent
CPT/HCPCS: 36415; 71045; 71250; 74176; 76705; 78582; 78806; 80048; 80053; 80074; 81001; 82550; 82553; 83036; 83540; 83550; 83605; 83735; 84145; 84484; 85025; 85027; 85610; 85652; 85730; 86140; 86850; 86900; 86901; 86920; 87040; 87077; 87086; 87186; 93005; 93306; 93312; 93320; 93325; 94640; 94667; 94760; 96365; 96366; 99291

== ENCOUNTER → 2019-05-19 | Outpatient (CLI) | payer MEDICARE ==
[2019-05-19 15:05] VITALS: BP 195/92; PULSE 65; RESP 20; TEMP 97.4
--- NOTE | 2019-05-19 15:47 | P.GSHP ---
History of Present Illness H&P Date: 05/19/19 Chief Complaint: Right breast cancer Latesha is a 68-year-old white female who noted a lump in her right breast. She underwent a bilateral mammogram on . This revealed an irregular somewhat spiculated density approximately 15 mm in size in an area of palpable abnormali ty. She did not have anything of concern in her left breast. She underwent an ultrasound which revealed the lesion to be 10 x 11 mm in size in the 11 o'clock position. This corresponded the location of the mammographic abnormality. The patient underwent a core biopsy which revealed an invasive ductal carcinoma grade 3. This was ER/RI negative and HER-2 positive. The patient's case was presented at tumor board and the option of neoadjuvant chemotherapy was addressed. The patient refuses neoadjuvant therapy and wished to proceed with surgical intervention. She has a complex medical history including renal disease. She was seen by her neurologist and print and pattern designer recently and states she was cleared for surgery. The patient was scheduled for surgery several times in the past and had to be canceled secondary to underlying medical conditions. Tje lesion has increased in size since she was first seen. Family history: Sr.: Breast cancer Father: Esophageal cancer Hormonal history: Menarche: 12 , 2 children, and at 19, menopause: 49 control pills: 10 years Hormones: Negative Surgical history: 1. Appendectomy 2. Fusion in her back 3. Cardiac bypass 5 4. Tonsillectomy Medical history: 1. Kidney disease requiring dialysis in the past 2. Diabetic 3. Hypertension 4. High cholesterol 5. Cardiac disease Social history: Smoke: One pack per day for 50 years/ stopped January Alcohol: Negative Drugs: Negative - Constitutional Constitutional: Denies chills, Denies fever - EENT Eyes: denies blurred vision, denies pain Ears: deny: decreased hearing Ears, nose, mouth and throat: Reports headache - Breasts Breasts: bilateral: as per HPI - Cardiovascular Comment: Cardiac bypass 5, high cholesterol, hypertension - Respiratory Comment: Smoker, chronic bronchitis - Gastrointestinal Gastrointestinal: Reports constipation - Genitourinary (Female) Comment: History of kidney failure requiring dialysis in the past - Menstruation Menstruation: Reports postmenopausal - Musculoskeletal Comment: Arthritis Musculoskeletal: Reports myalgias - Integumentary Integumentary: Denies pruritus, Denies rash - Neurological Neurological: Reports numbness, Reports weakness - Psychiatric Psychiatric: Denies anxiety, Denies depression - Endocrine Comment: diabetes Endocrine: Reports weight change - Hematologic/Lymphatic Comment: none - Allergic/Immunologic Allergic/Immunologic: Reports seasonal allergies Past Medical History Past Medical History: Coronary Artery Disease (CAD), Cancer, COPD, Diabetes Mellitus, Fibromyalgia, GERD/Reflux, Hearing Disorder / Deafness, Hyperlipidemia, Hypertension Additional Past Medical History / Comment(s): bilat hearing aid, Breast CA History of Any Multi-Drug Resistant Organisms: None Reported Past Surgical History: Appendectomy, Back Surgery, Coronary Bypass/CABG, Tonsillectomy Past Anesthesia/Blood Transfusion Reactions: No Reported Reaction Past Psychological History: No Psychological Hx Reported Smoking Status: Former smoker Past Alcohol Use History: None Reported Past Drug Use History: None Reported - Past Family History Father Additional Family Medical History / Comment(s): esophageal cancer Sister(s) Additional Family Medical History / Comment(s): breast cancer Medications and Allergies Home Medications Medication Instructions Recorded Confirmed Type Omeprazole [PriLOSEC] 20 mg PO BID 03/13/15 05/19/19 History Simvastatin [Zocor] 20 mg PO HS 03/13/15 05/19/19 History Linaclotide [Linzess] 145 mcg PO DAILY 09/29/18 05/19/19 History Multivitamin/Iron/Folic Acid 1 tab PO DAILY 09/29/18 05/19/19 History [Centrum Adults Tablet] amLODIPine [Norvasc] 5 mg PO DAILY 09/29/18 05/19/19 History HYDROcodone/APAP 10-325MG [[place] 1 tab PO TID PRN 01/04/19 05/19/19 History 10-325] Furosemide [Lasix] 80 mg PO DAILY 01/05/19 05/19/19 History Magnesium Oxide [Mag-Ox] 200 mg PO TID #10 tab 01/08/19 05/19/19 Rx Melatonin 3 mg PO HS PRN tablet 01/08/19 05/19/19 Rx Carvedilol [Coreg] 6.25 mg PO BID 01/22/19 05/19/19 History Fluticasone Nasal [place] [Flonase 1 spray EA NOSTRIL DAILY 01/22/19 05/19/19 History Nasal [place]] Albuterol Sulfate [Ventolin HFA] 1 - 2 puff INHALATION Q6H PRN 05/19/19 05/19/19 History Calcium Carbonate [Calcium] 600 mg PO DAILY 05/19/19 05/19/19 History Nitroglycerin 0.4 mg SL DAILY PRN 05/19/19 05/19/19 History Potassium Chloride [Klor-Con 10] 10 meq PO DAILY 05/19/19 05/19/19 History Sodium Bicarbonate 325 mg PO DAILY 05/19/19 05/19/19 History Allergies Allergy/AdvReac Type Severity Reaction Status Date / Time codeine Allergy Unknown Verified 05/19/19 15:05 Surgical - Exam Vital Signs Temp Pulse Resp BP Pulse Ox 97.4 F L 65 20 195/92 99 05/19/19 14:58 05/19/19 14:58 05/19/19 14:58 05/19/19 14:58 05/19/19 14:58 BMI 17.6 - General cachectic - Eyes normal ocular movement - ENT no hearing loss, no congestion - Neck trachea midline, no lymphadectomy, no venous distension - Respiratory normal expansion, normal respiratory effort, clear to auscultation - Cardiovascular Rhythm: regular Heart Sounds: normal: S1, S2 - Abdomen Abdomen: soft, non tender, no guarding, no rigid, no rebound - Integumentary normal turgor - Neurologic no disoriented, no combative - Musculoskeletal walks with a cane - Psychiatric oriented to time, oriented to person, oriented to place, speech is normal, memory intact breast exam: bra 32A ptosis grade 3 right breasts: Fibrocystic changes, upper outer quadrant mass consistent with biopsied breast cancer approximately 4 cm in size; this is not fixed to the chest wall Right axilla: No adenopathy of concern Left breast: Multi-positional exam no dominant masses or nodules of concern Left axilla: No adenopathy of concern Results pathology results reviewed Assessment and Plan Assessment: Impression: 1. Kidney disease requiring dialysis in the past 2. Diabetic 3. Hypertension 4. High cholesterol 5. Cardiac disease 6. Right breast cancer stage IIATII and 0 M0 ER/RI negative HER-2 positive grade 3 I discussed treatment options with the patient in her which would include lumpectomy versus mastectomy. We discussed the possibility of reconstruction she is not interested in seeing a plastic surgeon or having reconstruction at this time. Additionally the patient understands that if she had a lumpectomy she would need to have radiation therapy and she would prefer to have a mastectomy at this time. The risk and benefits including the possibility of bleeding, infection, reaction to the anesthetic are discussed and patient understands. We've also discussed axillary node sentinel node sampling possible axillary node dissection and the patient understands and wishes to proceed. We have also discussed the possibility of neoadjuvant chemotherapy, the patient is not interested at this time and is not interested in a lumpectomy and if the tumor could be shrunk. Plan: 1. Right mastectomy with sentinel node biopsy possible axillary node dissection 2. Present case at tumor board 3. Appointment with medical oncology 3. Primary with radiation oncology 4. Clearance from primary care doctor, cardiology, and nephrology Encounter 45 mniutes > 50% of time spent in planning and counselling.
== END | disposition home or self-care (01) ==
LOC: WWCWWP 14:30
PROVIDERS: ATTEND Surgery
DX: Z53.9 Procedure and treatment not carried out, unspecified reason (principal)

== ENCOUNTER 2019-06-15 07:27 | Day surgery (SDC) | payer MEDICARE ==
[2019-06-11 12:27] VITALS: BMI 18.7
[~2019-06-15 07:27] MED LIST changes: -ALPRAZolam 0.25 MG TAB PO ONE; -DEXAMETHASONE SOD PHOSPHATE 10 MG/ML 1 ML VIAL IV ONE; -LACTATED RINGERS 1,000 ML IV SCH; -LIDOCAINE 1% 20 ML VIAL (10MG/ML) FOR IV START INTRADERMA ONE; -MIDAZOLAM 2 MG/2 ML VIAL IV PRN; -ONDANSETRON 4 MG/2 ML VIAL IVP ONE; -fentaNYL (PF) 50 MCG/ML 2 ML AMP IV PRN
[2019-06-15] MEDS ORDERED: ONDANSETRON 4 MG/2 ML VIAL IVP ONE (07:35)
[2019-06-15] MEDS ORDERED: MIDAZOLAM 2 MG/2 ML VIAL IV PRN (07:35)
[2019-06-15] MEDS ORDERED: DEXAMETHASONE SOD PHOSPHATE 10 MG/ML 1 ML VIAL IV ONE (07:35)
[2019-06-15] MEDS: LACTATED RINGERS 1,000 ML IV SCH (08:01)
[2019-06-15] MEDS ORDERED: LIDOCAINE 1% 20 ML VIAL (10MG/ML) FOR IV START INTRADERMA ONE (08:01)
[2019-06-15] MEDS ORDERED: DESMOPRESSIN ACETATE 16 MCG in SODIUM CHLORIDE 0.9% 50 ML IVPB ONE (09:00)
--- NOTE | 2019-06-15 09:41 | NM ---
EXAMINATION TYPE: NM sentinel node injection DATE OF EXAM: 06/15/2019 COMPARISON: NONE HISTORY: 68-year-old female with right breast cancer. Referred for tracer injection for sentinel node localization. TECHNIQUE AND FINDINGS: The procedure of sentinel lymph node injection was explained to the patient. The benefits, alternatives, and risks were discussed. An informed consent was then obtained. Overlying skin is cleaned with sterile alcohol. Following this, 535 uCi Tc 99m Tilmanocept was inject ed surrounding the upper outer aspect of the right nipple intradermally. The patient tolerated the procedure well without any immediate complication. The patient was kept in the preop department for short stay after the procedure and then taken to surgery for surgical proce dure what is presumed intraoperative gamma probe will be used for sentinel lymph node detection. IMPRESSION: Right breast radiotracer injection for sentinel node localization as above.
--- NOTE | 2019-06-15 10:57 | P.PN ---
Progress Note - Text Progress Note Date: 06/15/19 Latesha is a 68-year-old white female with a right breast invasive ductal carcinoma. She has renal failure and her case was discussed preoperatively with nephrology. They recommended a dose of DDAVP be given pre-op, this was ordred. The patient is at high risk for operative intervention however has been cleared by medicine.
[2019-06-15] MEDS ORDERED: LIDOCAINE 1% INJ 10MG/ML (20 ML MDV) ONE (11:10)
[2019-06-15] MEDS ORDERED: fentaNYL (PF) 50 MCG/ML 2 ML AMP ONE (11:10)
[2019-06-15] MEDS ORDERED: ePHEDrine SULFATE/0.9% NACL/PF 50 MG/5 ML SYRINGE IV ONE (11:10)
[2019-06-15] MEDS ORDERED: MIDAZOLAM 2 MG/2 ML VIAL ONE (11:10)
[2019-06-15] MEDS ORDERED: ceFAZolin 1,000 MG VIAL ONE (11:10)
[2019-06-15] MEDS ORDERED: HYDROmorphone (PF) 1 MG/ML ONE (11:10)
[2019-06-15] MEDS ORDERED: SUCCINYLCHOLINE CHLORIDE 100 MG/5 ML SYR IV ONE (11:10)
[2019-06-15] MEDS ORDERED: PROPOFOL 10 MG/ML 20 ML VIAL IV ONE (11:10)
[2019-06-15] MEDS ORDERED: ceFAZolin 1,000 MG VIAL IVPB ONE (12:28)
[2019-06-15] MEDS ORDERED: SODIUM CHLORIDE 0.9% 500 ML 500 ML IV ONE (13:13)
--- NOTE | 2019-06-15 13:32 | P.OP ---
Date of Procedure: 06/15/19 Preoperative Diagnosis: Right breast invasive ductal carcinoma Postoperative Diagnosis: Same Procedure(s) Performed: Right mastectomy, sentinel node biopsy Anesthesia: RADHA Surgeon: Karishma Crandall Estimated Blood Loss (ml): 15 IV fluids (ml): 500 Pathology: other (Right breast, sentinel node) Condition: stable Disposition: floor Indications for Procedure: Invasive ductal carcinoma right breast Operative Findings: Invasive ductal carcinoma right breast, sentinel node negative for cancer on frozen section Description of Procedure: The patient is a 68-year-old white female with multiple medical problems including renal disease. Preoperative clearance was obtained from medicine as well as from nephrology. The patient was given the option of lumpectomy versus mastectomy and she chose a mastectomy without immediate reconstruction. We also discussed sentinel node biopsy possible axillary node dissection. The patient was in agreement. The patient was taken to the operating room and the right breast and axilla were prepped and draped in a sterile fashion. Markings were placed for superior and inferior incisions. The superior incision was made and carried through the skin and subcutaneous tissue to the area of the breast tissue. Superior flap was developed down to the chest wall. The inferior flap was then developed in the same fashion. The breast was dissected from medial to lateral off the pectoralis major muscle. Hemostasis was attained using electrocautery device as well as the Harmonic scalpel. Several larger vessels were identified and these were suture ligated. The area of the axilla was approached. Using the neoprobe and area of increased radioactivity was identified. This area was grasped using an Allis clamp and the surrounding tissue was excised using the Harmonic scalpel. The 10 second count was 6030. The background 10 second count was 6. The specimen was sent for frozen section evaluation. Frozen section was negative for cancer. After assured that hemostasis was attained the wound was well irrigated. Surgicel in powder form was placed. Two number 10 CHASE drians were placed. The drains were secured using nylon suture. The subcutaneous tissue was reapproximated using 3-0 Vicryl suture. A 3-0 Vicryl running suture was then placed. 4-0 Monocryl was placed in the subcuticular tissue. Steri-Strips were applied. The patient tolerated the procedure in stable condition. All instrument and sponge counts were correct at the end of the case.
[2019-06-15] MEDS ORDERED: NALOXONE 0.4 MG/ML 1 ML VIAL IV PRN (13:34)
[2019-06-15] MEDS ORDERED: HYDROcodone/APAP 5-325MG 1 EACH TAB PO PRN (13:34)
--- NOTE | 2019-06-15 13:34 | P.NAPBC ---
NAPBC Queries - NAPBC Queries Was patient's case review presented at [facility] tumor board? If no, comment.: Yes Was patient's pathology reviewed at [facility]? If no, comment.: Yes Was breast conservation surgery offered? If no, comment.: Yes Was sentinel node biopsy offered? If no, comment.: Yes Was diagnosis confirmed by percutaneous core biopsy? If no, comment.: Yes Is patient mastectomy patient?: Yes Was a preop referral to reconstructive surgeon offered?: No (patient declined) Clinical Stage: [id number]/RI-Her2+G3
[2019-06-15 13:45] LABS: Glucose,Whole Blood 234 mg/dL (75-99)
[2019-06-15] MEDS: fentaNYL (PF) 50 MCG/ML 2 ML AMP IV PRN ×2 (14:04→14:52)
[2019-06-15] MEDS ORDERED: INSULIN ASPART (NovoLOG) 100 UNIT/ML VIAL SQ ONE (14:34)
[2019-06-15] MEDS: HYDROmorphone 1 MG/ML 1 ML SYRINGE IVP PRN (16:46)
[2019-06-15] MEDS: SODIUM CHLORIDE 0.45% 1,000 ML IV SCH (16:49)
[2019-06-15] MEDS ORDERED: NITROGLYCERIN SL TABS 0.4 MG TAB SUBLINGUAL PRN (16:52)
[2019-06-15 17:12] LABS: Glucose,Whole Blood 181 mg/dL (75-99)
[2019-06-15] MEDS: ALBUTEROL NEBULIZED 2.5 MG/3 ML INHALATION SCH (19:14)
[2019-06-15] MEDS: HEPARIN SODIUM,PORCINE 5,000 UNIT/ML 1 ML VIAL SQ SCH ×2 (19:15→23:28)
[2019-06-15] MEDS: HYDROcodone/APAP 10-325MG 1 EACH TAB PO PRN (19:32)
[2019-06-15] MEDS: CALCIUM ACETATE 667 MG TAB PO SCH (19:37)
[2019-06-15] MEDS: INSULIN ASPART (NovoLOG) 100 UNIT/ML VIAL SQ SCH ×2 (19:37→21:53)
[2019-06-15] MEDS: CARVEDILOL 6.25 MG TAB PO SCH (19:37)
[2019-06-15] MEDS ORDERED: ATORVASTATIN 10 MG TAB PO SCH (21:00)
[2019-06-15] MEDS ORDERED: MAGNESIUM OXIDE 400 MG TAB PO SCH (21:00)
[2019-06-15] MEDS: SODIUM BICARBONATE TAB 650 MG TAB PO SCH (21:32)
[2019-06-15] MEDS: FOLIC ACID 1 MG TAB PO SCH (21:32)
[2019-06-15] MEDS: FUROSEMIDE 40 MG TAB PO SCH (21:32)
[2019-06-15] MEDS ORDERED: ONDANSETRON 4 MG/2 ML VIAL IVP PRN (21:34)
[2019-06-15 21:52] LABS: Glucose,Whole Blood 172 mg/dL (75-99)
[2019-06-15] MEDS ORDERED: SODIUM CHLORIDE TAB 1 GM TAB PO SCH (22:00)
[2019-06-16] MEDS: HYDROmorphone 1 MG/ML 1 ML SYRINGE IVP PRN (03:02)
[2019-06-16] MEDS ORDERED: LEVOTHYROXINE 50 MCG TAB PO SCH (06:30)
[2019-06-16 06:52] LABS: Glucose,Whole Blood 182 mg/dL (75-99)
[2019-06-16] MEDS ORDERED: PANTOPRAZOLE 40 MG TABLET PO SCH (07:30)
[2019-06-16 07:53] LABS: Basophils % (A) 0 %; Eosinophils % (A) 0 %; HCT 27.7 % (34.0-46.0); HGB 8.9 gm/dL (11.4-16.0); Lymphocytes # (A) 1.9 k/uL (1.0-4.8); Lymphocytes % (A) 20 %; MCH 31.8 pg (25.0-35.0); MCHC 32.1 g/dL (31.0-37.0); Mean Platelet Volume 7.4; Monocytes # (A) 0.7 k/uL (0-1.0); Monocytes % (A) 7 %; Neutrophils # (A) 6.8 k/uL (1.3-7.7); Neutrophils % (A) 71 %; Platelet Count 248 k/uL (150-450); RDW 14.3 % (11.5-15.5); WBC 9.6 k/uL (3.8-10.6)
[2019-06-16 08:13] LABS: Calcium 9.1 mg/dL (8.4-10.2); Potassium 4.2 mmol/L (3.5-5.1)
[2019-06-16] MEDS: HYDROcodone/APAP 10-325MG 1 EACH TAB PO PRN ×2 (08:29→16:04)
[2019-06-16] MEDS: CALCIUM ACETATE 667 MG TAB PO SCH ×2 (08:29→12:04)
[2019-06-16] MEDS: FUROSEMIDE 40 MG TAB PO SCH (08:30)
[2019-06-16] MEDS: FOLIC ACID 1 MG TAB PO SCH (08:31)
[2019-06-16] MEDS: CARVEDILOL 6.25 MG TAB PO SCH (08:31)
[2019-06-16] MEDS: SODIUM BICARBONATE TAB 650 MG TAB PO SCH (08:31)
[2019-06-16] MEDS: SODIUM CHLORIDE 0.45% 1,000 ML IV SCH (08:31)
[2019-06-16] MEDS: INSULIN ASPART (NovoLOG) 100 UNIT/ML VIAL SQ SCH ×2 (08:32→12:04)
[2019-06-16] MEDS: HEPARIN SODIUM,PORCINE 5,000 UNIT/ML 1 ML VIAL SQ SCH (08:32)
[2019-06-16] MEDS: LACTATED RINGERS 1,000 ML IV SCH (08:32)
[2019-06-16] MEDS ORDERED: CALCITRIOL 0.25 MCG CAP PO SCH (09:00)
[2019-06-16] MEDS ORDERED: FLUTICASONE 50MCG/SPRAY NASAL 16GM EA NOSTRIL SCH (09:00)
[2019-06-16] MEDS ORDERED: MULTIVITAMINS, THERA 1 EACH TAB PO SCH (09:00)
[2019-06-16] MEDS ORDERED: LORATADINE 10 MG TAB PO SCH (09:00)
[2019-06-16] MEDS ORDERED: amLODIPine 5 MG TAB PO SCH ×2 (09:00→21:00)
[2019-06-16] MEDS ORDERED: NON FORMULARY DRUG (Vitamin B Complex [Vitamin B Complex] 1 EACH) PO SCH (09:00)
[2019-06-16] MEDS: ALBUTEROL NEBULIZED 2.5 MG/3 ML INHALATION SCH (09:57)
--- NOTE | 2019-06-16 10:05 | P.PN ---
Subjective Progress Note Date: 06/16/19 Principal diagnosis: Postop day #1 right mastectomy sentinel node biopsy Latesha is a 68-year-old white female status post right mastectomy and sentinel node biopsy, postop day #1. She is doing well at this time. She has a history of advanced renal disease and is being followed by nephrology. Her urine output was 850. CHASE drain 1 45 mL CHASE drain to 40 mL serous in nature. Hemoglobin 8.9 down from 9.4. 83, creatinine 6.1. The patient has no complaints at this time. Her pain is under control. Objective - Vital Signs Vital signs: Vital Signs Temp 98.6 F 06/16/19 06:33 Pulse 72 06/16/19 09:57 Resp 16 06/16/19 08:39 BP 196/86 06/16/19 06:33 Pulse Ox 96 06/16/19 06:33 Intake & Output 06/15/19 06/16/19 06/16/19 18:59 06:59 18:59 Intake Total 1154 450 Output Total 185 1915 2225 Balance 969 -1465 -2225 Weight 54 kg Intake: IV 1154 Intake, IV Titration 450 Amount Sodium Chloride 0.45% 1, 450 000 ml @ 50 mls/hr IV . Q20H [facility] Rx#:[id number] Output: Drainage 10 40 25 Right 10 30 15 Right Breast 0 10 10 Urine 160 1725 2050 Uretheral (Marcial) 1725 850 Emesis 150 150 Estimated Blood Loss 15 Other: Voiding Method Indwelling Catheter Indwelling Catheter - Exam BMI 19.2 - Constitutional General appearance: Present: thin - EENT Eyes: Present: EOMI ENT: Present: hard of hearing - Respiratory Respiratory: bilateral: diminished (at bases) - Cardiovascular Rhythm: regular Heart sounds: normal: S1, S2 - Integumentary Integumentary Comment(s): Incision clean and dry, no evidence of hematoma, no evidence of infection Dressing changed and CHASE drain strapped CHASE drainage is serosanguineous in nature - Psychiatric Psychiatric: Present: A&O x's 3, appropriate affect, intact judgment & insight - Labs CBC & Chem 7: 06/16/19 07:25 06/16/19 07:25 Labs: Abnormal Lab Results - Last 24 Hours (Table) 06/15/19 06/15/19 06/15/19 Range/Units 13:42 17:11 21:51 RBC (3.80-5.40) m/uL Hgb (11.4-16.0) gm/dL Hct (34.0-46.0) % Sodium (137-145) mmol/L Carbon Dioxide (22-30) mmol/L BUN (7-17) mg/dL Creatinine (0.52-1.04) mg/dL Glucose (74-99) mg/dL POC Glucose (mg/dL) 234 H 181 H 172 H (75-99) mg/dL 06/16/19 06/16/19 06/16/19 Range/Units 06:46 07:25 07:25 RBC 2.80 L (3.80-5.40) m/uL Hgb 8.9 L (11.4-16.0) gm/dL Hct 27.7 L (34.0-46.0) % Sodium 131 L (137-145) mmol/L Carbon Dioxide 17 L (22-30) mmol/L BUN 83 H (7-17) mg/dL Creatinine 6.10 H (0.52-1.04) mg/dL Glucose 160 H (74-99) mg/dL POC Glucose (mg/dL) 182 H (75-99) mg/dL Assessment and Plan Assessment: Impression: 1. Postop day #1 right mastectomy sentinel node biopsy 2. CHASE output serosanguineous no evidence of hematoma 3. Hemoglobin 8.9 Evidence of active bleed 4. Urine output a 50, B 83 creatinine 6.1 Plan: 1. Continue present wound care 2. Await nephrology and medicine consults 3. Discharge home when stable from medical and nephrology standpoint
--- NOTE | 2019-06-16 11:05 | P.NPCON ---
History of Present Illness - Reason for Consult chronic renal failure - History of Present Illness Reason for consultation: Chronic kidney disease History of present illness: Patient is a 68-year-old female seen in consultation for chronic kidney disease. Patient has chronic kidney disease stage V. She's currently not on dialysis. However renal replacement therapy has been discussed multiple times with the patient in the office. Patient does not want to start dialysis at this time. Her oral intake is good. She has been voiding. No vomiting or diarrhea. Patient was diagnosed with invasive breast cancer and underwent right mastectomy and sentinel node biopsy on June 15. She denies use of nonsteroidals. No hematuria or dysuria. No edema. No chest pain or shortness of breath. Hemodyn amically stable. Her blood pressures on the higher side. She is currently receiving half-normal saline at 50 mL an hour and also Lasix 40 mg twice daily. Vital signs are stable. General: The patient appeared well nourished and normally developed. HEENT: Head exam is unremarkable. Neck is without jugular venous distension. LUNGS: Lungs are clear to auscultation and percussion. Breath sounds decreased. HEART: Rate and Rhythm are regular. First and second heart sounds normal. No murmurs, rubs or gallops. ABDOMEN: Abdominal exam reveals normal bowel sounds. Non-tender and non- distended. No evidence of peritonitis. EXTREMITITES: No clubbing, cyanosis, or edema. Past Medical History Past Medical History: Coronary Artery Disease (CAD), Cancer, COPD, Diabetes Mellitus, Fibromyalgia, GERD/Reflux, GI Bleed, Hearing Disorder / Deafness, Hyperlipidemia, Hypertension, Renal Disease Additional Past Medical History / Comment(s): [place], DIABETES-NO CURRENT MEDS., BACK PAIN-USES CANE., CONSTIPATION. STATES NEW DIAGNOSIS BREAST CANCER, KIDNEY DISEASE STAGE 4/5 (PAST HX OF DIALYSIS) ., ANEMIA. History of Any Multi-Drug Resistant Organisms: None Reported Past Surgical History: Appendectomy, Back Surgery, Coronary Bypass/CABG, Heart Catheterization, Tonsillectomy Additional Past Surgical History / Comment(s): CABG ?2007, GRAFT FOR DIALYSIS INSERTED AND REMOVED DUE TO INFECTION. right breast masectomy Past Anesthesia/Blood Transfusion Reactions: No Reported Reaction Past Psychological History: No Psychological Hx Reported Smoking Status: Former smoker Past Alcohol Use History: None Reported Additional Past Alcohol Use History / Comment(s): QUIT SMOKING JAN 2019, SMOKED 1-1 1/2 PPD . STARTED SMOKING AGE 11. Past Drug Use History: None Reported - Past Family History Father Additional Family Medical History / Comment(s): esophageal cancer Sister(s) Additional Family Medical History / Comment(s): breast cancer Medications and Allergies Home Medications Medication Instructions Recorded Confirmed Type Omeprazole [PriLOSEC] 20 mg PO BID 03/13/15 06/15/19 History Simvastatin [Zocor] 20 mg PO HS 03/13/15 06/15/19 History Linaclotide [Linzess] 145 mcg PO DAILY PRN 09/29/18 06/15/19 History Multivitamin/Iron/Folic Acid 1 tab PO DAILY 09/29/18 06/15/19 History [Centrum Adults Tablet] amLODIPine [Norvasc] 5 mg PO DAILY 09/29/18 06/15/19 History HYDROcodone/APAP 10-325MG [[place] 1 tab PO BID PRN 01/04/19 06/15/19 History 10-325] Carvedilol [Coreg] 6.25 mg PO BID 01/22/19 06/15/19 History Fluticasone Nasal [place] [Flonase 1 spray EA NOSTRIL DAILY 01/22/19 06/15/19 History Nasal [place]] Albuterol Sulfate [Ventolin HFA] 1 - 2 puff INHALATION BID 05/19/19 06/15/19 History Nitroglycerin 0.4 mg SL DAILY PRN 05/19/19 06/15/19 History Calcitriol [Rocaltrol] 0.5 mcg PO DAILY 06/11/19 06/15/19 History Calcium Acetate [Phoslo] 1,334 mg PO TID-W/MEALS 06/11/19 06/15/19 History Folic Acid 0.8 mg PO BID 06/11/19 06/15/19 History Furosemide [Lasix] 40 mg PO BID 06/11/19 06/15/19 History Levothyroxine Sodium [Synthroid] 50 mcg PO DAILY 06/11/19 06/15/19 History Loratadine 10 mg PO DAILY 06/11/19 06/15/19 History Magnesium Oxide [Mag-Ox] 400 mg PO HS 06/11/19 06/15/19 History Sodium Bicarbonate Tab 650 mg PO TID 06/11/19 06/15/19 History Sodium Chloride Tab 1 gm PO DAILY@1200,2200 06/11/19 06/15/19 History Vitamin B Complex 1 each PO DAILY 06/11/19 06/15/19 History Allergies Allergy/AdvReac Type Severity Reaction Status Date / Time codeine Allergy Unknown Verified 06/11/19 11:12 Physical Exam Vitals: Vital Signs Temp Pulse Pulse Pulse Pulse Resp BP 06/16/19 10:07 72 06/16/19 09:57 72 06/16/19 08:39 63 80 64 16 06/16/19 06:33 98.6 F 80 16 196/86 06/15/19 20:48 97.8 F 69 15 170/75 06/15/19 19:23 66 06/15/19 19:15 64 64 64 15 06/15/19 17:24 64 06/15/19 17:20 63 160/78 06/15/19 16:50 63 153/79 06/15/19 16:20 64 164/83 06/15/19 15:50 64 155/85 06/15/19 15:30 60 16 158/74 06/15/19 15:00 61 16 162/68 06/15/19 14:36 62 16 163/76 06/15/19 14:20 58 L 16 165/78 06/15/19 14:04 58 L 16 155/73 06/15/19 13:49 60 16 156/74 06/15/19 13:34 97.4 F L 58 L 14 144/68 Pulse Ox 06/16/19 10:07 06/16/19 09:57 06/16/19 08:39 06/16/19 06:33 96 06/15/19 20:48 95 06/15/19 19:23 06/15/19 19:15 06/15/19 17:24 06/15/19 17:20 97 06/15/19 16:50 96 06/15/19 16:20 96 06/15/19 15:50 06/15/19 15:30 95 06/15/19 15:00 94 L 06/15/19 14:36 95 06/15/19 14:20 95 06/15/19 14:04 98 06/15/19 13:49 97 06/15/19 13:34 98 Intake and Output 06/15/19 06/16/1906/16/20 22:59 06:59 14:59 Intake Total 100 450 Output Total 0191 491 1155 Balance -6461 -104 -9534 Intake: IV 100 Intake, IV Titration 450 Amount Sodium Chloride 0.45% 1, 450 000 ml @ 50 mls/hr IV . Q20H [facility] Rx#:[id number] Output: Drainage 10 40 25 Right 10 30 15 Right Breast 0 10 10 Urine 279 964 5244 Uretheral (Marcial) 875 850 850 Emesis 150 150 Other: Voiding Method Indwelling Catheter Indwelling Catheter Weight 54 kg Results - Lab Results Most recent lab results Calcium 9.1 mg/dL (8.4-10.2) 06/16/19 07:25 06/16/19 07:25 06/16/19 07:25 Assessment and Plan Plan: Assessment: 1. Chronic kidney disease stage V. Patient not ready to start renal replacement therapy at this time. 2. Invasive breast cancer status post right mastectomy on 06/15/2019. 3. Hypertension with chronic kidney disease. 4. Metabolic acidosis secondary to chronic kidney disease maintained on oral sodium bicarbonate. 5. Chronic kidney disease mineral bone disease maintained on PhosLo and calcitriol. 6. Hyponatremia secondary to chronic kidney disease. Plan: Hep-Lock IV fluids. Maintain Lasix 40 mg orally twice daily. Discontinue sodium chloride tablet. Increase amlodipine to 5 mg twice daily. No signs or symptoms of uremia at this time. Electrolytes stable. Follow-up outpatient in 1 week. Continue to discuss the need to start dialysis outpatient. Thank you for the consultation. I will continue to follow the patient with you during her hospital stay.
[2019-06-16 11:41] LABS: Glucose,Whole Blood 178 mg/dL (75-99)
[2019-06-16 11:47] VITALS: BP 179/84; PULSE 67; TEMP 97.4
[2019-06-16 13:29] VITALS: RESP 18
--- NOTE | 2019-06-19 18:53 | CDI ---
Outpatient Documentation Clarification Form Date: 06/19/19 CDS.Lead Welder Name: Brooke Marcos Phone: if any questions, call [facility] at [phone] Patient: Latesha Navarro Admit Date: 06/15/19 Discharge Date: 06/16/19 ATTENTION: The [facility] Coding Staff appreciate your assistance in clarifying documentation. Please respond to the clarification below the line at the bottom and electronically sign. The [facility] Coding Staff with review the response and follow-up if needed. Please Note: Queries are made part of the Legal Health Record. If you have any questions, please contact the [facility]. Dear. Dr. Crandall, Please provide clarification as to the sentinel node biopsy. In order to code to the greatest specificity,the depth of the node must be specified. To assist in ascertaining which lymph node excision code to report, the axillary lymph nodes are divided into Levels I through III. Levels II and III would always be deep (code 60340). Level I may be deep (code 87945) or superficial (code 12288), depending on the patient's body habitus. Superficial nodes at most sites would be easily palpable. Since Level I axillary lymph nodes may be deep or superficial, it is important that the depth (ie, deep or superficial) be documented in the medical record to ensure correct coding. Please clarify. Thank you for your kind consideration. The lymph node was deep. MTDD
--- NOTE | 2019-06-21 21:27 | P.CONS ---
History of Present Illness - Reason for Consult Consult date: 06/16/19 Medical management Requesting physician: Karishma Crandall - Chief Complaint Breast surgery - History of Present Illness Consultation: This is a pleasant 68-year-old patient whose chronic stable medical conditions include coronary artery disease with bypass, COPD, diabetes mellitus type 2, fibromyalgia, GERD, hard of hearing, hyperlipidemia, hypertension, with a prior history of dialysis. Anemia. Patient yesterday underwent right mastectomy and sentinel node biopsy. Some pain of the operative site. Has a drain. Her nausea vomiting. Did tolerate some diet. No fever no chills. Laying in bed. Review of systems: GEN.: Tired EYES: None HEENT: Decreased hearing NECK: None RESPIRATORY: None CARDIOVASCULAR: None GASTROINTESTINAL: None GENITOURINARY: None MUSCULOSKELETAL: Some joint pains LYMPHATICS: None HEMATOLOGICAL: None PSYCHIATRY: None NEUROLOGICAL: None Social history: Uses a cane. . Started smoking at age of 11, stopped in January 2019. Smoked a pack to pack and a half a day. Alcohol none. Physical examination: VITAL SIGNS: 98.6-80-16-170/75-96% on room air GENERAL: BMI 98.2, laying in bed slightly tired. EYES: Pupils equal. Conjunctiva normal. HEENT: External appearance of nose and ears normal, oral cavity grossly normal. NECK: JVD not raised; masses not palpable. HEART: First and second heart sounds are normal; no edema. LUNGS: Respiratory rate normal; decreased breath sound. CHEST wall: A strep dressing in place with a drain ABDOMEN: Soft, nontender, liver spleen not palpable, no masses palpable. PSYCH: [Alert and oriented x3; mood and affect bit tired l. NEUROLOGICAL: Cranial nerves grossly intact; no facial asymmetry, power and sensation grossly intact. LYMPHATICS: No lymph nodes palpable in the neck INVESTIGATIONS, reviewed in the clinical context: White count 9.6 hemoglobin 8.9 potassium 4.2 bun 83 creatinine 6.10 Assessment: -Right mastectomy with sentinel node biopsy for invasive ductal carcinoma -Coronary artery disease prior history of bypass -Hyponatremia likely hypoosmolar, secondary to chronic kidney disease -COPD in an ex-smoker -Diabetes mellitus type 2 -Chronic fibromyalgia -GERD -Hyperlipidemia -Hypertension with chronic kidney disease -Anemia of chronic kidney disease -Chronic kidney disease stage V Plan: Home medications are to be renewed. Patient seen by nephrology. Sees patient not ready for any renal replacement therapy. Other medications to continue. Patient follows family doctor for discharge. Care was discussed with the patient. Patient also to follow with nephrology as an outpatient. Thank you Dr. Christen David Past Medical History Past Medical History: Coronary Artery Disease (CAD), Cancer, COPD, Diabetes Mellitus, Fibromyalgia, GERD/Reflux, GI Bleed, Hearing Disorder / Deafness, Hyperlipidemia, Hypertension, Renal Disease Additional Past Medical History / Comment(s): [place], DIABETES-NO CURRENT MEDS., BACK PAIN-USES CANE., CONSTIPATION. STATES NEW DIAGNOSIS BREAST CANCER, KIDNEY DISEASE STAGE 4/5 (PAST HX OF DIALYSIS) ., ANEMIA. History of Any Multi-Drug Resistant Organisms: None Reported Past Surgical History: Appendectomy, Back Surgery, Coronary Bypass/CABG, Heart Catheterization, Tonsillectomy Additional Past Surgical History / Comment(s): CABG ?2007, GRAFT FOR DIALYSIS INSERTED AND REMOVED DUE TO INFECTION. right breast masectomy Past Anesthesia/Blood Transfusion Reactions: No Reported Reaction Past Psychological History: No Psychological Hx Reported Smoking Status: Former smoker Past Alcohol Use History: None Reported Additional Past Alcohol Use History / Comment(s): QUIT SMOKING JAN 2019, SMOKED 1-1 1/2 PPD . STARTED SMOKING AGE 11. Past Drug Use History: None Reported - Past Family History Father Additional Family Medical History / Comment(s): esophageal cancer Sister(s) Additional Family Medical History / Comment(s): breast cancer Medications and Allergies Home Medications Medication Instructions Recorded Confirmed Type Omeprazole [PriLOSEC] 20 mg PO BID 03/13/15 06/15/19 History Simvastatin [Zocor] 20 mg PO HS 03/13/15 06/15/19 History Linaclotide [Linzess] 145 mcg PO DAILY PRN 09/29/18 06/15/19 History Multivitamin/Iron/Folic Acid 1 tab PO DAILY 09/29/18 06/15/19 History [Centrum Adults Tablet] amLODIPine [Norvasc] 5 mg PO DAILY 09/29/18 06/15/19 History HYDROcodone/APAP 10-325MG [[place] 1 tab PO BID PRN 01/04/19 06/15/19 History 10-325] Carvedilol [Coreg] 6.25 mg PO BID 01/22/19 06/15/19 History Fluticasone Nasal [place] [Flonase 1 spray EA NOSTRIL DAILY 01/22/19 06/15/19 History Nasal [place]] Albuterol Sulfate [Ventolin HFA] 1 - 2 puff INHALATION BID 05/19/19 06/15/19 History Nitroglycerin 0.4 mg SL DAILY PRN 05/19/19 06/15/19 History Calcitriol [Rocaltrol] 0.5 mcg PO DAILY 06/11/19 06/15/19 History Calcium Acetate [Phoslo] 1,334 mg PO TID-W/MEALS 06/11/19 06/15/19 History Folic Acid 0.8 mg PO BID 06/11/19 06/15/19 History Furosemide [Lasix] 40 mg PO BID 06/11/19 06/15/19 History Levothyroxine Sodium [Synthroid] 50 mcg PO DAILY 06/11/19 06/15/19 History Loratadine 10 mg PO DAILY 06/11/19 06/15/19 History Magnesium Oxide [Mag-Ox] 400 mg PO HS 06/11/19 06/15/19 History Sodium Bicarbonate Tab 650 mg PO TID 06/11/19 06/15/19 History Sodium Chloride Tab 1 gm PO DAILY@1200,2200 06/11/19 06/15/19 History Vitamin B Complex 1 each PO DAILY 06/11/19 06/15/19 History glipiZIDE [Glucotrol] 2.5 mg PO AC-BID #60 tab 06/16/19 Rx Allergies Allergy/AdvReac Type Severity Reaction Status Date / Time codeine Allergy Unknown Verified 06/11/19 11:12 Physical Exam Vitals: Vital Signs Temp Pulse Pulse Pulse Pulse Resp BP 06/16/19 10:07 72 06/16/19 09:57 72 06/16/19 08:39 63 80 64 16 06/16/19 06:33 98.6 F 80 16 196/86 06/15/19 20:48 97.8 F 69 15 170/75 06/15/19 19:23 66 06/15/19 19:15 64 64 64 15 06/15/19 17:24 64 06/15/19 17:20 63 160/78 06/15/19 16:50 63 153/79 06/15/19 16:20 64 164/83 06/15/19 15:50 64 155/85 06/15/19 15:30 60 16 158/74 06/15/19 15:00 61 16 162/68 06/15/19 14:36 62 16 163/76 06/15/19 14:20 58 L 16 165/78 06/15/19 14:04 58 L 16 155/73 06/15/19 13:49 60 16 156/74 06/15/19 13:34 97.4 F L 58 L 14 144/68 Pulse Ox 06/16/19 10:07 06/16/19 09:57 06/16/19 08:39 06/16/19 06:33 96 06/15/19 20:48 95 06/15/19 19:23 06/15/19 19:15 06/15/19 17:24 06/15/19 17:20 97 06/15/19 16:50 96 06/15/19 16:20 96 06/15/19 15:50 06/15/19 15:30 95 06/15/19 15:00 94 L 06/15/19 14:36 95 06/15/19 14:20 95 06/15/19 14:04 98 06/15/19 13:49 97 06/15/19 13:34 98 Intake and Output 06/15/19 06/16/19 06/16/19 22:59 06:59 14:59 Intake Total 100 450 Output Total 7551 648 6624 Balance -1017 -103 -2227 Intake: IV 100 Intake, IV Titration 450 Amount Sodium Chloride 0.45% 1, 450 000 ml @ 50 mls/hr IV . Q20H [facility] Rx#:[id number] Output: Drainage 10 40 25 Right 10 30 15 Right Breast 0 10 10 Urine 916 021 4420 Uretheral (Marcial) 875 850 850 Emesis 150 150 Other: Voiding Method Indwelling Catheter Indwelling Catheter Weight 54 kg Results CBC & Chem 7: 06/16/19 07:25 06/16/19 07:25 Labs: Abnormal Lab Results - Last 24 Hours (Table) 06/15/19 06/15/19 06/15/19 Range/Units 13:42 17:11 21:51 RBC (3.80-5.40) m/uL Hgb (11.4-16.0) gm/dL Hct (34.0-46.0) % Sodium (137-145) mmol/L Carbon Dioxide (22-30) mmol/L BUN (7-17) mg/dL Creatinine (0.52-1.04) mg/dL Glucose (74-99) mg/dL POC Glucose (mg/dL) 234 H 181 H 172 H (75-99) mg/dL 06/16/19 06/16/19 06/16/19 Range/Units 06:46 07:25 07:25 RBC 2.80 L (3.80-5.40) m/uL Hgb 8.9 L (11.4-16.0) gm/dL Hct 27.7 L (34.0-46.0) % Sodium 131 L (137-145) mmol/L Carbon Dioxide 17 L (22-30) mmol/L BUN 83 H (7-17) mg/dL Creatinine 6.10 H (0.52-1.04) mg/dL Glucose 160 H (74-99) mg/dL POC Glucose (mg/dL) 182 H (75-99) mg/dL
== END 2019-06-16 16:26 | disposition home health service (06) ==
LOC: OR 07:27 → 5NMEDONC 15:05 → OR 06-16 16:26
PROVIDERS: ATTEND Surgery
DX: C50.911 Malignant neoplasm of unspecified site of right female breast (principal); I25.10 Atherosclerotic heart disease of native coronary artery without angina pectoris; I12.0 Hypertensive chronic kidney disease with stage 5 chronic kidney disease or end stage renal disease; E11.22 Type 2 diabetes mellitus with diabetic chronic kidney disease; N18.5 Chronic kidney disease, stage 5; E78.2 Mixed hyperlipidemia; M79.7 Fibromyalgia; K21.9 Gastro-esophageal reflux disease without esophagitis; J43.9 Emphysema, unspecified; J42 Unspecified chronic bronchitis; H91.90 Unspecified hearing loss, unspecified ear; Z95.1 Presence of aortocoronary bypass graft; Z98.1 Arthrodesis status; Z98.890 Other specified postprocedural states; E03.9 Hypothyroidism, unspecified; E53.8 Deficiency of other specified B group vitamins; E83.42 Hypomagnesemia; F41.8 Other specified anxiety disorders; Z86.19 Personal history of other infectious and parasitic diseases; Z97.2 Presence of dental prosthetic device (complete) (partial); Z87.891 Personal history of nicotine dependence; Z80.0 Family history of malignant neoplasm of digestive organs; Z82.49 Family history of ischemic heart disease and other diseases of the circulatory system; Z80.3 Family history of malignant neoplasm of breast; G89.4 Chronic pain syndrome; Z79.891 Long term (current) use of opiate analgesic; Z79.890 Hormone replacement therapy; Z79.4 Long term (current) use of insulin; Z79.899 Other long term (current) drug therapy; Z79.51 Long term (current) use of inhaled steroids; J30.9 Allergic rhinitis, unspecified; Z88.5 Allergy status to narcotic agent
CPT/HCPCS: 94640 ×2; 80048; 85025; 88342; 88331; 88307; 88341; 38792; 19303; 38525; A9520; J2250; J1644 ×2; J1100; J2405; J0690; J2001; J3010; J1170 ×2; J0330; J2704; J2597

== ENCOUNTER → 2019-10-12 | Outpatient (CLI) | payer MEDICARE, OTHER ==
--- NOTE | 2019-10-14 09:26 | USB ---
Reason for exam: clinical finding. History: Patient has history of breast cancer at age 68. Family history of breast cancer in sister. Mastectomy of the right breast, June 2019. Physical Findings: Nurse Summary: right axilla palpable 2 x 3cm, fixed, non-tender (nurse ts). US Breast Axilla RT Right breast axilla ultrasound demonstrates a 3.1 x 1.5cm oval, cystic lesion at the axilla. Probable seroma given surgery history. No abscess and hematoma clinically. These results were verbally communicated with the patient and result sheet given to the patient on 10/12/19. ASSESSMENT: Probably benign, BI-RAD 3 RECOMMENDATION: Clinical management of the right breast. Manage patient on a clinical basis. Can ultrasound sample if desired.
== END | disposition home or self-care (01) ==
LOC: RADUSWWP 16:06
PROVIDERS: ATTEND Internal Medicine Hematology & Oncology
DX: N63.10 Unspecified lump in the right breast, unspecified quadrant (principal); Z85.3 Personal history of malignant neoplasm of breast

== ENCOUNTER 2019-10-27 14:06 | Emergency (ER) | payer MEDICARE, OTHER ==
--- NOTE | 2019-10-27 14:20 | ED ---
General Adult HPI - General Stated complaint: Abnormal labs Time Seen by Provider: 10/27/19 14:07 Source: patient, RN notes reviewed, old records reviewed - History of Present Illness Initial comments: 69-year-old female presenting for evaluation of abnormal outpatient labs. Patient follows with nephrology, previous history of end-stage renal disease requiring hemodialysis. She has not been on dialysis for the past 2 years. She had routine blood work obtained as an outpatient and was called by her high lighter indicating that she had a very low calcium she was instructed to present to the emergency department for evaluation. She has no complaints. She denies worsening dyspnea. She denies chest pain. Denies abdominal pain nausea vomiting. She states she has been urinating normally. - Related Data Home Medications Medication Instructions Recorded Confirmed Omeprazole [PriLOSEC] 20 mg PO BID 03/13/15 07/02/19 Simvastatin [Zocor] 20 mg PO HS 03/13/15 07/02/19 Linaclotide [Linzess] 145 mcg PO DAILY PRN 09/29/18 07/02/19 Multivitamin/Iron/Folic Acid 1 tab PO DAILY 09/29/18 07/02/19 [Centrum Adults Tablet] amLODIPine [Norvasc] 5 mg PO DAILY 09/29/18 07/02/19 HYDROcodone/APAP 10-325MG [[place] 1 tab PO BID PRN 01/04/19 07/02/19 10-325] Carvedilol [Coreg] 6.25 mg PO BID 01/22/19 07/02/19 Fluticasone Nasal [place] [Flonase 1 spray EA NOSTRIL DAILY 01/22/19 07/02/19 Nasal [place]] Albuterol Sulfate [Ventolin HFA] 1 - 2 puff INHALATION BID 05/19/19 07/02/19 Nitroglycerin 0.4 mg SL DAILY PRN 05/19/19 07/02/19 Calcitriol [Rocaltrol] 0.5 mcg PO DAILY 06/11/19 07/02/19 Calcium Acetate [Phoslo] 1,334 mg PO TID-W/MEALS 06/11/19 07/02/19 Folic Acid 0.8 mg PO BID 06/11/19 07/02/19 Furosemide [Lasix] 40 mg PO BID 06/11/19 07/02/19 Levothyroxine Sodium [Synthroid] 50 mcg PO DAILY 06/11/19 07/02/19 Loratadine 10 mg PO DAILY 06/11/19 07/02/19 Magnesium Oxide [Mag-Ox] 400 mg PO HS 06/11/19 07/02/19 Sodium Bicarbonate Tab 650 mg PO TID 06/11/19 07/02/19 Sodium Chloride Tab 1 gm PO DAILY@1200,2200 06/11/19 07/02/19 Vitamin B Complex 1 each PO DAILY 06/11/19 07/02/19 Previous Rx's Medication Instructions Recorded glipiZIDE [Glucotrol] 2.5 mg PO AC-BID #60 tab 06/16/19 Allergies Allergy/AdvReac Type Severity Reaction Status Date / Time codeine Allergy Unknown Verified 10/27/19 14:46 Review of Systems ROS Statement: Those systems with pertinent positive or pertinent negative responses have been documented in the HPI. ROS Other: All systems not noted in ROS Statement are negative. Past Medical History Past Medical History: Coronary Artery Disease (CAD), Cancer, COPD, Diabetes Mellitus, Fibromyalgia, GERD/Reflux, Hearing Disorder / Deafness, Hyp erlipidemia, Hypertension Additional Past Medical History / Comment(s): [place], DIABETES-NO CURRENT MEDS., BACK PAIN-USES CANE., CONSTIPATION. STATES NEW DIAGNOSIS BREAST CANCER, KIDNEY DISEASE STAGE 4/5 (PAST HX OF DIALYSIS) ., ANEMIA. History of Any Multi-Drug Resistant Organisms: None Reported Past Surgical History: Appendectomy, Back Surgery, Coronary Bypass/CABG, Tonsillectomy Additional Past Surgical History / Comment(s): CABG ?2007, GRAFT FOR DIALYSIS INSERTED AND REMOVED DUE TO INFECTION. right breast masectomy Past Anesthesia/Blood Transfusion Reactions: No Reported Reaction Past Psychological History: No Psychological Hx Reported Smoking Status: Former smoker Past Alcohol Use History: None Reported Additional Past Alcohol Use History / Comment(s): QUIT SMOKING JAN 2019, SMOKED 1-1 1/2 PPD . STARTED SMOKING AGE 11. Past Drug Use History: None Reported - Past Family History Father Additional Family Medical History / Comment(s): esophageal cancer Sister(s) Additional Family Medical History / Comment(s): breast cancer General Exam General appearance: alert, in no apparent distress Head exam: Present: atraumatic, normocephalic Eye exam: Present: normal appearance, PERRL ENT exam: Present: normal exam Neck exam: Present: normal inspection. Absent: tenderness, meningismus Respiratory exam: Present: normal lung sounds bilaterally. Absent: respiratory distress, wheezes Cardiovascular Exam: Present: regular rate, normal rhythm GI/Abdominal exam: Present: soft. Absent: distended, tenderness, guarding Neurological exam: Present: alert, oriented X3, CN II-XII intact. Absent: motor sensory deficit Psychiatric exam: Present: normal affect, normal mood Skin exam: Present: warm, dry, intact. Absent: cyanosis, diaphoretic Course Vital Signs 10/27/19 14:41 Temperature 97.8 F Pulse Rate 68 Respiratory 18 Rate Blood Pressure 151/80 O2 Sat by Pulse 100 Oximetry EKG Findings - EKG Comments: EKG Findings:: EKG: Normal sinus rhythm low voltage, no ST segment elevation, T- wave inversion in V2 V3, ventricular rate of 68, [place] interval 148, QRS duration 82, QTC 433 Medical Decision Making - Medical Decision Making Patient's presenting for abnormal labs. She has no complaints. She indicated that her calcium was low and she was told to come to the emergency department. She has significant laboratory abnormalities including anemia does appear stable at 8.2. She has an elevated creatinine of 5.72 which is improved from June of this year where was 6. She is uremic with a BUN of 100. She has a calcium of 7, corrected calcium is 8.8 which is normal. Patient had previously refused dialysis and she is currently continuing to refuse dialysis. I discussed her lab testing with her high lighter Dr. Reilly. She is aware that the patient has refused dialysis in the past. She recommends discharge and outpatient follow- up. The patient reevaluated, eager for discharge, continuing to refuse dialysis and states she will follow-up with her high lighter as an outpatient and she will return with development of any symptoms. - Lab Data Result diagrams: 10/27/19 14:30 10/27/19 14:30 Lab Results 10/27/19 10/27/19 Range/Units 14:30 14:30 WBC 10.7 H (3.8-10.6) k/uL RBC 2.64 L (3.80-5.40) m/uL Hgb 8.2 L (11.4-16.0) gm/dL Hct 25.3 L (34.0-46.0) % MCV 95.7 (80.0-100.0) fL MCH 30.8 (25.0-35.0) pg MCHC 32.2 (31.0-37.0) g/dL RDW 14.3 (11.5-15.5) % Plt Count 285 (150-450) k/uL Neutrophils % 49 % Lymphocytes % 42 % Monocytes % 4 % Eosinophils % 4 % Basophils % 1 % Neutrophils # 5.2 (1.3-7.7) k/uL Lymphocytes # 4.5 (1.0-4.8) k/uL Monocytes # 0.4 (0-1.0) k/uL Eosinophils # 0.4 (0-0.7) k/uL Basophils # 0.1 (0-0.2) k/uL Sodium 131 L (137-145) mmol/L Potassium 4.1 (3.5-5.1) mmol/L Chloride 104 (98-107) mmol/L Carbon Dioxide 17 L (22-30) mmol/L Anion Gap 10 mmol/L BUN 100 H (7-17) mg/dL Creatinine 5.72 H (0.52-1.04) mg/dL Est GFR (CKD-EPI)AfAm 8 (>60 ml/min/1.73 sqM) Est GFR (CKD-EPI)NonAf 7 (>60 ml/min/1.73 sqM) Glucose 149 H (74-99) mg/dL Calcium 7.0 L (8.4-10.2) mg/dL Phosphorus 6.0 H (2.5-4.5) mg/dL Magnesium 1.2 L (1.6-2.3) mg/dL Total Bilirubin 0.2 (0.2-1.3) mg/dL AST 37 H (14-36) U/L ALT 38 H (4-34) U/L Alkaline Phosphatase 134 H (38-126) U/L Total Protein 4.1 L (6.3-8.2) g/dL Albumin 1.8 L (3.5-5.0) g/dL Disposition Clinical Impression: Renal insufficiency, Hypomagnesemia, Chronic kidney disease (CKD) Disposition: HOME SELF-CARE Condition: Fair Instructions (If sedation given, give patient instructions): Chronic Kidney Disease (ED) Is patient prescribed a controlled substance at d/c from ED?: No Referrals: Lito Evans MD [Primary Care Provider] - 1-2 days Time of Disposition: 15:37
[2019-10-27 14:46] VITALS: TEMP 97.8
[2019-10-27 14:48] LABS: Basophils # (A) 0.1 k/uL (0-0.2); Basophils % (A) 1 %; Eosinophils # (A) 0.4 k/uL (0-0.7); Eosinophils % (A) 4 %; HCT 25.3 % (34.0-46.0); HGB 8.2 gm/dL (11.4-16.0); Lymphocytes # (A) 4.5 k/uL (1.0-4.8); Lymphocytes % (A) 42 %; MCH 30.8 pg (25.0-35.0); MCHC 32.2 g/dL (31.0-37.0); MCV 95.7 fL (80.0-100.0); Mean Platelet Volume 7.7; Monocytes # (A) 0.4 k/uL (0-1.0); Monocytes % (A) 4 %; Neutrophils # (A) 5.2 k/uL (1.3-7.7); Neutrophils % (A) 49 %; Platelet Count 285 k/uL (150-450); RBC 2.64 m/uL (3.80-5.40); RDW 14.3 % (11.5-15.5); WBC 10.7 k/uL (3.8-10.6)
[2019-10-27 14:58] LABS: Albumin 1.8 g/dL (3.5-5.0); Magnesium 1.2 mg/dL (1.6-2.3); Total Bilirubin 0.2 mg/dL (0.2-1.3); Total Protein 4.1 g/dL (6.3-8.2)
[2019-10-27 15:05] LABS: Potassium 4.1 mmol/L (3.5-5.1)
[2019-10-27 18:17] VITALS: BP 130/72; PULSE 70; RESP 18
== END 2019-10-27 18:15 | disposition home or self-care (01) ==
LOC: EC 14:06
DX: I12.0 Hypertensive chronic kidney disease with stage 5 chronic kidney disease or end stage renal disease (principal); N18.6 End stage renal disease; E11.22 Type 2 diabetes mellitus with diabetic chronic kidney disease; D63.1 Anemia in chronic kidney disease; E78.5 Hyperlipidemia, unspecified; E83.42 Hypomagnesemia; I25.10 Atherosclerotic heart disease of native coronary artery without angina pectoris; J44.9 Chronic obstructive pulmonary disease, unspecified; K21.9 Gastro-esophageal reflux disease without esophagitis; M79.7 Fibromyalgia; Z79.51 Long term (current) use of inhaled steroids; Z79.84 Long term (current) use of oral hypoglycemic drugs; Z88.5 Allergy status to narcotic agent; Z79.899 Other long term (current) drug therapy; Z80.3 Family history of malignant neoplasm of breast; Z85.3 Personal history of malignant neoplasm of breast; Z87.891 Personal history of nicotine dependence; Z95.1 Presence of aortocoronary bypass graft; Z99.2 Dependence on renal dialysis; Z80.0 Family history of malignant neoplasm of digestive organs
CPT/HCPCS: 36415; 80053; 83735; 84100; 85025; 93005; 99284

== ENCOUNTER 2019-11-02 13:30 | Inpatient (IN) | payer MEDICARE, OTHER ==
[2019-11-02 14:35] LABS: Basophils # (A) 0.1 k/uL (0-0.2); Basophils % (A) 0 %; Eosinophils # (A) 0.2 k/uL (0-0.7); Eosinophils % (A) 2 %; HCT 26.4 % (34.0-46.0); HGB 8.4 gm/dL (11.4-16.0); Lymphocytes # (A) 4.7 k/uL (1.0-4.8); Lymphocytes % (A) 41 %; MCH 30.9 pg (25.0-35.0); MCHC 31.7 g/dL (31.0-37.0); MCV 97.6 fL (80.0-100.0); Mean Platelet Volume 8.1; Monocytes # (A) 0.5 k/uL (0-1.0); Monocytes % (A) 4 %; Neutrophils # (A) 5.9 k/uL (1.3-7.7); Neutrophils % (A) 51 %; Platelet Count 350 k/uL (150-450); RBC 2.71 m/uL (3.80-5.40); RDW 14.5 % (11.5-15.5); WBC 11.6 k/uL (3.8-10.6)
--- NOTE | 2019-11-02 14:39 | ED ---
Weakness HPI - General Chief complaint: Weakness Stated complaint: Weakness Time Seen by Provider: 11/02/19 13:35 Source: patient, EMS, RN notes reviewed Mode of arrival: EMS Limitations: physical limitation - History of Present Illness Initial comments: Physical 69-year-old female history of multiple medical issues including renal failure in the past who was brought in by EMS due to weakness. She was told that she likely has renal failure again. She did recently have a blood transfusion of 2 units because of anemia. She denies any headache fever nausea vomiting no chills no sweats but has had a cough with some clear phlegm. She had been on dialysis for about 3 years and has not been off of it for 2 years. She had had fistulas and left arm but they were removed due to infection. MD Complaint: generalized weakness - Related Data Home Medications Medication Instructions Recorded Confirmed Omeprazole [PriLOSEC] 20 mg PO BID 03/13/15 07/02/19 Simvastatin [Zocor] 20 mg PO HS 03/13/15 07/02/19 Linaclotide [Linzess] 145 mcg PO DAILY PRN 09/29/18 07/02/19 Multivitamin/Iron/Folic Acid 1 tab PO DAILY 09/29/18 07/02/19 [Centrum Adults Tablet] amLODIPine [Norvasc] 5 mg PO DAILY 09/29/18 07/02/19 HYDROcodone/APAP 10-325MG [[place] 1 tab PO BID PRN 01/04/19 07/02/19 10-325] Carvedilol [Coreg] 6.25 mg PO BID 01/22/19 07/02/19 Fluticasone Nasal [place] [Flonase 1 spray EA NOSTRIL DAILY 01/22/19 07/02/19 Nasal [place]] Albuterol Sulfate [Ventolin HFA] 1 - 2 puff INHALATION BID 05/19/19 07/02/19 Nitroglycerin 0.4 mg SL DAILY PRN 05/19/19 07/02/19 Calcitriol [Rocaltrol] 0.5 mcg PO DAILY 06/11/19 07/02/19 Calcium Acetate [Phoslo] 1,334 mg PO TID-W/MEALS 06/11/19 07/02/19 Folic Acid 0.8 mg PO BID 06/11/19 07/02/19 Furosemide [Lasix] 40 mg PO BID 06/11/19 07/02/19 Levothyroxine Sodium [Synthroid] 50 mcg PO DAILY 06/11/19 07/02/19 Loratadine 10 mg PO DAILY 06/11/19 07/02/19 Magnesium Oxide [Mag-Ox] 400 mg PO HS 06/11/19 07/02/19 Sodium Bicarbonate Tab 650 mg PO TID 06/11/19 07/02/19 Sodium Chloride Tab 1 gm PO DAILY@1200,2200 06/11/19 07/02/19 Vitamin B Complex 1 each PO DAILY 06/11/19 07/02/19 Previous Rx's Medication Instructions Recorded glipiZIDE [Glucotrol] 2.5 mg PO AC-BID #60 tab 06/16/19 Allergies Allergy/AdvReac Type Severity Reaction Status Date / Time codeine Allergy Unknown Verified 10/27/19 14:46 Review of Systems ROS Statement: Those systems with pertinent positive or pertinent negative responses have been documented in the HPI. ROS Other: All systems not noted in ROS Statement are negative. Past Medical History Past Medical History: Coronary Artery Disease (CAD), Cancer, COPD, Diabetes Mellitus, Fibromyalgia, GERD/Reflux, Hearing Disorder / Deafness, Hyperlipidemia, Hypertension Additional Past Medical History / Comment(s): [place], BACK PAIN-USES CANE., CONSTIPATION. STATES NEW DIAGNOSIS BREAST CANCER, KIDNEY DISEASE STAGE 4/5 (PAST HX OF DIALYSIS) ., ANEMIA. Right humerus and right shoulder fracture 07/29. History of Any Multi-Drug Resistant Organisms: None Reported Past Surgical History: Appendectomy, Back Surgery, Coronary Bypass/CABG, Tonsi llectomy Additional Past Surgical History / Comment(s): CABG 2007, GRAFT FOR DIALYSIS INSERTED AND REMOVED DUE TO INFECTION. 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 - Past Family History Father Additional Family Medical History / Comment(s): esophageal cancer Sister(s) Additional Family Medical History / Comment(s): breast cancer General Exam - General Exam Comments Initial Comments: Is a well-developed asthenic appearing female who is awake alert oriented 3 female Limitations: physical limitation General appearance: alert, in no apparent distress Head exam: Present: atraumatic, normocephalic, normal inspection Eye exam: Present: normal appearance, PERRL, EOMI. Absent: scleral icterus, conjunctival injection, periorbital swelling ENT exam: Present: mucous membranes dry Neck exam: Present: normal inspection. Absent: tenderness, meningismus, lymphadenopathy Respiratory exam: Present: normal lung sounds bilaterally. Absent: respiratory distress, wheezes, rales, rhonchi, stridor Cardiovascular Exam: Present: regular rate, normal rhythm, normal heart sounds. Absent: systolic murmur, diastolic murmur, rubs, gallop, clicks GI/Abdominal exam: Present: soft, normal bowel sounds. Absent: distended, tenderness, guarding, rebound, rigid Extremities exam: Present: normal inspection, full ROM, normal capillary refill. Absent: tenderness, pedal edema, joint swelling, calf tenderness Back exam: Present: normal inspection Neurological exam: Present: alert, oriented X3, CN II-XII intact Psychiatric exam: Present: normal affect, normal mood Skin exam: Present: warm, dry, intact, pallor. Absent: rash Course Vital Signs 11/02/19 13:33 Temperature 97.4 F L Pulse Rate 84 Respiratory 18 Rate Blood Pressure 116/65 O2 Sat by Pulse 96 Oximetry EKG Findings - EKG Results: EKG: interpreted by ERMD, sinus rhythm (Sinus rhythm rate of 70 QRS 76 QT since QTC 392/423 low-voltage QRS or R-wave progression nonspecific ST configuration artifact seen) Medical Decision Making - Medical Decision Making I did discuss findings with patient and family member. Patient be admitted she is agreed to stay for evaluation and treatment of her worsening renal function. The case is discussed with Dr. Fox . Patient will be also seen by nephrol mulugeta. - Lab Data Result diagrams: 11/02/19 14:22 11/02/19 14:22 Lab Results 11/02/19 11/02/19 11/02/19 Range/Units 14:18 14:22 14:22 WBC 11.6 H (3.8-10.6) k/uL RBC 2.71 L (3.80-5.40) m/uL Hgb 8.4 L (11.4-16.0) gm/dL Hct 26.4 L (34.0-46.0) % MCV 97.6 (80.0-100.0) fL MCH 30.9 (25.0-35.0) pg MCHC 31.7 (31.0-37.0) g/dL RDW 14.5 (11.5-15.5) % Plt Count 350 (150-450) k/uL Neutrophils % 51 % Lymphocytes % 41 % Monocytes % 4 % Eosinophils % 2 % Basophils % 0 % Neutrophils # 5.9 (1.3-7.7) k/uL Lymphocytes # 4.7 (1.0-4.8) k/uL Monocytes # 0.5 (0-1.0) k/uL Eosinophils # 0.2 (0-0.7) k/uL Basophils # 0.1 (0-0.2) k/uL Sodium 130 L (137-145) mmol/L Potassium 4.8 (3.5-5.1) mmol/L Chloride 101 (98-107) mmol/L Carbon Dioxide 19 L (22-30) mmol/L Anion Gap 10 mmol/L BUN 106 H* (7-17) mg/dL Creatinine 6.29 H (0.52-1.04) mg/dL Est GFR (CKD-EPI)AfAm 7 (>60 ml/min/1.73 sqM) Est GFR (CKD-EPI)NonAf 6 (>60 ml/min/1.73 sqM) Glucose 109 H (74-99) mg/dL Calcium 6.9 L (8.4-10.2) mg/dL Magnesium 1.2 L (1.6-2.3) mg/dL Total Bilirubin 0.6 (0.2-1.3) mg/dL AST 48 H (14-36) U/L ALT 40 H (4-34) U/L Alkaline Phosphatase 137 H (38-126) U/L Creatine Kinase 203 H (30-135) U/L Troponin I (0.000-0.034) ng/mL Total Protein 4.6 L (6.3-8.2) g/dL Albumin 2.0 L (3.5-5.0) g/dL Blood Type B Positive Blood Type Recheck B Pos Bld Type Recheck Status No Antibody Screen NEGATIVE Spec Expiration Date 11/05/2019 - 231711/02/19 Range/Units 14:22 WBC (3.8-10.6) k/uL RBC (3.80-5.40) m/uL Hgb (11.4-16.0) gm/dL Hct (34.0-46.0) % MCV (80.0-100.0) fL MCH (25.0-35.0) pg MCHC (31.0-37.0) g/dL RDW (11.5-15.5) % Plt Count (150-450) k/uL Neutrophils % % Lymphocytes % % Monocytes % % Eosinophils % % Basophils % % Neutrophils # (1.3-7.7) k/uL Lymphocytes # (1.0-4.8) k/uL Monocytes # (0-1.0) k/uL Eosinophils # (0-0.7) k/uL Basophils # (0-0.2) k/uL Sodium (137-145) mmol/L Potassium (3.5-5.1) mmol/L Chloride (98-107) mmol/L Carbon Dioxide (22-30) mmol/L Anion Gap mmol/L BUN (7-17) mg/dL Creatinine (0.52-1.04) mg/dL Est GFR (CKD-EPI)AfAm (>60 ml/min/1.73 sqM) Est GFR (CKD-EPI)NonAf (>60 ml/min/1.73 sqM) Glucose (74-99) mg/dL Calcium (8.4-10.2) mg/dL Magnesium (1.6-2.3) mg/dL Total Bilirubin (0.2-1.3) mg/dL AST (14-36) U/L ALT (4-34) U/L Alkaline Phosphatase (38-126) U/L Creatine Kinase (30-135) U/L Troponin I <0.012 (0.000-0.034) ng/mL Total Protein (6.3-8.2) g/dL Albumin (3.5-5.0) g/dL Blood Type Blood Type Recheck Bld Type Recheck Status Antibody Screen Spec Expiration Date Disposition Clinical Impression: Acute on chronic renal failure, Anemia, Weakness Disposition: ADMITTED IP TO THIS [facility] Condition: Fair Referrals: Lito Evans MD [Primary Care Provider] - 1-2 days
--- NOTE | 2019-11-02 14:44 | XR ---
EXAMINATION TYPE: XR chest 1V portable DATE OF EXAM: 11/02/2019 COMPARISON: Chest CT January 28, 2019. Chest x-ray January 31, 2019. HISTORY: Weakness. TECHNIQUE: Single AP portable frontal upright view of the chest is obtained. FINDINGS: There is chronic emphysematous and parenchymal change with small to tiny bilateral pleural effusions and associated patchy right basilar atelectasis. No pneumothorax seen bilaterally. The ca rdiac silhouette size is stable and within normal limits. Overlying sternal wires and mediastinal c lips are redemonstrated. The osseous structures remain demineralized. Chronic right AC joint injury o r separation noted. IMPRESSION: Chronic emphysematous and parenchymal fibrotic changes with small to tiny right pleural effusions and associated patchy right basilar atelectasis.
[2019-11-02 14:49] LABS: Calcium 6.9 mg/dL (8.4-10.2); Magnesium 1.2 mg/dL (1.6-2.3); Potassium 4.8 mmol/L (3.5-5.1); Total Bilirubin 0.6 mg/dL (0.2-1.3); Total Protein 4.6 g/dL (6.3-8.2)
[2019-11-02] MEDS ORDERED: NALOXONE 0.4 MG/ML 1 ML VIAL IV PRN (15:15)
[2019-11-02] MEDS ORDERED: MAGNESIUM SULFATE-D5W PMX 1 GM in DEXTROSE/WATER 1 100ML.BAG IVPB ONE (15:18)
[2019-11-02] MEDS: SODIUM CHLORIDE 0.9% 1,000 ML IV SCH (15:23)
[2019-11-02] MEDS ORDERED: MELATONIN 3 MG TABLET PO PRN (18:20)
[2019-11-02] MEDS ORDERED: ONDANSETRON 4 MG/2 ML VIAL IVP PRN (18:20)
[2019-11-02] MEDS ORDERED: LACTULOSE 20 GM/30 ML CUP PO PRN (18:20)
[2019-11-02] MEDS ORDERED: FUROSEMIDE 10 MG/ML 10 ML VIAL IV STA (18:22)
[2019-11-02] MEDS ORDERED: LORATADINE 10 MG TAB PO PRN (18:25)
[2019-11-02] MEDS ORDERED: NON FORMULARY DRUG (Linaclotide [Linzess] 145 MCG) PO PRN (18:25)
--- NOTE | 2019-11-02 18:28 | P.HPIM ---
History of Present Illness H&P Date: 11/02/19 Chief Complaint: weakness Patient is a 69-year-old female with stage 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 Apparently her home health care nurse was concerned when she went out to the house and contacted her nurse practitioner Day Steve who recommended that they come to the hospital. The patient has had worsening renal function over the last several weeks. On arrival to the emergency department today her vital signs are within normal limits. Laboratory analysis showed a slightly elevated white blood cell count 11.6, hemoglobin 8.4 which appears to be near her baseline, sodium 130, carbon dioxide 19, BUN 106, creatinine 6.29 with baseline creatinine in June of 6.1 and creatinine from January 2019 of 3.24. AST and ALT mildly elevated, alk phos mildly elevated. Magnesium low at 1.2. She was admitted due to acute on chronic renal disease with concern for need for hemodialysis. Patient seen and examined at bedside in the ED with her daughter present. Follows with Day [facility] [employer] for Primary care physician. 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 Increased weakness for the last one week, decreased appetite, intermittent nausea and vomiting with trying to take pills in the morning. Increased edema for the last week. Shortness of breath with exertion, no cough. Stomach cramping. No change in urine, normal color, amount and frequency. No chest pain, abdominal pain No fever or chills Was on dialysis for 3 year and came off 2 years ago. Initially on HD due to ALANA related to anemia due to bleeding ulcers per family. Patient had staph bacteremia and was hospitalized for 2 months at [facility] after transfer from here in 01/2019. Got Blood about 2 weeks ago for anemia at [facility] with undetermined cause and was told that her kidney were failing at that time. Review of Systems Pertinent positives and negatives as discussed in HPI, a complete review of systems was performed and all other systems are negative. Past Medical History Past Medical History: Coronary Artery Disease (CAD), Cancer, COPD, Diabetes Mellitus, Fibromyalgia, GERD/Reflux, Hearing Disorder / Deafness, Hyperlipidemia, Hypertension Additional Past Medical History / Comment(s): [place], BACK PAIN-USES CANE., CONSTIPATION. BREAST CANCER, KIDNEY DISEASE STAGE 4/5 (PAST HX OF DIALYSIS) ., ANEMIA. Right humerus and right shoulder fracture 07/29. Hypothyroidism History of Any Multi-Drug Resistant Organisms: None Reported Past Surgical History: Appendectomy, Back Surgery, Coronary Bypass/CABG, To nsillectomy Additional Past Surgical History / Comment(s): CABG 2007, GRAFT FOR DIALYSIS INSERTED AND REMOVED DUE TO INFECTION. 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 - Past Family History Father Additional Family Medical History / Comment(s): esophageal cancer Sister(s) Additional Family Medical History / Comment(s): breast cancer Medications and Allergies Home Medications Medication Instructions Recorded Confirmed Type Omeprazole [PriLOSEC] 20 mg PO BID 03/13/15 11/02/19 History Simvastatin [Zocor] 20 mg PO HS 03/13/15 11/02/19 History Linaclotide [Linzess] 145 mcg PO DAILY PRN 09/29/18 11/02/19 History amLODIPine [Norvasc] 5 mg PO DAILY 09/29/18 11/02/19 History HYDROcodone/APAP 10-325MG [[place] 1 tab PO TID 01/04/19 11/02/19 History 10-325] Fluticasone Nasal [place] [Flonase 1 spray EA NOSTRIL DAILY 01/22/19 11/02/19 History Nasal [place]] Albuterol Sulfate [Ventolin HFA] 2 puff INHALATION BID 05/19/19 11/02/19 History Nitroglycerin 0.4 mg SL Q5M PRN 05/19/19 11/02/19 History Calcitriol [Rocaltrol] 0.5 mcg PO DAILY 06/11/19 11/02/19 History Furosemide [Lasix] 40 mg PO DAILY 06/11/19 11/02/19 History Levothyroxine Sodium [Synthroid] 50 mcg PO DAILY 06/11/19 11/02/19 History Magnesium Oxide [Mag-Ox] 400 mg PO HS 06/11/19 11/02/19 History Sodium Bicarbonate Tab 1,300 mg PO TID 06/11/19 11/02/19 History Sodium Chloride Tab 1 gm PO DAILY 06/11/19 11/02/19 History Vitamin B Complex 1 cap PO DAILY 06/11/19 11/02/19 History Carvedilol [Coreg] 12.5 mg PO BID 11/02/19 11/02/19 History Cetirizine HCl [Zyrtec] 10 mg PO DAILY PRN 11/02/19 11/02/19 History Folic Acid 1 mg PO DAILY 11/02/19 11/02/19 History Allergies Allergy/AdvReac Type Severity Reaction Status Date / Time codeine Allergy Unknown Verified 10/27/19 14:46 Physical Exam Osteopathic Statement: *. No significant issues noted on an osteopathic structural exam other than those noted in the History and Physical/Consult. Vitals: Vital Signs Temp Pulse Resp BP Pulse Ox 11/02/19 15:18 65 18 119/68 96 11/02/19 13:33 97.4 F L 84 18 116/65 96 Intake and Output 11/02/19 11/02/19 11/02/19 06:59 14:59 22:59 Other: Weight 60.781 kg General: [Ill-appearing], [no distress], [appears at stated age], [normal weight] Derm: [no unusual rashes/lesions] [no unusual ecchymoses], [warm], [dry] Head: [atraumatic], [normocephalic], [symmetric] Eyes: [EOMI], [no lid lag], [anicteric sclera], [pupils equal round reactive to light] ENT: [Nose and ears atraumatic], [no thrush], [no pharyngeal erythema] Neck: [No thyromegaly], [no cervical lymphadenopathy], [trachea midline], [supple] Mouth: [no lip lesion], [mucus membranes moist] Cardiovascular: [S1S2 reg], [no murmur], [positive posterior tibial pulse bilateral], [diffuse anasarca], [capillary refill less than 2 seconds] Lungs: [Crackles left base], [no rhonchi, no rales] , [no accessory muscle use] Abdominal: [soft], [ nontender to palpation], [no guarding], [no appreciable organomegaly], [normal bowel sounds] Ext: [no gross muscle atrophy], [muscle strength 4 out of 5 in all 4 extremities grossly], [no contractures], Neuro: [ CN II-XI grossly intact], [light touch intact all 4 extremities], [finger to nose within normal limits], Psych: [Alert], [oriented], [appropriate affect] Results CBC & Chem 7: 11/02/19 14:22 11/02/19 14:22 Labs: Abnormal Lab Results - Last 24 Hours (Table) 11/02/19 11/02/19 Range/Units 14:22 14:22 WBC 11.6 H (3.8-10.6) k/uL RBC 2.71 L (3.80-5.40) m/uL Hgb 8.4 L (11.4-16.0) gm/dL Hct 26.4 L (34.0-46.0) % Sodium 130 L (137-145) mmol/L Carbon Dioxide 19 L (22-30) mmol/L BUN 106 H* (7-17) mg/dL Creatinine 6.29 H (0.52-1.04) mg/dL Glucose 109 H (74-99) mg/dL Calcium 6.9 L (8.4-10.2) mg/dL Magnesium 1.2 L (1.6-2.3) mg/dL AST 48 H (14-36) U/L ALT 40 H (4-34) U/L Alkaline Phosphatase 137 H (38-126) U/L Creatine Kinase 203 H (30-135) U/L Total Protein 4.6 L (6.3-8.2) g/dL Albumin 2.0 L (3.5-5.0) g/dL Chest x-ray: report reviewed Thrombosis Risk Factor Assmnt - DVT/VTE Prophylaxis DVT/VTE Prophylaxis: Pharmacologic Prophylaxis ordered Assessment and Plan Assessment: Acute renal failure on chronic kidney disease stage 4/5 with an iron gap metabolic acidosis and diffuse anasarca -Baseline GFR appears to be 15 minutes about 6-7 -Consult nephrology -Avoid IV fluids as patient appears diffusely anasarca -Lasix -Avoid additional nephrotoxic agents -Check echocardiogram until limiting cardiac causes of edema and renal failure - sodium bicarb, calcitriol Hypervolemic hyponatremia -Suspect secondary to increased fluid retention -Lasix -Repeat in a.m. -Nephrology recommendations Hypomagnesemia -Minimal replacement -Repeat in a.m. Diabetes mellitus type 2 - Insulin requiring in the past,currently not on anything per family - Follow BS - SSI - Check A1C HTN, controlled - controlled - continue coreg, norvasx HLD - statin Chronic anemia, suspect secondary to renal disease -Attempt to obtain CBC from [facility] -Follow CBC -No indication for transfusion at this point in time - Fe studies Transaminitis - mild - repeat in AM - if worsen then gallbladder US Chronic: Hard of hearing Fibromyalgia COPD GERD Hypothyoridism The patient is admitted with an anticipated greater than 2 midnight stay for evaluation of acute kidney injury on chronic kidney disease. Surrogate decision-maker: CODE STATUS: Full DVT prophylaxis: Heparin Discussed with: Patient, nursing, daughter, ED physician Anticipated discharge date: 3-[address]: Home A total of 75 minutes was spent on the care of this complex patient more than 50% of the time was spent in counseling and care coordination.
[2019-11-02] MEDS: ACETAMINOPHEN TAB 325 MG TAB PO PRN (18:46)
[2019-11-02] MEDS: carvediloL 12.5 MG TAB PO SCH (18:49)
--- NOTE | 2019-11-02 19:56 | US ---
EXAMINATION TYPE: US renals and bladder DATE OF EXAM: 11/02/2019 COMPARISON: US, CT CLINICAL HISTORY: alana on ckd. ALANA on CKD. Patient was on dialysis a few years ago. EXAM MEASUREMENTS: Right Kidney: 7.0 x 4.3 x 3.2 cm Left Kidney: 7.3 x 3.9 x 3.5 cm Right Kidney: Hypoechoic area seen lower pole: 1.2 x 0.9 x 0.8 cm. Cortical thinning. Left Kidney: No hydronephrosis or masses seen. Limited visibility. Cortical thinning. Bladder: Appears anechoic. Bilateral Jets seen: Right jet seen. Free fluid seen throughout abdomen. No hydronephrosis. IMPRESSION: There is abdominal ascites. There is symmetric renal cortical atrophy. There is 9 mm cortical cyst lower pole of the right kidney .
[2019-11-02] MEDS: ALBUTEROL NEBULIZED 2.5 MG/3 ML INHALATION SCH (20:26)
[2019-11-02 20:53] LABS: Glucose,Whole Blood 160 mg/dL (75-99)
[2019-11-02] MEDS: ATORVASTATIN 10 MG TAB PO SCH (21:05)
[2019-11-02] MEDS: SODIUM BICARBONATE TAB 650 MG TAB PO SCH (21:05)
[2019-11-02] MEDS: HYDROcodone/APAP 10-325MG 1 EACH TAB PO SCH (21:06)
[2019-11-02] MEDS: MAGNESIUM OXIDE 400 MG TAB PO SCH (21:06)
[2019-11-02] MEDS: PANTOPRAZOLE 40 MG TABLET PO SCH (22:38)
[2019-11-03 06:15] LABS: Glucose,Whole Blood 117 mg/dL (75-99)
[2019-11-03] MEDS: carvediloL 12.5 MG TAB PO SCH ×2 (06:25→16:54)
[2019-11-03] MEDS: INSULIN ASPART (NovoLOG) 100 UNIT/ML VIAL SQ SCH ×3 (06:25→17:36)
[2019-11-03] MEDS: PANTOPRAZOLE 40 MG TABLET PO SCH (06:31)
[2019-11-03] MEDS: LEVOTHYROXINE 50 MCG TAB PO SCH (06:31)
[2019-11-03 07:36] LABS: INR 1.6 (<1.2); Prothrombin Time 15.6 sec (9.0-12.0)
[2019-11-03 07:45] LABS: Albumin 1.5 g/dL (3.5-5.0); Magnesium 1.3 mg/dL (1.6-2.3); Phosphorus 6.6 mg/dL (2.5-4.5); Total Bilirubin 0.2 mg/dL (0.2-1.3); Total Protein 3.4 g/dL (6.3-8.2)
[2019-11-03 07:56] LABS: Calcium 6.3 mg/dL (8.4-10.2)
[2019-11-03 08:06] LABS: HCT 22.1 % (34.0-46.0); Hypochromasia Slight; MCH 30.9 pg (25.0-35.0); MCHC 30.7 g/dL (31.0-37.0); MCV 100.5 fL (80.0-100.0); Macrocytosis Slight; Mean Platelet Volume 7.9; Platelet Count 302 k/uL (150-450); RDW 14.7 % (11.5-15.5); WBC 9.3 k/uL (3.8-10.6)
[2019-11-03] MEDS: ALBUTEROL NEBULIZED 2.5 MG/3 ML INHALATION SCH ×2 (08:11→20:16)
[2019-11-03 08:13] LABS: HGB 6.8 gm/dL (11.4-16.0)
[2019-11-03] MEDS: FLUTICASONE 50MCG/SPRAY NASAL 16GM EA NOSTRIL SCH (08:26)
[2019-11-03] MEDS: SODIUM BICARBONATE TAB 650 MG TAB PO SCH ×3 (08:26→21:31)
[2019-11-03] MEDS: FOLIC ACID 1 MG TAB PO SCH (08:26)
[2019-11-03] MEDS: amLODIPine 5 MG TAB PO SCH (08:26)
[2019-11-03] MEDS: HYDROcodone/APAP 10-325MG 1 EACH TAB PO SCH ×3 (08:27→21:30)
[2019-11-03] MEDS: MAGNESIUM SULFATE-D5W PMX 1 GM in DEXTROSE/WATER 1 100ML.BAG IVPB SCH ×2 (08:40→11:05)
[2019-11-03] MEDS ORDERED: NON FORMULARY DRUG (Vitamin B Complex [Vitamin B Complex] 1 CAP) PO SCH (09:00)
[2019-11-03] MEDS ORDERED: SODIUM CHLORIDE TAB 1 GM TAB PO SCH (09:00)
--- NOTE | 2019-11-03 10:40 | ECHOF ---
Referral Reason:chf MEASUREMENTS -------- HEIGHT: 172.7 cm WEIGHT: 60.8 kg BP: 96/55 RVIDd: 3.9 cm (< 3.3) IVSd: 1.0 cm (0.6 - 1.1) LVIDd: 3.2 cm (3.9 - 5.3) LVPWd: 1.0 cm (0.6 - 1.1) IVSs: 1.3 cm LVIDs: 2.3 cm LVPWs: 1.2 cm LAESV Index (A-L): 21.70 ml/m Ao Diam: 3.3 cm (2.0 - 3.7) AV Cusp: 1.3 cm (1.5 - 2.6) MV EXCURSION: 10.759 mm (> 18.000) MV EF SLOPE: 34 mm/s (70 - 150) EPSS: 0.8 cm MV E Rolo: 0.57 m/s MV DecT: 292 ms MV A Rolo: 0.71 m/s MV E/A Ratio: 0.80 AV maxP.74 mmHg AV meanP.94 mmHg AR PHT: 523 ms RAP: 5.00 mmHg RVSP: 41.37 mmHg FINDINGS -------- This was a technically adequate study. The left ventricular size is normal. Left ventricular wall thickness is normal. Overall left vent ricular systolic function is low-normal with, an EF between 50 - 55 %. The diastolic filling patter n is normal for the age of the patient 9.87. The right ventricle is mild to moderately enlarged. Normal LA size by volume 22+/-6 ml/m2. The right atrium is mildly enlarged. Interatrial and interventricular septum intact. There is mild aortic valve sclerosis. Trace to mild aortic regurgitation. Mild mitral annular calcification present. There is trace to mild mitral regurgitation. Moderate tricuspid regurgitation present. There is moderate pulmonary hypertension. The right michael tricular systolic pressure, as measured by Doppler, is 41.37mmHg. There is no pulmonic regurgitation present. The aortic root size is normal. Normal inferior vena cava with normal inspiratory collapse consistent with estimated right atrial pre ssure of 5 mmHg. There is no pericardial effusion. CONCLUSIONS -------- 1. This was a technically adequate study. 2. The left ventricular size is normal. 3. Left ventricular wall thickness is normal. 4. Overall left ventricular systolic function is low-normal with, an EF between 50 - 55 %. 5. The diastolic filling pattern is normal for the age of the patient 9.87 6. The right ventricle is mild to moderately enlarged. 7. Normal LA size by volume 22+/-6 ml/m2. 8. The right atrium is mildly enlarged. 9. Interatrial and interventricular septum intact. 10. There is mild aortic valve sclerosis. 11. Trace to mild aortic regurgitation. 12. Mild mitral annular calcification present. 13. There is trace to mild mitral regurgitation. 14. Moderate tricuspid regurgitation present. 15. There is moderate pulmonary hypertension. 16. The right ventricular systolic pressure, as measured by Doppler, is 41.37mmHg. 17. There is no pulmonic regurgitation present. 18. The aortic root size is normal. 19. Normal inferior vena cava with normal inspiratory collapse consistent with estimated right atrial pressure of 5 mmHg. 20. There is no pericardial effusion. SELECTOR PACKER: Maddi Arguello RDCS
[2019-11-03] MEDS ORDERED: FUROSEMIDE 10 MG/ML 10 ML VIAL IV STA (10:53)
--- NOTE | 2019-11-03 10:53 | P.NPCON ---
History of Present Illness - Reason for Consult chronic renal failure - History of Present Illness Reason for consultation: Chronic kidney disease History of present illness: Patient is a 69-year-old female seen in renal consultation for chronic kidney disease. Patient has chronic kidney disease stage V. She has been reluctant to start hemodialysis. She was on hemodialysis in the past but it was discontinued a couple of years ago with recovery of renal function. Patient presented to the hospital with generalized weakness. Patient states her appetite has been quite poor. She also admits to more fluid retention. She denies chest pain or shortness of breath. She does complain of diarrhea but denies any vomiting. Potassium level is normal. She is noted to be acidotic with a bicarbonate level of 17 this morning. BUN is 104. She admits to dark colored stool however she denies any other signs of active bleeding. Hemoglobin was 6.8 and she scheduled to receive a unit of blood today. Blood pressures on the lower side. She denies any syncopal episodes. No abdominal pain. Patient was sent to the hospital by her nurse practitioner due to her symptoms. Currently she is resting in bed. She is agreeable to start hemodialysis now. Renal ultrasound reveals bilateral atrophic kidneys. No hydronephrosis noted. Echocardiogram done this admission revealed preserved ejection fraction with moderate tricuspid regurgitation and pulmonary hypertension. Vital signs are stable. Blood pressure on the lower side. General: The patient appeared well nourished and normally developed. HEENT: Head exam is unremarkable. Neck is without jugular venous distension. LUNGS: Lungs are clear to auscultation and percussion. Breath sounds decreased. HEART: Rate and Rhythm are regular. ABDOMEN: Soft, nontender. EXTREMITITES: Trace edema. Past Medical History Past Medical History: Coronary Artery Disease (CAD), Cancer, COPD, Diabetes Mellitus, Fibromyalgia, GERD/Reflux, Hearing Disorder / Deafness, Hyperlipidemia, Hypertension Additional Past Medical History / Comment(s): [place], BACK PAIN-USES CANE., CONSTIPATION. BREAST CANCER, KIDNEY DISEASE STAGE 4/5 (PAST HX OF DIALYSIS) ., ANEMIA. Right humerus and right shoulder fracture 07/29. Hypothyroidism History of Any Multi-Drug Resistant Organisms: None Reported Past Surgical History: Appendectomy, Back Surgery, Coronary Bypass/CABG, Tonsillectomy Additional Past Surgical History / Comment(s): CABG 2007, GRAFT FOR DIALYSIS INSERTED AND REMOVED DUE TO INFECTION. 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 - Past Family History Father Additional Family Medical History / Comment(s): esophageal cancer Sister(s) Additional Family Medical History / Comment(s): breast cancer Medications and Allergies Home Medications Medication Instructions Recorded Confirmed Type Omeprazole [PriLOSEC] 20 mg PO BID 03/13/15 11/02/19 History Simvastatin [Zocor] 20 mg PO HS 03/13/15 11/02/19 History Linaclotide [Linzess] 145 mcg PO DAILY PRN 09/29/18 11/02/19 History amLODIPine [Norvasc] 5 mg PO DAILY 09/29/18 11/02/19 History HYDROcodone/APAP 10-325MG [[place] 1 tab PO TID 01/04/19 11/02/19 History 10-325] Fluticasone Nasal [place] [Flonase 1 spray EA NOSTRIL DAILY 01/22/19 11/02/19 History Nasal [place]] Albuterol Sulfate [Ventolin HFA] 2 puff INHALATION BID 05/19/19 11/02/19 History Nitroglycerin 0.4 mg SL Q5M PRN 05/19/19 11/02/19 History Calcitriol [Rocaltrol] 0.5 mcg PO DAILY 06/11/19 11/02/19 History Furosemide [Lasix] 40 mg PO DAILY 06/11/19 11/02/19 History Levothyroxine Sodium [Synthroid] 50 mcg PO DAILY 06/11/19 11/02/19 History Magnesium Oxide [Mag-Ox] 400 mg PO HS 06/11/19 11/02/19 History Sodium Bicarbonate Tab 1,300 mg PO TID 06/11/19 11/02/19 History Sodium Chloride Tab 1 gm PO DAILY 06/11/19 11/02/19 History Vitamin B Complex 1 cap PO DAILY 06/11/19 11/02/19 History Carvedilol [Coreg] 12.5 mg PO BID 11/02/19 11/02/19 History Cetirizine HCl [Zyrtec] 10 mg PO DAILY PRN 11/02/19 11/02/19 History Folic Acid 1 mg PO DAILY 11/02/19 11/02/19 History Allergies Allergy/AdvReac Type Severity Reaction Status Date / Time codeine Allergy Unknown Verified 10/27/19 14:46 Physical Exam Vitals: Vital Signs Temp Pulse Pulse Resp BP BP Pulse Ox 11/03/19 08:44 98.2 F 68 16 96/59 95 11/03/19 04:00 67 18 96/55 96 11/03/19 02:00 108/71 11/02/19 23:56 61 18 98/54 97 11/02/19 20:35 72 16 11/02/19 20:27 74 18 11/02/19 20:00 97.9 F 67 17 113/59 94 L 11/02/19 18:30 71 18 11/02/19 18:00 97.9 F 71 18 113/61 96 11/02/19 17:43 97.6 F 71 18 116/61 98 11/02/19 15:18 65 18 119/68 96 11/02/19 13:33 97.4 F L 84 18 116/65 96 Intake and Output 11/02/19 11/03/19 11/03/19 22:59 06:59 14:59 Other: Voiding Method Bedpan Bedpan Bedpan Weight 60.781 kg Results - Lab Results Most recent lab results Calcium 6.3 mg/dL (8.4-10.2) L* 11/03/19 06:47 Phosphorus 6.6 mg/dL (2.5-4.5) H 11/03/19 06:47 Magnesium 1.3 mg/dL (1.6-2.3) L 11/03/19 06:47 11/03/19 06:47 11/03/19 06:47 Assessment and Plan Plan: Assessment: 1. Chronic kidney disease stage V. Unclear etiology. Likely nonrecovered ATN and nephrosclerosis. Patient follows with senior qc technician of [facility]. 2. Acute blood loss anemia. Patient did have dark stool but otherwise no active bleeding. There is also component of chronic kidney disease. 3. Hyponatremia secondary to chronic kidney disease. 4. Metabolic acidosis secondary to chronic kidney disease. Maintained on oral sodium bicarbonate. 5. Hypocalcemia secondary to hypoalbuminemia. Corrected calcium the normal range. 6. Hypomagnesemia secondary to GI losses. 7. Mild volume overload. 8. Chronic kidney disease mineral bone disease maintained on calcitriol. Phosphorus noted to be elevated at 6.6. Plan: Patient scheduled to receive a unit of blood today. Lasix 80 mg IV once after blood transfusion complete. Follow-up iron studies. Add Aranesp. Hold amlodipine if systolic blood pressure less than 120. Add PhosLo with meals. Check ionized calcium level. Magnesium being replaced. I discussed with the patient at length regarding the need to start renal replacement therapy due to severely depressed GFR as well as uremic symptoms. She is agreeable to proceed at this time. Consult vascular surgery for dialysis catheter placement. Plan for first hemodialysis treatment today and another treatment tomorrow. facility manager histology to help facilitate outpatient hemodialysis set up. Thank you for the consultation. I will continue to follow the patient with you during her hospital stay.
[2019-11-03] MEDS ORDERED: DARBEPOETIN ALFA 40 MCG/0.4 ML SYRINGE SQ SCH (11:00)
[2019-11-03 12:04] LABS: Glucose,Whole Blood 148 mg/dL (75-99)
[2019-11-03] MEDS: CALCIUM ACETATE 667 MG TAB PO SCH ×2 (12:19→16:54)
[2019-11-03 12:21] LABS: HGB 7.1 gm/dL (11.4-16.0); MCHC 32.4 g/dL (31.0-37.0); MCV 95.7 fL (80.0-100.0); Mean Platelet Volume 8.9; Platelet Count 315 k/uL (150-450); RDW 14.6 % (11.5-15.5); WBC 10.6 k/uL (3.8-10.6)
[2019-11-03] MEDS ORDERED: HEPARIN SODIUM,PORCINE 5,000 UNIT/ML 1 ML VIAL ONE (13:00)
[2019-11-03 13:48] LABS: Hemoglobin A1C 5.7 % (4.0-6.0)
[2019-11-03] MEDS ORDERED: SODIUM CHLORIDE 0.9% 500 ML 500 ML IV ONE (15:24)
[2019-11-03] MEDS ORDERED: LIDOCAINE 1% INJ 10MG/ML (20 ML MDV) SQ ONE (15:33)
[2019-11-03] MEDS ORDERED: IOPAMIDOL-250 50ML BTL IV ONE (15:41)
--- NOTE | 2019-11-03 16:03 | P.PN ---
Subjective Progress Note Date: 11/03/19 (delayed charting seen at 11 am) Principal diagnosis: weakness Patient is a 69-year-old female with stage 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 Apparently her home health care nurse was concerned when she went out to the house and contacted her nurse practitioner Day Steve who recommended that they come to the hospital. The patient has had worsening renal function over the last several weeks. On arrival to the emergency department today her vital signs are within normal limits. Laboratory analysis showed a slightly elevated white blood cell count 11.6, hemoglobin 8.4 which appears to be near her baseline, sodium 130, carbon dioxide 19, BUN 106, creatinine 6.29 with baseline creatinine in June of 6.1 and creatinine from January 2019 of 3.24. AST and ALT mildly elevated, alk phos mildly elevated. Magnesium low at 1.2. She was admitted due to acute on chronic renal disease with concern for need for hemodialysis. She was seen by nephrology who agreed that patient needs hemodialysis. Apparently she has been having worsening renal function for some time in the clinic. She was noted to have a drop in her hemoglobin but was not having any active signs of bleeding. One unit of packed red blood cells was ordered. Of note patient has been off of her Tums and does have a history of [address] Frank was consulted for dialysis catheter placement. Patient seen and examined at bedside. She denies any shortness of breath, still having some edema, still feeling weak, still had one episode of vomiting with her pills. No chest pain. Objective - Vital Signs Vital signs: Vital Signs Temp 97.6 F 11/03/19 12:57 Pulse 71 11/03/19 12:57 Resp 16 11/03/19 12:57 BP 111/58 11/03/19 12:57 Pulse Ox 94 L 11/03/19 12:57 Intake & Output 11/02/19 11/03/19 11/03/19 18:59 06:59 18:59 Intake Total 120 Balance 120 Weight 60.781 kg Intake: Oral 120 Blood Product 0 Rc As-1 Unit 0 [id number] Other: Voiding Method Bedpan Bedpan # Voids 0 # Bowel Movements 0 - Exam General: Ill appearing, no distress, appears at stated age Derm: warm, dry Head: atraumatic, normocephalic, symmetric Eyes: EOMI, no lid lag, anicteric sclera Mouth: no lip lesion, mucus membranes moist, hard of hearing Cardiovascular: S1S2 reg, no murmur, positive posterior tibial pulse bilateral, Lungs: CTA bilateral, no rhonchi, no rales , no accessory muscle use Abdominal: soft, nontender to palpation, no guarding, no appreciable organomegaly Ext: no gross muscle atrophy, diffuse anasarca, no contractures Neuro: CN II-XI grossly intact, no focal neuro deficits Psych: Alert, oriented, flat affect - Labs CBC & Chem 7: 11/03/19 11:11 11/03/19 06:47 Labs: Abnormal Lab Results - Last 24 Hours (Table) 11/02/19 11/02/19 11/03/19 Range/Units 14:18 20:51 06:13 RBC (3.80-5.40) m/uL Hgb (11.4-16.0) gm/dL Hct (34.0-46.0) % MCV (80.0-100.0) fL MCHC (31.0-37.0) g/dL PT (9.0-12.0) sec INR (<1.2) Sodium (137-145) mmol/L Carbon Dioxide (22-30) mmol/L BUN (7-17) mg/dL Creatinine (0.52-1.04) mg/dL POC Glucose (mg/dL) 160 H 117 H (75-99) mg/dL Calcium (8.4-10.2) mg/dL Ionized Calcium Beatriz (4.5-5.3) mg/dL Phosphorus (2.5-4.5) mg/dL Magnesium (1.6-2.3) mg/dL AST (14-36) U/L Total Protein (6.3-8.2) g/dL Albumin (3.5-5.0) g/dL Crossmatch See Detail 11/03/19 11/03/19 11/03/19 Range/Units 06:47 06:47 06:47 RBC 2.20 L (3.80-5.40) m/uL Hgb 6.8 L* D (11.4-16.0) gm/dL Hct 22.1 L (34.0-46.0) % MCV 100.5 H (80.0-100.0) fL MCHC 30.7 L (31.0-37.0) g/dL PT 15.6 H (9.0-12.0) sec INR 1.6 H (<1.2) Sodium 131 L (137-145) mmol/L Carbon Dioxide 17 L (22-30) mmol/L BUN 104 H* (7-17) mg/dL Creatinine 6.48 H (0.52-1.04) mg/dL POC Glucose (mg/dL) (75-99) mg/dL Calcium 6.3 L* (8.4-10.2) mg/dL Ionized Calcium Beatriz (4.5-5.3) mg/dL Phosphorus 6.6 H (2.5-4.5) mg/dL Magnesium 1.3 L (1.6-2.3) mg/dL AST 39 H (14-36) U/L Total Protein 3.4 L (6.3-8.2) g/dL Albumin 1.5 L (3.5-5.0) g/dL Crossmatch 11/03/19 11/03/19 11/03/19 Range/Units 11:11 11:11 12:03 RBC 2.30 L (3.80-5.40) m/uL Hgb 7.1 L (11.4-16.0) gm/dL Hct 22.0 L (34.0-46.0) % MCV (80.0-100.0) fL MCHC (31.0-37.0) g/dL PT (9.0-12.0) sec INR (<1.2) Sodium (137-145) mmol/L Carbon Dioxide (22-30) mmol/L BUN (7-17) mg/dL Creatinine (0.52-1.04) mg/dL POC Glucose (mg/dL) 148 H (75-99) mg/dL Calcium (8.4-10.2) mg/dL Ionized Calcium Beatriz 3.9 L (4.5-5.3) mg/dL Phosphorus (2.5-4.5) mg/dL Magnesium (1.6-2.3) mg/dL AST (14-36) U/L Total Protein (6.3-8.2) g/dL Albumin (3.5-5.0) g/dL Crossmatch Assessment and Plan Assessment: Acute renal failure on chronic kidney disease stage 4/5 with metabolic acidosis and diffuse anasarca -Baseline GFR appears to be 15 minutes about 6-7 -nephrology recs appreciated: Plans are for HD and vascular consulted -Lasix 80 IV X 1 after transfusion -Avoid additional nephrotoxic agents -echo with preserved EF - sodium bicarb, calcitriol Anemia, undetermined cause - suspect secondary to renal disease but now worsening - reports dark stools - Await Fe studies - D/W nephrology - 1 unit pRBC Hypervolemic hyponatremia -Suspect secondary to increased fluid retention -Repeat in a.m. -Nephrology recommendations appreciated Hypomagnesemia -replacement -Repeat in a.m. Diabetes mellitus type 2 - Insulin requiring in the past,currently not on anything per family - Follow BS - SSI - A1C 5.7 HTN, controlled - controlled - continue coreg, norvasx HLD - statin Transaminitis, improving - mild - repeat in AM - if worsen then gallbladder US Chronic: Hard of hearing Fibromyalgia COPD GERD Hypothyoridism DVT prophylaxis: Heparin Discussed with: Patient, nursing, Dr. Metcalf Anticipated discharge date: 3-[address]: Home A total of 35 minutes was spent on the care of this complex patient more than 50% of the time was spent in counseling and care coordination.
--- NOTE | 2019-11-03 16:09 | P.GSCN ---
History of Present Illness History of present illness: 69-year-old white female, patient has history of kidney disease I was consulted for placement of a dialysis catheter. Patient had a fistula graft placed in the past which has been occluded and also patient had a right IJ catheter in the past. Neck examination neck is supple no bruit appreciated Chest chest is clear first and second sound normal Abdomen is soft nontender Brachial radial femoral pulses are present Plan is placement of the dialysis catheter risk and complication discussed Past Medical History Past Medical History: Coronary Artery Disease (CAD), Cancer, COPD, Diabetes Mellitus, Fibromyalgia, GERD/Reflux, Hearing Disorder / Deafness, Hyperlipidemia, Hypertension Additional Past Medical History / Comment(s): SNOQUALMIE, BACK PAIN-USES CANE., CONSTIPATION. BREAST CANCER, KIDNEY DISEASE STAGE 4/5 (PAST HX OF DIALYSIS) ., ANEMIA. Right humerus and right shoulder fracture 07/29. Hypothyroidism History of Any Multi-Drug Resistant Organisms: None Reported Past Surgical History: Appendectomy, Back Surgery, Coronary Bypass/CABG, Tonsillectomy Additional Past Surgical History / Comment(s): CABG 2007, GRAFT FOR DIALYSIS INSERTED AND REMOVED DUE TO INFECTION. 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 - Past Family History Father Additional Family Medical History / Comment(s): esophageal cancer Sister(s) Additional Family Medical History / Comment(s): breast cancer Medications and Allergies Home Medications Medication Instructions Recorded Confirmed Type Omeprazole [PriLOSEC] 20 mg PO BID 03/13/15 11/02/19 History Simvastatin [Zocor] 20 mg PO HS 03/13/15 11/02/19 History Linaclotide [Linzess] 145 mcg PO DAILY PRN 09/29/18 11/02/19 History amLODIPine [Norvasc] 5 mg PO DAILY 09/29/18 11/02/19 History HYDROcodone/APAP 10-325MG [[place] 1 tab PO TID 01/04/19 11/02/19 History 10-325] Fluticasone Nasal [place] [Flonase 1 spray EA NOSTRIL DAILY 01/22/19 11/02/19 History Nasal [place]] Albuterol Sulfate [Ventolin HFA] 2 puff INHALATION BID 05/19/19 11/02/19 History Nitroglycerin 0.4 mg SL Q5M PRN 05/19/19 11/02/19 History Calcitriol [Rocaltrol] 0.5 mcg PO DAILY 06/11/19 11/02/19 History Furosemide [Lasix] 40 mg PO DAILY 06/11/19 11/02/19 History Levothyroxine Sodium [Synthroid] 50 mcg PO DAILY 06/11/19 11/02/19 History Magnesium Oxide [Mag-Ox] 400 mg PO HS 06/11/19 11/02/19 History Sodium Bicarbonate Tab 1,300 mg PO TID 06/11/19 11/02/19 History Sodium Chloride Tab 1 gm PO DAILY 06/11/19 11/02/19 History Vitamin B Complex 1 cap PO DAILY 06/11/19 11/02/19 History Carvedilol [Coreg] 12.5 mg PO BID 11/02/19 11/02/19 History Cetirizine HCl [Zyrtec] 10 mg PO DAILY PRN 11/02/19 11/02/19 History Folic Acid 1 mg PO DAILY 11/02/19 11/02/19 History Allergies Allergy/AdvReac Type Severity Reaction Status Date / Time codeine Allergy Unknown Verified 10/27/19 14:46 Surgical - Exam Vital Signs Temp Pulse Resp BP Pulse Ox 97.4 F L 84 18 116/65 96 11/02/19 13:33 11/02/19 13:33 11/02/19 13:33 11/02/19 13:33 11/02/19 13:33 Results - Labs 11/03/19 11:11 11/03/19 06:47 Abnormal Lab Results - Last 24 Hours (Table) 11/02/19 11/02/19 11/03/19 Range/Units 14:18 20:51 06:13 RBC (3.80-5.40) m/uL Hgb (11.4-16.0) gm/dL Hct (34.0-46.0) % MCV (80.0-100.0) fL MCHC (31.0-37.0) g/dL PT (9.0-12.0) sec INR (<1.2) Sodium (137-145) mmol/L Carbon Dioxide (22-30) mmol/L BUN (7-17) mg/dL Creatinine (0.52-1.04) mg/dL POC Glucose (mg/dL) 160 H 117 H (75-99) mg/dL Calcium (8.4-10.2) mg/dL Ionized Calcium Beatriz (4.5-5.3) mg/dL Phosphorus (2.5-4.5) mg/dL Magnesium (1.6-2.3) mg/dL AST (14-36) U/L Total Protein (6.3-8.2) g/dL Albumin (3.5-5.0) g/dL Crossmatch See Detail 11/03/19 11/03/19 11/03/19 Range/Units 06:47 06:47 06:47 RBC 2.20 L (3.80-5.40) m/uL Hgb 6.8 L* D (11.4-16.0) gm/dL Hct 22.1 L (34.0-46.0) % MCV 100.5 H (80.0-100.0) fL MCHC 30.7 L (31.0-37.0) g/dL PT 15.6 H (9.0-12.0) sec INR 1.6 H (<1.2) Sodium 131 L (137-145) mmol/L Carbon Dioxide 17 L (22-30) mmol/L BUN 104 H* (7-17) mg/dL Creatinine 6.48 H (0.52-1.04) mg/dL POC Glucose (mg/dL) (75-99) mg/dL Calcium 6.3 L* (8.4-10.2) mg/dL Ionized Calcium Beatriz (4.5-5.3) mg/dL Phosphorus 6.6 H (2.5-4.5) mg/dL Magnesium 1.3 L (1.6-2.3) mg/dL AST 39 H (14-36) U/L Total Protein 3.4 L (6.3-8.2) g/dL Albumin 1.5 L (3.5-5.0) g/dL Crossmatch 11/03/19 11/03/19 11/03/19 Range/Units 11:11 11:11 12:03 RBC 2.30 L (3.80-5.40) m/uL Hgb 7.1 L (11.4-16.0) gm/dL Hct 22.0 L (34.0-46.0) % MCV (80.0-100.0) fL MCHC (31.0-37.0) g/dL PT (9.0-12.0) sec INR (<1.2) Sodium (137-145) mmol/L Carbon Dioxide (22-30) mmol/L BUN (7-17) mg/dL Creatinine (0.52-1.04) mg/dL POC Glucose (mg/dL) 148 H (75-99) mg/dL Calcium (8.4-10.2) mg/dL Ionized Calcium Beatriz 3.9 L (4.5-5.3) mg/dL Phosphorus (2.5-4.5) mg/dL Magnesium (1.6-2.3) mg/dL AST (14-36) U/L Total Protein (6.3-8.2) g/dL Albumin (3.5-5.0) g/dL Crossmatch Diabetes panel 11/03/19 11/03/19 Range/Units 06:47 06:47 Sodium 131 L (137-145) mmol/L Potassium 4.0 (3.5-5.1) mmol/L Chloride 103 (98-107) mmol/L Carbon Dioxide 17 L (22-30) mmol/L BUN 104 H* (7-17) mg/dL Creatinine 6.48 H (0.52-1.04) mg/dL Glucose 89 (74-99) mg/dL Hemoglobin A1c 5.7 (4.0-6.0) % Calcium 6.3 L* (8.4-10.2) mg/dL AST 39 H (14-36) U/L ALT 34 (4-34) U/L Alkaline Phosphatase 117 (38-126) U/L Total Protein 3.4 L (6.3-8.2) g/dL Albumin 1.5 L (3.5-5.0) g/dL Calcium panel 11/03/19 11/03/19 Range/Units 06:47 11:11 Calcium 6.3 L* (8.4-10.2) mg/dL Ionized Calcium Beatriz 3.9 L (4.5-5.3) mg/dL Phosphorus 6.6 H (2.5-4.5) mg/dL Albumin 1.5 L (3.5-5.0) g/dL Pituitary panel 11/03/19 Range/Units 06:47 Sodium 131 L (137-145) mmol/L Potassium 4.0 (3.5-5.1) mmol/L Chloride 103 (98-107) mmol/L Carbon Dioxide 17 L (22-30) mmol/L BUN 104 H* (7-17) mg/dL Creatinine 6.48 H (0.52-1.04) mg/dL Glucose 89 (74-99) mg/dL Calcium 6.3 L* (8.4-10.2) mg/dL Adrenal panel 11/03/19 Range/Units 06:47 Sodium 131 L (137-145) mmol/L Potassium 4.0 (3.5-5.1) mmol/L Chloride 103 (98-107) mmol/L Carbon Dioxide 17 L (22-30) mmol/L BUN 104 H* (7-17) mg/dL Creatinine 6.48 H (0.52-1.04) mg/dL Glucose 89 (74-99) mg/dL Calcium 6.3 L* (8.4-10.2) mg/dL Total Bilirubin 0.2 (0.2-1.3) mg/dL AST 39 H (14-36) U/L ALT 34 (4-34) U/L Alkaline Phosphatase 117 (38-126) U/L Total Protein 3.4 L (6.3-8.2) g/dL Albumin 1.5 L (3.5-5.0) g/dL
--- NOTE | 2019-11-03 16:12 | P.PCN ---
Description of Procedure: Diagnoses is acute chronic renal failure Procedure is ultrasound-guided micropuncture introduced right jugular vein and micropuncture guidewire was passed forefoot and redness on the top of guidewire patient had a catheter placed in the past. Venacavogram. A vena cava and found to be patent. After that 1% lidocaine was placed in the chest and tendon was created through the terminal be brought 90 see him dialysis catheter. Then we passed a guidewire which was parked in the inferior vena cava dilator advanced on the top of guidewire replaced a sheath through the sheath we did 2 dialysis catheter the catheter was at the junction of superior vena cava and atrium flushed with heparin saline and Hep-Lock secured with 3-0 nylon dressing applied patient for the procedure well Procedure #1 is superior venacavogram #2 is placement of a 90 see him dialysis catheter sedation time was 20 minutes
--- NOTE | 2019-11-03 16:52 | XR ---
EXAMINATION TYPE: XR chest 1V DATE OF EXAM: 11/03/2019 CLINICAL HISTORY: Postcatheter insertion. TECHNIQUE: Single AP portable upright view of the chest is obtained. COMPARISON: Chest x-ray from one day earlier FINDINGS: New dual lumen right internal jugular central venous catheter has tips terminating in SVC. There is background chronic emphysematous and parenchymal change with small to tiny right pleural eff usion and associated patchy right basilar atelectasis. No pneumothorax seen bilaterally. The cardiac silhouette size remains stable and within normal limits. Overlying sternal wires and mediastinal c lips are redemonstrated. The osseous structures remain demineralized. Chronic right AC joint injury o r separation noted. Displaced right humeral head fracture redemonstrated. IMPRESSION: No pneumothorax after right internal jugular dialysis catheter insertion. Other findings stable.
[2019-11-03 17:25] LABS: Glucose,Whole Blood 110 mg/dL (75-99)
[2019-11-03] MEDS: SODIUM CHLORIDE 0.9% 1,000 ML IV SCH (17:36)
[2019-11-03] MEDS: MIDODRINE 5 MG TAB PO PRN (18:37)
[2019-11-03 18:42] LABS: % Iron Saturation 70.19 (12.00-45.00); Ferritin 2095.5 ng/mL (10.0-291.0)
[2019-11-03 18:43] LABS: HCT 27.1 % (34.0-46.0); MCH 31.3 pg (25.0-35.0); MCHC 33.1 g/dL (31.0-37.0); MCV 94.6 fL (80.0-100.0); Mean Platelet Volume 7.7; Platelet Count 262 k/uL (150-450); RBC 2.87 m/uL (3.80-5.40); WBC 5.2 k/uL (3.8-10.6)
[2019-11-03 20:21] LABS: Glucose,Whole Blood 131 mg/dL (75-99)
[2019-11-03] MEDS: PANTOPRAZOLE 40 MG/10 ML VIAL IVP SCH (21:30)
[2019-11-03] MEDS: ATORVASTATIN 10 MG TAB PO SCH (21:30)
[2019-11-03] MEDS: MAGNESIUM OXIDE 400 MG TAB PO SCH (21:31)
[2019-11-03 22:08] LABS: Hepatitis A Antibody IgM Non-Reactive (Non-Reactive); Hepatitis B Core IgM Non-Reactive (Non-Reactive); Hepatitis B Surface Antigen Non-Reactive (Non-Reactive); Hepatitis C IgG Antibody Non-Reactive (Non-Reactive)
--- NOTE | 2019-11-03 22:52 | IR ---
EXAMINATION TYPE: IR cvc insert central tunneled DATE OF EXAM: 11/03/2019 CLINICAL HISTORY: Failed dialysis. TECHNIQUE: Fluoroscopy. COMPARISON: None. FINDINGS: Fluoroscopic guidance was provided during dialysis catheter insertion procedure performed by Dr. Frank. A total of 66 seconds of fluoroscopic time was utilized during the procedure and mul tiple images are acquired. Please refer to procedure note for further details as I was not present no r performed procedure. IMPRESSION: As Above.
--- NOTE | 2019-11-03 23:05 | CONS ---
CONSULTATION DATE OF DICTATION: 11/03/2019 REASON FOR CONSULTATION: Severe symptomatic anemia and dark-colored stools. HISTORY OF PRESENT ILLNESS: The patient is a 69-year-old pleasant white female with history of a stage 4/5 chronic kidney disease who was admitted to the hospital because of fatigue, weakness, not feeling well, and was noted to have a drop in hemoglobin from 8 to 6.5 g/dL. The patient was on dialysis for acute kidney injury about 3 years ago and her renal parameters improved and the dialysis was discontinued about 2 years ago. Apparently she is being followed by Nephrology on an outpatient basis closely, and lately her BUN and creatinine have been gradually getting worse; in fact, she was seen by Nephrology for significant elevation of BUN and creatinine, and Dr. Frank has been consulted for port placement so that she will be started on dialysis tomorrow. In the meantime, patient states that she is having some abdominal discomfort, some nausea, vomiting. She had some dark-colored stools. She was diagnosed with peptic ulcer disease about 2 years ago. In the ER her initial hemoglobin was 8.4 and subsequently dropped to 6.1. Currently she is receiving one unit of blood transfusion. PAST MEDICAL HISTORY: Her past medical history is significant for chronic kidney disease, coronary artery disease, COPD, congestive heart failure, diabetes mellitus, hypertension, hyperlipidemia, history of peptic ulcer disease, prior dialysis for a year that was stopped 2 years ago, and hypothyroidism. PAST SURGICAL HISTORY: Back surgery, CABG, tonsillectomy, right breast mastectomy. FAMILY HISTORY: Father with esophageal cancer. Sister had breast cancer. HOME MEDICATIONS: Prilosec, Zocor, Linzess, Norvasc, [place], nitroglycerin, calcitriol, Lasix, Synthroid, magnesium oxide, Coreg, Zyrtec, folic acid. ALLERGIES: CODEINE. SOCIAL HISTORY: No smoking. No alcohol use. REVIEW OF SYSTEMS: CARDIOPULMONARY: No chest pain or shortness of breath. GENITOURINARY: No dysuria or hematuria. MUSCULOSKELETAL: Unremarkable. PSYCHIATRIC: Unremarkable. NEUROLOGY: Unremarkable. ENT/VISION: Unremarkable. CONSTITUTIONAL: No recent weight loss. No fever, chills, night sweats. Complains of generalized weakness. PHYSICAL EXAMINATION: She appears comfortable. No apparent distress. Vital signs are stable. Blood pressure is 116/55, pulse rate 94, temperature 97.4. HEENT examination unremarkable. Conjunctivae pink. Sclerae anicteric. Oral cavity no lesions. NECK: No JVD or lymph node enlargement. CHEST: Clear to auscultation. HEART: Regular rate and rhythm. ABDOMEN: Soft. There was very minimal tenderness in the epigastric area. Rest of the abdomen benign. EXTREMITIES: No pedal edema. SKIN: No rashes. NEUROLOGIC: Alert and oriented x3. No focal deficits. LABS: Labs done at the time of admission to the hospital showed hemoglobin 8.4. It subsequently dropped to 6.1. WBC 11.6, platelets normal. BUN 106, creatinine 6.2. IMPRESSION: 1. Severe symptomatic anemia with a hemoglobin of 6.5 requiring one unit of blood transfusion. Patient states that she had been having some dark-colored stools and about 2 years ago was diagnosed with peptic ulcer disease and had an upper endoscopy in the [place] area. 2. Chronic kidney disease with acute worsening of renal parameters. Nephrology following the patient closely. She is going for a port placement today and will be started on dialysis soon. 3. Longstanding history of diabetes mellitus. 4. Hypertension. 5. Hypomagnesemia and other electrolyte abnormalities. RECOMMENDATIONS: 1. Agree with PRBC transfusion. 2. Protonix 40 mg daily. 3. Start her on clear liquid diet. 4. Will proceed with an upper endoscopy tomorrow. Discussed with the patient risks, benefits and complications, and she is agreeable to it. Thank you for this consultation. MMVALERIEL / TRUDYN: [id number] /
[2019-11-04] MEDS: ACETAMINOPHEN TAB 325 MG TAB PO PRN (05:21)
[2019-11-04 06:18] LABS: Glucose,Whole Blood 138 mg/dL (75-99)
[2019-11-04] MEDS: LEVOTHYROXINE 50 MCG TAB PO SCH (06:28)
[2019-11-04] MEDS: CALCIUM ACETATE 667 MG TAB PO SCH ×2 (06:28→12:23)
[2019-11-04] MEDS: MIDODRINE 5 MG TAB PO PRN (08:35)
[2019-11-04 09:06] LABS: Basophils # (A) 0.1 k/uL (0-0.2); Basophils % (A) 1 %; Eosinophils # (A) 0.3 k/uL (0-0.7); Eosinophils % (A) 3 %; HCT 30.8 % (34.0-46.0); HGB 9.9 gm/dL (11.4-16.0); Lymphocytes # (A) 3.9 k/uL (1.0-4.8); Lymphocytes % (A) 40 %; MCH 30.6 pg (25.0-35.0); MCV 95.5 fL (80.0-100.0); Monocytes # (A) 0.6 k/uL (0-1.0); Monocytes % (A) 6 %; Neutrophils # (A) 4.7 k/uL (1.3-7.7); Neutrophils % (A) 48 %; Platelet Count 286 k/uL (150-450); RBC 3.22 m/uL (3.80-5.40); RDW 15.5 % (11.5-15.5); WBC 9.8 k/uL (3.8-10.6)
[2019-11-04 09:24] LABS: Calcium 6.8 mg/dL (8.4-10.2); Potassium 3.8 mmol/L (3.5-5.1)
[2019-11-04] MEDS: ALBUTEROL NEBULIZED 2.5 MG/3 ML INHALATION SCH ×2 (09:24→20:30)
--- NOTE | 2019-11-04 10:31 | P.PN ---
Subjective Patient is seen in follow-up for chronic kidney disease. She was started on hemodialysis this admission. Tolerated first treatment while yesterday. Diarrhea improved. No active complaints at this time. Vital signs are stable. General: The patient appeared well nourished and normally developed. HEENT: Head exam is unremarkable. Neck is without jugular venous distension. LUNGS: Lungs are clear to auscultation and percussion. Breath sounds decreased. HEART: Rate and Rhythm are regular. First and second heart sounds normal. No murmurs, rubs or gallops. ABDOMEN: Soft, nontender. EXTREMITITES: Trace edema. Objective - Vital Signs Vital signs: Vital Signs Temp 97.6 F 11/04/19 08:13 Pulse 63 11/04/19 08:13 Resp 16 11/04/19 08:13 BP 110/74 11/04/19 08:13 Pulse Ox 95 11/04/19 08:13 Intake & Output 11/03/19 11/04/19 11/04/19 18:59 06:59 18:59 Intake Total 480 240 240 Output Total 1000 Balance 480 -760 240 Weight 63.503 kg Intake: IV 50 Oral 120 240 240 Blood Product 310 Rc As-1 Unit 310 [id number] Output: Hemodialysis 1000 Other: Voiding Method Bedpan Bedpan # Voids 0 # Bowel Movements 0 - Labs CBC & Chem 7: 11/04/19 08:24 11/04/19 08:24 Labs: Abnormal Lab Results - Last 24 Hours (Table) 11/02/19 11/03/19 11/03/19 Range/Units 14:18 06:47 11:11 RBC 2.30 L (3.80-5.40) m/uL Hgb 7.1 L (11.4-16.0) gm/dL Hct 22.0 L (34.0-46.0) % Sodium (137-145) mmol/L Carbon Dioxide (22-30) mmol/L BUN (7-17) mg/dL Creatinine (0.52-1.04) mg/dL Glucose (74-99) mg/dL POC Glucose (mg/dL) (75-99) mg/dL Calcium (8.4-10.2) mg/dL Ionized Calcium Beatriz (4.5-5.3) mg/dL TIBC 104 L (228-460) ug/dL % Saturation 70.19 H (12.00-45.00) Ferritin 2095.5 H (10.0-291.0) ng/mL Crossmatch See Detail 11/03/19 11/03/19 11/03/19 Range/Units 11:11 12:03 17:18 RBC (3.80-5.40) m/uL Hgb (11.4-16.0) gm/dL Hct (34.0-46.0) % Sodium (137-145) mmol/L Carbon Dioxide (22-30) mmol/L BUN (7-17) mg/dL Creatinine (0.52-1.04) mg/dL Glucose (74-99) mg/dL POC Glucose (mg/dL) 148 H 110 H (75-99) mg/dL Calcium (8.4-10.2) mg/dL Ionized Calcium Beatriz 3.9 L (4.5-5.3) mg/dL TIBC (228-460) ug/dL % Saturation (12.00-45.00) Ferritin (10.0-291.0) ng/mL Crossmatch 11/03/19 11/03/19 11/04/19 Range/Units 18:20 20:19 06:16 RBC 2.87 L (3.80-5.40) m/uL Hgb 9.0 L D (11.4-16.0) gm/dL Hct 27.1 L (34.0-46.0) % Sodium (137-145) mmol/L Carbon Dioxide (22-30) mmol/L BUN (7-17) mg/dL Creatinine (0.52-1.04) mg/dL Glucose (74-99) mg/dL POC Glucose (mg/dL) 131 H 138 H (75-99) mg/dL Calcium (8.4-10.2) mg/dL Ionized Calcium Beatriz (4.5-5.3) mg/dL TIBC (228-460) ug/dL % Saturation (12.00-45.00) Ferritin (10.0-291.0) ng/mL Crossmatch 11/04/19 11/04/19 Range/Units 08:24 08:24 RBC 3.22 L (3.80-5.40) m/uL Hgb 9.9 L (11.4-16.0) gm/dL Hct 30.8 L (34.0-46.0) % Sodium 132 L (137-145) mmol/L Carbon Dioxide 18 L (22-30) mmol/L BUN 70 H (7-17) mg/dL Creatinine 4.87 H (0.52-1.04) mg/dL Glucose 126 H (74-99) mg/dL POC Glucose (mg/dL) (75-99) mg/dL Calcium 6.8 L (8.4-10.2) mg/dL Ionized Calcium Beatriz (4.5-5.3) mg/dL TIBC (228-460) ug/dL % Saturation (12.00-45.00) Ferritin (10.0-291.0) ng/mL Crossmatch Assessment and Plan Plan: Assessment: 1. Chronic kidney disease stage V. Unclear etiology. Likely nonrecovered ATN and nephrosclerosis. Patient follows with build manager of [facility]. Started on hemodialysis on November 02. 2. Acute blood loss anemia. Patient did have dark stool but otherwise no active bleeding. There is also component of chronic kidney disease. Iron replete. Maintained on Aranesp. 3. Hyponatremia secondary to chronic kidney disease. 4. Metabolic acidosis secondary to chronic kidney disease. Maintained on oral sodium bicarbonate. 5. Hypocalcemia secondary to hypoalbuminemia. Corrected calcium the normal range. Better. 6. Hypomagnesemia secondary to GI losses, status post replacement. 7. Mild volume overload. Improved with ultrafiltration. 8. Chronic kidney disease mineral bone disease maintained on calcitriol. Phosphorus noted to be elevated at 6.6. Maintained on PhosLo. Plan: Currently seen while undergoing hemodialysis. Third treatment tomorrow. Discontinue amlodipine. production operations manager to help facilitate outpatient hemodialysis set up. Repeat electrolytes including phosphorus in the morning.
[2019-11-04 11:56] LABS: Glucose,Whole Blood 109 mg/dL (75-99)
[2019-11-04] MEDS: carvediloL 12.5 MG TAB PO SCH ×2 (12:22→17:40)
[2019-11-04] MEDS: INSULIN ASPART (NovoLOG) 100 UNIT/ML VIAL SQ SCH ×3 (12:22→17:41)
[2019-11-04] MEDS: FOLIC ACID 1 MG TAB PO SCH (12:24)
[2019-11-04] MEDS: PANTOPRAZOLE 40 MG/10 ML VIAL IVP SCH ×2 (12:24→20:04)
[2019-11-04] MEDS: HYDROcodone/APAP 10-325MG 1 EACH TAB PO SCH ×3 (12:25→20:02)
[2019-11-04] MEDS: FLUTICASONE 50MCG/SPRAY NASAL 16GM EA NOSTRIL SCH (12:27)
[2019-11-04] MEDS: SODIUM BICARBONATE TAB 650 MG TAB PO SCH ×3 (12:29→22:34)
--- NOTE | 2019-11-04 13:21 | CDI ---
Documentation Clarification Form Date: 11/04/2019 12:55:01 PM From: Samia Westfall RN CCDS Email: [email or web address] Admit Date: 11/02/2019 03:15:00 PM Patient Name: Latesha Colin Visit Number: [id number] Discharge Date: ATTENTION: The Clinical Documentation Specialists (CDI) and [facility] Coding Staff appreciate your assistance in clarifying documentation. Please respond to the clarification below the line at the bottom and electronically sign. The CDI & [facility] Coding staff will review the response and follow-up if needed. Please note: Queries are made part of the Legal Health Record. If you have any questions, please contact the author of this message via ITS. Dr. Aurora Alexis Heart failure is documented in the GI consult 11/02 History/Risk Factors: 69-year-old female presents to the ED with weakness. Medical history CKD Stage 5 with prior history of dialysis due to ALANA after an episode of severe anemia. DM2, HTN and CHF Clinical Indicators: 11/01 VS/Pulse OX: 116/65 84 97.4 oral, 18 96% 2L nasal cannula 11/02 Echocardiogram Results: Left ventricular systolic function is low-normal with, an EF between 50-55%. Diastolic filling pattern is normal for the age of the patient 9.87. Right ventricle is mild to moderately enlarged. Right atrium is mildly enlarged 11/01 Chest X Ray: Chronic emphysematous and parenchymal fibrotic changes with small to tiny right pleural effusions and associated patchy right basilar atelectasis. Home medications: Lasix 40mg Po daily, Coreg 12.5mg Po Bid Treatment: 11/01 Coreg 12.5mg Po Bid, Lasix 60mg Iv x1 In your professional opinion, can you please clarify the acuity and type of CHF if known? Acute Diastolic Heart Failure: Chronic Diastolic Heart Failure: Acute on Chronic Diastolic Heart Failure: Heart Failure Ruled Out Unable to Determine Other, please specify (Last Revision: August 2017) Patient denies heart failure and current condition is due to renal failure MTDD
[2019-11-04 16:44] LABS: Glucose,Whole Blood 128 mg/dL (75-99)
[2019-11-04] MEDS: SODIUM CHLORIDE 0.9% 1,000 ML IV SCH (17:38)
--- NOTE | 2019-11-04 19:31 | P.PN ---
Subjective Progress Note Date: 11/04/19 (delayed charting seen at 0930) Principal diagnosis: weakness Patient is a 69-year-old female with stage 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 Apparently her home health care nurse was concerned when she went out to the house and contacted her nurse practitioner Day Steve who recommended that they come to the hospital. The patient has had worsening renal function over the last several weeks. On arrival to the emergency department today her vital signs are within normal limits. Laboratory analysis showed a slightly elevated white blood cell count 11.6, hemoglobin 8.4 which appears to be near her baseline, sodium 130, carbon dioxide 19, BUN 106, creatinine 6.29 with baseline creatinine in June of 6.1 and creatinine from January 2019 of 3.24. AST and ALT mildly elevated, alk phos mildly elevated. Magnesium low at 1.2. She was admitted due to acute on chronic renal disease with concern for need for hemodialysis. She was seen by nephrology who agreed that patient needs hemodialysis. Apparently she has been having worsening renal function for some time in the clinic. She was noted to have a drop in her hemoglobin but was not having any active signs of bleeding. One unit of packed red blood cells was ordered. Of note patient has been off of her Tums and does have a history of [address] Frank was consulted for dialysis catheter placement which was completed on 11/02 and the patient underwent her first round of HD. She was seen by gastroenterology who recommended possible EGD. Patient seen and examined at bedside. Currently undergoing dialysis. Is feeling cold. No shortness of breath, nausea, vomiting, or diarrhea. States dialysis is going "okay". Objective - Vital Signs Vital signs: Vital Signs Temp 97.7 F 11/04/19 16:00 Pulse 84 11/04/19 16:00 Resp 16 11/04/19 16:00 BP 98/47 11/04/19 16:00 Pulse Ox 97 11/04/19 16:00 Intake & Output 11/04/19 11/04/19 11/05/19 06:59 18:59 06:59 Intake Total 240 720 Output Total 1000 1000 Balance -760 -280 Weight 63.503 kg Intake: Oral 240 720 Output: Hemodialysis 1000 1000 Other: Voiding Method Bedpan Bedpan - Exam General: Ill appearing, no distress, appears at stated age Derm: warm, dry Head: atraumatic, normocephalic, symmetric Eyes: EOMI, no lid lag, anicteric sclera Mouth: no lip lesion, mucus membranes moist, hard of hearing Cardiovascular: S1S2 reg, no murmur, positive posterior tibial pulse bilateral, Lungs: Decreased breath sounds bilateral, no rhonchi, no rales , no accessory muscle use Abdominal: soft, nontender to palpation, no guarding, no appreciable organomegaly Ext: no gross muscle atrophy, diffuse anasarca, no contractures Neuro: CN II-XI grossly intact, no focal neuro deficits Psych: Alert, oriented, flat affect - Labs CBC & Chem 7: 11/04/19 08:24 11/04/19 08:24 Labs: Abnormal Lab Results - Last 24 Hours (Table) 11/03/19 11/04/19 11/04/19 Range/Units 20:19 06:16 08:24 RBC 3.22 L (3.80-5.40) m/uL Hgb 9.9 L (11.4-16.0) gm/dL Hct 30.8 L (34.0-46.0) % Sodium (137-145) mmol/L Carbon Dioxide (22-30) mmol/L BUN (7-17) mg/dL Creatinine (0.52-1.04) mg/dL Glucose (74-99) mg/dL POC Glucose (mg/dL) 131 H 138 H (75-99) mg/dL Calcium (8.4-10.2) mg/dL 11/04/19 11/04/19 11/04/19 Range/Units 08:24 11:48 16:34 RBC (3.80-5.40) m/uL Hgb (11.4-16.0) gm/dL Hct (34.0-46.0) % Sodium 132 L (137-145) mmol/L Carbon Dioxide 18 L (22-30) mmol/L BUN 70 H (7-17) mg/dL Creatinine 4.87 H (0.52-1.04) mg/dL Glucose 126 H (74-99) mg/dL POC Glucose (mg/dL) 109 H 128 H (75-99) mg/dL Calcium 6.8 L (8.4-10.2) mg/dL Assessment and Plan Assessment: Acute renal failure on chronic kidney disease stage 4/5 with metabolic acidosis and diffuse anasarca now with ESRD -nephrology recs appreciated: Plans are for HD today and tomorrow -Avoid additional nephrotoxic agents -echo with preserved EF - sodium bicarb, calcitriol Anemia, undetermined cause -Aricept - suspect secondary to renal disease but now worsening - reports dark stools -Iron studies showed normal iron stores - D/W nephrology -Status post 1 unit pRBC -GI recommendations appreciated. Hypervolemic hyponatremia -Improving -Suspect secondary to increased fluid retention -Repeat in a.m. -Nephrology recommendations appreciated Diabetes mellitus type 2 - Insulin requiring in the past,currently not on anything per family - Follow BS on AM labs accuchecks stopped - SSI - A1C 5.7 HTN, controlled - controlled - continue coreg but dose decreased , norvasc discontinued due to low normal HLD - statin Chronic: Hard of hearing Fibromyalgia COPD GERD Hypothyoridism Hypomagnesemia, resolved Transaminitis, resolved DVT prophylaxis: Heparin Discussed with: Patient, nursing, Dr. Metcalf Anticipated discharge date: 2-[address]: Home A total of 35 minutes was spent on the care of this complex patient more than 50% of the time was spent in counseling and care coordination.
[2019-11-04] MEDS: MAGNESIUM OXIDE 400 MG TAB PO SCH (20:02)
[2019-11-04] MEDS: ATORVASTATIN 10 MG TAB PO SCH (20:02)
[2019-11-04 20:40] LABS: Glucose,Whole Blood 169 mg/dL (75-99)
--- NOTE | 2019-11-05 04:33 | P.PN ---
Subjective Progress Note Date: 11/04/19 Principal diagnosis: Severe symptomatic anemia Patient is seen lying in bed. She tolerated her diet today. She was scheduled for endoscopic evaluation however this was postponed she was receiving hemodialysis. Still reporting abdominal tenderness. Objective - Vital Signs Vital signs: Vital Signs Temp 97.6 F 11/04/19 12:32 Pulse 66 11/04/19 12:32 Resp 16 11/04/19 12:32 BP 132/70 11/04/19 12:32 Pulse Ox 97 11/04/19 12:00 Intake & Output 11/03/19 11/04/19 11/04/19 18:59 06:59 18:59 Intake Total 480 240 240 Output Total 1000 1000 Balance 480 -760 -760 Weight 63.503 kg Intake: IV 50 Oral 120 240 240 Blood Product 310 Rc As-1 Unit 310 [id number] Output: Hemodialysis 1000 1000 Other: Voiding Method Bedpan Bedpan Bedpan # Voids 0 # Bowel Movements 0 - Exam On physical examination, patient appears comfortable in no apparent distress. HEAD: Normocephalic, atraumatic. EYES: No scleral icterus. No conjunctival injection. MOUTH: No lesions, tongue midline. NECK: Trachea midline, no gross abnormalities. ABDOMEN: Soft, mildly tender to palpation. Bowel sounds are positive. No organomegaly. No guarding or rigidity. EXTREMITIES: No pedal edema. SKIN: No rashes, no jaundice. NEUROLOGIC: Alert and oriented. No focal deficits. - Labs CBC & Chem 7: 11/04/19 08:24 11/04/19 08:24 Labs: Abnormal Lab Results - Last 24 Hours (Table) 11/02/19 11/03/19 11/03/19 Range/Units 14:18 06:47 17:18 RBC (3.80-5.40) m/uL Hgb (11.4-16.0) gm/dL Hct (34.0-46.0) % Sodium (137-145) mmol/L Carbon Dioxide (22-30) mmol/L BUN (7-17) mg/dL Creatinine (0.52-1.04) mg/dL Glucose (74-99) mg/dL POC Glucose (mg/dL) 110 H (75-99) mg/dL Calcium (8.4-10.2) mg/dL TIBC 104 L (228-460) ug/dL % Saturation 70.19 H (12.00-45.00) Ferritin 2095.5 H (10.0-291.0) ng/mL Crossmatch See Detail 11/03/19 11/03/19 11/04/19 Range/Units 18:20 20:19 06:16 RBC 2.87 L (3.80-5.40) m/uL Hgb 9.0 L D (11.4-16.0) gm/dL Hct 27.1 L (34.0-46.0) % Sodium (137-145) mmol/L Carbon Dioxide (22-30) mmol/L BUN (7-17) mg/dL Creatinine (0.52-1.04) mg/dL Glucose (74-99) mg/dL POC Glucose (mg/dL) 131 H 138 H (75-99) mg/dL Calcium (8.4-10.2) mg/dL TIBC (228-460) ug/dL % Saturation (12.00-45.00) Ferritin (10.0-291.0) ng/mL Crossmatch 11/04/19 11/04/19 11/04/19 Range/Units 08:24 08:24 11:48 RBC 3.22 L (3.80-5.40) m/uL Hgb 9.9 L (11.4-16.0) gm/dL Hct 30.8 L (34.0-46.0) % Sodium 132 L (137-145) mmol/L Carbon Dioxide 18 L (22-30) mmol/L BUN 70 H (7-17) mg/dL Creatinine 4.87 H (0.52-1.04) mg/dL Glucose 126 H (74-99) mg/dL POC Glucose (mg/dL) 109 H (75-99) mg/dL Calcium 6.8 L (8.4-10.2) mg/dL TIBC (228-460) ug/dL % Saturation (12.00-45.00) Ferritin (10.0-291.0) ng/mL Crossmatch Assessment and Plan (1) Symptomatic anemia Narrative/Plan: 69-year-old female with a known history of chronic kidney disease currently requiring hemodialysis, who was seen for severe symptomatic anemia. No gross bleeding but the patient has noted some dark stool recently. She also reports some epigastric tenderness. She has a prior history of peptic ulcer disease. U nclear if anemia is secondary to chronic disease and underlying renal insufficiency or if there is a component of GI bleeding with plan for endoscopic evaluation for further investigation, which was postponed today due to hemodialysis. Differential includes peptic ulcer disease, esophagitis/gastrit is, or other etiology. Current Visit: Yes Status: Acute Code(s): D64.9 - ANEMIA, UNSPECIFIED SNOMED Code(s): 246571056 (2) Chronic kidney disease (CKD) Current Visit: No Status: Acute Code(s): N18.9 - CHRONIC KIDNEY DISEASE, UNSPECIFIED SNOMED Code(s): 112168062 Plan: Supportive care Okay for renal diet, nothing by mouth after midnight Continue to monitor hemoglobin and hematocrit and transfuse as needed Continue to monitor stool output Plan for EGD tomorrow for further evaluation Continue other medical management Thank you for allowing us to participate in the care of the patient
[2019-11-05 06:05] LABS: Glucose,Whole Blood 106 mg/dL (75-99)
[2019-11-05] MEDS: LEVOTHYROXINE 50 MCG TAB PO SCH (06:36)
[2019-11-05] MEDS: carvediloL 12.5 MG TAB PO SCH ×2 (06:36→16:24)
[2019-11-05] MEDS: CALCIUM ACETATE 667 MG TAB PO SCH ×3 (06:36→16:23)
[2019-11-05] MEDS: ALBUTEROL NEBULIZED 2.5 MG/3 ML INHALATION SCH ×2 (07:23→19:47)
[2019-11-05 08:12] LABS: HGB 8.6 gm/dL (11.4-16.0); MCH 30.3 pg (25.0-35.0); MCHC 31.8 g/dL (31.0-37.0); MCV 95.1 fL (80.0-100.0); Mean Platelet Volume 7.6; Platelet Count 248 k/uL (150-450); RBC 2.84 m/uL (3.80-5.40); RDW 15.5 % (11.5-15.5); WBC 10.1 k/uL (3.8-10.6)
[2019-11-05 08:18] LABS: Calcium 6.9 mg/dL (8.4-10.2); Magnesium 1.7 mg/dL (1.6-2.3); Phosphorus 4.1 mg/dL (2.5-4.5); Potassium 3.4 mmol/L (3.5-5.1)
[2019-11-05] MEDS: HYDROcodone/APAP 10-325MG 1 EACH TAB PO SCH ×3 (08:32→20:54)
[2019-11-05] MEDS: FOLIC ACID 1 MG TAB PO SCH (08:33)
[2019-11-05] MEDS: PANTOPRAZOLE 40 MG/10 ML VIAL IVP SCH ×2 (08:34→20:58)
[2019-11-05] MEDS: FLUTICASONE 50MCG/SPRAY NASAL 16GM EA NOSTRIL SCH (08:34)
[2019-11-05] MEDS: SODIUM BICARBONATE TAB 650 MG TAB PO SCH ×3 (08:39→20:54)
[2019-11-05] MEDS ORDERED: POTASSIUM CHLORIDE ER 20 MEQ TAB.ER PO STA (09:21)
[2019-11-05] MEDS: MIDODRINE 5 MG TAB PO PRN (09:56)
--- NOTE | 2019-11-05 10:07 | P.PN ---
Subjective Patient is seen in follow-up for chronic kidney disease. She was started on hemodialysis this admission. She's been tolerating hemodialysis treatments well. No chest pain or shortness of breath. Diarrhea resolved. Vital signs are stable. General: The patient appeared well nourished and normally developed. HEENT: Head exam is unremarkable. Neck is without jugular venous distension. LUNGS: Lungs are clear to auscultation and percussion. Breath sounds decreased. HEART: Rate and Rhythm are regular. ABDOMEN: Soft, nontender. EXTREMITITES: Trace edema. Objective - Vital Signs Vital signs: Vital Signs Temp 98.0 F 11/05/19 04:00 Pulse 66 11/05/19 08:00 Resp 16 11/05/19 08:00 BP 118/58 11/05/19 08:00 Pulse Ox 95 11/05/19 08:00 Intake & Output 11/04/19 11/05/19 11/05/19 18:59 06:59 18:59 Intake Total 720 Output Total 1000 Balance -280 Weight 68 kg Intake: Oral 720 Output: Hemodialysis 1000 Other: Voiding Method Bedpan Bedpan Bedpan - Labs CBC & Chem 7: 11/05/19 07:43 11/05/19 07:43 Labs: Abnormal Lab Results - Last 24 Hours (Table) 11/04/19 11/04/19 11/04/19 Range/Units 11:48 16:34 20:35 RBC (3.80-5.40) m/uL Hgb (11.4-16.0) gm/dL Hct (34.0-46.0) % Sodium (137-145) mmol/L Potassium (3.5-5.1) mmol/L BUN (7-17) mg/dL Creatinine (0.52-1.04) mg/dL POC Glucose (mg/dL) 109 H 128 H 169 H (75-99) mg/dL Calcium (8.4-10.2) mg/dL 11/05/19 11/05/19 11/05/19 Range/Units 06:04 07:43 07:43 RBC 2.84 L (3.80-5.40) m/uL Hgb 8.6 L (11.4-16.0) gm/dL Hct 27.0 L (34.0-46.0) % Sodium 135 L (137-145) mmol/L Potassium 3.4 L (3.5-5.1) mmol/L BUN 41 H (7-17) mg/dL Creatinine 3.38 H (0.52-1.04) mg/dL POC Glucose (mg/dL) 106 H (75-99) mg/dL Calcium 6.9 L (8.4-10.2) mg/dL Assessment and Plan Plan: Assessment: 1. Chronic kidney disease stage V. Unclear etiology. Likely nonrecovered ATN and nephrosclerosis. Patient follows with arch support technician of [facility]. Started on hemodialysis on November 02. 2. Acute blood loss anemia. Patient did have dark stool but otherwise no active bleeding. There is also component of chronic kidney disease. Iron replete. Maintained on Aranesp. 3. Hyponatremia secondary to chronic kidney disease. Better. 4. Metabolic acidosis secondary to chronic kidney disease. Maintained on oral sodium bicarbonate. 5. Hypocalcemia secondary to hypoalbuminemia. Corrected calcium the normal range. Better. 6. Hypomagnesemia secondary to GI losses, status post replacement. 7. Mild volume overload. Improved with ultrafiltration. 8. Chronic kidney disease mineral bone disease maintained on calcitriol. Phosphorus noted to be elevated at 6.6 - repeat 4.4. Maintained on PhosLo. Plan: Currently seen while undergoing hemodialysis. Maintain midodrine as needed. Next treatment on Friday. She will be maintained on a Friday schedule. Discontinued amlodipine. Outpatient dialysis has been set up. Replace potassium. 40 mEq today. EGD today.
[2019-11-05 11:54] LABS: Glucose,Whole Blood 108 mg/dL (75-99)
[2019-11-05 17:14] LABS: Glucose,Whole Blood 116 mg/dL (75-99)
--- NOTE | 2019-11-05 19:44 | P.PN ---
Subjective Progress Note Date: 11/05/19 (delayed charting seen at 1045) Principal diagnosis: weakness Patient is a 69-year-old female with stage 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 Apparently her home health care nurse was concerned when she went out to the house and contacted her nurse practitioner Day Steve who recommended that they come to the hospital. The patient has had worsening renal function over the last several weeks. On arrival to the emergency department today her vital signs are within normal limits. Laboratory analysis showed a slightly elevated white blood cell count 11.6, hemoglobin 8.4 which appears to be near her baseline, sodium 130, carbon dioxide 19, BUN 106, creatinine 6.29 with baseline creatinine in June of 6.1 and creatinine from January 2019 of 3.24. AST and ALT mildly elevated, alk phos mildly elevated. Magnesium low at 1.2. She was admitted due to acute on chronic renal disease with concern for need for hemodialysis. She was seen by nephrology who agreed that patient needs hemodialysis. Apparently she has been having worsening renal function for some time in the clinic. She was noted to have a drop in her hemoglobin but was not having any active signs of bleeding. One unit of packed red blood cells was ordered. Of note patient has been off of her Tums and does have a history of [address] Frank was consulted for dialysis catheter placement which was completed on 11/02 and the patient underwent her first round of HD. She was seen by gastroenterology who recommended EGD. Patient seen and examined at bedside. Currently undergoing dialysis. Again reports feeling cold, no chest pain, no shortness of breath, no nausea or vomiting. Objective - Vital Signs Vital signs: Vital Signs Temp 95.6 F L 11/05/19 17:21 Pulse 69 11/05/19 17:21 Resp 14 11/05/19 17:21 BP 101/52 11/05/19 17:21 Pulse Ox 93 L 11/05/19 16:00 Intake & Output 11/05/19 11/05/19 11/06/19 06:59 18:59 06:59 Intake Total 536 Output Total 1300 Balance -764 Weight 68 kg Intake: Oral 236 Hemodialysis 300 Output: Hemodialysis 1300 Other: Voiding Method Bedpan Bedpan # Voids 0 - Exam General: Ill appearing, no distress, appears at stated age Derm: warm, dry Head: atraumatic, normocephalic, symmetric Eyes: EOMI, no lid lag, anicteric sclera Mouth: no lip lesion, mucus membranes moist, hard of hearing Cardiovascular: S1S2 reg, no murmur, positive posterior tibial pulse bilateral, Lungs: Decreased breath sounds bilateral, no rhonchi, no rales , no accessory muscle use Abdominal: soft, nontender to palpation, no guarding, no appreciable organomegaly Ext: no gross muscle atrophy, diffuse anasarca legs improving but still significant and arms, no contractures Neuro: CN II-XI grossly intact, no focal neuro deficits Psych: Alert, oriented, flat affect - Labs CBC & Chem 7: 11/05/19 07:43 11/05/19 07:43 Labs: Abnormal Lab Results - Last 24 Hours (Table) 11/04/19 11/05/19 11/05/19 Range/Units 20:35 06:04 07:43 RBC 2.84 L (3.80-5.40) m/uL Hgb 8.6 L (11.4-16.0) gm/dL Hct 27.0 L (34.0-46.0) % Sodium (137-145) mmol/L Potassium (3.5-5.1) mmol/L BUN (7-17) mg/dL Creatinine (0.52-1.04) mg/dL POC Glucose (mg/dL) 169 H 106 H (75-99) mg/dL Calcium (8.4-10.2) mg/dL 11/05/19 11/05/19 11/05/19 Range/Units 07:43 11:53 17:13 RBC (3.80-5.40) m/uL Hgb (11.4-16.0) gm/dL Hct (34.0-46.0) % Sodium 135 L (137-145) mmol/L Potassium 3.4 L (3.5-5.1) mmol/L BUN 41 H (7-17) mg/dL Creatinine 3.38 H (0.52-1.04) mg/dL POC Glucose (mg/dL) 108 H 116 H (75-99) mg/dL Calcium 6.9 L (8.4-10.2) mg/dL Assessment and Plan Assessment: Acute renal failure on chronic kidney disease stage 4/5 with metabolic acidosis and diffuse anasarca now with ESRD -nephrology recs appreciated: Plans are for HD today and Friday -Avoid additional nephrotoxic agents -echo with preserved EF - sodium bicarb, calcitriol Anemia, undetermined cause -Aricept - suspect secondary to renal disease but now worsening - reports dark stools -Iron studies showed normal iron stores - D/W nephrology -Status post 1 unit pRBC -GI recommendations appreciated. EGD today Hypervolemic hyponatremia -Improving -Suspect secondary to increased fluid retention -Repeat in a.m. -Nephrology recommendations appreciated - Volume control with HD Diabetes mellitus type 2 - Insulin requiring in the past,currently not on anything per family - Follow BS on AM labs accuchecks stopped - SSI - A1C 5.7 HTN, controlled - controlled - continue coreg but dose decreased , norvasc discontinued due to low normal HLD - statin Chronic: Hard of hearing Fibromyalgia COPD GERD Hypothyoridism Hypomagnesemia, resolved Transaminitis, resolved DVT prophylaxis: Heparin Discussed with: Patient, nursing, Dr. Metcalf Anticipated discharge date: 11/[address]: SNF on Tuesday 11/07 A total of 35 minutes was spent on the care of this complex patient more than 50% of the time was spent in counseling and care coordination.
[2019-11-05 20:04] LABS: Glucose,Whole Blood 167 mg/dL (75-99)
[2019-11-05] MEDS: ATORVASTATIN 10 MG TAB PO SCH (20:54)
[2019-11-05] MEDS: MAGNESIUM OXIDE 400 MG TAB PO SCH (20:54)
[2019-11-05 21:06] LABS: HCT 27.4 % (34.0-46.0); HGB 8.7 gm/dL (11.4-16.0); MCH 30.2 pg (25.0-35.0); MCHC 31.8 g/dL (31.0-37.0); MCV 94.8 fL (80.0-100.0); Mean Platelet Volume 7.8; Platelet Count 222 k/uL (150-450); RBC 2.89 m/uL (3.80-5.40); RDW 15.6 % (11.5-15.5); WBC 9.2 k/uL (3.8-10.6)
--- NOTE | 2019-11-05 21:58 | PN ---
PROGRESS NOTE DATE OF SERVICE: 11/05/2019 Patient is a 69-year-old pleasant white female with history of end-stage renal disease on hemodialysis, was admitted to the hospital with fatigue and weakness and was noted to have a hemoglobin of 6.5 requiring 2 units of blood transfusion. She denies any symptoms. No GI bleed. She was scheduled for an upper endoscopy because of prior history of peptic ulcer disease and complains of epigastric pain. The upper endoscopy was scheduled for today but she was undergoing hemodialysis and, hence, it has moved to tomorrow. She denies any new symptoms today. PHYSICAL EXAMINATION: Appears comfortable no apparent distress. VITAL SIGNS: Stable. Blood pressure is 101/52, pulse is 69, temperature 95.6. HEENT examination unremarkable. Conjunctivae pink, sclerae anicteric. Oral cavity no lesions. NECK: No JVD or lymph node enlargement. CHEST: Clear to auscultation. HEART: Regular rate and rhythm. ABDOMEN: Soft. Bowel sounds are positive. No organomegaly. EXTREMITIES: No pedal edema. NEURO: She is alert and oriented x3. No focal deficits. LABS: From today WBC 10.1, hemoglobin 8.6, and platelets normal. BUN 41, creatinine 3.8. IMPRESSION: 1. Severe symptomatic anemia with no evidence of active gastrointestinal bleed. The patient has prior history of peptic ulcer disease noted on upper endoscopy 2 years ago. She has been complaining of some epigastric discomfort and, hence, possibility of recurrent peptic ulcer disease needs to be excluded. 2. End-stage renal disease, on hemodialysis. 3. History of hypertension and hyperlipidemia. 4. History of gastroesophageal reflux disease. RECOMMENDATIONS: 1. Continue with Protonix 40 mg daily. 2. Continue symptomatic supportive care. 3. We will proceed with an upper endoscopy tomorrow. I discussed with the patient risks, benefits and complications of the procedure and she is agreeable to it. Thank you for this consultation. MMODL / IJN: [id number] /
[2019-11-06 06:05] LABS: Glucose,Whole Blood 112 mg/dL (75-99)
[2019-11-06] MEDS: CALCIUM ACETATE 667 MG TAB PO SCH ×3 (06:20→17:03)
[2019-11-06] MEDS: LEVOTHYROXINE 50 MCG TAB PO SCH (06:20)
[2019-11-06] MEDS: carvediloL 12.5 MG TAB PO SCH ×2 (06:20→17:03)
[2019-11-06] MEDS ORDERED: PROPOFOL 10 MG/ML 20 ML VIAL IV ONE (07:56)
[2019-11-06] MEDS ORDERED: IV FLUID CONTINUATION 1,000 ML IV ONE ×2 (08:05)
--- NOTE | 2019-11-06 08:24 | P.PCN ---
Date of Procedure: 11/06/19 Procedure(s) Performed: BRIEF HISTORY: Patient is a 69-year-old, pleasant, white female scheduled for endoscopy for evaluation of anemia and black colored stool. She has prior history of peptic ulcer disease and was complaining of epigastric discomfort during this hospitalization. ROCEDURE PERFORMED: Esophagogastroduodenoscopy. PREOPERATIVE DIAGNOSIS: epigastric pain anemia and history of peptic ulcer disease IV sedation per anesthesia. PROCEDURE: After informed consent was obtained, the patient was brought into the endoscopy unit. IV sedation was administered by Anesthesia under continuous monitoring. Initially the Olympus GIF-140 video endoscope was inserted into the mouth. Esophagus intubated without any difficulty. It was gradually advanced into the stomach and duodenum and carefully examined. The bulb and the second part of the duodenum appeared normal. The scope at this time was withdrawn to the stomach, adequately insufflated with air, and upon careful examination, mucosa of the antrum, body, cardia and the fundus appeared normal. The scope was then withdrawn into the esophagus. The GE junction was located at 37 cm from the incisors. there was circumferential erythema of the esophagus consistent mild reflux esophagitis. The rest of the esophagus appeared normal. There were no erosions or ulcerations seen and the patient tolerated the procedure well. IMPRESSION: 1. No evidence of peptic ulcer disease. 2 Mild reflux esophagitis RECOMMENDATIONS: The findings of this examination were discussed with the patient as well as her family. She was advised to continue with Protonix 40 mg daily. Advance diet as tolerated.
[2019-11-06] MEDS: SODIUM CHLORIDE 0.9% 1,000 ML IV SCH ×2 (09:01→12:09)
[2019-11-06] MEDS: HYDROcodone/APAP 10-325MG 1 EACH TAB PO SCH ×3 (09:01→21:48)
[2019-11-06] MEDS: PANTOPRAZOLE 40 MG/10 ML VIAL IVP SCH ×2 (09:01→20:49)
[2019-11-06] MEDS: FLUTICASONE 50MCG/SPRAY NASAL 16GM EA NOSTRIL SCH (09:02)
[2019-11-06] MEDS: FOLIC ACID 1 MG TAB PO SCH (09:02)
[2019-11-06] MEDS: SODIUM BICARBONATE TAB 650 MG TAB PO SCH ×3 (09:03→20:49)
[2019-11-06] MEDS ORDERED: CALCIUM CARBONATE 500 MG CHEWABLE PO PRN (09:28)
[2019-11-06] MEDS ORDERED: LIDOCAINE 1% (10MG/ML) FOR IV START INTRADERMA PRN (09:30)
[2019-11-06 10:09] LABS: HCT 26.7 % (34.0-46.0); HGB 8.5 gm/dL (11.4-16.0); MCH 30.3 pg (25.0-35.0); MCHC 31.9 g/dL (31.0-37.0); MCV 94.9 fL (80.0-100.0); Platelet Count 234 k/uL (150-450); RBC 2.82 m/uL (3.80-5.40); RDW 15.4 % (11.5-15.5); WBC 9.2 k/uL (3.8-10.6)
--- NOTE | 2019-11-06 10:12 | P.PN ---
Subjective Patient is seen in follow-up for chronic kidney disease. She was started on hemodialysis this admission. She's been tolerating hemodialysis treatments well. No chest pain or shortness of breath. Diarrhea resolved. Patient went for EGD this morning which revealed mild reflux esophagitis. Vital signs are stable. General: The patient appeared well nourished and normally developed. HEENT: Head exam is unremarkable. Neck is without jugular venous distension. LUNGS: Lungs are clear to auscultation and percussion. Breath sounds decreased. HEART: Rate and Rhythm are regular. ABDOMEN: Soft, nontender. EXTREMITITES: 1+ edema. Objective - Vital Signs Vital signs: Vital Signs Temp 97.9 F 11/06/19 07:24 Pulse 83 11/06/19 10:05 Resp 14 11/06/19 10:05 BP 118/68 11/06/19 10:05 Pulse Ox 94 L 11/06/19 10:05 Intake & Output 11/05/19 11/06/19 11/06/19 18:59 06:59 18:59 Intake Total 536 100 Output Total 1300 Balance -764 100 Weight 71.5 kg Intake: IV 100 Oral 236 0 Hemodialysis 300 Output: Hemodialysis 1300 Other: Voiding Method Bedpan Bedpan Diaper # Voids 0 - Labs CBC & Chem 7: 11/06/19 09:32 11/05/19 07:43 Labs: Abnormal Lab Results - Last 24 Hours (Table) 11/05/19 11/05/19 11/05/19 Range/Units 11:53 17:13 20:03 RBC (3.80-5.40) m/uL Hgb (11.4-16.0) gm/dL Hct (34.0-46.0) % RDW (11.5-15.5) % POC Glucose (mg/dL) 108 H 116 H 167 H (75-99) mg/dL 11/05/19 11/06/19 11/06/19 Range/Units 20:27 06:03 09:32 RBC 2.89 L 2.82 L (3.80-5.40) m/uL Hgb 8.7 L 8.5 L (11.4-16.0) gm/dL Hct 27.4 L 26.7 L (34.0-46.0) % RDW 15.6 H (11.5-15.5) % POC Glucose (mg/dL) 112 H (75-99) mg/dL Assessment and Plan Plan: Assessment: 1. Chronic kidney disease stage V. Unclear etiology. Likely nonrecovered ATN and nephrosclerosis. Patient follows with [facility]. Started on hemodialysis on November 02. 2. Acute blood loss anemia. Patient did have dark stool but otherwise no active bleeding. There is also component of chronic kidney disease. Iron replete. Maintained on Aranesp. 3. Hyponatremia secondary to chronic kidney disease. Better. 4. Metabolic acidosis secondary to chronic kidney disease. Maintained on oral sodium bicarbonate. 5. Hypocalcemia secondary to hypoalbuminemia. Corrected calcium the normal range. Better. 6. Hypomagnesemia secondary to GI losses, status post replacement. 7. Mild volume overload. Improved with ultrafiltration. 8. Chronic kidney disease mineral bone disease maintained on calcitriol. Phosphorus noted to be elevated at 6.6 - repeat 4.4. Maintained on PhosLo. Plan: Hemodialysis on Friday. Maintain midodrine as needed. Discontinued amlodipine. Outpatient dialysis has been set up.
[2019-11-06 10:19] LABS: Calcium 6.8 mg/dL (8.4-10.2); Magnesium 1.6 mg/dL (1.6-2.3); Potassium 3.6 mmol/L (3.5-5.1)
[2019-11-06] MEDS: LACTATED RINGERS 1,000 ML IV SCH (10:23)
[2019-11-06] MEDS: amLODIPine 5 MG TAB PO SCH (10:24)
[2019-11-06] MEDS: ALBUTEROL NEBULIZED 2.5 MG/3 ML INHALATION SCH ×2 (12:08→20:44)
[2019-11-06 12:16] LABS: Glucose,Whole Blood 90 mg/dL (75-99)
--- NOTE | 2019-11-06 16:16 | P.PN ---
Subjective Progress Note Date: 11/06/19 (delayed charting seen at 0945) Principal diagnosis: weakness Patient is a 69-year-old female with stage 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 Apparently her home health care nurse was concerned when she went out to the house and contacted her nurse practitioner Day Steve who recommended that they come to the hospital. The patient has had worsening renal function over the last several weeks. On arrival to the emergency department today her vital signs are within normal limits. Laboratory analysis showed a slightly elevated white blood cell count 11.6, hemoglobin 8.4 which appears to be near her baseline, sodium 130, carbon dioxide 19, BUN 106, creatinine 6.29 with baseline creatinine in June of 6.1 and creatinine from January 2019 of 3.24. AST and ALT mildly elevated, alk phos mildly elevated. Magnesium low at 1.2. She was admitted due to acute on chronic renal disease with concern for need for hemodialysis. She was seen by nephrology who agreed that patient needs hemodialysis. Apparently she has been having worsening renal function for some time in the clinic. She was noted to have a drop in her hemoglobin but was not having any active signs of bleeding. One unit of packed red blood cells was ordered. Of note patient has been off of her Tums and does have a history of [address] Frank was consulted for dialysis catheter placement which was completed on 11/02 and the patient underwent her first round of HD. She was seen by gastroenterology who recommended EGD this was completed on 11/06/2019 and showed some esophagitis but no active ulcers or bleeding. The morning of 10/29 she had completed 3 rounds of hemodialysis. Patient seen and examined at bedside. Having some nausea today but feeling better than baseline. No chest discomfort, and shortness of breath, or diarrhea. Objective - Vital Signs Vital signs: Vital Signs Temp 97.4 F L 11/06/19 15:34 Pulse 88 11/06/19 15:34 Resp 14 11/06/19 15:34 BP 118/67 11/06/19 15:34 Pulse Ox 92 L 11/06/19 15:34 Intake & Output 11/05/19 11/06/19 11/06/19 18:59 06:59 18:59 Intake Total 536 500 Output Total 1300 Balance -764 500 Weight 71.5 kg Intake: IV 260 Sodium Chloride 0.9% 1, 160 000 ml @ 20 mls/hr IV . Q24H [facility] Rx#:[id number] Oral 236 240 Hemodialysis 300 Output: Hemodialysis 1300 Other: Voiding Method Bedpan Bedpan Diaper # Voids 0 2 - Exam General: Nontoxic, no distress, appears at stated age, frail Derm: Pale, warm, dry Head: atraumatic, normocephalic, symmetric Eyes: EOMI, no lid lag, anicteric sclera Mouth: no lip lesion, mucus membranes moist, hard of hearing Cardiovascular: S1S2 reg, no murmur, positive posterior tibial pulse bilateral, Lungs: Decreased breath sounds bilateral, no rhonchi, no rales , no accessory muscle use Abdominal: soft, nontender to palpation, no guarding, no appreciable organomegaly Ext: no gross muscle atrophy, diffuse anasarca legs improving but still significant and arms, no contractures Neuro: CN II-XI grossly intact, no focal neuro deficits Psych: Alert, oriented, flat affect - Labs CBC & Chem 7: 11/06/19 09:32 11/06/19 09:32 Labs: Abnormal Lab Results - Last 24 Hours (Table) 11/05/19 11/05/19 11/05/19 Range/Units 17:13 20:03 20:27 RBC 2.89 L (3.80-5.40) m/uL Hgb 8.7 L (11.4-16.0) gm/dL Hct 27.4 L (34.0-46.0) % RDW 15.6 H (11.5-15.5) % Sodium (137-145) mmol/L BUN (7-17) mg/dL Creatinine (0.52-1.04) mg/dL POC Glucose (mg/dL) 116 H 167 H (75-99) mg/dL Calcium (8.4-10.2) mg/dL 11/06/19 11/06/19 11/06/19 Range/Units 06:03 09:32 09:32 RBC 2.82 L (3.80-5.40) m/uL Hgb 8.5 L (11.4-16.0) gm/dL Hct 26.7 L (34.0-46.0) % RDW (11.5-15.5) % Sodium 133 L (137-145) mmol/L BUN 22 H (7-17) mg/dL Creatinine 2.34 H (0.52-1.04) mg/dL POC Glucose (mg/dL) 112 H (75-99) mg/dL Calcium 6.8 L (8.4-10.2) mg/dL Assessment and Plan Assessment: Acute renal failure on chronic kidney disease stage 4/5 now with ESRD, with metabolic acidosis and diffuse anasarca -nephrology recs appreciated: Plans are for HD Friday -Avoid additional nephrotoxic agents -echo with preserved EF - sodium bicarb ( maybe able to come off with HD as patient does no tolerated well), calcitriol Anemia, undetermined cause - esophagitis on EGD - Aricept - suspect secondary to renal disease -Iron studies showed normal iron stores -Status post 1 unit pRBC -follow HgN -Aranesp Hypervolemic hyponatremia -Suspect secondary to increased fluid retention -Repeat in a.m. -Nephrology recommendations appreciated - Volume control with HD Diabetes mellitus type 2 - Insulin requiring in the past,currently not on anything per family - Follow BS on AM labs accuchecks stopped - SSI - A1C 5.7 HTN, controlled - controlled - continue coreg but dose decreased , norvasc discontinued due to low normal, midodrine as needed with HD HLD - statin Chronic: Hard of hearing Fibromyalgia COPD GERD Hypothyoridism Hypomagnesemia, resolved Transaminitis, resolved DVT prophylaxis: Heparin Discussed with: Patient, nursing, Dr. Metcalf Anticipated discharge date: 11/[address]: SNF on Tuesday 11/07 A total of 35 minutes was spent on the care of this complex patient more than 50% of the time was spent in counseling and care coordination.
[2019-11-06 17:01] LABS: Glucose,Whole Blood 108 mg/dL (75-99)
[2019-11-06 20:36] LABS: Glucose,Whole Blood 188 mg/dL (75-99)
[2019-11-06] MEDS: ATORVASTATIN 10 MG TAB PO SCH (20:49)
[2019-11-06] MEDS: MAGNESIUM OXIDE 400 MG TAB PO SCH (20:49)
[2019-11-07] MEDS: LEVOTHYROXINE 50 MCG TAB PO SCH (05:46)
[2019-11-07 06:46] LABS: Glucose,Whole Blood 108 mg/dL (75-99)
[2019-11-07 07:17] LABS: HCT 27.2 % (34.0-46.0); HGB 8.9 gm/dL (11.4-16.0); MCH 31.6 pg (25.0-35.0); MCHC 32.8 g/dL (31.0-37.0); MCV 96.3 fL (80.0-100.0); Mean Platelet Volume 7.8; Platelet Count 226 k/uL (150-450); RBC 2.82 m/uL (3.80-5.40); RDW 15.5 % (11.5-15.5); WBC 9.4 k/uL (3.8-10.6)
[2019-11-07 07:26] LABS: Calcium 6.6 mg/dL (8.4-10.2); Magnesium 1.6 mg/dL (1.6-2.3); Phosphorus 3.1 mg/dL (2.5-4.5); Potassium 3.7 mmol/L (3.5-5.1)
[2019-11-07] MEDS: carvediloL 12.5 MG TAB PO SCH ×2 (08:46→16:54)
[2019-11-07] MEDS: CALCIUM ACETATE 667 MG TAB PO SCH ×3 (08:46→16:54)
[2019-11-07] MEDS: PANTOPRAZOLE 40 MG/10 ML VIAL IVP SCH ×2 (08:48→21:56)
[2019-11-07] MEDS: FOLIC ACID 1 MG TAB PO SCH (08:48)
[2019-11-07] MEDS: HYDROcodone/APAP 10-325MG 1 EACH TAB PO SCH ×3 (08:48→21:56)
[2019-11-07] MEDS: SODIUM BICARBONATE TAB 650 MG TAB PO SCH ×3 (08:49→21:56)
[2019-11-07] MEDS: LACTATED RINGERS 1,000 ML IV SCH (08:49)
--- NOTE | 2019-11-07 08:57 | P.PN ---
Subjective Patient is seen in follow-up for chronic kidney disease. She was started on hemodialysis this admission. She's been tolerating hemodialysis treatments well. No chest pain or shortness of breath. Diarrhea resolved. EGD revealed mild reflux esophagitis. No active complaints Vital signs are stable. General: The patient appeared well nourished and normally developed. HEENT: Head exam is unremarkable. Neck is without jugular venous distension. LUNGS: Lungs are clear to auscultation and percussion. Breath sounds decreased. HEART: Rate and Rhythm are regular. ABDOMEN: Soft, nontender. EXTREMITITES: 1+ edema. Objective - Vital Signs Vital signs: Vital Signs Temp 97.7 F 11/07/19 02:30 Pulse 87 11/07/19 02:30 Resp 20 11/07/19 02:30 BP 125/75 11/07/19 03:18 Pulse Ox 92 L 11/07/19 02:30 Intake & Output 11/06/19 11/07/19 11/07/19 18:59 06:59 18:59 Intake Total 740 Balance 740 Intake: IV 260 Sodium Chloride 0.9% 1, 160 000 ml @ 20 mls/hr IV . Q24H [facility] Rx#:[id number] Oral 480 Other: Voiding Method Diaper # Voids 2 - Labs CBC & Chem 7: 11/07/19 06:23 11/07/19 06:23 Labs: Abnormal Lab Results - Last 24 Hours (Table) 11/06/19 11/06/19 11/06/19 Range/Units 09:32 09:32 16:50 RBC 2.82 L (3.80-5.40) m/uL Hgb 8.5 L (11.4-16.0) gm/dL Hct 26.7 L (34.0-46.0) % Sodium 133 L (137-145) mmol/L BUN 22 H (7-17) mg/dL Creatinine 2.34 H (0.52-1.04) mg/dL POC Glucose (mg/dL) 108 H (75-99) mg/dL Calcium 6.8 L (8.4-10.2) mg/dL 11/06/19 11/07/19 11/07/19 Range/Units 20:25 06:23 06:23 RBC 2.82 L (3.80-5.40) m/uL Hgb 8.9 L (11.4-16.0) gm/dL Hct 27.2 L (34.0-46.0) % Sodium 132 L (137-145) mmol/L BUN 25 H (7-17) mg/dL Creatinine 2.75 H (0.52-1.04) mg/dL POC Glucose (mg/dL) 188 H (75-99) mg/dL Calcium 6.6 L (8.4-10.2) mg/dL 11/07/19 Range/Units 06:43 RBC (3.80-5.40) m/uL Hgb (11.4-16.0) gm/dL Hct (34.0-46.0) % Sodium (137-145) mmol/L BUN (7-17) mg/dL Creatinine (0.52-1.04) mg/dL POC Glucose (mg/dL) 108 H (75-99) mg/dL Calcium (8.4-10.2) mg/dL Assessment and Plan Plan: Assessment: 1. Chronic kidney disease stage V. Unclear etiology. Likely nonrecovered ATN and nephrosclerosis. Started on hemodialysis on November 02. 2. Acute blood loss anemia. Patient did have dark stool but otherwise no active bleeding. There is also component of chronic kidney disease. Iron replete. Maintained on Aranesp. 3. Hyponatremia secondary to chronic kidney disease. Better. 4. Metabolic acidosis secondary to chronic kidney disease. Maintained on oral sodium bicarbonate. 5. Hypocalcemia secondary to hypoalbuminemia. Corrected calcium the normal range. 6. Hypomagnesemia secondary to GI losses, status post replacement. Maintained on oral magnesium oxide. 7. Mild volume overload. Improved with ultrafiltration. 8. Chronic kidney disease mineral bone disease maintained on calcitriol. Phosphorus noted to be elevated at 6.6 - repeat 4.4. Maintained on PhosLo. Plan: Hemodialysis on Friday. Maintain midodrine as needed. Discontinued amlodipine. Outpatient dialysis has been set up. Decrease sodium bicarb 650 mg twice daily.
--- NOTE | 2019-11-07 09:51 | PN ---
PROGRESS NOTE DATE OF SERVICE: 11/07/2019 Patient is a 72-year-old pleasant white female with history of end-stage renal disease, on hemodialysis, admitted to the hospital with worsening kidney functions. The patient was noted to have anemia during this hospitalization. She underwent an upper endoscopy yesterday that showed evidence of mild esophagitis, but no evidence of peptic ulcer disease. Today she is feeling better. Her abdominal pain has resolved. Overall she is doing much better. PHYSICAL EXAMINATION: Appears comfortable, no apparent distress. VITAL SIGNS: Stable. Blood pressure is 97/61, pulse 87. Temperature 98.7. HEENT examination unremarkable. Conjunctivae pink. Sclerae anicteric. Oral cavity no lesions. NECK no JVD. No lymph node enlargement. CHEST was clear auscultation. HEART: Regular rate and rhythm. ABDOMEN: Soft. Bowel sounds are positive. No organomegaly. EXTREMITIES no pedal edema. SKIN no rashes. NEUROLOGIC: Alert and oriented x3. No focal deficits. LABS: BUN is 25 and creatinine 2.75. Hemoglobin is 8.7 and stable. IMPRESSION: 1. Anemia, status post EGD yesterday that showed evidence of mild esophagitis, but no gastritis or peptic ulcer disease. Previously noted peptic ulcers have completely resolved. 2. End-stage renal disease, on hemodialysis. The patient doing well. RECOMMENDATION: 1. Continue with symptomatic supportive care. 2. Continue Protonix 40 mg daily for gastroesophageal reflux. 3. Monitor CBC daily. 4. We will sign off at this time. Please call us if needed. Thank you for this consultation. MMODL / IJN: [id number] /
[2019-11-07] MEDS: FLUTICASONE 50MCG/SPRAY NASAL 16GM EA NOSTRIL SCH (09:54)
[2019-11-07] MEDS: ALBUTEROL NEBULIZED 2.5 MG/3 ML INHALATION SCH ×2 (11:29→21:18)
[2019-11-07 11:45] LABS: Glucose,Whole Blood 104 mg/dL (75-99)
--- NOTE | 2019-11-07 15:34 | P.PN ---
Subjective Progress Note Date: 11/07/19 (delayed cahrting seen at 10am) Principal diagnosis: weakness Patient is a 69-year-old female with stage 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 Apparently her home health care nurse was concerned when she went out to the house and contacted her nurse practitioner Day Steve who recommended that they come to the hospital. The patient has had worsening renal function over the last several weeks. On arrival to the emergency department today her vital signs are within normal limits. Laboratory analysis showed a slightly elevated white blood cell count 11.6, hemoglobin 8.4 which appears to be near her baseline, sodium 130, carbon dioxide 19, BUN 106, creatinine 6.29 with baseline creatinine in June of 6.1 and creatinine from January 2019 of 3.24. AST and ALT mildly elevated, alk phos mildly elevated. Magnesium low at 1.2. She was admitted due to acute on chronic renal disease with concern for need for hemodialysis. She was seen by nephrology who agreed that patient needs hemodialysis. Apparently she has been having worsening renal function for some time in the clinic. She was noted to have a drop in her hemoglobin but was not having any active signs of bleeding. One unit of packed red blood cells was ordered. Of note patient has been off of her Tums and does have a history of [address] Frank was consulted for dialysis catheter placement which was completed on 11/02 and the patient underwent her first round of HD. She was seen by gastroenterology who recommended EGD this was completed on 11/06/2019 and showed some esophagitis but no active ulcers or bleeding. The morning of 11/04 she had completed 3 rounds of hemodialysis. She has been doing well and HgB is stable. Plan is for HD in the morning and discharge to SNF. Patient seen and examined at bedside. Nausea is slightly better, no SOB today but has not gotten up, No chest pain, no diarrhea. Objective - Vital Signs Vital signs: Vital Signs Temp 98.5 F 11/07/19 09:00 Pulse 89 11/07/19 09:00 Resp 15 11/07/19 09:00 BP 97/61 11/07/19 09:00 Pulse Ox 90 L 11/07/19 09:00 Intake & Output 11/06/19 11/07/19 11/07/19 18:59 06:59 18:59 Intake Total 740 Balance 740 Weight 59.5 kg Intake: IV 260 Sodium Chloride 0.9% 1, 160 000 ml @ 20 mls/hr IV . Q24H [facility] Rx#:[id number] Oral 480 Other: Voiding Method Diaper Diaper # Voids 2 # Bowel Movements 1 - Exam General: Nontoxic, no distress, appears at stated age, frail Derm: Pale, warm, dry Head: atraumatic, normocephalic, symmetric Eyes: EOMI, no lid lag, anicteric sclera Mouth: no lip lesion, mucus membranes moist, hard of hearing Cardiovascular: S1S2 reg, no murmur, positive posterior tibial pulse bilateral, Lungs: Decreased breath sounds bilateral, no rhonchi, no rales , no accessory muscle use Abdominal: soft, nontender to palpation, no guarding, no appreciable organomegaly Ext: no gross muscle atrophy, diffuse anasarca, no contractures Neuro: CN II-XI grossly intact, no focal neuro deficits Psych: Alert, oriented, flat affect - Labs CBC & Chem 7: 11/07/19 06:23 11/07/19 06:23 Labs: Abnormal Lab Results - Last 24 Hours (Table) 11/06/19 11/06/19 11/07/19 Range/Units 16:50 20:25 06:23 RBC 2.82 L (3.80-5.40) m/uL Hgb 8.9 L (11.4-16.0) gm/dL Hct 27.2 L (34.0-46.0) % Sodium (137-145) mmol/L BUN (7-17) mg/dL Creatinine (0.52-1.04) mg/dL POC Glucose (mg/dL) 108 H 188 H (75-99) mg/dL Calcium (8.4-10.2) mg/dL 11/07/19 11/07/19 11/07/19 Range/Units 06:23 06:43 11:43 RBC (3.80-5.40) m/uL Hgb (11.4-16.0) gm/dL Hct (34.0-46.0) % Sodium 132 L (137-145) mmol/L BUN 25 H (7-17) mg/dL Creatinine 2.75 H (0.52-1.04) mg/dL POC Glucose (mg/dL) 108 H 104 H (75-99) mg/dL Calcium 6.6 L (8.4-10.2) mg/dL Assessment and Plan Assessment: Acute renal failure on chronic kidney disease stage 4/5 now with ESRD, with m etabolic acidosis and diffuse anasarca -nephrology recs appreciated: Plans are for HD Friday -Avoid additional nephrotoxic agents -echo with preserved EF - sodium bicarb ( maybe able to come off with HD as patient does no tolerated well?), - calcitriol Anemia, undetermined cause - esophagitis on EGD - Aricept - suspect secondary to renal disease - Iron studies showed normal iron stores - Status post 1 unit pRBC - follow HgN - Aranesp Hypervolemic hyponatremia -Suspect secondary to increased fluid retention -Repeat in a.m. -Nephrology recommendations appreciated - Volume control with HD Diabetes mellitus type 2 - Insulin requiring in the past,currently not on anything per family - Follow BS on AM labs accuchecks stopped - SSI - A1C 5.7 HTN, controlled - controlled - continue coreg but dose decreased , norvasc discontinued due to low normal, midodrine as needed with HD HLD - statin Chronic: Hard of hearing Fibromyalgia COPD GERD Hypothyoridism Hypomagnesemia, resolved Transaminitis, resolved DVT prophylaxis: Heparin Discussed with: Patient, nursing, Dr. Metcalf Anticipated discharge date: 11/[address]: SNF on Tuesday 11/07 A total of 35 minutes was spent on the care of this complex patient more than 50% of the time was spent in counseling and care coordination.
[2019-11-07] MEDS: SODIUM CHLORIDE 0.9% 1,000 ML IV SCH (15:57)
[2019-11-07 16:37] LABS: Glucose,Whole Blood 209 mg/dL (75-99)
[2019-11-07 21:21] LABS: Glucose,Whole Blood 145 mg/dL (75-99)
[2019-11-07] MEDS: MAGNESIUM OXIDE 400 MG TAB PO SCH (21:55)
[2019-11-07] MEDS: ATORVASTATIN 10 MG TAB PO SCH (21:55)
[2019-11-08] MEDS: LEVOTHYROXINE 50 MCG TAB PO SCH (06:08)
[2019-11-08 07:17] LABS: Glucose,Whole Blood 120 mg/dL (75-99)
[2019-11-08] MEDS: ALBUTEROL NEBULIZED 2.5 MG/3 ML INHALATION SCH ×2 (07:39→20:29)
[2019-11-08] MEDS: SODIUM BICARBONATE TAB 650 MG TAB PO SCH (07:58)
[2019-11-08] MEDS: SODIUM CHLORIDE 0.9% 1,000 ML IV SCH (07:58)
[2019-11-08] MEDS: LACTATED RINGERS 1,000 ML IV SCH (07:58)
[2019-11-08 08:00] LABS: HCT 27.8 % (34.0-46.0); HGB 9.1 gm/dL (11.4-16.0); MCH 31.8 pg (25.0-35.0); MCHC 32.9 g/dL (31.0-37.0); MCV 96.7 fL (80.0-100.0); Mean Platelet Volume 8.2; Platelet Count 207 k/uL (150-450); RBC 2.87 m/uL (3.80-5.40); RDW 15.4 % (11.5-15.5); WBC 8.3 k/uL (3.8-10.6)
[2019-11-08] MEDS: FOLIC ACID 1 MG TAB PO SCH (08:10)
[2019-11-08] MEDS: carvediloL 12.5 MG TAB PO SCH ×2 (08:10→18:11)
[2019-11-08] MEDS: PANTOPRAZOLE 40 MG/10 ML VIAL IVP SCH (08:10)
[2019-11-08] MEDS: CALCIUM ACETATE 667 MG TAB PO SCH ×3 (08:11→18:11)
[2019-11-08] MEDS: HYDROcodone/APAP 10-325MG 1 EACH TAB PO SCH ×3 (08:11→22:12)
[2019-11-08] MEDS: FLUTICASONE 50MCG/SPRAY NASAL 16GM EA NOSTRIL SCH (08:12)
[2019-11-08 08:15] LABS: Calcium 6.9 mg/dL (8.4-10.2); Potassium 3.8 mmol/L (3.5-5.1)
[2019-11-08] MEDS: MIDODRINE 5 MG TAB PO PRN (10:20)
[2019-11-08 11:53] LABS: Glucose,Whole Blood 96 mg/dL (75-99)
--- NOTE | 2019-11-08 12:12 | P.DS ---
Providers Date of admission: 11/02/19 15:15 Expected date of discharge: 11/08/19 Attending physician: Aurora Alexis, DO Consults: 11/02/19 15:16 Consult Physician Routine Consulting Provider: Monica Reilly Consult Reason/Comments: Acute chronic renal failure Do you want consulting provider notified?: Yes 11/03/19 08:26 Consult Physician Routine Consulting Provider: Pat Bradley Consult Reason/Comments: Possible GI bleed, dark stools, hx ulcer stopped tums Do you want consulting provider notified?: Yes 11/03/19 09:48 Consult Physician Urgent Consulting Provider: Farooq Frank Consult Reason/Comments: dialysis cath placement Do you want consulting provider notified?: Yes Primary care physician: Lito Evans [facility] Course: Patient is a 69-year-old female with stage 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 Apparently her home health care nurse was concerned when she went out to the house and contacted her nurse practitioner Day Steve who recommended that they come to the hospital. The patient has had worsening renal function over the last several weeks. On arrival to the emergency department today her vital signs are within normal limits. Laboratory analysis showed a slightly elevated white blood cell count 11.6, hemoglobin 8.4 which appears to be near her baseline, sodium 130, carbon dioxide 19, BUN 106, creatinine 6.29 with baseline creatinine in June of 6.1 and creatinine from January 2019 of 3.24. AST and ALT mildly elevated, alk phos mildly elevated. Magnesium low at 1.2. She was admitted due to acute on chronic renal disease with concern for need for hemodialysis. She was seen by nephrology who agreed that patient needs hemodialysis. Apparently she has been having worsening renal function for some time in the clinic. She was noted to have a drop in her hemoglobin but was not having any active signs of bleeding. One unit of packed red blood cells was ordered. Of note patient has been off of her Tums and does have a history of [address] Frank was consulted for dialysis catheter placement which was completed on 11/02 and the patient underwent her first round of HD. She was seen by gastroenterology who recommended EGD this was completed on 11/06/2019 and showed some esophagitis but no active ulcers or bleeding. The morning of 11/04 she had completed 3 rounds of hemodialysis. She has been doing well and HgB is stable. She underwent dialysis on 11/08/2019 prior to discharge to SNF. Patient was seen and examined during dialysis. No acute events overnight. She denies any chest pain, shortness of breath or palpitations. No nausea or vomiting. Complains of fatigue. General: [non toxic], [no distress], [appears at stated age] Derm: [warm], [dry] Head: [atraumatic], [normocephalic], [symmetric] Eyes: [EOMI], [no lid lag], [anicteric sclera] Mouth: [no lip lesion], [mucus membranes moist] Cardiovascular: [S1S2 reg], [no murmur], [positive posterior tibial pulse bilateral], [right chest dialysis catheter in place] Lungs: [Decreased breath sounds bilateral], [no rhonchi, no rales] , [no accessory muscle use] Abdominal: [soft], [ nontender to palpation], [no guarding], [no appreciable organomegaly] Ext: [no gross muscle atrophy], [anasarca], [no contractures] Neuro: [ CN II-XI grossly intact], [no focal neuro deficits] Psych: [Alert], [oriented], [appropriate affect] Acute renal failure on chronic kidney disease stage 4/5 now with ESRD, with metabolic acidosis and diffuse anasarca -nephrology recs appreciated: Plans are for HD Friday -Avoid additional nephrotoxic agents -echo with preserved EF - sodium bicarb - calcitriol Anemia, undetermined cause - esophagitis on EGD - Aricept - suspect secondary to renal disease - Iron studies showed normal iron stores - Status post 1 unit pRBC - follow hemoglobin - Aranesp Hypervolemic hyponatremia -Suspect secondary to increased fluid retention -Sodium 130 -Repeat BMP tomorrow -Continue home medication of sodium chloride tablet -Nephrology recommendations appreciated - Volume control with HD Diabetes mellitus type 2 - Insulin requiring in the past,currently not on anything per family - Follow BS on AM labs accuchecks stopped - SSI - A1C 5.7 HTN, controlled - controlled - continue coreg but dose decreased , norvasc discontinued due to low normal, midodrine as needed with HD HLD - statin Chronic: Hard of hearing Fibromyalgia COPD GERD Hypothyoridism Hypomagnesemia, resolved Transaminitis, resolved [Patient admitted to initiate dialysis. Remains hyponatremic but chronic. Plans for dialysis today prior to transfer to SNF. Repeat BMP tomorrow (hyponatremia) to be followed up by PCP. Dialysis has been scheduled in the outpatient setting. Nephrology on board. Anticipate DC today. This complex discharge took about 35 minutes to complete.] Pertinent Studies: Echocardiogram, chest x-ray, renal ultrasound Procedures: Dialysis catheter placement Patient Condition at Discharge: Stable Plan - Discharge Summary Discharge Rx Participant: No New Discharge Prescriptions: New Darbepoetin Antonio [Aranesp] 40 mcg SQ Q7D syringe Melatonin 3 mg PO HS PRN tablet PRN Reason: Insomnia Calcium Acetate [PhosLo] 667 mg PO TID-W/MEALS tab Midodrine [ProAmatine] 10 mg PO AC-TID PRN tab PRN Reason: Hypotension Pantoprazole [Protonix] 40 mg PO DAILY tablet.dr Sodium Bicarbonate Tab 650 mg PO BID tab Calcium Carbonate [Tums] 500 mg PO TID PRN chew PRN Reason: Heartburn Continue Omeprazole [PriLOSEC] 20 mg PO BID Simvastatin [Zocor] 20 mg PO HS Linaclotide [Linzess] 145 mcg PO DAILY PRN PRN Reason: Constipation HYDROcodone/APAP 10-325MG [[place] 10-325] 1 tab PO TID Fluticasone Nasal Colbert [Flonase Nasal Colbert] 1 spray EA NOSTRIL DAILY Albuterol Sulfate [Ventolin HFA] 2 puff INHALATION BID Magnesium Oxide [Mag-Ox] 400 mg PO HS Furosemide [Lasix] 40 mg PO DAILY Sodium Chloride Tab 1 gm PO DAILY Levothyroxine Sodium [Synthroid] 50 mcg PO DAILY Vitamin B Complex 1 cap PO DAILY Calcitriol [Rocaltrol] 0.5 mcg PO DAILY Carvedilol [Coreg] 12.5 mg PO BID Cetirizine HCl [Zyrtec] 10 mg PO DAILY PRN PRN Reason: Allergy Symptoms Folic Acid 1 mg PO DAILY Discontinued amLODIPine [Norvasc] 5 mg PO DAILY Nitroglycerin 0.4 mg SL Q5M PRN PRN Reason: Pain Sodium Bicarbonate Tab 1,300 mg PO TID Discharge Medication List Omeprazole [PriLOSEC] 20 mg PO BID 03/13/15 [History] Simvastatin [Zocor] 20 mg PO HS 03/13/15 [History] Linaclotide [Linzess] 145 mcg PO DAILY PRN 09/29/18 [History] HYDROcodone/APAP 10-325MG [[place] 10-325] 1 tab PO TID 01/04/19 [History] Fluticasone Nasal [place] [Flonase Nasal Colbert] 1 spray EA NOSTRIL DAILY 01/22/19 [History] Albuterol Sulfate [Ventolin HFA] 2 puff INHALATION BID 05/19/19 [History] Calcitriol [Rocaltrol] 0.5 mcg PO DAILY 06/11/19 [History] Furosemide [Lasix] 40 mg PO DAILY 06/11/19 [History] Levothyroxine Sodium [Synthroid] 50 mcg PO DAILY 06/11/19 [History] Magnesium Oxide [Mag-Ox] 400 mg PO HS 06/11/19 [History] Sodium Chloride Tab 1 gm PO DAILY 06/11/19 [History] Vitamin B Complex 1 cap PO DAILY 06/11/19 [History] Carvedilol [Coreg] 12.5 mg PO BID 11/02/19 [History] Cetirizine HCl [Zyrtec] 10 mg PO DAILY PRN 11/02/19 [History] Folic Acid 1 mg PO DAILY 11/02/19 [History] Calcium Acetate [PhosLo] 667 mg PO TID-W/MEALS tab 11/08/19 [Rx] Calcium Carbonate [Tums] 500 mg PO TID PRN chew 11/08/19 [Rx] Darbepoetin Antonio [Aranesp] 40 mcg SQ Q7D syringe 11/08/19 [Rx] Melatonin 3 mg PO HS PRN tablet 11/08/19 [Rx] Midodrine [ProAmatine] 10 mg PO AC-TID PRN tab 11/08/19 [Rx] Pantoprazole [Protonix] 40 mg PO DAILY tablet. 11/08/19 [Rx] Sodium Bicarbonate Tab 650 mg PO BID tab 11/08/19 [Rx] Follow up [facility]ment(s[facility]Ref[facility] - Lito Evans MD [Primary Care Provider] - 1-2 days Tunde Metcalf DO [STAFF PHYSICIAN] - 1 Week Ambulatory/Diagnostic Orders: Basic Metabolic Panel [LAB.AMB] Time Frame: 1 Day, Location: None Selected Activity/Diet/Wound Care/Special Instructions: Dialysis - Patricia Matias MWF-Chair time 1115 - first date of dialysis Friday11/10/19 - please arrive at 1045 for first day of dialysis Discharge Disposition: TRANSFER TO SNF/ECF
[2019-11-08] MEDS: ACETAMINOPHEN TAB 325 MG TAB PO PRN (13:19)
--- NOTE | 2019-11-08 15:31 | PN ---
PROGRESS NOTE Patient is seen for followup for end-stage renal disease. She is currently seen on dialysis, tolerating her treatment well. Blood pressure is on the lower side. Patient will be given midodrine. She does have significant swelling. However, she is comfortable, not in any acute distress. On examination, blood pressure is 115/54, heart rate 60 per minute. She is afebrile. EXAMINATION OF THE HEART: S1 and S2. EXAMINATION OF LUNGS: Bilateral breath sounds are heard. Decreased breath sounds at bases. ABDOMEN: Soft, non-tender. Examination of lower extremities shows 3+ edema bilaterally. FINANCIAL ASSISTANCE SPECIALIST exam is grossly intact. Labs show sodium 130, potassium 3.8, BUN 30, serum creatinine 3.07, hemoglobin 9.1, calcium 6.9. ASSESSMENT: 1. End-stage renal disease, on hemodialysis on a Friday, Friday, Friday schedule. 2. Volume overload. Expect further improvement with ongoing regular dialysis treatments. 3. Chronic kidney disease mineral bone disorder. 4. Metabolic acidosis associated with chronic kidney disease, maintained on sodium bicarb, which we can discontinue once patient is on regular dialysis. 5. Acute blood loss anemia. 6. Anemia of chronic disease, maintained on Aranesp. 7. Hypomagnesemia associated with gastrointestinal losses, maintained on supplementation. 8. Volume overload. PLAN: Hemodialysis today. Maintain Friday, Friday, Friday schedule. Increase UF as tolerated. I will discontinue the sodium bicarb as outpatient. Decrease to daily for now, as this will decrease some of the sodium load. MMODL / IJN: [id number] /
[2019-11-08 17:07] LABS: Glucose,Whole Blood 108 mg/dL (75-99)
[2019-11-08 20:37] LABS: Glucose,Whole Blood 102 mg/dL (75-99)
[2019-11-08] MEDS: ATORVASTATIN 10 MG TAB PO SCH (22:12)
[2019-11-08] MEDS: MAGNESIUM OXIDE 400 MG TAB PO SCH (22:12)
[2019-11-08] MEDS: PANTOPRAZOLE 40 MG TABLET PO SCH (22:12)
[2019-11-09] MEDS: LEVOTHYROXINE 50 MCG TAB PO SCH (05:26)
[2019-11-09 06:51] LABS: Glucose,Whole Blood 93 mg/dL (75-99)
[2019-11-09 08:40] VITALS: RESP 16
[2019-11-09] MEDS ORDERED: SODIUM BICARBONATE TAB 650 MG TAB PO SCH (09:00)
[2019-11-09] MEDS: PANTOPRAZOLE 40 MG TABLET PO SCH (09:17)
[2019-11-09] MEDS: HYDROcodone/APAP 10-325MG 1 EACH TAB PO SCH ×3 (09:17→19:14)
[2019-11-09] MEDS: CALCIUM ACETATE 667 MG TAB PO SCH ×3 (09:17→17:43)
[2019-11-09] MEDS: FLUTICASONE 50MCG/SPRAY NASAL 16GM EA NOSTRIL SCH (09:18)
[2019-11-09] MEDS: FOLIC ACID 1 MG TAB PO SCH (09:18)
[2019-11-09] MEDS: LACTATED RINGERS 1,000 ML IV SCH (09:19)
[2019-11-09] MEDS: carvediloL 12.5 MG TAB PO SCH ×2 (09:19→17:43)
[2019-11-09] MEDS: ALBUTEROL NEBULIZED 2.5 MG/3 ML INHALATION SCH ×2 (09:32→19:17)
[2019-11-09 10:39] LABS: Anisocytosis Slight; Basophils % (A) 0 %; Eosinophils # (A) 0.1 k/uL (0-0.7); Eosinophils % (A) 2 %; HCT 25.3 % (34.0-46.0); Hypochromasia Moderate; Lymphocytes # (A) 2.8 k/uL (1.0-4.8); Lymphocytes % (A) 35 %; MCH 31.4 pg (25.0-35.0); MCHC 31.6 g/dL (31.0-37.0); MCV 99.3 fL (80.0-100.0); Macrocytosis Slight; Mean Platelet Volume 8.7; Monocytes # (A) 0.5 k/uL (0-1.0); Monocytes % (A) 6 %; Neutrophils # (A) 4.5 k/uL (1.3-7.7); Neutrophils % (A) 56 %; Platelet Count 227 k/uL (150-450); RBC 2.55 m/uL (3.80-5.40); RDW 16.2 % (11.5-15.5); WBC 8.1 k/uL (3.8-10.6)
[2019-11-09 10:47] LABS: Calcium 6.6 mg/dL (8.4-10.2); Potassium 3.9 mmol/L (3.5-5.1)
[2019-11-09 12:15] LABS: Glucose,Whole Blood 111 mg/dL (75-99)
[2019-11-09] MEDS: SODIUM CHLORIDE 0.9% 1,000 ML IV SCH (12:44)
--- NOTE | 2019-11-09 13:43 | PN ---
PROGRESS NOTE Patient is seen for followup for end-stage renal disease. The patient was dialyzed yesterday. She said she had cramps. However, she feels better today. We only removed about 500 mL as patient's blood pressure remained on the lower side. On examination today, pressure 93/57, heart rate 70 per minute. She is afebrile. Examination of the heart S1, S2. Examination of the lungs, bilateral breath sounds are heard. Abdomen is soft, nontender. Examination of lower extremities shows edema 2+ bilaterally. DIGITAL AD TRAFFICKER exam grossly intact. Labs show hemoglobin 8.0, white cell count 8.1, sodium 129, potassium 3.9, BUN 21, creatinine 2.53. ASSESSMENT: 1. End-stage renal disease, maintained on hemodialysis. The patient will be dialyzed again tomorrow. 2. Volume overload, expect improvement with ongoing renal replacement therapy. I will maintain the patient on Lasix as well. 3. Metabolic acidosis. Sodium bicarb has been decreased. CO2 is maintained above 20 on the electrolytes. 4. Anemia, no active bleeding noted, maintained on Aranesp. 5. Hypertension controlled. 6. Chronic kidney disease, mineral bone disorder, maintained on PhosLo and Rocaltrol. PLAN: Continue with midodrine. Add oral Lasix. I will discontinue the sodium bicarb and we will arrange for hemodialysis in a.m. The patient will follow up as outpatient for dialysis at [place]. STACEY / MARIBEL: [id number] /
[2019-11-09 14:55] VITALS: PULSE 79
[2019-11-09 15:03] VITALS: BMI 19.9
--- NOTE | 2019-11-09 15:57 | P.PN ---
Subjective Progress Note Date: 11/09/19 Principal diagnosis: Fatigue, body aches Patient was seen and examined. No acute events overnight. Patient reports generalized aching, states it is associated with dialysis sessions as she has experienced this before during previous dialysis sessions. She reports improvement in her fatigue. She reports improvement in her swelling though persistent. She denies any chest pain, shortness breath or palpitations. No nausea or vomiting. No fever or chills. Objective - Vital Signs Vital signs: Vital Signs Temp 98.3 F 11/09/19 14:54 Pulse 79 11/09/19 14:54 Resp 16 11/09/19 14:54 BP 99/61 11/09/19 14:54 Pulse Ox 92 L 11/09/19 14:54 Intake & Output 11/08/19 11/09/19 11/09/19 18:59 06:59 18:59 Intake Total 100 300 Output Total 750 Balance -650 300 Weight 59.5 kg Intake: Oral 100 300 Output: Urine 200 Hemodialysis 550 Other: Voiding Method Bedpan Diaper Diaper Diaper # Voids 1 1 # Bowel Movements 1 - Exam General: [non toxic], [no distress], [appears at stated age] Derm: [warm], [dry] Head: [atraumatic], [normocephalic], [symmetric] Eyes: [EOMI], [no lid lag], [anicteric sclera] Mouth: [no lip lesion], [mucus membranes moist] Cardiovascular: [S1S2 reg], [no murmur], [positive posterior tibial pulse bilateral], [right chest dialysis catheter in place] Lungs: [Decreased breath sounds bilateral], [no rhonchi, no rales] , [no accessory muscle use] Abdominal: [soft], [ nontender to palpation], [no guarding], [no appreciable organomegaly] Ext: [no gross muscle atrophy], [anasarca, improved], [no contractures] Neuro: [no focal neuro deficits] Psych: [Alert], [oriented], [appropriate affect] - Labs CBC & Chem 7: 11/09/19 09:06 11/09/19 09:06 Labs: Abnormal Lab Results - Last 24 Hours (Table) 11/08/19 11/08/19 11/09/19 Range/Units 17:06 20:36 09:06 RBC 2.55 L (3.80-5.40) m/uL Hgb 8.0 L (11.4-16.0) gm/dL Hct 25.3 L (34.0-46.0) % RDW 16.2 H (11.5-15.5) % Sodium (137-145) mmol/L BUN (7-17) mg/dL Creatinine (0.52-1.04) mg/dL Glucose (74-99) mg/dL POC Glucose (mg/dL) 108 H 102 H (75-99) mg/dL Calcium (8.4-10.2) mg/dL 11/09/19 11/09/19 Range/Units 09:06 12:14 RBC (3.80-5.40) m/uL Hgb (11.4-16.0) gm/dL Hct (34.0-46.0) % RDW (11.5-15.5) % Sodium 129 L (137-145) mmol/L BUN 21 H (7-17) mg/dL Creatinine 2.53 H (0.52-1.04) mg/dL Glucose 134 H (74-99) mg/dL POC Glucose (mg/dL) 111 H (75-99) mg/dL Calcium 6.6 L (8.4-10.2) mg/dL Assessment and Plan Assessment: Acute renal failure on chronic kidney disease stage 4/5 now with ESRD, with metabolic acidosis and diffuse anasarca -nephrology recs appreciated: Plans are for HD Friday -Avoid additional nephrotoxic agents -echo with preserved EF - sodium bicarb discontinued by nephrology - calcitriol Anemia, undetermined cause - esophagitis on EGD - Aricept - suspect secondary to renal disease - Iron studies showed normal iron stores - Status post 1 unit pRBC - follow hemoglobin - Aranesp Hypervolemic hyponatremia -Suspect secondary to increased fluid retention -Sodium 129 -Repeat BMP tomorrow -Continue home medication of sodium chloride tablet -Nephrology recommendations appreciated - Volume control with HD Diabetes mellitus type 2 - Insulin requiring in the past,currently not on anything per family - Follow BS on AM labs accuchecks stopped - SSI - A1C 5.7 HTN, controlled - controlled - continue coreg but dose decreased , norvasc discontinued due to low normal, midodrine as needed with HD HLD - statin Chronic: Hard of hearing Fibromyalgia COPD GERD Hypothyoridism Hypomagnesemia, resolved Transaminitis, resolved [Patient admitted to initiate dialysis. Remains hyponatremic but chronic. Repeat BMP tomorrow (hyponatremia) to be followed up by PCP. Dialysis has been scheduled in the outpatient setting. Nephrology on board. Anticipate DC today. ]
[2019-11-09 19:12] VITALS: BP 103/66; TEMP 97.9
[2019-11-09] MEDS ORDERED: FUROSEMIDE 10 MG/ML 4 ML VIAL IV SCH (21:00)
== END 2019-11-09 19:10 | DRG 674 ==
LOC: EC 13:30 → 3SCARD 15:15 → 4SSUR 11-06 19:09
PROVIDERS: ADMIT Internal Medicine; ATTEND Internal Medicine
PROC: 30233N1 Transfusion of Nonautologous Red Blood Cells into Peripheral Vein, Percutaneous Approach (ICD-10-PCS; 2019-11-03)
PROC: 02HV33Z Insertion of Infusion Device into Superior Vena Cava, Percutaneous Approach (ICD-10-PCS; principal; 2019-11-03 09:55)
PROC: 0JH63XZ Insertion of Tunneled Vascular Access Device into Chest Subcutaneous Tissue and Fascia, Percutaneous Approach (ICD-10-PCS; principal; 2019-11-03 09:55)
PROC: 0DJ08ZZ Inspection of Upper Intestinal Tract, Via Natural or Artificial Opening Endoscopic (ICD-10-PCS; 2019-11-06)
PROC: 5A1D70Z Performance of Urinary Filtration, Intermittent, Less than 6 Hours Per Day (ICD-10-PCS; 2019-11-08)
DX: N17.0 Acute kidney failure with tubular necrosis (principal); I12.0 Hypertensive chronic kidney disease with stage 5 chronic kidney disease or end stage renal disease; D62 Acute posthemorrhagic anemia; E87.1 Hypo-osmolality and hyponatremia; E87.2 Acidosis; N18.6 End stage renal disease; E11.22 Type 2 diabetes mellitus with diabetic chronic kidney disease; D63.1 Anemia in chronic kidney disease; Z99.2 Dependence on renal dialysis; E03.9 Hypothyroidism, unspecified; E78.5 Hyperlipidemia, unspecified; E83.42 Hypomagnesemia; E83.51 Hypocalcemia; H91.90 Unspecified hearing loss, unspecified ear; I07.1 Rheumatic tricuspid insufficiency; I25.10 Atherosclerotic heart disease of native coronary artery without angina pectoris; I27.20 Pulmonary hypertension, unspecified; Z11.59 Encounter for screening for other viral diseases; J44.9 Chronic obstructive pulmonary disease, unspecified; K21.0 Gastro-esophageal reflux disease with esophagitis; Z87.11 Personal history of peptic ulcer disease; M79.7 Fibromyalgia; M89.8X9 Other specified disorders of bone, unspecified site; M89.9 Disorder of bone, unspecified; Z79.890 Hormone replacement therapy; Z79.899 Other long term (current) drug therapy; Z80.0 Family history of malignant neoplasm of digestive organs; Z80.3 Family history of malignant neoplasm of breast; Z85.3 Personal history of malignant neoplasm of breast; Z87.891 Personal history of nicotine dependence; Z90.11 Acquired absence of right breast and nipple; Z95.1 Presence of aortocoronary bypass graft; Z88.5 Allergy status to narcotic agent; Z90.49 Acquired absence of other specified parts of digestive tract
CPT/HCPCS: 36415; 36558; 43235; 71045; 76770; 76937; 77001; 80048; 80053; 80074; 82330; 82550; 82728; 83036; 83540; 83550; 83735; 84100; 84484; 85025; 85027; 85610; 86850; 86900; 86901; 86920; 87635; 90935; 93005; 93306; 94640; 96365; 99285

== ENCOUNTER 2019-11-12 18:33 | Inpatient (IN) | payer MEDICARE, OTHER ==
--- NOTE | 2019-11-12 19:04 | ED ---
General Adult HPI - General Chief complaint: Recheck/Abnormal Lab/Rx Stated complaint: Hypotension, ESRD, CHF Time Seen by Provider: 11/12/19 18:45 Source: patient, EMS Mode of arrival: EMS Limitations: no limitations - History of Present Illness Initial comments: The patient is a 69-year-old female with past medical history of end-stage renal disease on hemodialysis, coronary artery disease, hypertension and hyperlipidemia who presents emergency Department with reported hypotension. The patient was a transfer from [facility]. She went in there as she was having dialysis treatment and they noted that her blood pressure was low. She is on Midrin for low blood pressure and it appears that the patient was administered this medication. She received 51 minutes of her treatment however blood pressures were in the 80s systolic so they had to stop it. She went into the ER after receiving a liter of fluid. Evaluation demonstrated that she had mild pulmonary edema. Patient does have significant third spacing. Remainder of the laboratory studies were within normal limits. They did want a transfer her for facility as she will need dialysis and have her low blood pressures addressed. The patient was recently started back on dialysis after she was offered 2 years. This was her second out of hospital dialysis session. She denies any chest pain or shortness of breath. No abdominal pain. No fevers or chills. There are no other alleviating, precipitating or modifying factors - Related Data Home Medications Medication Instructions Recorded Confirmed Omeprazole [PriLOSEC] 20 mg PO BID@03/13/15 11/12/19 Linaclotide [Linzess] 145 mcg PO DAILY PRN 09/29/18 11/12/19 Fluticasone Nasal Dorris [Flonase 1 spray EA NOSTRIL DAILY@69901/22/19 11/12/19 Nasal Dorris] Albuterol Sulfate [Ventolin HFA] 2 puff INHALATION RT-BID 05/19/19 11/12/19 Calcitriol [Rocaltrol] 0.5 mcg PO DAILY@69906/11/19 11/12/19 Furosemide [Lasix] 40 mg PO DAILY@69906/11/19 11/12/19 Levothyroxine Sodium [Synthroid] 50 mcg PO HS@2100 06/11/19 11/12/19 Magnesium Oxide [Mag-Ox] 400 mg PO HS@2100 06/11/19 11/12/19 Sodium Chloride Tab 1 gm PO DAILY@0700 06/11/19 11/12/19 Vitamin B Complex 1 cap PO DAILY@0700 06/11/19 11/12/19 Carvedilol [Coreg] 12.5 mg PO BID@0700,2100 11/02/19 11/12/19 Cetirizine HCl [Zyrtec] 10 mg PO DAILY PRN 11/02/19 11/12/19 Folic Acid 1 mg PO DAILY@0700 11/02/19 11/12/19 Atorvastatin Calcium [Lipitor] 20 mg PO HS@209911/12/19 11/12/19 Calcium Acetate [PhosLo] 667 mg PO TID@0700,1200,1700 11/12/19 11/12/19 Calcium Carbonate [Tums] 500 mg PO Q6H PRN 11/12/19 11/12/19 HYDROcodone/APAP 10-325MG [[place] 1 tab PO TID@0700,1200,2100 11/12/19 11/12/19 10-325] Midodrine HCl [ProAmatine] 10 mg PO MOWEFR@1000 11/12/19 11/12/19 Midodrine HCl [ProAmatine] 10 mg PO TID@0700,1200,1700 11/12/19 11/12/19 Allergies Allergy/AdvReac Type Severity Reaction Status Date / Time codeine Allergy Unknown Verified 11/12/19 19:53 Review of Systems ROS Statement: Those systems with pertinent positive or pertinent negative responses have been documented in the HPI. ROS Other: All systems not noted in ROS Statement are negative. Past Medical History Past Medical History: Coronary Artery Disease (CAD), Cancer, COPD, Diabetes Mellitus, Fibromyalgia, GERD/Reflux, Hearing Disorder / Deafness, Hyperlipidemia, Hypertension Additional Past Medical History / Comment(s): [place], BACK PAIN-USES CANE., CONSTIPATION. BREAST CANCER, KIDNEY DISEASE STAGE 4/5 (PAST HX OF DIALYSIS) ., ANEMIA. Right humerus and right shoulder fracture 07/29. Hypothyroidism History of Any Multi-Drug Resistant Organisms: None Reported Past Surgical History: Appendectomy, Back Surgery, Coronary Bypass/CABG, Tonsillectomy Additional Past Surgical History / Comment(s): CABG 2007, GRAFT FOR DIALYSIS INSERTED AND REMOVED DUE TO INFECTION. 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 - Past Family History Father Additional Family Medical History / Comment(s): esophageal cancer Sister(s) Additional Family Medical History / Comment(s): breast cancer General Exam Limitations: no limitations General appearance: alert, in no apparent distress Eye exam: Present: normal appearance, PERRL, EOMI. Absent: scleral icterus, conjunctival injection, periorbital swelling Neck exam: Present: normal inspection. Absent: tenderness, meningismus, lymphadenopathy Respiratory exam: Present: rales. Absent: respiratory distress, wheezes, rhonchi, stridor, chest wall tenderness, accessory muscle use Cardiovascular Exam: Present: regular rate, normal rhythm, normal heart sounds. Absent: systolic murmur, diastolic murmur, rubs, gallop, clicks GI/Abdominal exam: Present: soft, normal bowel sounds. Absent: distended, tenderness, guarding, rebound, rigid Extremities exam: Present: pedal edema, other (significant pedal edema in all extremities) Neurological exam: Present: alert, oriented X3 Psychiatric exam: Present: normal affect, normal mood Course Vital Signs 11/12/19 11/12/19 18:42 21:19 Temperature 97.7 F Pulse Rate 66 69 Respiratory 18 16 Rate Blood Pressure 113/65 101/72 O2 Sat by Pulse 98 100 Oximetry Medical Decision Making - Medical Decision Making Upon arrival the patient is placed into room 11. A thorough history and phy sical exam was performed. I did review the patient's laboratory studies. I did complete a CBC and CMP when she arrived here. Hemoglobin is 9.9. Sodium 128. Creatinine 2.4. BNP is 6480. The patient's blood pressure is stable upon arrival here. I did give her 50 mics of fentanyl for diffuse aches. The patient will be admitted to [facility]. I did consult nephrology. The patient remained in stable condition and was transported to the floor Review of the patient's packet from [facility] - Troponin 0.034. Sodium 129 potassium 3. Chloride 95. CO2 27. Hemoglobin 8.8 - Lab Data Result diagrams: 11/13/19 08:49 11/13/19 08:49 Lab Results 11/12/19 11/12/19 11/12/19 Range/Units 20:10 20:10 20:10 WBC 7.6 (3.8-10.6) k/uL RBC 3.06 L (3.80-5.40) m/uL Hgb 9.9 L D (11.4-16.0) gm/dL Hct 30.4 L (34.0-46.0) % MCV 99.2 (80.0-100.0) fL MCH 32.4 (25.0-35.0) pg MCHC 32.6 (31.0-37.0) g/dL RDW 17.3 H (11.5-15.5) % Plt Count 262 (150-450) k/uL Neutrophils % 55 % Lymphocytes % 37 % Monocytes % 5 % Eosinophils % 1 % Basophils % 0 % Neutrophils # 4.2 (1.3-7.7) k/uL Lymphocytes # 2.8 (1.0-4.8) k/uL Monocytes # 0.4 (0-1.0) k/uL Eosinophils # 0.1 (0-0.7) k/uL Basophils # 0.0 (0-0.2) k/uL Hypochromasia Slight Anisocytosis Slight Macrocytosis Slight Sodium 128 L (137-145) mmol/L Potassium 3.6 (3.5-5.1) mmol/L Chloride 98 (98-107) mmol/L Carbon Dioxide 22 (22-30) mmol/L Anion Gap 8 mmol/L BUN 21 H (7-17) mg/dL Creatinine 2.40 H (0.52-1.04) mg/dL Est GFR (CKD-EPI)AfAm 23 (>60 ml/min/1.73 sqM) Est GFR (CKD-EPI)NonAf 20 (>60 ml/min/1.73 sqM) Glucose 97 (74-99) mg/dL Calcium 7.1 L (8.4-10.2) mg/dL Total Bilirubin 0.5 (0.2-1.3) mg/dL AST 68 H (14-36) U/L ALT 55 H (4-34) U/L Alkaline Phosphatase 351 H (38-126) U/L NT-Pro-B Natriuret Pep 6480 pg/mL Total Protein 3.9 L (6.3-8.2) g/dL Albumin 1.7 L (3.5-5.0) g/dL Disposition Clinical Impression: Hypotension, Chronic kidney disease (CKD), CHF (congestive heart failure) Disposition: ADMITTED IP TO THIS [facility] Condition: Stable Is patient prescribed a controlled substance at d/c from ED?: No Decision to Admit Reason: Admit from EC Decision Date: 11/12/19 Decision Time: 20:49
[2019-11-12 20:28] LABS: Albumin 1.7 g/dL (3.5-5.0); Calcium 7.1 mg/dL (8.4-10.2); Total Bilirubin 0.5 mg/dL (0.2-1.3); Total Protein 3.9 g/dL (6.3-8.2)
[2019-11-12 20:33] LABS: Anisocytosis Slight; Basophils % (A) 0 %; Eosinophils # (A) 0.1 k/uL (0-0.7); Eosinophils % (A) 1 %; HCT 30.4 % (34.0-46.0); Hypochromasia Slight; Lymphocytes # (A) 2.8 k/uL (1.0-4.8); Lymphocytes % (A) 37 %; MCH 32.4 pg (25.0-35.0); MCHC 32.6 g/dL (31.0-37.0); MCV 99.2 fL (80.0-100.0); Macrocytosis Slight; Mean Platelet Volume 8.2; Monocytes # (A) 0.4 k/uL (0-1.0); Monocytes % (A) 5 %; Neutrophils # (A) 4.2 k/uL (1.3-7.7); Neutrophils % (A) 55 %; Platelet Count 262 k/uL (150-450); Potassium 3.6 mmol/L (3.5-5.1); RBC 3.06 m/uL (3.80-5.40); RDW 17.3 % (11.5-15.5); WBC 7.6 k/uL (3.8-10.6)
[2019-11-12 20:34] LABS: HGB 9.9 gm/dL (11.4-16.0)
[2019-11-12] MEDS ORDERED: NALOXONE 0.4 MG/ML 1 ML VIAL IV PRN (20:49)
[2019-11-12] MEDS ORDERED: fentaNYL (PF) 50 MCG/ML 2 ML AMP IVP STA (21:54)
[2019-11-12] MEDS ORDERED: Linaclotide [Linzess] 145 MCG PO PRN (22:09)
[2019-11-12] MEDS ORDERED: CALCIUM CARBONATE 500 MG CHEWABLE PO PRN (22:09)
[2019-11-12] MEDS ORDERED: MIDODRINE 5 MG TAB PO STA (22:54)
[2019-11-12] MEDS ORDERED: SODIUM CHLORIDE 0.9% 500 ML 250 ML IV ONE (23:00)
[2019-11-12] MEDS ORDERED: SODIUM CHLORIDE 0.9% 250 ML IV SCH (23:00)
[2019-11-13] MEDS ORDERED: NON FORMULARY DRUG (Vitamin B Complex [Vitamin B Complex] 1 CAP) PO SCH (07:00)
[2019-11-13] MEDS ORDERED: carvediloL 12.5 MG TAB PO SCH (07:00)
[2019-11-13] MEDS: HYDROcodone/APAP 10-325MG 1 EACH TAB PO SCH ×3 (08:02→21:35)
[2019-11-13] MEDS: FOLIC ACID 1 MG TAB PO SCH (08:05)
[2019-11-13] MEDS: FUROSEMIDE 40 MG TAB PO SCH (08:05)
[2019-11-13] MEDS: CALCIUM ACETATE 667 MG TAB PO SCH ×3 (08:05→16:19)
[2019-11-13] MEDS: PANTOPRAZOLE 40 MG TABLET PO SCH (08:06)
[2019-11-13] MEDS: SODIUM CHLORIDE TAB 1 GM TAB PO SCH (08:08)
[2019-11-13] MEDS: FLUTICASONE 50MCG/SPRAY NASAL 16GM EA NOSTRIL SCH (08:08)
[2019-11-13] MEDS: MIDODRINE 5 MG TAB PO SCH ×3 (08:09→16:19)
[2019-11-13 09:05] LABS: Calcium 6.7 mg/dL (8.4-10.2); Potassium 3.4 mmol/L (3.5-5.1)
[2019-11-13 09:10] LABS: Anisocytosis Slight; Basophils # (A) 0.1 k/uL (0-0.2); Basophils % (A) 1 %; Eosinophils # (A) 0.1 k/uL (0-0.7); Eosinophils % (A) 1 %; HCT 27.4 % (34.0-46.0); HGB 8.6 gm/dL (11.4-16.0); Hypochromasia Marked; Lymphocytes # (A) 3.3 k/uL (1.0-4.8); Lymphocytes % (A) 36 %; MCH 32.3 pg (25.0-35.0); MCHC 31.5 g/dL (31.0-37.0); MCV 102.5 fL (80.0-100.0); Macrocytosis Moderate; Mean Platelet Volume 8.2; Monocytes # (A) 0.4 k/uL (0-1.0); Monocytes % (A) 5 %; Neutrophils # (A) 5.3 k/uL (1.3-7.7); Neutrophils % (A) 57 %; Platelet Count 248 k/uL (150-450); Poikilocytosis Slight; RBC 2.68 m/uL (3.80-5.40); WBC 9.3 k/uL (3.8-10.6)
--- NOTE | 2019-11-13 12:21 | P.NPCON ---
History of Present Illness - Reason for Consult Consult date: 11/13/19 end stage renal disease - Chief Complaint ESRD, unable to be dialyzed outpatient because of hypotension - History of Present Illness This is 69-year-old female who was recently started on dialysis on 11/04/2019. She has had chronic kidney disease with small kidneys at 7 cm. She was at [facility] dialysis unit when the dialysis staff called me yesterday with pressure in the 60s unable to dialyze her therefore she was referred to the emergency room and admitted. She denies any fever chills does have occasional nausea or vomiting. Occasional diarrhea. Appetite is poor No chest pain. She does have shortness of breath. No abdominal pain. She doesn't drink fair amount of urine although is not documented as to the quantity. She was recently admitted on 11/02/2019 with generalized weakness and started on dialysis and discharged on 11/08/2019. In the past she was on dialysis for a short period time and recovered renal function. Her baseline creatinine was 6.4 8 on 11/02/2020 she was started on dialysis. Thyroid function is normal. Workup included an echocardiogram recently in October was unremarkable for any low ejection fraction, ejection fraction of 50-55%. Her catheter there is moderate pulmonary hypertension. The cause of low blood pressure is unclear therefore Past Medical History Past Medical History: Coronary Artery Disease (CAD), Cancer, COPD, Diabetes Mellitus, Dialysis, Fibromyalgia, GERD/Reflux, Hearing Disorder / Deafness, Hyperlipidemia, Hypertension, Renal Disease Additional Past Medical History / Comment(s): [place], BACK PAIN-USES CANE., CONSTIPATION. BREAST CANCER, KIDNEY DISEASE STAGE 4/5 (PAST HX OF DIALYSIS) ., ANEMIA. Right humerus and right shoulder fracture 07/29. Hypothyroidism History of Any Multi-Drug Resistant Organisms: None Reported Past Surgical History: Appendectomy, Back Surgery, Coronary Bypass/CABG, Tonsillectomy Additional Past Surgical History / Comment(s): CABG 2007, GRAFT FOR DIALYSIS INSERTED AND REMOVED DUE TO INFECTION. right breast masectomy.right chest per macath for dialysis Past Anesthesia/Blood Transfusion Reactions: No Reported Reaction Past Psychological History: No Psychological Hx Reported Smoking Status: Former smoker Past Alcohol Use History: None Reported Additional Past Alcohol Use History / Comment(s): QUIT SMOKING JAN 2019, SMOKED 1-1 1/2 PPD . STARTED SMOKING AGE 11. Past Drug Use History: None Reported - Past Family History Father Additional Family Medical History / Comment(s): esophageal cancer Sister(s) Additional Family Medical History / Comment(s): breast cancer Medications and Allergies Home Medications Medication Instructions Recorded Confirmed Type Omeprazole [PriLOSEC] 20 mg PO BID@699,199903/13/15 11/12/19 History Linaclotide [Linzess] 145 mcg PO DAILY PRN 09/29/18 11/12/19 History Fluticasone Nasal [place] [Flonase 1 spray EA NOSTRIL DAILY@69901/22/19 11/12/19 History Nasal [place]] Albuterol Sulfate [Ventolin HFA] 2 puff INHALATION RT-BID 05/19/19 11/12/19 History Calcitriol [Rocaltrol] 0.5 mcg PO DAILY@69906/11/19 11/12/19 History Furosemide [Lasix] 40 mg PO DAILY@69906/11/19 11/12/19 History Levothyroxine Sodium [Synthroid] 50 mcg PO HS@209906/11/19 11/12/19 History Magnesium Oxide [Mag-Ox] 400 mg PO HS@209906/11/19 11/12/19 History Sodium Chloride Tab 1 gm PO DAILY@69906/11/19 11/12/19 History Vitamin B Complex 1 cap PO DAILY@69906/11/19 11/12/19 History Carvedilol [Coreg] 12.5 mg PO BID@699,209911/02/19 11/12/19 History Cetirizine HCl [Zyrtec] 10 mg PO DAILY PRN 11/02/19 11/12/19 History Folic Acid 1 mg PO DAILY@69911/02/19 11/12/19 History Atorvastatin Calcium [Lipitor] 20 mg PO HS@209911/12/19 11/12/19 History Calcium Acetate [PhosLo] 667 mg PO TID@0700,1200,1700 11/12/19 11/12/19 History Calcium Carbonate [Tums] 500 mg PO Q6H PRN 11/12/19 11/12/19 History HYDROcodone/APAP 10-325MG [[place] 1 tab PO TID@0700,1200,2100 07/03/20 07/03/20 History 10-325] Midodrine HCl [ProAmatine] 10 mg PO MOWEFR@1000 11/12/19 11/12/19 History Midodrine HCl [ProAmatine] 10 mg PO TID@0700,1200,1700 11/12/19 11/12/19 History Allergies Allergy/AdvReac Type Severity Reaction Status Date / Time codeine Allergy Unknown Verified 11/12/19 19:53 Physical Exam Vitals: Vital Signs Temp Pulse Pulse Resp BP BP Pulse Ox 11/13/19 11:32 97.7 F 72 17 97/62 94 L 11/13/19 05:40 97.6 F 68 15 90/57 94 L 11/13/19 00:52 70 101/63 11/12/19 22:52 82/54 11/12/19 22:16 97.3 F L 72 16 74/50 97 11/12/19 21:19 69 16 101/72 100 11/12/19 18:42 97.7 F 66 18 113/65 98 Intake and Output 11/12/19 11/13/19 11/13/19 22:59 06:59 14:59 Output Total 0 Balance 0 Output: Urine 0 Other: Voiding Method Bedpan Bedpan # Voids 1 Weight 58.967 kg 70 kg On examination she is ill-looking female somewhat anxious. HEENT exam no JVP neck is supple no facial asymmetry Lungs are significant for occasional coarse crackle less than optimal air entry Heart sounds are unremarkable for any murmur rub gallop Abdomen soft nontender no organomegaly status masses Extremity exam reveals mild to moderate edema Neurologically awake alert but profoundly weak all unable to sit up Results - Lab Results Most recent lab results Calcium 6.7 mg/dL (8.4-10.2) L 11/13/19 08:49 11/13/19 08:49 11/13/19 08:49 Assessment and Plan Assessment: Impression 1. ESRD on dialysis since 11/04/2019 10 days ago. Friday schedule with a permacath. 2. Admitted because of low blood pressure 60 systolic in the dialysis unit cause not very clear. Normal TSH. Normal echocardiogram with ejection fraction 50-55% in October 2019. There is moderate pulmonary hypertension 3. Rule out sepsis. 4. Rule out adrenal insufficiency. 5. History of breast cancer, recent surgery dated 06/16/2019 positive for breast cancer B. RIGHT BREAST, SIMPLE MASTECTOMY: Nipple areolar: No significant pathologic abnormality. Lateral portion of right breast shows a 20 x 15 x 13 mm infiltrating Grade 3 ductal carcinoma measuring 1.5 mm from the purple inked skeletal muscle deep margin of resection, other margins are negative for tumor. See Surgical Path [facility] Cancer Case Summary. Recommendation 1. Check serum cortisol level II. We'll dialyze her today 10 a half hours with sodium programming steps, 145 with baseline sodium of 136. We will try to ultrafiltrate 2 L as she has significant edema and some crackles. 3. Obtain blood cultures. 4. Hold off any antibiotics for right now as she does not look septic
[2019-11-13] MEDS ORDERED: LORATADINE 10 MG TAB PO PRN (14:48)
[2019-11-13] MEDS ORDERED: VANCOMYCIN IV PER PHARMACY 1 EACH MISC MISCELLANE PRN (14:49)
[2019-11-13] MEDS ORDERED: Potassium Replacement Protocol 1 EACH MISC MISCELLANE PRN (14:59)
[2019-11-13] MEDS ORDERED: Magnesium Replacement Protocol 1 EACH MISC MISCELLANE PRN (14:59)
[2019-11-13] MEDS ORDERED: VANCOMYCIN 1,250 MG in SODIUM CHLORIDE 0.9% 250 ML IVPB ONE (15:30)
--- NOTE | 2019-11-13 17:12 | XR ---
EXAMINATION TYPE: XR chest 2V DATE OF EXAM: 11/13/2019 COMPARISON: 11/12/2019 HISTORY: Short of breath TECHNIQUE: FINDINGS: There is bilateral blunting of the costophrenic angles. There is airspace infiltrate left l ower lobe. There is pulmonary vascular mild congestion. There are sternal wires. There is right centr al venous catheter with tip in the superior vena cava. IMPRESSION: Bilateral pleural effusions with congestive heart failure. Pulmonary congestion slightly worse than yesterday. Left lower lobe pneumonia.
--- NOTE | 2019-11-13 17:13 | CT ---
EXAMINATION TYPE: CT brain wo con DATE OF EXAM: 11/13/2019 COMPARISON: None HISTORY: Confusion CT DLP: 1009.9 mGycm Automated exposure control for dose reduction was used. There is cerebral moderate cortical atrophy. There is no mass effect nor midline shift. There is no s ign of intracranial hemorrhage. The calvarium is intact. The skull base is intact. IMPRESSION: Cerebral atrophy. No acute intracranial abnormality.
--- NOTE | 2019-11-13 17:16 | HP ---
HISTORY AND PHYSICAL CHIEF COMPLAINT: Weakness and hypertension, change in mental status. HISTORY OF PRESENT ILLNESS: This 69-year-old woman with a past medical history of multiple medical problems including history of CAD, history of COPD, diabetes mellitus, type 2, history of fibromyalgia, GERD, hyperlipidemia, hypertension, history of appendectomy, CAD, CABG being followed by Dr. Lito Evans in the outpatient setting was recently admitted to [facility] and started on new onset hemodialysis. Patient was sent home with further plans to do the hemodialysis, but apparently the blood pressure is very low. Hemodialysis could not be completed. The patient also had change in mental status and because of hypotension, patient subsequently sent to [facility] and admitted for evaluation and treatment. There is no history of fever, rigors, or chills. No history of headache, loss of consciousness, seizures. A detailed history could not be taken, the patient confused. Most of the history taken from my discussion with staff and review of the chart at this time. Nephrology is following the patient closely. PAST MEDICAL HISTORY: History of recently starting hemodialysis, history of CAD, COPD, diabetes type 2, fibromyalgia, GERD, appendectomy, history of back surgery, CAD, CABG. MEDICATIONS: Home medications: 1. Linzess 145 mcg p.o. daily p.r.n. 2. [place] 10 mg t.i.d. 3. Zyrtec 10 mg daily p.r.n. 4. Tums 500 mg q.6 p.r.n. 5. ProAmatine 10 mg p.o. t.i.d. 6. PhosLo 667 p.o. t.i.d. 7. Prilosec 20 mg p.o. b.i.d. 8. Ventolin 2 puffs b.i.d. 9. Vitamin B complex 1 p.o. daily. 10.Coreg 12.5 mg b.i.d. 11.Sodium chloride 1 gram p.o. daily. 12.ProAmatine 10 mg p.o. Friday, Friday, Friday. 13.Magnesium oxide 400 mg q.h.s. 14.Synthroid 50 mcg p.o. q.h.s. 15.Lasix 40 mg p.o. daily. 16.Folic acid 1 mg p.o. daily. 17.Flonase 1 spray daily. 18.Rocaltrol 0.5 mg daily. 19.Lipitor 10 mg q.h.s. ALLERGIES: CODEINE. FAMILY HISTORY: History of esophageal cancer in the family. SOCIAL HISTORY: Previous history of smoking. No history of current smoking. Review of systems could not be taken because of change in mental status. PHYSICAL EXAM: Patient is conscious, confused. Pulse 72. Blood pressure 97/60, respirations 17, temperature 97.7, pulse ox 94% on 2 L. HEENT is conjunctivae normal. NECK: No JVD. CARDIOVASCULAR: S1, S2 muffled. RESPIRATIONS: Breath sounds diminished in the bases. A few scattered rhonchi and crackles. ABDOMEN: Soft, nontender. No mass palpable. LEGS are no edema. No swelling. NERVOUS SYSTEM: Diffusely weak. SKIN: No ulcers. No rashes and no bleeding. JOINTS: No active deforming arthropathy. LAB STUDIES: WBC 9.1, hemoglobin 8.6 and sodium 128, potassium 3.8, creatinine 2.5. ASSESSMENT: 1. Change in mental status, acute metabolic encephalopathy, multifactorial. 2. Acute on chronic kidney failure. 3. Severe hypotension multifactorial. 4. Inability to perform hemodialysis because of hypotension. 5. Hyponatremia. 6. Hypokalemia. 7. Increased AST/ALT with possible hepatitis. 8. Increased alkaline phosphatase. 9. Hypoalbuminemia with severe protein calorie malnutrition. 10.Rule out chronic liver disease. 11.History of chronic obstructive pulmonary disease. 12.History of coronary artery disease/coronary artery bypass grafting. 13.History of diabetes type 2. 14.History of fibromyalgia. 15.Gastroesophageal reflux disease. 16.Hypertension. 17.Hyperlipidemia. 18.History of hard of hearing. 19.History of appendectomy. 20.History of nicotine dependence. 21.FULL CODE. RECOMMENDATIONS AND DISCUSSION: In this 69-year-old woman who presented with multiple complex medical issues, we will monitor the patient closely, continue the current medications, and symptomatic treatment. Otherwise, at this time, I recommend continue the empiric antibiotics. Potassium correction. CT scan of the brain. I would also recommend a CT scan of the abdomen and pelvis to rule out the possibility of chronic liver disease and hepatitis panel also which is known previously. Otherwise, overall prognosis guarded because of multiple complex medical issues. See orders for details. further recommendations to follow. A copy of dictation being forwarded to Dr. Evans who is the primary care physician. MMODL / IJN: [id number] / KHARI
--- NOTE | 2019-11-13 17:19 | CT ---
EXAMINATION TYPE: CT abdomen pelvis wo con DATE OF EXAM: 11/13/2019 COMPARISON: 01/23/2019 HISTORY: Chronic liver disease CT DLP: 745.60 mGycm Automated exposure control for dose reduction was used. Multiple axial sections were obtained from the diaphragm to the floor the pelvis with no contrast. There are moderate bilateral pleural effusions. There is some atelectasis in both lower lobes. Heart size is normal. There is small pericardial effusion. There is large amount of abdominal ascites. There is diffuse subcutaneous edema around the entire abd omen and pelvis. Liver shows no focal defect. The bile ducts are not dilated. Spleen is intact. Stomach is intact. The re is pancreatic atrophy. There is no adrenal mass. Stomach shows no focal defect. There is possible wall thickening of the gre ater curvature of the stomach. There is bilateral renal atrophy. There is no hydronephrosis. Ureters are not dilated. Abdominal aorta is atheromatous. There is no retroperitoneal adenopathy. There is no evidence of free air. Bladder distends smoothly. There is no inguinal hernia. There is no sign of a bowel obstruction. There are multiple distended air and fluid-filled loops of small bowel that measur e up to 3.4 cm. There is no sign of free air. There is posterior fusion surgery from L4 to S1. There is slight anterior wedging of numerous thoraci c and lumbar vertebra. IMPRESSION: Large amount of pleural effusion and abdominal ascites and subcutaneous edema. Small pericardial effu scott. Basilar atelectasis. Distended small bowel with air and fluid consistent with ileus. Thickening of the gastric wall at the greater curvature probably due to hypertrophic gastritis. Uncha nged. There is significant increase in the pleural fluid and ascites and subcutaneous edema compared to old exam.
[2019-11-13] MEDS: LEVOTHYROXINE 50 MCG TAB PO SCH (21:32)
[2019-11-13] MEDS: HEPARIN SODIUM,PORCINE 5,000 UNIT/ML 1 ML VIAL SQ SCH (21:32)
[2019-11-13] MEDS: ATORVASTATIN 20 MG TAB PO SCH (21:32)
[2019-11-13] MEDS: MAGNESIUM OXIDE 400 MG TAB PO SCH (21:32)
[2019-11-13] MEDS: ALBUTEROL NEBULIZED 2.5 MG/3 ML INHALATION SCH (21:48)
[2019-11-14] MEDS: ALBUTEROL NEBULIZED 2.5 MG/3 ML INHALATION SCH ×3 (07:14→19:01)
[2019-11-14 07:22] LABS: Anisocytosis Slight; Basophils % (A) 0 %; Eosinophils # (A) 0.1 k/uL (0-0.7); Eosinophils % (A) 1 %; HGB 8.5 gm/dL (11.4-16.0); Hypochromasia Marked; Lymphocytes # (A) 3.2 k/uL (1.0-4.8); Lymphocytes % (A) 34 %; MCH 32.4 pg (25.0-35.0); MCHC 31.6 g/dL (31.0-37.0); MCV 102.6 fL (80.0-100.0); Macrocytosis Moderate; Mean Platelet Volume 7.8; Monocytes # (A) 0.4 k/uL (0-1.0); Monocytes % (A) 4 %; Neutrophils # (A) 5.6 k/uL (1.3-7.7); Neutrophils % (A) 59 %; Platelet Count 293 k/uL (150-450); Poikilocytosis Slight; RBC 2.63 m/uL (3.80-5.40); RDW 18.5 % (11.5-15.5); WBC 9.6 k/uL (3.8-10.6)
[2019-11-14 07:35] LABS: Calcium 7.4 mg/dL (8.4-10.2); Magnesium 1.6 mg/dL (1.6-2.3); Potassium 3.6 mmol/L (3.5-5.1)
[2019-11-14] MEDS: HYDROcodone/APAP 10-325MG 1 EACH TAB PO SCH ×3 (07:36→22:29)
[2019-11-14] MEDS: FOLIC ACID 1 MG TAB PO SCH (07:37)
[2019-11-14] MEDS: CALCIUM ACETATE 667 MG TAB PO SCH ×3 (07:37→18:25)
[2019-11-14] MEDS: HEPARIN SODIUM,PORCINE 5,000 UNIT/ML 1 ML VIAL SQ SCH ×2 (07:37→22:30)
[2019-11-14] MEDS: PANTOPRAZOLE 40 MG TABLET PO SCH (07:38)
[2019-11-14] MEDS: SODIUM CHLORIDE TAB 1 GM TAB PO SCH (07:38)
[2019-11-14] MEDS: FUROSEMIDE 40 MG TAB PO SCH (07:38)
[2019-11-14] MEDS: MIDODRINE 5 MG TAB PO SCH ×3 (07:38→18:25)
[2019-11-14] MEDS: FLUTICASONE 50MCG/SPRAY NASAL 16GM EA NOSTRIL SCH (07:39)
--- NOTE | 2019-11-14 12:58 | P.PN ---
Subjective Progress Note Date: 11/14/19 Principal diagnosis: 19-year-old female who was transferred from the [place] dialysis unit because of low blood pressure on dialysis, her systolic was in the 60s. Dialysis was te rminated she was brought here for further workup. She was dialyzed yesterday but pressure went down and therefore we had to back off ultrafiltration Workup for her low blood pressure has included normal echocardiogram with good ejection fraction and no significant valvular pathology. She has mild pulmonary hypertension. Her TSH and serum cortisol are normal. There is no pericardial effusion. So far urine cultures are negative. A computed tomography scan of the abdomen shows significant ascites bilateral effusions and distended small bowel with air and fluid consistent with ileus thickening of the gastric wall and greater curvature possibly hypertrophic gastritis pleural fluid ascites and subcutaneous edema. She continues to have shortness of breath. Hemoglobin is 8.5 bicarb is 22. Objective - Vital Signs Vital signs: Vital Signs Temp 97.7 F 11/14/19 11:10 Pulse 70 11/14/19 11:10 Resp 16 11/14/19 11:10 BP 107/69 11/14/19 11:10 Pulse Ox 91 L 11/14/19 11:10 Intake & Output 11/13/19 11/14/19 11/14/19 18:59 06:59 18:59 Output Total 1300 Balance -1300 Weight 70 kg 73 kg Output: Hemodialysis 1300 Other: Voiding Method Bedpan Bedpan # Voids 0 # Bowel Movements 1 0 On examination she is awake alert oriented comfortable on nasal cannula HEENT exam no JVP neck is supple no facial asymmetry Lungs are significant for an occasional coarse crackle at bases. Fair air entry Heart sounds are unremarkable for any murmur rub gallop Abdomen soft nontender no organomegaly ascites masses felt. No ascites. Although the computed tomography scan shows significant myositis Extremity exam was edema with anasarca and swelling of both upper and lower extremities. Neurologically awake alert oriented but weak - Labs CBC & Chem 7: 11/14/19 07:06 11/14/19 07:06 Labs: Abnormal Lab Results - Last 24 Hours (Table) 11/14/19 11/14/19 Range/Units 07:06 07:06 RBC 2.63 L (3.80-5.40) m/uL Hgb 8.5 L (11.4-16.0) gm/dL Hct 27.0 L (34.0-46.0) % MCV 102.6 H (80.0-100.0) fL RDW 18.5 H (11.5-15.5) % Sodium 135 L (137-145) mmol/L Creatinine 1.81 H (0.52-1.04) mg/dL Glucose 114 H (74-99) mg/dL Calcium 7.4 L (8.4-10.2) mg/dL Microbiology - Last 24 Hours (Table) 11/13/19 18:35 Urine Culture - Preliminary Urine,Catheterized Assessment and Plan Assessment: Impression 1. ESRD on dialysis since 11/04/2019 10 days ago. Friday schedule with a permacath. Unable to be dialyzed at [place] with blood pressure low in the 60s referred to the emergency room and admitted 2. Admitted because of low blood pressure 60 systolic in the dialysis unit cause not very clear. Normal TSH. Normal echocardiogram with ejection fraction 50-55% in October 2019, minimal pericardial effusion. There is moderate pulmonary hypertension, further normals cortisol 25 mcg/dL 3. Rule out sepsis. Blood cultures ordered, pending 4. History of breast cancer, recent surgery dated 06/16/2019 positive for breast cancer (Lateral portion of right breast shows a 20 x 15 x 13 mm infiltrating Grade 3 ductal carcinoma measuring 1.5 mm from the purple inked skeletal muscle deep margin of resection, other margins are negative for tumor. ) Recommendation 1. Will attend dialysis tomorrow with pure ultrafiltration of 3 L over 4 hours and see if her blood pressure will improve. 2. If pressure goes down will attempt to transfuse her and see if that'll improve her blood pressure. 3. Pending blood cultures and urine cultures
[2019-11-14] MEDS ORDERED: VANCOMYCIN 1,250 MG in SODIUM CHLORIDE 0.9% 250 ML IVPB ONE (14:00)
[2019-11-14] MEDS: methylPREDNISolone SOD SUCCI 125 MG/2 ML VIAL IV SCH ×4 (14:11→23:44)
--- NOTE | 2019-11-14 14:14 | XR ---
EXAMINATION TYPE: XR chest 1V portable DATE OF EXAM: 11/14/2019 COMPARISON: Yesterday HISTORY: Short of breath TECHNIQUE: FINDINGS: There is right central venous catheter with tip in the superior vena cava. There is some bl unting of the costophrenic angles. There are sternal wires. There is fracture of the lateral and of t he right clavicle. IMPRESSION: Congestive heart failure with pleural effusions unchanged compared to yesterday. Bilatera l pneumonia not excluded.
[2019-11-14 14:41] LABS: ABG Base Excess -2.3 mmol/L; ABG HCO3 21 mmol/L (21-25); ABG Oxygen Saturation 89.8 % (94-97); ABG PCO2 29 mmHg (35-45); ABG PH 7.47 (7.35-7.45); ABG TCO2 22 mmol/L (19-24); Allen Test Performed? Yes
[2019-11-14 14:49] LABS: ABG PO2 59 mmHg (83-108)
--- NOTE | 2019-11-14 16:43 | PN ---
PROGRESS NOTE DATE OF SERVICE: 11/14/2019 This 69-year-old woman who was admitted with change in mental status, acute metabolic encephalopathy had also had significant shortness of breath. Most recent chest x-ray which was reviewed personally by me showed early developing renal failure. Patient did not have hemodialysis today. The patient also is hypoxic. The ABG showed pH of 7.47 and PO2 of 59. Past medical history reviewed. REVIEW OF SYSTEMS: CARDIOVASCULAR: As mentioned earlier. RESPIRATION as mentioned earlier. GI: As mentioned earlier. : As mentioned earlier. NERVOUS SYSTEM: Diffusely weak. MEDICATIONS: Reviewed and include: 1. [place] 10 mg. 2. Ventolin. 3. Lipitor. 4. Rocaltrol. 5. PhosLo. 6. Tums. 7. Flonase. 8. Folic acid. 9. Lasix. 10.Heparin. 11.Synthroid. 12.Claritin. 13.Magnesium oxide. 14.Solu-Medrol. 15.ProAmatine. 16.Narcan. 17.Protonix. 18.Vancomycin. PHYSICAL EXAM: Patient is alert, oriented x2. Pulse 70. Blood pressure 107/60. Respirations 16, temperature 97.7, pulse ox 91 percent on 2 L. HEENT: Conjunctivae normal. Oral mucosa moist. Neck is no JVD. No carotid bruit. No lymph enlargement. CARDIOVASCULAR: S1, S2 muffled. RESPIRATIONS: Breath sounds diminished in the bases. A few scattered rhonchi and crackles. ABDOMEN: Soft. Nontender. LEGS are no edema. No swelling. NERVOUS SYSTEM: Diffusely weak. LAB STUDIES: WBC 9.2, hemoglobin is 8.5. ABGs noted. Sodium 130, potassium 3.6, creatinine is 1.81. ASSESSMENT: 1. Change in mental status, acute metabolic encephalopathy multifactorial. 2. Acute on chronic kidney failure. 3. Severe hypotension multifactorial. 4. Ascites. 5. Congestive heart failure, acute exacerbation with acute on chronic diastolic dysfunction with pulmonary edema. 6. Inability to perform hemodialysis because of hypotension. 7. Hyponatremia. 8. Hypokalemia. 9. Increased AST, ALT with possible hepatitis. 10.Increased alkaline phosphatase. 11.Hypoalbuminemia with severe protein calorie malnutrition. 12.Rule out chronic liver disease. 13.Chronic obstructive pulmonary disease. 14.History of coronary artery disease, coronary artery bypass grafting. 15.Diabetes mellitus type 2. 16.History of fibromyalgia. 17.History of gastroesophageal reflux disease. 18.Hypertension. 19.Hyperlipidemia. 20.History of hard of hearing with hearing aids. 21.History of appendectomy. 22.History of nicotine dependence. 23.FULL CODE. RECOMMENDATIONS AND DISCUSSION: Continue current medications, and symptomatic treatment. Otherwise, the patient had abdominal/pelvis CAT scan which was reviewed personally by me showed a large amount of pleural effusion and abdominal ascites and subcutaneous edema, small pericardial effusion, previous atelectasis also noted. Distended small bowel was also thickened gallbladder with greater coverage, possibly due to hypertrophic gastritis also noted. Ascites was also noted. We will continue to monitor. Possible hemodialysis. The blood pressure is slightly maintained at this time. We will continue to monitor. Further recommendations to follow. Add steroids and bronchodilators. Consult Dr. Mott for pulmonary evaluation. Prognosis guarded. MMODL / IJN: [id number] /
[2019-11-14 17:19] LABS: Glucose,Whole Blood 141 mg/dL (75-99)
[2019-11-14] MEDS: INSULIN ASPART (NovoLOG) 100 UNIT/ML VIAL SQ SCH ×2 (18:24→22:30)
[2019-11-14] MEDS: FUROSEMIDE 10 MG/ML 10 ML VIAL IV SCH ×3 (19:41→23:44)
[2019-11-14 20:57] LABS: Glucose,Whole Blood 167 mg/dL (75-99)
[2019-11-14] MEDS: MAGNESIUM OXIDE 400 MG TAB PO SCH (22:29)
[2019-11-14] MEDS: ATORVASTATIN 20 MG TAB PO SCH (22:29)
[2019-11-14] MEDS: LEVOTHYROXINE 50 MCG TAB PO SCH (22:29)
[2019-11-15 05:46] LABS: Glucose,Whole Blood 157 mg/dL (75-99)
[2019-11-15] MEDS: methylPREDNISolone SOD SUCCI 125 MG/2 ML VIAL IV SCH ×4 (06:10→23:25)
[2019-11-15] MEDS: PANTOPRAZOLE 40 MG TABLET PO SCH (06:10)
[2019-11-15] MEDS: FOLIC ACID 1 MG TAB PO SCH (06:10)
[2019-11-15] MEDS: SODIUM CHLORIDE TAB 1 GM TAB PO SCH (06:11)
[2019-11-15] MEDS: MIDODRINE 5 MG TAB PO SCH ×3 (06:11→17:42)
[2019-11-15] MEDS: HYDROcodone/APAP 10-325MG 1 EACH TAB PO SCH ×4 (06:11→23:24)
[2019-11-15] MEDS: FLUTICASONE 50MCG/SPRAY NASAL 16GM EA NOSTRIL SCH (06:12)
[2019-11-15] MEDS: INSULIN ASPART (NovoLOG) 100 UNIT/ML VIAL SQ SCH ×3 (06:14→21:09)
[2019-11-15] MEDS: ALBUTEROL NEBULIZED 2.5 MG/3 ML INHALATION SCH ×4 (07:29→20:21)
[2019-11-15] MEDS: FUROSEMIDE 40 MG TAB PO SCH (08:25)
[2019-11-15] MEDS: CALCIUM ACETATE 667 MG TAB PO SCH ×2 (08:25→17:07)
[2019-11-15] MEDS: HEPARIN SODIUM,PORCINE 5,000 UNIT/ML 1 ML VIAL SQ SCH ×2 (08:26→20:11)
[2019-11-15] MEDS ORDERED: MIDODRINE 5 MG TAB PO SCH (10:00)
[2019-11-15 10:13] LABS: Anisocytosis Slight; Basophils % (A) 0 %; Eosinophils # (A) 0.1 k/uL (0-0.7); Eosinophils % (A) 1 %; HCT 24.3 % (34.0-46.0); HGB 7.6 gm/dL (11.4-16.0); Hypochromasia Moderate; Lymphocytes # (A) 3.6 k/uL (1.0-4.8); Lymphocytes % (A) 38 %; MCH 31.7 pg (25.0-35.0); MCHC 31.1 g/dL (31.0-37.0); MCV 101.7 fL (80.0-100.0); Macrocytosis Moderate; Mean Platelet Volume 8.3; Monocytes # (A) 0.2 k/uL (0-1.0); Monocytes % (A) 2 %; Neutrophils # (A) 5.5 k/uL (1.3-7.7); Neutrophils % (A) 58 %; Platelet Count 275 k/uL (150-450); Poikilocytosis Slight; RBC 2.39 m/uL (3.80-5.40); RDW 18.5 % (11.5-15.5); WBC 9.5 k/uL (3.8-10.6)
[2019-11-15 10:25] LABS: Calcium 7.2 mg/dL (8.4-10.2); Potassium 3.6 mmol/L (3.5-5.1)
[2019-11-15 10:30] LABS: Vancomycin,Random 15.8 ug/mL
--- NOTE | 2019-11-15 10:42 | XR ---
EXAMINATION TYPE: XR chest 1V DATE OF EXAM: 11/15/2019 COMPARISON: Prior chest x-ray 11/14/2019 HISTORY: Shortness of breath TECHNIQUE: Single frontal view of the chest is obtained. FINDINGS: Right jugular central venous catheter is again noted. Patient is post sternotomy. Heart is enlarged although rotation may accentuate appearance. Interstitium is increased. Bibasilar increased density obscures the hemidiaphragms, this blunting the costophrenic angles. No pneumothorax. There a re overlying cardiac leads. Dense vascular calcifications are noted within the carotid arteries, aort a. Right shoulder shows deformity consistent with fracture of indeterminate age. IMPRESSION: Correlate for congestive heart failure, volume overload. Bilateral pleural effusions. Ri ght shoulder fracture of indeterminate age.
[2019-11-15] MEDS ORDERED: VANCOMYCIN 1,500 MG in SODIUM CHLORIDE 0.9% 250 ML IVPB ONE ×2 (12:00→20:15)
[2019-11-15] MEDS ORDERED: HEPARIN SODIUM,PORCINE 5,000 UNIT/ML 1 ML VIAL ONE (12:00)
[2019-11-15 12:01] LABS: Glucose,Whole Blood 185 mg/dL (75-99)
[2019-11-15 14:20] LABS: Hepatitis A Antibody IgM Non-Reactive (Non-Reactive); Hepatitis B Core IgM Non-Reactive (Non-Reactive); Hepatitis B Surface Antigen Non-Reactive (Non-Reactive); Hepatitis C IgG Antibody Non-Reactive (Non-Reactive)
--- NOTE | 2019-11-15 15:25 | PN ---
PROGRESS NOTE Patient is seen for followup for end-stage renal disease. She was seen on hemodialysis. However, patient complained of shortness of breath, not feeling well. There was arrhythmia noted on her telemetry strips. EKG was done which did not show any significant ventricular tachycardia. Patient's blood pressure remained fairly stable. However, she was hypoxic. She was placed on 100% non-rebreather. Blood pressure did not drop during treatment. So far we had removed about 300 mL of fluid and patient was taken off of the machine. She continues to have no significant urine output. Patient remains with significant edema. We will plan to dialyze her again tomorrow. PHYSICAL EXAMINATION: On examination this morning, blood pressure was 113/70, heart rate 50 per minute. She was afebrile. EXAMINATION OF THE HEART: S1 and S2. EXAMINATION OF LUNGS: Decreased breath sounds at bases. ABDOMEN: Soft, non-tender. Examination of lower extremities shows edema 3+ bilaterally, upper and lower extremities. SSIS SSRS DEVELOPER exam is grossly intact. LABS: Labs from today show sodium 135, potassium 3.6, creatinine 1.8. Hemoglobin was 8.5 g/dL and this morning it was 7.6. ASSESSMENT: 1. End-stage renal disease, maintained on hemodialysis. No significant urine output. Patient will be dialyzed again tomorrow. She was taken off of the machine secondary to change in condition as well as possible arrhythmia. Chest x-ray has been ordered. We will plan to dialyze her again tomorrow. 2. Volume overload with bilateral pleural effusions. If patient remains hemodynamically stable, we will try to dialyze her again later on today. 3. Generalized debility. 4. Hypotension, maintained on midodrine with no evidence of adrenal insufficiency. 5. Right breast cancer, status post mastectomy. PLAN: Hemodialysis in a.m. If patient remains hemodynamically stable, we will try to dialyze her again later on today. MMODL / IJN: [id number] /
--- NOTE | 2019-11-15 15:55 | CDI ---
Documentation Clarification Form Date: 11/15/2019 03:29:59 PM From: Samia Westfall RN CCDS Admit Date: 11/12/2019 08:52:00 PM Patient Name: Latesha Colin Visit Number: [id number] Discharge Date: ATTENTION: The Clinical Documentation Specialists (CDI) and [facility] Coding Staff appreciate your assistance in clarifying documentation. Please respond to the clarification below the line at the bottom and electronically sign. The CDI & [facility] Coding staff will review the response and follow-up if needed. Please note: Queries are made part of the Legal Health Record. If you have any questions, please contact the author of this message via ITS. Dr. Fernando Ghosh The patient also is hypoxic is documented in 11/13 progress note. History/Risk Factors: 69-year-old female presents to the ED as a transfer from [facility] for low blood pressure while having dialysis. Medical History: ESRD, CHF, HTN and Breast Cancer. History of Nicotine dependence. Clinical Indicators: 11/13 Vital signs: BP 107/59; HR 70; Temp 97.7 Oral; RR 16; SpO2 91% 2L nasal cannula 11/14 Vital signs: BP 136/73; HR 62; Temp 97.6 Axillary: RR 22; SpO2 91% Venti Mask 15L Lung/Breathing assessment: 11/13 14:17 ABG: pH 7.47 pO2 59 pCO2 22 O2 Saturation 89.8 Treatment: Breathing TX; Albuterol Sulfate Venti mask with 15L of oxygen. In your professional opinion, can you please clarify if these findings signify one of the following conditions? Acute Respiratory Failure Acute on Chronic Respiratory Failure Acute Respiratory Insufficiency Other Diagnosis, please specify Unable to determine Specificity: If known, further specify (if known): With hypercapnia? (pCO2 >50 and pH <7.35) With hypoxia? (pO2 <60 mm Hg or SpO2 <91% on room air) (Last Query Form Revision: January 2019) Acute Respiratory Failure With hypoxia? MTDD
[2019-11-15 16:49] LABS: Glucose,Whole Blood 139 mg/dL (75-99)
--- NOTE | 2019-11-15 17:01 | PN ---
PROGRESS NOTE DATE OF SERVICE: 11/15/2019 This 69-year-old woman who was admitted with severe hypotension during dialysis is being closely monitored. Patient also had CHF, acute exacerbation, with acute respiratory failure and change in mental status also. The patient could not tolerate dialysis because the patient was getting hypotensive and bradycardic. Dialysis was stopped. At this time the patient is being closely monitored. Past medical history reviewed. Review of systems could not be taken; the patient is confused. Patient is on a non-rebreather mask at this time. CURRENT MEDICATIONS: Reviewed. They include: 1. [place] 10 mg. 2. Ventolin. 3. Lipitor. 4. Rocaltrol. 5. PhosLo. 6. Tums. 7. Flonase. 8. Folic acid. 9. Lasix. 10.Heparin. 11.NovoLog. 12.Synthroid. 13.Claritin. 14.Magnesium oxide. 15.Solu-Medrol. 16.ProAmatine. 17.Protonix. PHYSICAL EXAMINATION: The patient is conscious, confused. Pulse 62, blood pressure 113/73, respiration 22, temperature 97.6, pulse ox 99% on 10 L Ventimask. HEENT: Conjunctivae normal. NECK: No jugular venous distention. CARDIOVASCULAR SYSTEM: S1, S2 muffled. RESPIRATORY SYSTEM: Breath sounds diminished at the bases. Bilateral scattered rhonchi and crackles. ABDOMEN: Soft, non-tender. LEGS: No edema. No swelling. NERVOUS SYSTEM: Diffusely weak. LABS: WBC 9.2, hemoglobin 7.6 and sodium 131. Creatinine is 1.99. ASSESSMENT: 1. Change in mental status, acute metabolic encephalopathy, multifactorial. 2. Acute on chronic kidney failure and inability to tolerate dialysis. 3. Severe hypotension and bradycardia during dialysis. 4. Acute hypoxic respiratory failure secondary to congestive heart failure, acute exacerbation, with acute on chronic diastolic dysfunction possibly. 5. Severe hypotension, multifactorial. 6. Ascites secondary to renal failure. 7. Inability to perform hemodialysis because of hypotension elsewhere. 8. Hyponatremia. 9. Hypokalemia. 10.Increased AST, ALT with possible hepatitis. 11.Increased alkaline phosphatase. 12.Hypoalbuminemia with severe protein-calorie malnutrition. 13.Chronic obstructive pulmonary disease. 14.History of coronary artery disease, coronary artery bypass grafting. 15.Diabetes mellitus, type 2. 16.Fibromyalgia. 17.Gastroesophageal reflux disease. 18.Hypertension. 19.Hyperlipidemia. 20.History of hard of hearing with hearing acquired immunodeficiency syndrome. 21.History of appendectomy. 22.History of nicotine dependence. 23.FULL CODE. RECOMMENDATIONS AND DISCUSSION: I recommend to continue current medications, continue with the monitoring, symptomatic treatment. The patient is also apparently seen at by a [facility] pocket creaser. I would recommend Dr. Reilly to follow up with the patient closely. The overall prognosis is extremely guarded because the patient is unable to tolerate dialysis and oxygen saturation is barely maintained at 90 with a non-rebreather mask. We will continue to follow up with Pulmonary. Prognosis guarded. Discussed with staff. Further recommendations to follow. MMODL / IJN: [id number] /
[2019-11-15 20:37] LABS: Glucose,Whole Blood 147 mg/dL (75-99)
[2019-11-15] MEDS: ATORVASTATIN 20 MG TAB PO SCH (22:13)
[2019-11-15] MEDS: MAGNESIUM OXIDE 400 MG TAB PO SCH (22:13)
[2019-11-15] MEDS: LEVOTHYROXINE 50 MCG TAB PO SCH (22:13)
--- NOTE | 2019-11-15 22:17 | CONS ---
CONSULTATION PULMONARY/CRITICAL CARE CONSULTATION: DATE OF SERVICE: 11/15/2019 This is a 69-year-old female whom we were asked to see because of hypotension and shortness of breath. She apparently was undergoing dialysis and became hypotensive and short of breath. She was admitted to the hospital on November 11 for abnormal lab values and hypotension. Anyway, currently the patient is resting comfortably. She is on a non-rebreather but does not appear to be any distress. An A-team was called on this patient. My charge nurse in the ICU responded and gave me a report. The patient has a history of end-stage renal disease, currently on 2-dyyr-l-week hemodialysis, CAD, essential hypertension, hyperlipidemia, as well as some other medical issues. She was transferred down from [facility]. Apparently during the dialysis treatment up there her blood pressure was low. She was placed on midodrine for blood pressure support. Dialysis had to be curtailed early because of hypotension. She apparently was also having some respiratory difficulty. Her chest x-ray showed fluid overload. HOME MEDICATIONS: Her home medications included omeprazole, Linzess, Flonase nasal spray, albuterol inhaler, Rocaltrol, Lasix, Synthroid, magnesium oxide, sodium chloride tablets, vitamin B complex, Coreg, Zyrtec, folic acid, Lipitor, PhosLo, Tums, [place] and midodrine. ALLERGIES: Allergies are CODEINE. MEDICAL HISTORY: Reviewed. It is positive for CAD, COPD, diabetes, fibromyalgia, GERD, deafness, hyperlipidemia, hypertension and chronic back pain. She also suffers from constipation, breast cancer, end-stage renal disease, chronic anemia, right humerus and right shoulder fracture and hypothyroidism. SURGICAL HISTORY: Surgical history includes appendectomy, back surgery, bypass grafting, tonsillectomy, dialysis graft insertion and right breast mastectomy. SOCIAL HISTORY: Positive for previous tobacco use. Denies any alcohol use or illicit drug use. FAMILY HISTORY: Positive for father with esophageal cancer and a sister with breast cancer. REVIEW OF SYSTEMS: CONSTITUTIONAL: Weakness. NEUROLOGIC: Negative. HEENT: Negative. CARDIOVASCULAR: Negative. PULMONARY: Shortness of breath. GI: Negative. : Negative. RHEUMATOLOGIC: Negative. IMMUNOLOGIC: Negative. ENDOCRINOLOGIC: Negative. DERMATOLOGIC: Negative. PHYSICAL EXAMINATION: VITAL SIGNS: Her current vital signs include temperature 97.6, heart rate 62, respiratory rate 22, blood pressure 113/73, mean 86. Saturations are 91% on a Venturi mask. GENERAL APPEARANCE: Appears in no acute distress. She is a bit pale. HEENT: Examination is grossly unremarkable. NECK: Supple. Full range of motion. No adenopathy. Neck veins are flat. CARDIOVASCULAR: Examination reveals regular rhythm and rate. Heart rate mid 60s. S1, S2 normal. No S3, S4, murmur. LUNGS: Lungs reveal diffuse coarse rhonchi and bibasilar crackles. Breath sounds equal. ABDOMEN: Soft. Bowel sounds are heard. EXTREMITIES: Intact. Mild edema. SKIN: Without rash. NEUROLOGIC: Neurologic examination is brief but nonfocal. LABS: Reviewed. White count 9.5, hemoglobin 7.6, hematocrit 24.3, platelet count 275,000. Sodium 131, potassium 3.6, chloride 102, CO2 25. Anion gap is 4. BUN and creatinine are 14 and 1.99. Calcium 7.2. Microbiologic studies, including blood and urine sampling, are negative. Chest x-ray from today shows findings consistent with fluid overload/CHF, with bilateral pleural effusions. Medications are reviewed. ASSESSMENT: 1. Shortness of breath, multifactorial, in part related to underlying congestive heart failure/fluid overload and possibly some underlying chronic obstructive pulmonary disease as well. 2. History of coronary artery disease. 3. Status post bypass grafting. 4. Breast cancer. 5. Diabetes mellitus. 6. Fibromyalgia. 7. Gastroesophageal reflux disease. 8. Deafness. 9. Hyperlipidemia. 10.Hypertension. 11.Chronic kidney disease, status post hemodialysis 3 times a week. 12.Anemia of chronic disease. PLAN: Overall, the patient's medications will be reviewed. Her prognosis is guarded. I did talk to the admitting service about talking to the family about code status. She looks quite ill. She is stable currently. We will continue to follow. An A-team was called. Her respiratory status seems reasonable. We will continue to follow. MMODL / IJN: [id number] /
[2019-11-16] MEDS: ALBUTEROL NEBULIZED 2.5 MG/3 ML INHALATION PRN ×2 (04:14→23:21)
[2019-11-16 04:15] LABS: Glucose,Whole Blood 158 mg/dL (75-99)
--- NOTE | 2019-11-16 04:37 | XR ---
EXAMINATION TYPE: XR chest 1V portable DATE OF EXAM: 11/16/2019 COMPARISON: Yesterday HISTORY: Short of breath TECHNIQUE: FINDINGS: Heart is enlarged. There is pulmonary edema. There is blunting of the costophrenic angles. There is right central venous catheter with tip in the superior vena cava. There are sternal wires. T here are chest leads. IMPRESSION: Congestive heart failure with pleural effusions. Inspiration slightly improved compared t o yesterday.
[2019-11-16 04:58] LABS: ABG Base Excess -2.9 mmol/L; ABG HCO3 21 mmol/L (21-25); ABG Oxygen Saturation 96.9 % (94-97); ABG PCO2 30 mmHg (35-45); ABG PH 7.46 (7.35-7.45); ABG PO2 176 mmHg (83-108); ABG TCO2 22 mmol/L (19-24); Allen Test Performed? Yes
[2019-11-16 06:04] LABS: Glucose,Whole Blood 164 mg/dL (75-99)
[2019-11-16] MEDS ORDERED: ALBUMIN HUMAN 25% 50 ML in EMPTY BAG 1 BAG IVPB ONE ×2 (07:34→20:14)
[2019-11-16] MEDS: FUROSEMIDE 40 MG TAB PO SCH (07:35)
[2019-11-16] MEDS: MIDODRINE 5 MG TAB PO SCH ×3 (07:39→16:00)
[2019-11-16] MEDS: FLUTICASONE 50MCG/SPRAY NASAL 16GM EA NOSTRIL SCH (07:40)
[2019-11-16] MEDS: PANTOPRAZOLE 40 MG TABLET PO SCH (07:46)
[2019-11-16] MEDS: CALCIUM ACETATE 667 MG TAB PO SCH ×3 (07:46→16:00)
[2019-11-16] MEDS: ALBUTEROL NEBULIZED 2.5 MG/3 ML INHALATION SCH ×4 (07:46→20:57)
[2019-11-16] MEDS: FOLIC ACID 1 MG TAB PO SCH (07:46)
[2019-11-16] MEDS: SODIUM CHLORIDE TAB 1 GM TAB PO SCH (07:47)
[2019-11-16 08:04] LABS: Glucose,Whole Blood 148 mg/dL (75-99)
[2019-11-16] MEDS: INSULIN ASPART (NovoLOG) 100 UNIT/ML VIAL SQ SCH ×4 (08:18→22:26)
[2019-11-16] MEDS: HEPARIN SODIUM,PORCINE 5,000 UNIT/ML 1 ML VIAL SQ SCH ×2 (08:19→22:26)
[2019-11-16] MEDS: methylPREDNISolone SOD SUCCI 125 MG/2 ML VIAL IV SCH (09:18)
[2019-11-16] MEDS: HYDROcodone/APAP 10-325MG 1 EACH TAB PO SCH (09:19)
[2019-11-16] MEDS ORDERED: ETOMIDATE 2 MG/ML 10 ML VIAL ONE (09:25)
--- NOTE | 2019-11-16 09:25 | PN ---
PROGRESS NOTE PULMONARY/CRITICAL CARE PROGRESS NOTE: DATE OF SERVICE: 11/16/2019 Critical care time is 33 minutes. A 69-year-old female whom we were asked to see because of hypotension and shortness of breath. She is a chronic dialysis patient. She apparently developed hypotension during dialysis, became short of breath. Chest x-ray shows fluid overload. She was seen in consultation yesterday. The patient also has a history of previous bypass grafting for CAD, breast cancer, diabetes, fibromyalgia, GERD, deafness, hyperlipidemia, hypertension, chronic kidney disease, and anemia of chronic disease. Early this morning, I was called by the ICU nurse. It was Kush Rutledge. Kush was called up on A-team for this patient. We discussed the patient in detail. Based on the information, we decided to place the patient on BiPAP to get some blood gases. We also gave the patient a breathing treatment. After placing the patient on BiPAP, the patient's respiratory status improved. She was much more calm. Her respiratory rate was in the high teens, low 20s. Saturations are excellent. PO2 was great. The blood pressure was a bit low. She was alert and awake though and she was responding appropriately. I asked him to go back up and reassess the patient with a new set of vital signs, which he did. Again, we thought the patient was relatively stable and I told Kuhs that I would come up and see the patient when I got to the hospital. When I saw the patient this morning, she again was reasonably stable. Her blood pressure was a bit low in the mid 80s. She was responsive and appropriately responding to questions. I attempted to call the patient's daughter, who apparently is the Power of Opener Tender for making medical decisions for this patient. Discussed code status again. She apparently was on her way up to the hospital from the [facility]. She apparently did not have a cellphone, so I could not reach her. For that reason, I decided to move the patient to the ICU. The most recent set of vital signs include a temperature of 97.3, a heart rate in the mid 60s to mid 70s. The respiratory rate about 20 breaths per minute and a blood pressure of mid 80s systolic. Saturations are in the mid to high 90s. She appeared in no distress whatsoever. In fact, she looked much better on the BiPAP. HEENT: Examination is grossly unremarkable. BiPAP mask in place. NECK: Supple. Full range of motion. No adenopathy. Neck veins are flat. CARDIOVASCULAR: Examination reveals regular rhythm and rate. Heart rate mid 70s when I saw her. She was in sinus rhythm. LUNGS: Reveal mostly clear breath sounds. A few scattered rhonchi. No wheezes. No crackles appreciated. ABDOMEN: Soft. EXTREMITIES: Reveal some edema. In fact, she does have diffuse edema and anasarca. SKIN: Reveals areas of ecchymoses. NEUROLOGIC: Examination is brief but nonfocal. LABS: Reviewed. From today, a blood gas shows a pO2 of 176, pCO2 of 39, pH is 7.46. It is consistent with a respiratory alkalosis. That was on the BiPAP at 10 5 and 100%. No additional labs from today are noted. Microbiology is negative. Chest x-ray from today again shows a pattern of fluid overload. There are bilateral effusions. Actually, her chest x-ray is improved compared to the prior one. Medications are reviewed as they are every day. ASSESSMENT: 1. Shortness of breath and hypoxemia, related to underlying congestive heart failure and fluid overload, most likely from her end-stage renal disease. 2. Hypotension, which may relate to underlying sepsis. 3. Inadequate dialysis yesterday with minimal fluid removal. 4. History of coronary artery disease. 5. Status post bypass grafting. 6. History of breast cancer. 7. Diabetes mellitus. 8. Fibromyalgia. 9. Gastroesophageal reflux disease. 10.Deafness. 11.Hyperlipidemia. 12.Hypertension. 13.History of chronic kidney disease, with a 3 time a week hemodialysis. 14.Anemia of chronic disease. PLAN: The patient was transferred up to the ICU because of the marginal blood pressures. From the respiratory standpoint, she looks actually pretty good. During dialysis today, she may need some vasopressor to support her blood pressure during the process. Additional recommendations and suggestions are forthcoming. I may choose to speak to the daughter about code status. The patient has a very poor prognosis in my opinion with multiple medical problems. Additional recommendations and suggestions are forthcoming. MMODL / IJN: [id number] /
[2019-11-16 10:30] LABS: Anisocytosis Slight; Basophils % (A) 0 %; Eosinophils # (A) 0.1 k/uL (0-0.7); Eosinophils % (A) 1 %; HCT 28.9 % (34.0-46.0); HGB 8.9 gm/dL (11.4-16.0); Hypochromasia Marked; Lymphocytes % (A) 35 %; MCH 31.9 pg (25.0-35.0); MCHC 30.7 g/dL (31.0-37.0); Macrocytosis Moderate; Mean Platelet Volume 8.7; Monocytes # (A) 0.5 k/uL (0-1.0); Monocytes % (A) 5 %; Neutrophils # (A) 5.1 k/uL (1.3-7.7); Neutrophils % (A) 58 %; Platelet Count 252 k/uL (150-450); Poikilocytosis Slight; RBC 2.78 m/uL (3.80-5.40); RDW 19.2 % (11.5-15.5); WBC 8.8 k/uL (3.8-10.6)
[2019-11-16 10:41] VITALS: BMI 24.6
[2019-11-16 12:19] LABS: Glucose,Whole Blood 128 mg/dL (75-99)
[2019-11-16] MEDS ORDERED: DARBEPOETIN ALFA 60 MCG/0.3 ML SYRINGE SQ SCH (13:00)
--- NOTE | 2019-11-16 14:33 | PN ---
PROGRESS NOTE Patient is seen for followup for end-stage renal disease. We were not able to dialyze the patient yesterday as her blood pressure dropped and heart rate dropped during treatment and therefore she was taken off. This morning patient developed worsening shortness of breath. She also had low blood pressure and was transferred to the ICU. Currently, patient is maintained on BiPAP with FiO2 of 100%. She seems to be comfortable. Family has requested transfer out to [facility] or [facility]. It looks like patient will be going to [facility]. I did discuss with the patient's daughter, Rachele, regarding her mother's general condition. I advised her that we will try a SLED treatment as patient remains significantly fluid overloaded with no urine output and she needs to be dialyzed. given her ongoing hypotension, patient will benefit with starting pressors and initiation of SLED treatment versus CRRT. At this time, daughter states that she prefers her mother to be transferred out and to have the SLED procedure versus CRRT at a tertiary care hospital. A Marcila catheter was placed this morning and about 20 mL of cloudy urine was obtained. This will be sent out for cultures. The patient has received a dose of vancomycin yesterday. So far, blood cultures are negative. Initial urine culture obtained on 11/13/2019 showed skin and genital yasmin. PHYSICAL EXAMINATION: This morning, patient is on BiPAP. She is awake, she is not in any acute distress. Blood pressure is 100/71, heart rate 83 per minute. She is afebrile. Examination of the heart S1, S2. Examination of the lungs, decreased breath sounds at bases. Abdomen is soft, nontender. Examination of the lower extremities shows edema 3+ bilaterally upper and lower extremities as well as abdominal wall edema. 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 LABS: Were not available from today as lab could not draw her secondary to severe edema and patient will be having a midline placed. ASSESSMENT: 1. End-stage renal disease, currently ongoing hypotension and severe volume overload. Patient needs a SLED treatment versus CRRT. This is discussed with the daughter and at this time she would like the patient transferred to a tertiary care center. Patient is maintained on midodrine which I will continue for now. There is no evidence of an obvious infection as blood cultures and urine cultures are negative thus far. Repeat urine culture will be sent out from urine that was obtained today. 2. Anemia with no active bleeding noted. Mostly anemia of chronic disease. Will maintain patient on Aranesp. 3. CKD mineral bone disorder. 4. Hypotension with no evidence of ongoing infection. Serum cortisol level was not low. Patient is maintained on midodrine. Ejection fraction from echocardiogram done on 11/03/2019 was 50%-55%. 5. Congestive heart failure acute on top of chronic with fluid overload, mainly diastolic. PLAN: Recommend a SLED procedure versus CRRT for severe volume overload and ongoing hypotension. Patient's family is requesting transfer to a tertiary care center. MMODL / IJN: [id number] /
--- NOTE | 2019-11-16 16:13 | P.PN ---
Subjective patient was recently started on hemodialysis on 11/04/2019 and patient was admitted to the hospital because of hypotension. Days ago during hemodialysis patient was started on midodrine at that time. Patient clinically condition continued was given aspiration they're unable to perform hemodialysis because of her hypotension issues. Patient came in with significant anasarca didn't have much of urine output her present urine output is around only to 20 mL per day was treated with IV Lasix without any significant improvement yesterday patient went into acute respiratory failure requiring the Lacy mask followed by BiPAP. Patient is presently on 100% FiO2 on BiPAP with 5/10 settings. Patient had a normal ejection fraction moderate pulmonary hypertension. There is no evidence of infection patient was initially went vancomycin because of concerns of bacteremia from hemodialysis but that there is no evidence of that.she doesn't have any leukocytosis no fevers blood cultures were all negative.patient was taken care of by Dr. Ghosh and less today I was called multiple times last night and today morning because of acute respiratory failure discussed with the industrial gas production operator subsequently transferred to ICU. Constitutional: patient is tired lethargic Cardio vascular: denied any chest pain, palpitations Gastrointestinal denied any nausea vomiting Pulmonary: significantly short of breath Neurologic denied any new focal deficits All inpatient medications were reviewed and appropriate changes in these medications as dictated in the interval history and assessment and plan. Objective - Vital Signs Vital signs: Vital Signs Temp 97.5 F L 11/16/19 12:00 Pulse 93 11/16/19 15:52 Resp 14 11/16/19 15:15 BP 92/64 11/16/19 15:15 Pulse Ox 96 11/16/19 15:00 Intake & Output 11/15/19 11/16/19 11/16/19 18:59 06:59 18:59 Intake Total 780 70 Output Total 564 0 25 Balance -564 780 45 Weight 73.5 kg 73.5 kg Intake: IV 80 70 Sodium Chloride 0.9% at 80 70 10ml/hr Intake, IV Titration 250 Amount Vancomycin 1,500 mg In 250 Sodium Chloride 0.9% 250 ml @ 125 mls/hr IVPB ONCE ONE Rx#:[id number] Oral 450 Output: Urine 0 25 Hemodialysis 564 Other: Voiding Method Bedpan Diaper Indwelling Catheter # Voids 2 0 - Exam PHYSICAL EXAMINATION: GENERAL: The patient is alert and oriented x3, patient is not in respiratory distress on BiPAP HEENT: Pupils are round and equally reacting to light. EOMI. No scleral icterus. No conjunctival pallor. Normocephalic, atraumatic. No pharyngeal erythema. No thyromegaly. CARDIOVASCULAR: S1 and S2 present. No murmurs, rubs, or gallops. PULMONARY: if his bilateral rhonchi ABDOMEN: Soft, nontender, nondistended, normoactive bowel sounds. No palpable organomegaly. MUSCULOSKELETAL: No joint swelling or deformity. EXTREMITIES: No cyanosis, clubbing, or pedal edema. NEUROLOGICAL: Gross neurological examination did not reveal any focal deficits. SKIN: No rashes. - Labs CBC & Chem 7: 11/16/19 09:49 11/15/19 09:57 Labs: Abnormal Lab Results - Last 24 Hours (Table) 11/15/19 11/15/19 11/16/19 Range/Units 16:48 20:36 04:14 RBC (3.80-5.40) m/uL Hgb (11.4-16.0) gm/dL Hct (34.0-46.0) % MCV (80.0-100.0) fL MCHC (31.0-37.0) g/dL RDW (11.5-15.5) % ABG pH (7.35-7.45) ABG pCO2 (35-45) mmHg ABG pO2 (83-108) mmHg POC Glucose (mg/dL) 139 H 147 H 158 H (75-99) mg/dL 11/16/19 11/16/19 11/16/19 Range/Units 04:56 06:03 08:03 RBC (3.80-5.40) m/uL Hgb (11.4-16.0) gm/dL Hct (34.0-46.0) % MCV (80.0-100.0) fL MCHC (31.0-37.0) g/dL RDW (11.5-15.5) % ABG pH 7.46 H (7.35-7.45) ABG pCO2 30 L (35-45) mmHg ABG pO2 176 H (83-108) mmHg POC Glucose (mg/dL) 164 H 148 H (75-99) mg/dL 11/16/19 11/16/19 Range/Units 09:49 12:17 RBC 2.78 L (3.80-5.40) m/uL Hgb 8.9 L (11.4-16.0) gm/dL Hct 28.9 L (34.0-46.0) % MCV 104.0 H (80.0-100.0) fL MCHC 30.7 L (31.0-37.0) g/dL RDW 19.2 H (11.5-15.5) % ABG pH (7.35-7.45) ABG pCO2 (35-45) mmHg ABG pO2 (83-108) mmHg POC Glucose (mg/dL) 128 H (75-99) mg/dL Microbiology - Last 24 Hours (Table) 11/15/19 09:57 Blood Culture - Preliminary Blood No Growth after 24 hours 11/13/19 15:59 Blood Culture - Preliminary Blood No Growth after 48 hours Assessment and Plan Plan: acute hypoxic respiratory failure: Secondary to volume overload pulmonary edema and bilateral pleural effusions and anasarca which is again secondary to end- stage renal disease no evidence of heart failure at this time. Continue with respiratory support patient is on BiPAP at this time. -Hypotension no clear etiology no evidence of sepsis normal TSH. Because of severe hypotension although patient is presently not on any pressors may require SLED or CRRT. Because of this patient may need to be transferred to higher level facility discussed with [place] ICU fellow. -metabolic encephalopathy which presently appears to be better -Hyponatremia hypervolemic hyponatremia -coronary artery disease disease with CABG in the past -Type 2 diabetes mellitus -Hypertension -Hyperlipidemia -history of breast cancer status post mastectomy for infiltrating ductal carcinoma
--- NOTE | 2019-11-16 16:14 | P.DS ---
Providers Date of admission: 11/12/19 20:52 Attending physician: Fernando Ghosh Consults: 11/12/19 20:51 Consult Physician Urgent Consulting Provider: Rancho Zhang Consult Reason/Comments: ESRD on HD Do you want consulting provider notified?: Yes 11/14/19 13:42 Consult Physician Routine Consulting Provider: Ed Mott Consult Reason/Comments: Dyspnea Do you want consulting provider notified?: Yes Primary care physician: Lito [facility]ina [facility] Course: patient was recently started on hemodialysis on 11/04/2019 and patient was admitted to the hospital because of hypotension. Days ago during hemodialysis patient was started on midodrine at that time. Patient clinically condition continued was given aspiration they're unable to perform hemodialysis because of her hypotension issues. Patient came in with significant anasarca didn't have much of urine output her present urine output is around only to 20 mL per day was treated with IV Lasix without any significant improvement yesterday patient went into acute respiratory failure requiring the Lacy mask followed by BiPAP. Patient is presently on 100% FiO2 on BiPAP with 5/10 settings. Patient had a normal ejection fraction moderate pulmonary hypertension. There is no evidence of infection patient was initially went vancomycin because of concerns of bacteremia from hemodialysis but that there is no evidence of that.she doesn't have any leukocytosis no fevers blood cultures were all negative.patient was taken care of by Dr. Ghosh and less today I was called multiple times last night and today morning because of acute respiratory failure discussed with the pediatric surgeon subsequently transferred to ICU. patient will need SLED or CRRT because of which discussed with the pediatric surgeon at [facility] and patient is being transferred today. PHYSICAL EXAMINATION: GENERAL: The patient is alert and oriented x3, patient is not in respiratory distress on BiPAP HEENT: Pupils are round and equally reacting to light. EOMI. No scleral icterus. No conjunctival pallor. Normocephalic, atraumatic. No pharyngeal erythema. No thyromegaly. CARDIOVASCULAR: S1 and S2 present. No murmurs, rubs, or gallops. PULMONARY: if his bilateral rhonchi ABDOMEN: Soft, nontender, nondistended, normoactive bowel sounds. No palpable organomegaly. MUSCULOSKELETAL: No joint swelling or deformity. EXTREMITIES: No cyanosis, clubbing, or pedal edema. NEUROLOGICAL: Gross neurological examination did not reveal any focal deficits. SKIN: No rashes. Assessment and Plan Plan: acute hypoxic respiratory failure: Secondary to volume overload pulmonary edema and bilateral pleural effusions and anasarca which is again secondary to end- stage renal disease no evidence of heart failure at this time. Continue with respiratory support patient is on BiPAP at this time. -Hypotension no clear etiology no evidence of sepsis normal TSH. Because of severe hypotension although patient is presently not on any pressors may require SLED or CRRT. Because of this patient may need to be transferred to higher level facility discussed with Kevin Carey ICU fellow. -metabolic encephalopathy which presently appears to be better -Hyponatremia hypervolemic hyponatremia -coronary artery disease disease with CABG in the past -Type 2 diabetes mellitus -Hypertension -Hyperlipidemia -history of breast cancer status post mastectomy for infiltrating ductal carcinoma Patient Condition at Discharge: Stable Plan - Discharge Summary New Discharge Prescriptions: No Action Omeprazole [PriLOSEC] 20 mg PO BID@0700,1999 Linaclotide [Linzess] 145 mcg PO DAILY PRN PRN Reason: Constipation Fluticasone Nasal [place] [Flonase Nasal [place]] 1 spray EA NOSTRIL DAILY@0700 Albuterol Sulfate [Ventolin HFA] 2 puff INHALATION RT-BID Magnesium Oxide [Mag-Ox] 400 mg PO HS@2100 Furosemide [Lasix] 40 mg PO DAILY@0700 Sodium Chloride Tab 1 gm PO DAILY@0700 Levothyroxine Sodium [Synthroid] 50 mcg PO HS@2100 Vitamin B Complex 1 cap PO DAILY@0700 Calcitriol [Rocaltrol] 0.5 mcg PO DAILY@0700 Carvedilol [Coreg] 12.5 mg PO BID@0700,2100 Cetirizine HCl [Zyrtec] 10 mg PO DAILY PRN PRN Reason: Allergy Symptoms Folic Acid 1 mg PO DAILY@0700 Calcium Carbonate [Tums] 500 mg PO Q6H PRN PRN Reason: Heartburn Midodrine HCl [ProAmatine] 10 mg PO TID@0700,1200,1700 HYDROcodone/APAP 10-325MG [[place] 10-325] 1 tab PO TID@0700,1200,2100 Calcium Acetate [PhosLo] 667 mg PO TID@0700,1200,1700 Midodrine HCl [ProAmatine] 10 mg PO MOWEFR@1000 Atorvastatin Calcium [Lipitor] 20 mg PO HS@2100 Discharge Medication List Omeprazole [PriLOSEC] 20 mg PO BID@699,199903/13/15 [History] Linaclotide [Linzess] 145 mcg PO DAILY PRN 09/29/18 [History] Fluticasone Nasal [place] [Flonase Nasal [place]] 1 spray EA NOSTRIL DAILY@69901/22/19 [History] Albuterol Sulfate [Ventolin HFA] 2 puff INHALATION RT-BID 05/19/19 [History] Calcitriol [Rocaltrol] 0.5 mcg PO DAILY@69906/11/19 [History] Furosemide [Lasix] 40 mg PO DAILY@69906/11/19 [History] Levothyroxine Sodium [Synthroid] 50 mcg PO HS@209906/11/19 [History] Magnesium Oxide [Mag-Ox] 400 mg PO HS@209906/11/19 [History] Sodium Chloride Tab 1 gm PO DAILY@69906/11/19 [History] Vitamin B Complex 1 cap PO DAILY@69906/11/19 [History] Carvedilol [Coreg] 12.5 mg PO BID@699,209911/02/19 [History] Cetirizine HCl [Zyrtec] 10 mg PO DAILY PRN 11/02/19 [History] Folic Acid 1 mg PO DAILY@69911/02/19 [History] Atorvastatin Calcium [Lipitor] 20 mg PO HS@209911/12/19 [History] Calcium Acetate [PhosLo] 667 mg PO TID@0700,1200,17011/12/19 [History] Calcium Carbonate [Tums] 500 mg PO Q6H PRN 11/12/19 [History] HYDROcodone/APAP 10-325MG [[place] 10-325] 1 tab PO TID@0700,1200,209911/12/19 [History] Midodrine HCl [ProAmatine] 10 mg PO MOWEFR@99911/12/19 [History] Midodrine HCl [ProAmatine] 10 mg PO TID@0700,1200,1700 11/12/19 [History] Follow up Appointment(s)/Referral(s): Lito Evans MD [Primary Care Provider] - 1-2 days
[2019-11-16] MEDS ORDERED: NOREPINEPHRINE 4 MG in SODIUM CHLORIDE 0.9% 250 ML IV SCH (16:30)
[2019-11-16 17:20] LABS: Glucose,Whole Blood 94 mg/dL (75-99)
[2019-11-16 18:47] LABS: ABG Base Excess -4.5 mmol/L; ABG HCO3 22 mmol/L (21-25); ABG Oxygen Saturation 17.2 % (94-97); ABG PCO2 43 mmHg (35-45); ABG PH 7.31 (7.35-7.45); ABG TCO2 23 mmol/L (19-24); Allen Test Performed? Yes
[2019-11-16] MEDS ORDERED: SODIUM CHLORIDE 0.9% 1,000 ML IV ONE ×2 (18:51→20:15)
[2019-11-16 19:13] LABS: ABG PO2 16 mmHg (83-108)
[2019-11-16 19:28] LABS: Glucose,Whole Blood 90 mg/dL (75-99)
[2019-11-16] MEDS ORDERED: DEXTROSE 5% IN WATER 250 ML with AMIODARONE 300 MG IV ONE (19:32)
[2019-11-16] MEDS ORDERED: AMIODARONE 360 MG in DEXTROSE 5% IN WATER 200 ML IV ONE ×2 (19:32)
[2019-11-16] MEDS ORDERED: CISATRACURIUM 2 MG/ML 5 ML VIAL IV ONE (19:36)
--- NOTE | 2019-11-16 19:40 | XR ---
EXAMINATION TYPE: XR chest 1V portable DATE OF EXAM: 11/16/2019 COMPARISON: Today HISTORY: Check tube placement TECHNIQUE: FINDINGS: There is endotracheal tube 2.5 cm from the rachel. There is pulmonary interstitial edema. T here is blunting of the costophrenic angles. There are sternal wires. There is right central venous c atheter with tip in the superior vena cava. IMPRESSION: Congestive heart failure with pleural effusions unchanged. Endotracheal tube in fairly go od position.
[2019-11-16] MEDS ORDERED: NOREPINEPHRINE 32 MG in SODIUM CHLORIDE 0.9% 218 ML IV SCH (20:15)
--- NOTE | 2019-11-16 20:32 | XR ---
EXAMINATION TYPE: XR chest 1V confirm line [facility] DATE OF EXAM: 11/16/2019 COMPARISON: Today HISTORY: Line placement TECHNIQUE: FINDINGS: Endotracheal tube is 2.5 cm from the rachel. There is large left side pneumothorax approxim ately 80%. There is right central venous catheter with tip in the superior vena cava. There is left s rosie central venous catheter with tip in the superior vena cava. There is pulmonary interstitial edema . There is blunting of the costophrenic angles. IMPRESSION: There is large left side pneumothorax that appears new compared to exam one hour ago. This finding was discussed with staff on the floor in the ICU at 8:30 PM and patient is having chest tube placement. Pulmonary edema and pleural fluid unchanged.
[2019-11-16 20:42] LABS: ABG Base Excess -10.5 mmol/L; ABG HCO3 18 mmol/L (21-25); ABG Oxygen Saturation 91.8 % (94-97); ABG PCO2 54 mmHg (35-45); ABG PO2 93 mmHg (83-108); ABG TCO2 20 mmol/L (19-24)
[2019-11-16] MEDS ORDERED: SODIUM BICARB 8.4% 50 ML SYR (1 MEQ/ML) ONE (20:46)
[2019-11-16 20:52] LABS: Albumin 1.4 g/dL (3.5-5.0); Potassium 3.5 mmol/L (3.5-5.1); Total Bilirubin 0.3 mg/dL (0.2-1.3)
[2019-11-16 20:52] LABS: ABG PH 7.14 (7.35-7.45); Allen Test Performed? no
--- NOTE | 2019-11-16 20:52 | XR ---
EXAMINATION TYPE: XR chest 1V portable DATE OF EXAM: 11/16/2019 COMPARISON: Today HISTORY: Chest tube TECHNIQUE: Single view FINDINGS: There is left-sided chest tube in good position. There is left side pneumothorax approximat tamika 25% significantly improved compared to recent exam. There is diffuse pulmonary interstitial and a irspace edema. There is left subclavian catheter with tip in the superior vena cava. There is right c entral venous catheter with tip in the superior vena cava. IMPRESSION: Significant improvement in the large left side pneumothorax. Pulmonary edema unchanged.
[2019-11-16 20:54] LABS: Partial Thromboplastin Time 75.7 sec (22.0-30.0); Prothrombin Time 122.4 sec (9.0-12.0)
[2019-11-16] MEDS ORDERED: SODIUM BICARB 8.4% 50 ML SYR (1 MEQ/ML) IV STA ×3 (20:55→20:56)
[2019-11-16 21:00] LABS: Calcium 6.5 mg/dL (8.4-10.2)
[2019-11-16] MEDS ORDERED: CHLORHEXIDINE GLUCONATE 15 ML CUP MUCOUS MEM SCH (21:00)
[2019-11-16 21:06] LABS: Creatine Kinase MB 6.1 ng/mL (0.0-2.4)
[2019-11-16 21:11] LABS: INR >10.0 (<1.2)
[2019-11-16 21:21] LABS: Anisocytosis Slight; Basophils % (A) 0 %; Eosinophils % (A) 1 %; HCT 23.8 % (34.0-46.0); Hypochromasia Marked; Lymphocytes % (A) 72 %; MCH 32.8 pg (25.0-35.0); MCHC 30.7 g/dL (31.0-37.0); MCV 106.7 fL (80.0-100.0); Macrocytosis Marked; Monocytes % (A) 1 %; Neutrophils # (A) 0.7 k/uL (1.3-7.7); Neutrophils % (A) 26 %; Platelet Count 219 k/uL (150-450); RBC 2.23 m/uL (3.80-5.40); RDW 19.1 % (11.5-15.5); WBC 2.8 k/uL (3.8-10.6)
[2019-11-16 21:24] LABS: HGB 7.3 gm/dL (11.4-16.0)
[2019-11-16 21:35] LABS: Magnesium 1.6 mg/dL (1.6-2.3); Phosphorus 3.5 mg/dL (2.5-4.5)
[2019-11-16 21:48] LABS: ABG Base Excess -3.4 mmol/L; ABG HCO3 23 mmol/L (21-25); ABG Oxygen Saturation 96.9 % (94-97); ABG PCO2 45 mmHg (35-45); ABG PH 7.31 (7.35-7.45); ABG PO2 281 mmHg (83-108); ABG TCO2 24 mmol/L (19-24)
[2019-11-16 21:54] LABS: Allen Test Performed? No
[2019-11-16] MEDS: ATORVASTATIN 20 MG TAB PO SCH (22:26)
[2019-11-16] MEDS: LEVOTHYROXINE 50 MCG TAB PO SCH (22:27)
[2019-11-16] MEDS: MAGNESIUM OXIDE 400 MG TAB PO SCH (22:27)
[2019-11-16] MEDS ORDERED: SODIUM CHLORIDE 0.9% 50 ML with VASOPRESSIN 20 UNIT IVPB SCH ×2 (23:00)
--- NOTE | 2019-11-16 23:26 | PCN ---
PROCEDURE NOTE PROCEDURE: Left subclavian triple-lumen catheter. PREOPERATIVE DIAGNOSIS: Administration of fluids and pressors. POSTOPERATIVE DIAGNOSIS: Administration of fluids and pressors. PROCEDURE DESCRIPTION: A time-out was completed verifying correct patient, procedure, site, positioning, and implant(s) or special equipment if applicable. The patient was placed in a dependent position appropriate for triple-lumen catheter placement based on the vein to be cannulated. The patient's left shoulder was prepped and draped in sterile fashion. 1% Lidocaine was used to anesthetize the surrounding skin area. A triple lumen 9F Cordis catheter was introduced into the subclavian vein using Seldinger technique. The catheter was threaded smoothly over the guide wire and appropriate blood return was obtained. Each lumen of the catheter was evacuated of air and flushed with sterile saline. The catheter was then sutured in place to the skin and a sterile dressing applied. Perfusion to the extremity distal to the point of catheter insertion was checked and found to be adequate. There was no immediate complication. Patient tolerated the procedure well. There was good blood return from all 3 ports. The catheter was placed in on the first attempt. The catheter was sutured in place. A sterile dressing was applied by the nurse. The tip of the catheter was seen in the junction of superior vena cava and right atrium. The catheter was sutured in place and sterile dressing was applied by the nurse. PROCEDURE: Right femoral arterial line placement. PREOPERATIVE DIAGNOSIS: Frequent blood draws and blood gas monitoring. POSTOPERATIVE DIAGNOSIS: Frequent blood draws and blood gas monitoring. PROCEDURE DESCRIPTION: A time-out was completed verifying correct patient, procedure, site, positioning, and implant(s) or special equipment if applicable. Viktor's test was performed to ensure adequate perfusion. The patient's right groin was prepped and draped in sterile fashion. 1% Lidocaine was used to anesthetize the area. An 18G [place] arterial line was introduced into the femoral artery. The catheter was threaded over the guide wire and the needle was removed with appropriate pulsatile blood return. Blood loss was minimal. The catheter was then sutured in place to the skin and a sterile dressing applied. Perfusion to the extremity distal to the point of catheter insertion was checked and found to be adequate. The patient tolerated the procedure well and there were no immediate complications. There was good blood return and waveform. The patient tolerated procedure well. The catheter was sutured in place. A sterile dressing was applied by the nurse. PROCEDURE: Left chest tube placement. PREOPERATIVE DIAGNOSIS: Left pneumothorax. POSTOPERATIVE DIAGNOSIS: Left pneumothorax. PROCEDURE DESCRIPTION: A 28-Macedonian chest tube was placed in the left pleural space. The patient tolerated the procedure well. There were no complications. The lung was nearly fully expanded after the procedure was performed, based on the chest x-ray. The chest tube was sutured in place. Sterile dressing was applied. The chest tube was connected to a Pleur- evac. 20 cm water suction was placed on the chest tube. A chest x-ray was ordered afterwards just to check placement to make sure the lung was fully expanded, which it was. There were no complications. MMODL / IJN: [id number] / MTDD
[2019-11-16 23:44] VITALS: BP 95/60
[2019-11-17 00:49] LABS: ABG Base Excess -10.8 mmol/L; ABG HCO3 17 mmol/L (21-25); ABG Oxygen Saturation 92.7 % (94-97); ABG PCO2 42 mmHg (35-45); ABG PH 7.21 (7.35-7.45); ABG PO2 87 mmHg (83-108); ABG TCO2 18 mmol/L (19-24); Allen Test Performed? Yes
[2019-11-17 01:17] LABS: Calcium 6.8 mg/dL (8.4-10.2); Potassium 3.8 mmol/L (3.5-5.1)
[2019-11-17 01:33] LABS: Anisocytosis Slight; HCT 23.1 % (34.0-46.0); HGB 7.1 gm/dL (11.4-16.0); Hypochromasia Marked; MCH 33.4 pg (25.0-35.0); MCHC 30.9 g/dL (31.0-37.0); MCV 108.2 fL (80.0-100.0); Macrocytosis Marked; Mean Platelet Volume 8.9; Platelet Count 180 k/uL (150-450); Poikilocytosis Slight; RBC 2.14 m/uL (3.80-5.40); RDW 19.6 % (11.5-15.5)
[2019-11-17 01:36] LABS: Prothrombin Time >130.0 sec (9.0-12.0)
[2019-11-17 01:37] LABS: INR >10.0 (<1.2)
[2019-11-17 02:33] VITALS: RESP 26; TEMP 96.8
[2019-11-17] MEDS ORDERED: SODIUM BICARB 8.4% 50 ML SYR (1 MEQ/ML) ONE (02:45)
[2019-11-17] MEDS ORDERED: EPINEPHrine 10 ML SYRINGE (0.1 MG/ML) ONE (02:45)
[2019-11-17 03:07] LABS: Neutrophils % (M) 7 %
[2019-11-17 03:08] LABS: Band Neutrophils % 14 %; Eosinophils # (M) 0.02 k/uL (0-0.7); Lymphocytes # (M) 1.69 k/uL (1.0-4.8); Metamyelocytes # (M) 0.04 k/uL (0); Metamyelocytes % 2 %; Myelocytes # (M) 0.02 k/uL (0); Myelocytes % 1 %; Nucleated Red Blood Cells 8 /100 WBC (0-0); Total Cells Counted 200; WBC 2.2 k/uL (3.8-10.6)
[2019-11-17 03:09] LABS: Large Platelets Present; Polychromasia Present
[2019-11-17 03:11] LABS: Target Cells Present
[2019-11-17 03:34] VITALS: PULSE 73
--- NOTE | 2019-11-17 03:44 | P.PN ---
Progress Note - Text Progress Note Date: 11/17/19 Code Blue Note CODE BLUE activated at 0245. Arrived on the scene at 0247. The patient was und ergoing CPR. Reviewed the chart and discussed the case with the RN. The patient had received IVP epinephrine and sodium bicarbonate 1 with subsequent ROSC at 0248. The RN contacted the family and discussed the patient's current condition. The designer/writer spoke to the patient's daughter Rachele via telephone. Discussed the patient's critical condition. The daughter expressed her wishes to make her mother DNR, though continuing with all other management at this time. The compliance representative and the primary team (Dr Ghosh) were notified. The patient continues to be maxed out on Levophed and Vasopessin. The patient was subsequently made DNR as per the daughters wishes.
--- NOTE | 2019-11-17 15:15 | P.DS ---
Providers Date of admission: 11/12/19 20:52 Attending physician: Fernando Ghosh Consults: 11/12/19 20:51 Consult Physician Urgent Consulting Provider: Rancho Zhang Consult Reason/Comments: ESRD on HD Do you want consulting provider notified?: Yes 11/14/19 13:42 Consult Physician Routine Consulting Provider: Ed Mott Consult Reason/Comments: Dyspnea Do you want consulting provider notified?: Yes 11/16/19 19:29 Consult Physician Routine Consulting Provider: Oliver Koch Consult Reason/Comments: persistent SVT Do you want consulting provider notified?: Yes Primary care physician: [facility] Course: patient was transferred to [facility] but even before the transfer even before she boarded the EMS vehicle patient respiratory status has worsened and patient has to be intubated after which patient and up having pneumothorax for which patient had a chest tube.patient was in septic shock and required pressor support.patient had a left-sided pneumothorax patient is on multiple pressors. Patient coded last night, CPR was initiated and subsequently daughter expressed her wishes to make her mother DO NOT RESUSCITATE, patient's ataxic subsequently please refer to the physicians documentation who ran the code for time of . Patient Condition at Discharge: Stable Plan - Discharge Summary New Discharge Prescriptions: No Action Omeprazole [PriLOSEC] 20 mg PO BID@699,1999 Linaclotide [Linzess] 145 mcg PO DAILY PRN PRN Reason: Constipation Fluticasone Nasal [place] [Flonase Nasal [place]] 1 spray EA NOSTRIL DAILY@0700 Albuterol Sulfate [Ventolin HFA] 2 puff INHALATION RT-BID Magnesium Oxide [Mag-Ox] 400 mg PO HS@2100 Furosemide [Lasix] 40 mg PO DAILY@0700 Sodium Chloride Tab 1 gm PO DAILY@0700 Levothyroxine Sodium [Synthroid] 50 mcg PO HS@2100 Vitamin B Complex 1 cap PO DAILY@0700 Calcitriol [Rocaltrol] 0.5 mcg PO DAILY@0700 Carvedilol [Coreg] 12.5 mg PO BID@0700,2099 Cetirizine HCl [Zyrtec] 10 mg PO DAILY PRN PRN Reason: Allergy Symptoms Folic Acid 1 mg PO DAILY@0700 Calcium Carbonate [Tums] 500 mg PO Q6H PRN PRN Reason: Heartburn Midodrine HCl [ProAmatine] 10 mg PO TID@0700,1200,1700 HYDROcodone/APAP 10-325MG [[place] 10-325] 1 tab PO TID@0700,1199,2099 Calcium Acetate [PhosLo] 667 mg PO TID@0700,1200,1700 Midodrine HCl [ProAmatine] 10 mg PO MOWEFR@1000 Atorvastatin Calcium [Lipitor] 20 mg PO HS@2099 Discharge Medication List Omeprazole [PriLOSEC] 20 mg PO BID@699,199903/13/15 [History] Linaclotide [Linzess] 145 mcg PO DAILY PRN 09/29/18 [History] Fluticasone Nasal [place] [Flonase Nasal [place]] 1 spray EA NOSTRIL DAILY@69901/22/19 [History] Albuterol Sulfate [Ventolin HFA] 2 puff INHALATION RT-BID 05/19/19 [History] Calcitriol [Rocaltrol] 0.5 mcg PO DAILY@69906/11/19 [History] Furosemide [Lasix] 40 mg PO DAILY@69906/11/19 [History] Levothyroxine Sodium [Synthroid] 50 mcg PO HS@209906/11/19 [History] Magnesium Oxide [Mag-Ox] 400 mg PO HS@209906/11/19 [History] Sodium Chloride Tab 1 gm PO DAILY@69906/11/19 [History] Vitamin B Complex 1 cap PO DAILY@69906/11/19 [History] Carvedilol [Coreg] 12.5 mg PO BID@699,209911/02/19 [History] Cetirizine HCl [Zyrtec] 10 mg PO DAILY PRN 11/02/19 [History] Folic Acid 1 mg PO DAILY@69911/02/19 [History] Atorvastatin Calcium [Lipitor] 20 mg PO HS@209911/12/19 [History] Calcium Acetate [PhosLo] 667 mg PO TID@0700,1200,1700 11/12/19 [History] Calcium Carbonate [Tums] 500 mg PO Q6H PRN 11/12/19 [History] HYDROcodone/APAP 10-325MG [[place] 10-325] 1 tab PO TID@0700,1200,209911/12/19 [History] Midodrine HCl [ProAmatine] 10 mg PO MOWEFR@1000 11/12/19 [History] Midodrine HCl [ProAmatine] 10 mg PO TID@0700,1200,1700 11/12/19 [History] Follow up Appointment(s)/Referral(s): Lito Evans MD [Primary Care Provider] - 1-2 days Discharge Disposition: - Preliminary Cause of Preliminary Cause of : pneumothorax, end-stage renal disease
--- NOTE | 2019-11-19 14:16 | CDI ---
Documentation Clarification Form Date: 11/19/19 From: Elizabeth Couch Phone: If you have a question about this query, please contact Moira Arnold, Construction Lineman at [phone] between 8am and 5pm. Admit Date: 11/12/19 Discharge Date:11/17/19 Patient Name: Latesha Colin Visit Number: [id number] ATTENTION: The Clinical Documentation Specialists (CDI) and [facility] Coding Staff appreciate your assistance in clarifying documentation. Please respond to the clarification below the line at the bottom and electronically sign. The CDI & [facility] Coding staff will review the response and follow-up if needed. Please note: Queries are made part of the Legal Health Record. If you have any questions, please contact the author of this message via ITS. Dear Dr. Bagley Conflicting documentation has been found in the medical record: In your 11/15 discharge summary in the plan, you documented hypotension no clear etiology no evidence of sepsis. In your 11/16 discharge summary, you documented patient was in septic shock and required pressor support. "There is no evidence of infection", is documented in the discharge summary and your 11/15 progress note. History/Risk Factors: Hypotension, acute respiratory failure, volume overload, hyponatremia, metabolic encephalopathy Clinical Indicators: Hypotension, elevated lactic acid WBC: 7.6 Lactic acid: 5.5 Blood cultures: No growth Vital signs: T. 97.7, P. 66 on admit and 106 - 213 on 11/15, R. 18 on admit, 26 - 36 on 11/15 and 11/16, BP 74/50 on admit, BP on 11/15 systolic 46 - 109 and diastolic 24 - 71 Treatment: Antibiotics: IV Vancomycin IV Bolus: 1 L NS Bolus on 11/11 and 2 L NS Bolus on 11/15 In your opinion, what is the most clinically appropriate diagnosis for this patient? Sepsis Ruled Out SIRS Sepsis Severe Sepsis Septic Shock Other explanation of clinical findings Unable to determine (no explanation for clinical findings) Present on Admission Yes No Link or clarify if there is associated (due to/with) Organ failure Shock No sepsis MTDD
--- NOTE | 2019-11-30 06:27 | CDI ---
Documentation Clarification Form Date: 11/30/19 From: Elizabeth Couch Phone: If you have a question about this query, please contact Moira Arnold, Senior Ios Developer at [phone] between 8am and 5pm. Admit Date: 11/12/19 Discharge Date:11/17/19 Patient Name: Latesha Colin Visit Number: [id number] ATTENTION: The Clinical Documentation Specialists (CDI) and [facility] Coding Staff appreciate your assistance in clarifying documentation. Please respond to the clarification below the line at the bottom and electronically sign. The CDI & [facility] Coding staff will review the response and follow-up if needed. Please note: Queries are made part of the Legal Health Record. If you have any questions, please contact the author of this message via ITS. Dear Dr. Bagley Conflicting documentation has been found in the medical record: Severe hypotension multifactorial is documented in the H&P impression. The cause of low blood pressure is unclear is documented in the nephrology consult note. Documentation in the discharge summary states: hypotension no clear etiology no evidence of sepsis normal TSH. Because of sever hypotension although patent is presently not on any pressors may require SLED or CRRT History/Risk Factors: ESRD, patient on hemodialysis, DM, Hypertension, Clinical Indicators: low blood pressure Patient's BP: 74/50 on admit; on 11/13 - systolic 97 - 107, diastolic 54 - 55; on 11/14 - systolic 88 - 118, diasotlic 45 - 85; on 11/15 - systolic 46 - 109, diastolic 24 - 71; Treatment: IV Levophed on 11/15, Midodrine 10 mg PO, hemodialysis, plan for transfer for SLED or CRRT In your opinion, what is the most clinically appropriate diagnosis for this patient? Iatrogenic Hypotension Idiopathic Hypotension Drug Induced Hypotension Hypotension due to hemodialysis Other explanation of clinical findings Unable to determine (no explanation for clinical findings) Hypotension unclear etiology was already dictated MTDD
== END 2019-11-17 05:50 | disposition expired | DRG 314 ==
LOC: EC 18:33 → 5NMEDONC 20:52 → 3SCARD 11-14 20:52 → 2SICU 11-16 07:02
PROVIDERS: ADMIT Hospitalist; ATTEND Hospitalist
PROC: 5A1D70Z Performance of Urinary Filtration, Intermittent, Less than 6 Hours Per Day (ICD-10-PCS; 2019-11-13)
PROC: 0BH17EZ Insertion of Endotracheal Airway into Trachea, Via Natural or Artificial Opening (ICD-10-PCS; 2019-11-16)
PROC: 5A1935Z Respiratory Ventilation, Less than 24 Consecutive Hours (ICD-10-PCS; 2019-11-16)
PROC: 4A133B1 Monitoring of Arterial Pressure, Peripheral, Percutaneous Approach (ICD-10-PCS; 2019-11-16)
PROC: 4A133J1 Monitoring of Arterial Pulse, Peripheral, Percutaneous Approach (ICD-10-PCS; 2019-11-16)
PROC: 02HV33Z Insertion of Infusion Device into Superior Vena Cava, Percutaneous Approach (ICD-10-PCS; 2019-11-16)
PROC: 0W9B30Z Drainage of Left Pleural Cavity with Drainage Device, Percutaneous Approach (ICD-10-PCS; 2019-11-16)
PROC: 04HY32Z Insertion of Monitoring Device into Lower Artery, Percutaneous Approach (ICD-10-PCS; 2019-11-16)
PROC: 5A09357 Assistance with Respiratory Ventilation, Less than 24 Consecutive Hours, Continuous Positive Airway Pressure (ICD-10-PCS; 2019-11-16)
PROC: 3E033XZ Introduction of Vasopressor into Peripheral Vein, Percutaneous Approach (ICD-10-PCS; principal; 2019-11-16 14:40)
PROC: 5A12012 Performance of Cardiac Output, Single, Manual (ICD-10-PCS; 2019-11-17)
PROC: 5A2204Z Restoration of Cardiac Rhythm, Single (ICD-10-PCS; 2019-11-17)
DX: I95.9 Hypotension, unspecified (principal); J96.01 Acute respiratory failure with hypoxia; E43 Unspecified severe protein-calorie malnutrition; G93.41 Metabolic encephalopathy; I50.33 Acute on chronic diastolic (congestive) heart failure; N18.6 End stage renal disease; N17.9 Acute kidney failure, unspecified; E87.1 Hypo-osmolality and hyponatremia; I13.2 Hypertensive heart and chronic kidney disease with heart failure and with stage 5 chronic kidney disease, or end stage renal disease; K56.7 Ileus, unspecified; R18.8 Other ascites; J98.11 Atelectasis; J93.9 Pneumothorax, unspecified; J91.8 Pleural effusion in other conditions classified elsewhere; I27.20 Pulmonary hypertension, unspecified; D63.1 Anemia in chronic kidney disease; J44.9 Chronic obstructive pulmonary disease, unspecified; E11.22 Type 2 diabetes mellitus with diabetic chronic kidney disease; Z11.59 Encounter for screening for other viral diseases; Z66 Do not resuscitate; K59.00 Constipation, unspecified; R40.2362 Coma scale, best motor response, obeys commands, at arrival to emergency department; R40.2142 Coma scale, eyes open, spontaneous, at arrival to emergency department; R40.2252 Coma scale, best verbal response, oriented, at arrival to emergency department; E03.9 Hypothyroidism, unspecified; E78.5 Hyperlipidemia, unspecified; E87.6 Hypokalemia; H91.90 Unspecified hearing loss, unspecified ear; I25.10 Atherosclerotic heart disease of native coronary artery without angina pectoris; K21.9 Gastro-esophageal reflux disease without esophagitis; M79.7 Fibromyalgia; M89.9 Disorder of bone, unspecified; N27.1 Small kidney, bilateral; G89.29 Other chronic pain; M54.9 Dorsalgia, unspecified; R74.8 Abnormal levels of other serum enzymes; K29.60 Other gastritis without bleeding; Z79.890 Hormone replacement therapy; Z79.899 Other long term (current) drug therapy; Z88.5 Allergy status to narcotic agent; Z99.2 Dependence on renal dialysis; Z95.1 Presence of aortocoronary bypass graft; Z90.49 Acquired absence of other specified parts of digestive tract; Z90.11 Acquired absence of right breast and nipple; Z87.891 Personal history of nicotine dependence; Z85.3 Personal history of malignant neoplasm of breast; Z80.3 Family history of malignant neoplasm of breast; Z80.0 Family history of malignant neoplasm of digestive organs
CPT/HCPCS: 36410; 36415; 36600; 70450; 71045; 71046; 74176; 76937; 80048; 80053; 80074; 80202; 82533; 82550; 82553; 82805; 83605; 83735; 83880; 84100; 85025; 85610; 85730; 87040; 87077; 87086; 87186; 90935; 94002; 94003; 94640; 94660; 94760; 99285